=== PATIENT | male | born 1960 | race Caucasian/White ===

== ENCOUNTER 2021-10-03 08:15 | Inpatient (IN) | payer MEDICARE ==
[2021-10-03 08:38] LABS: #Eosinphils 0.2 thou/uL (0.0-0.7); #Monocytes 1.1 thou/uL (0.11-0.59); #Neutrophils 12.1 thou/uL (1.40-6.50); %Basophils 0.1 % (0.0-1.0); %Eosinophils 1.2 % (0.0-10.0); %Lymphocytes 7.2 % (21.0-51.0); %Monocytes 7.6 % (0.0-10.0); %Neutrophils 83.9 % (42.0-75.0); Hemoglobin 14.3 g/dL (14.0-18.0); Mean Corpuscular HGB CONC 32.1 g/dL (32.0-36.0); Mean Corpuscular Volume 84.3 fL (78.0-98.0); Mean Platelet Volume 6.5 fL (7.4-10.4); Platelet Count 403 thou/uL (130-400); RBC Distribution Width 13.6 % (11.5-14.5); White Blood Cell (WBC) Count 14.4 thou/uL (4.8-10.8)
[2021-10-03 09:32] LABS: ALT (SGPT) 28 U/L (8-55); AST (SGOT) 14 U/L (5-34); Alkaline Phosphatase 120 U/L (40-110); Anion Gap 21 mmol/L (10-20); BUN (Urea Nitrogen) 122 mg/dL (8.4-25.7); Bilirubin, Total 0.4 mg/dL (0.2-1.2); Calc. Creatinine Clearance 0 mL/min (70-130); Calcium 9.2 mg/dL (7.8-10.44); Carbon Dioxide 15 mmol/L (22-29); Chloride 103 mmol/L (98-107); Globulin 4.4 g/dL (2.4-3.5); Glucose 441 mg/dL (70-105); Potassium 5.8 mmol/L (3.5-5.1); Protein, Total 8.4 g/dL (6.0-8.3); Sodium 133 mmol/L (136-145)
[2021-10-03 10:42] LABS: Bilirubin Negative (Negative); Blood, Urine Large (Negative); Glucose, Urine (Dipstick) >=1000 mg/dL (Negative); Ketone, Urine Negative (Negative); Leukocyte Moderate (Negative); Nitrite Negative (Negative); Protein, Urine (Dipstick) 100 mg/dL (Neg-Trace); Urobilinogen 0.2 mg/dL (Less than 2); pH, Urine 5.5 (5.0-9.0)
[2021-10-03 10:43] LABS: Clarity Cloudy (Clear)
[2021-10-03 10:46] LABS: Base Excess -10.8 mEq/L (-2.0 to +3.0); Chloride (VBG) 104 mmol/L (98-106); Hemoglobin (Hb) 14.7 g/dL (13.1-17.2); Sodium 129.9 mmol/L (133-146); pH (venous) 7.32 (7.32-7.43)
[2021-10-03 10:48] LABS: Actual Bicarbonate (HCO3v) 14 mEq/L (22-28)
[2021-10-03] MEDS ORDERED: Insulin Regular 300 UNITS/3 ML VIAL ONE (10:48)
[2021-10-03 10:49] LABS: Bacteria/HPF 2+ HPF (None Seen); Squamous Epithelial None Seen HPF (0-3); WBC/HPF 21-50 HPF (0-3); Yeast-Budding Rare HPF (None Seen)
[2021-10-03] MEDS ORDERED: Acetaminophen 650 MG Suppository PR PRN (10:54)
[2021-10-03] MEDS ORDERED: Ondansetron ODT 4 MG TAB PO PRN (10:54)
[2021-10-03] MEDS ORDERED: Ondansetron PF 4 MG/2 ML Vial IVP PRN (10:54)
[2021-10-03] MEDS ORDERED: Dextrose 50% Abboject 50 ML SYRINGE SLOW IVP PRN (10:57)
[2021-10-03] MEDS ORDERED: Dextrose 5% in Water 1,000 ML IV PRN (10:57)
[2021-10-03] MEDS ORDERED: Sodium Bicarbonate 150 MEQ in Dextrose 5% in Water 1,000 ML IV SCH ×2 (11:00→15:47)
[2021-10-03] MEDS ORDERED: cefTRIAXone\\ROCEPHIN 2 GM VIAL ONE (11:27)
[2021-10-03] MEDS: cefTRIAXone\\ROCEPHIN 1 GM in Sodium Chloride 0.9% 100 ML IVPB SCH (11:37)
[2021-10-03 13:53] LABS: Anion Gap 22 mmol/L (10-20); BUN (Urea Nitrogen) 124 mg/dL (8.4-25.7); Calc. Creatinine Clearance 0 mL/min (70-130); Calcium 9.1 mg/dL (7.8-10.44); Chloride 108 mmol/L (98-107); Glucose 380 mg/dL (70-105); Potassium 5.5 mmol/L (3.5-5.1); Sodium 132 mmol/L (136-145)
[2021-10-03 14:05] LABS: Carbon Dioxide 8 mmol/L (22-29)
[2021-10-03 15:05] LABS: Anion Gap 17 mmol/L (10-20); BUN (Urea Nitrogen) 120 mg/dL (8.4-25.7); Calc. Creatinine Clearance 0 mL/min (70-130); Calcium 9.1 mg/dL (7.8-10.44); Carbon Dioxide 16 mmol/L (22-29); Chloride 105 mmol/L (98-107); Glucose 392 mg/dL (70-105); Potassium 5.1 mmol/L (3.5-5.1); Sodium 133 mmol/L (136-145)
[2021-10-03] MEDS: Sodium Bicarbonate 50 MEQ in Sodium Chloride 0.45% 1,000 ML IV SCH (17:42)
[2021-10-03 17:54] LABS: Anion Gap 19 mmol/L (10-20); BUN (Urea Nitrogen) 120 mg/dL (8.4-25.7); Calc. Creatinine Clearance 34 mL/min (70-130); Calcium 9.1 mg/dL (7.8-10.44); Carbon Dioxide 11 mmol/L (22-29); Chloride 107 mmol/L (98-107); Glucose 346 mg/dL (70-105); Potassium 5.4 mmol/L (3.5-5.1); Sodium 132 mmol/L (136-145)
[2021-10-03] MEDS: HumaLOG 300 UNITS/3 ML VIAL SC PRN (18:17)
[2021-10-03] MEDS ORDERED: levETIRAcetam 500 MG TAB PO SCH (21:00)
[2021-10-03 21:54] LABS: Anion Gap 18 mmol/L (10-20); BUN (Urea Nitrogen) 110 mg/dL (8.4-25.7); Calc. Creatinine Clearance 38 mL/min (70-130); Calcium 9.3 mg/dL (7.8-10.44); Carbon Dioxide 15 mmol/L (22-29); Chloride 106 mmol/L (98-107); Glucose 280 mg/dL (70-105); Potassium 4.8 mmol/L (3.5-5.1); Sodium 134 mmol/L (136-145)
[2021-10-03] MEDS: levETIRAcetam 500 MG TAB PO SCH (22:00)
[2021-10-03] MEDS: Heparin 5,000 UNITS/ML VIAL SC SCH ×2 (22:00)
[2021-10-04 01:51] LABS: Anion Gap 18 mmol/L (10-20); BUN (Urea Nitrogen) 100 mg/dL (8.4-25.7); Calc. Creatinine Clearance 42 mL/min (70-130); Calcium 9.1 mg/dL (7.8-10.44); Carbon Dioxide 15 mmol/L (22-29); Chloride 107 mmol/L (98-107); Glucose 262 mg/dL (70-105); Potassium 4.6 mmol/L (3.5-5.1); Sodium 135 mmol/L (136-145)
[2021-10-04] MEDS: HumaLOG 300 UNITS/3 ML VIAL SC PRN ×4 (02:12→20:40)
[2021-10-04] MEDS: Acetaminophen 325 MG TAB PO PRN ×2 (02:56→20:40)
[2021-10-04] MEDS ORDERED: Senokot S 8.6-50 MG TAB PO SCH (03:30)
[2021-10-04] MEDS ORDERED: Bisacodyl 10 MG SUPP PR SCH (03:30)
[2021-10-04 04:10] LABS: #Eosinphils 0.1 thou/uL (0.0-0.7); #Lymphocytes 0.9 thou/uL (1.20-3.40); #Monocytes 0.9 thou/uL (0.11-0.59); #Neutrophils 9.5 thou/uL (1.40-6.50); %Basophils 0.2 % (0.0-1.0); %Eosinophils 1.2 % (0.0-10.0); %Lymphocytes 7.9 % (21.0-51.0); %Monocytes 8.1 % (0.0-10.0); %Neutrophils 82.7 % (42.0-75.0); Hemoglobin 14.3 g/dL (14.0-18.0); Mean Corpuscular HGB CONC 33.9 g/dL (32.0-36.0); Mean Corpuscular Hemoglobin 28.3 pg (27.0-31.0); Mean Corpuscular Volume 83.3 fL (78.0-98.0); Mean Platelet Volume 6.3 fL (7.4-10.4); Platelet Count 362 thou/uL (130-400); RBC Distribution Width 13.5 % (11.5-14.5); Red Blood Cell (RBC) Count 5.05 mill/uL (4.70-6.10); White Blood Cell (WBC) Count 11.5 thou/uL (4.8-10.8)
[2021-10-04 04:35] LABS: ALT (SGPT) 24 U/L (8-55); AST (SGOT) 11 U/L (5-34); Albumin 3.7 g/dL (3.5-5.0); Alkaline Phosphatase 91 U/L (40-110); Anion Gap 19 mmol/L (10-20); BUN (Urea Nitrogen) 99 mg/dL (8.4-25.7); Bilirubin, Total 0.4 mg/dL (0.2-1.2); Calc. Creatinine Clearance 43 mL/min (70-130); Calcium 8.9 mg/dL (7.8-10.44); Carbon Dioxide 15 mmol/L (22-29); Chloride 106 mmol/L (98-107); Globulin 4.3 g/dL (2.4-3.5); Glucose 251 mg/dL (70-105); Potassium 4.7 mmol/L (3.5-5.1); Sodium 135 mmol/L (136-145)
[2021-10-04] MEDS: Sodium Bicarbonate 50 MEQ in Sodium Chloride 0.45% 1,000 ML IV SCH ×2 (05:59→15:57)
[2021-10-04] MEDS: Heparin 5,000 UNITS/ML VIAL SC SCH ×3 (07:45→20:39)
[2021-10-04] MEDS: Senokot S 8.6-50 MG TAB PO SCH ×2 (09:11→20:40)
[2021-10-04] MEDS: Tamsulosin HCl 0.4 MG CAP PO SCH (09:11)
[2021-10-04] MEDS: levETIRAcetam 500 MG TAB PO SCH ×2 (09:11→20:39)
[2021-10-04] MEDS: Atorvastatin Calcium 40 MG TAB PO SCH (09:11)
[2021-10-04] MEDS: cefTRIAXone\\ROCEPHIN 1 GM in Sodium Chloride 0.9% 100 ML IVPB SCH (11:58)
[2021-10-05] MEDS: Sodium Bicarbonate 50 MEQ in Sodium Chloride 0.45% 1,000 ML IV SCH ×3 (01:01→23:34)
[2021-10-05] MEDS: HYDROcodone/Acetaminophen 7.5/325 mg Tablet PO PRN ×2 (03:40→19:32)
[2021-10-05 04:33] LABS: Anion Gap 18 mmol/L (10-20); BUN (Urea Nitrogen) 81 mg/dL (8.4-25.7); Calc. Creatinine Clearance 48 mL/min (70-130); Calcium 8.9 mg/dL (7.8-10.44); Carbon Dioxide 19 mmol/L (22-29); Chloride 102 mmol/L (98-107); Glucose 227 mg/dL (70-105); Potassium 4.5 mmol/L (3.5-5.1); Sodium 134 mmol/L (136-145)
[2021-10-05] MEDS: HumaLOG 300 UNITS/3 ML VIAL SC PRN ×2 (06:26→21:56)
[2021-10-05] MEDS: Acetaminophen 325 MG TAB PO PRN ×3 (08:06→23:34)
[2021-10-05] MEDS: Atorvastatin Calcium 40 MG TAB PO SCH (08:07)
[2021-10-05] MEDS: Heparin 5,000 UNITS/ML VIAL SC SCH ×2 (08:08→21:56)
[2021-10-05] MEDS: levETIRAcetam 500 MG TAB PO SCH ×2 (08:08→21:56)
[2021-10-05] MEDS: Tamsulosin HCl 0.4 MG CAP PO SCH (08:09)
[2021-10-05] MEDS: Senokot S 8.6-50 MG TAB PO SCH ×2 (08:09→21:56)
[2021-10-05] MEDS ORDERED: Polyethylene Glycol 3350 17 GM Packet PO SCH (09:00)
[2021-10-05] MEDS: Docusate 100 MG CAP PO SCH ×2 (09:42→21:55)
[2021-10-05] MEDS: cefTRIAXone\\ROCEPHIN 1 GM in Sodium Chloride 0.9% 100 ML IVPB SCH (12:49)
[2021-10-06] MEDS: HYDROcodone/Acetaminophen 5/325 mg Tablet PO PRN (05:39)
[2021-10-06] MEDS: HumaLOG 300 UNITS/3 ML VIAL SC PRN ×2 (05:40→11:34)
[2021-10-06 08:51] LABS: Anion Gap 16 mmol/L (10-20); BUN (Urea Nitrogen) 64 mg/dL (8.4-25.7); Calc. Creatinine Clearance 47 mL/min (70-130); Calcium 8.1 mg/dL (7.8-10.44); Carbon Dioxide 21 mmol/L (22-29); Chloride 100 mmol/L (98-107); Glucose 171 mg/dL (70-105); Potassium 4.4 mmol/L (3.5-5.1); Sodium 133 mmol/L (136-145)
[2021-10-06] MEDS: Sodium Bicarbonate 50 MEQ in Sodium Chloride 0.45% 1,000 ML IV SCH (09:42)
[2021-10-06] MEDS: Senokot S 8.6-50 MG TAB PO SCH ×2 (09:43→21:18)
[2021-10-06] MEDS: Atorvastatin Calcium 40 MG TAB PO SCH (09:43)
[2021-10-06] MEDS: levETIRAcetam 500 MG TAB PO SCH ×2 (09:44→21:18)
[2021-10-06] MEDS: Fluconazole 100 MG TAB PO SCH (09:44)
[2021-10-06] MEDS: Tamsulosin HCl 0.4 MG CAP PO SCH (09:44)
[2021-10-06] MEDS: Heparin 5,000 UNITS/ML VIAL SC SCH ×2 (09:47→21:18)
[2021-10-06] MEDS: cefTRIAXone\\ROCEPHIN 1 GM in Sodium Chloride 0.9% 100 ML IVPB SCH (11:15)
[2021-10-06] MEDS ORDERED: Bisacodyl 10 MG SUPP PR SCH (11:30)
[2021-10-06] MEDS ORDERED: Bisacodyl 10 MG SUPP PR PRN (11:30)
[2021-10-06] MEDS: Lactated Ringer's 1,000 ML IV SCH (12:10)
[2021-10-06] MEDS: chlorproMAZINE HCl 25 MG TAB PO SCH ×3 (13:04→22:59)
[2021-10-06] MEDS: Acetaminophen 325 MG TAB PO PRN (21:18)
[2021-10-06] MEDS ORDERED: Acetaminophen 500 MG TAB PO SCH (22:30)
[2021-10-06] MEDS ORDERED: Sodium Chloride 0.9% 500 ML IV SCH (22:30)
[2021-10-07] MEDS: Lactated Ringer's 1,000 ML IV SCH ×2 (03:35→18:17)
[2021-10-07 04:33] LABS: Hemoglobin 10.9 g/dL (14.0-18.0); Mean Corpuscular HGB CONC 33.2 g/dL (32.0-36.0); Mean Corpuscular Hemoglobin 28.3 pg (27.0-31.0); Mean Corpuscular Volume 85.3 fL (78.0-98.0); Mean Platelet Volume 6.2 fL (7.4-10.4); Platelet Count 239 thou/uL (130-400); RBC Distribution Width 13.2 % (11.5-14.5); Red Blood Cell (RBC) Count 3.86 mill/uL (4.70-6.10); White Blood Cell (WBC) Count 9.4 thou/uL (4.8-10.8)
[2021-10-07 05:15] LABS: Anion Gap 14 mmol/L (10-20); BUN (Urea Nitrogen) 56 mg/dL (8.4-25.7); Calc. Creatinine Clearance 52 mL/min (70-130); Calcium 8.5 mg/dL (7.8-10.44); Carbon Dioxide 23 mmol/L (22-29); Chloride 102 mmol/L (98-107); Glucose 110 mg/dL (70-105); Sodium 135 mmol/L (136-145)
[2021-10-07] MEDS: chlorproMAZINE HCl 25 MG TAB PO SCH ×3 (05:24→18:16)
[2021-10-07] MEDS: levETIRAcetam 500 MG TAB PO SCH ×2 (09:43→21:45)
[2021-10-07] MEDS: Tamsulosin HCl 0.4 MG CAP PO SCH (09:43)
[2021-10-07] MEDS: Atorvastatin Calcium 40 MG TAB PO SCH (09:43)
[2021-10-07] MEDS: Fluconazole 100 MG TAB PO SCH (09:43)
[2021-10-07] MEDS: Senokot S 8.6-50 MG TAB PO SCH ×2 (09:44→21:45)
[2021-10-07] MEDS: Heparin 5,000 UNITS/ML VIAL SC SCH ×2 (09:53→21:45)
[2021-10-07] MEDS: Acetaminophen 325 MG TAB PO PRN (11:50)
[2021-10-07] MEDS: cefTRIAXone\\ROCEPHIN 1 GM in Sodium Chloride 0.9% 100 ML IVPB SCH (11:50)
[2021-10-07] MEDS: Cefepime 2 GM in Sodium Chloride 0.9% 100 ML IVPB SCH (21:44)
[2021-10-07] MEDS: HYDROcodone/Acetaminophen 7.5/325 mg Tablet PO PRN (21:46)
[2021-10-08] MEDS ORDERED: Lorazepam 1 MG TAB PO SCH (01:00)
[2021-10-08] MEDS: Acetaminophen 325 MG TAB PO PRN ×2 (01:20→23:25)
[2021-10-08 04:32] LABS: Hemoglobin 10.8 g/dL (14.0-18.0); Mean Corpuscular HGB CONC 32.5 g/dL (32.0-36.0); Mean Corpuscular Hemoglobin 27.8 pg (27.0-31.0); Mean Corpuscular Volume 85.3 fL (78.0-98.0); Mean Platelet Volume 6.4 fL (7.4-10.4); Platelet Count 240 thou/uL (130-400); RBC Distribution Width 12.9 % (11.5-14.5); Red Blood Cell (RBC) Count 3.89 mill/uL (4.70-6.10); White Blood Cell (WBC) Count 10.9 thou/uL (4.8-10.8)
[2021-10-08] MEDS: Lactated Ringer's 1,000 ML IV SCH (04:52)
[2021-10-08 04:53] LABS: Anion Gap 12 mmol/L (10-20); BUN (Urea Nitrogen) 43 mg/dL (8.4-25.7); Calc. Creatinine Clearance 65 mL/min (70-130); Calcium 8.4 mg/dL (7.8-10.44); Carbon Dioxide 24 mmol/L (22-29); Chloride 103 mmol/L (98-107); Glucose 139 mg/dL (70-105); Potassium 4.2 mmol/L (3.5-5.1); Sodium 135 mmol/L (136-145)
[2021-10-08] MEDS: Tamsulosin HCl 0.4 MG CAP PO SCH (10:57)
[2021-10-08] MEDS: HYDROcodone/Acetaminophen 5/325 mg Tablet PO PRN ×2 (10:57→14:54)
[2021-10-08] MEDS: Cefepime 2 GM in Sodium Chloride 0.9% 100 ML IVPB SCH ×2 (10:57→19:47)
[2021-10-08] MEDS: Senokot S 8.6-50 MG TAB PO SCH ×2 (10:57→19:48)
[2021-10-08] MEDS: Atorvastatin Calcium 40 MG TAB PO SCH (10:57)
[2021-10-08] MEDS: Heparin 5,000 UNITS/ML VIAL SC SCH ×2 (10:58→19:48)
[2021-10-08] MEDS: Fluconazole 100 MG TAB PO SCH (10:58)
[2021-10-08] MEDS: levETIRAcetam 500 MG TAB PO SCH ×2 (10:58→19:48)
[2021-10-08] MEDS: chlorproMAZINE HCl 25 MG TAB PO SCH ×2 (14:49→19:47)
[2021-10-08] MEDS: HYDROcodone/Acetaminophen 7.5/325 mg Tablet PO PRN (19:48)
[2021-10-09 04:44] LABS: Anion Gap 14 mmol/L (10-20); BUN (Urea Nitrogen) 32 mg/dL (8.4-25.7); Calc. Creatinine Clearance 69 mL/min (70-130); Calcium 8.3 mg/dL (7.8-10.44); Carbon Dioxide 21 mmol/L (22-29); Chloride 102 mmol/L (98-107); Glucose 179 mg/dL (70-105); Potassium 4.4 mmol/L (3.5-5.1); Sodium 133 mmol/L (136-145)
[2021-10-09] MEDS ORDERED: Docusate 100 MG CAP PO SCH (09:00)
[2021-10-09] MEDS: Atorvastatin Calcium 40 MG TAB PO SCH (09:58)
[2021-10-09] MEDS: Tamsulosin HCl 0.4 MG CAP PO SCH (09:58)
[2021-10-09] MEDS: Senokot S 8.6-50 MG TAB PO SCH ×2 (09:58→20:46)
[2021-10-09] MEDS: Heparin 5,000 UNITS/ML VIAL SC SCH ×2 (09:58→20:46)
[2021-10-09] MEDS: Cefepime 2 GM in Sodium Chloride 0.9% 100 ML IVPB SCH ×2 (09:58→20:47)
[2021-10-09] MEDS: Aspirin 81 mg Enteric Coated Tablet PO SCH (09:58)
[2021-10-09] MEDS: chlorproMAZINE HCl 25 MG TAB PO SCH ×2 (09:58→14:52)
[2021-10-09] MEDS: levETIRAcetam 500 MG TAB PO SCH ×2 (09:58→20:46)
[2021-10-09] MEDS ORDERED: Gabapentin 300 MG CAP PO SCH (12:00)
[2021-10-09] MEDS ORDERED: Bisacodyl 10 MG SUPP PR SCH (12:00)
[2021-10-09] MEDS ORDERED: Baclofen 10 MG TAB PO SCH (12:00)
[2021-10-09] MEDS: Acetaminophen 325 MG TAB PO PRN (14:52)
[2021-10-09] MEDS ORDERED: Lidocaine 2% Viscous Solution 10 ML, Aluminum & Magnesium Hydroxide 30 ML SSW SCH (17:15)
[2021-10-09] MEDS: HYDROcodone/Acetaminophen 7.5/325 mg Tablet PO PRN (20:46)
[2021-10-09] MEDS: Docusate 100 MG CAP PO SCH (20:46)
[2021-10-09] MEDS: Metoprolol Tartrate 25 MG TAB PO SCH (20:47)
[2021-10-10] MEDS: HYDROcodone/Acetaminophen 5/325 mg Tablet PO PRN ×2 (02:34→23:38)
[2021-10-10 05:04] LABS: Hemoglobin 11.4 g/dL (14.0-18.0); Mean Corpuscular HGB CONC 32.6 g/dL (32.0-36.0); Mean Corpuscular Hemoglobin 27.9 pg (27.0-31.0); Mean Corpuscular Volume 85.7 fL (78.0-98.0); Platelet Count 231 thou/uL (130-400); RBC Distribution Width 12.8 % (11.5-14.5); Red Blood Cell (RBC) Count 4.09 mill/uL (4.70-6.10); White Blood Cell (WBC) Count 18.1 thou/uL (4.8-10.8)
[2021-10-10 05:12] LABS: Anion Gap 19 mmol/L (10-20); BUN (Urea Nitrogen) 37 mg/dL (8.4-25.7); Calc. Creatinine Clearance 42 mL/min (70-130); Calcium 7.9 mg/dL (7.8-10.44); Carbon Dioxide 20 mmol/L (22-29); Chloride 98 mmol/L (98-107); Glucose 261 mg/dL (70-105); Potassium 5.1 mmol/L (3.5-5.1); Sodium 132 mmol/L (136-145)
[2021-10-10] MEDS: HumaLOG 300 UNITS/3 ML VIAL SC PRN (05:29)
[2021-10-10] MEDS: Atorvastatin Calcium 40 MG TAB PO SCH (10:21)
[2021-10-10] MEDS: Aspirin 81 mg Enteric Coated Tablet PO SCH (10:21)
[2021-10-10] MEDS: Metoprolol Tartrate 25 MG TAB PO SCH ×2 (10:22→20:50)
[2021-10-10] MEDS: Sodium Chloride 0.9% 1,000 ML IV SCH ×2 (10:22→20:48)
[2021-10-10] MEDS: Polyethylene Glycol 3350 17 GM Packet PO SCH (10:22)
[2021-10-10] MEDS: Senokot S 8.6-50 MG TAB PO SCH ×2 (10:22→21:00)
[2021-10-10] MEDS: levETIRAcetam 500 MG TAB PO SCH ×2 (10:22→20:50)
[2021-10-10] MEDS: Docusate 100 MG CAP PO SCH ×2 (10:22→21:00)
[2021-10-10] MEDS: Heparin 5,000 UNITS/ML VIAL SC SCH ×2 (10:22→20:49)
[2021-10-10] MEDS: Tamsulosin HCl 0.4 MG CAP PO SCH (10:35)
[2021-10-10 10:42] LABS: #Basophils 0.1 thou/uL (0.0-0.2); #Lymphocytes 0.8 thou/uL (1.20-3.40); #Monocytes 1.2 thou/uL (0.11-0.59); %Basophils 0.4 % (0.0-1.0); %Eosinophils 0.2 % (0.0-10.0); %Monocytes 8.2 % (0.0-10.0); %Neutrophils 86.1 % (42.0-75.0); Hemoglobin 11.8 g/dL (14.0-18.0); Mean Corpuscular HGB CONC 31.5 g/dL (32.0-36.0); Mean Corpuscular Hemoglobin 27.3 pg (27.0-31.0); Mean Corpuscular Volume 86.4 fL (78.0-98.0); Platelet Count 250 thou/uL (130-400); RBC Distribution Width 12.7 % (11.5-14.5); Red Blood Cell (RBC) Count 4.32 mill/uL (4.70-6.10); White Blood Cell (WBC) Count 15.1 thou/uL (4.8-10.8)
[2021-10-10] MEDS ORDERED: Metoclopramide HCl 10 MG/2 ML VIAL IVP SCH (14:15)
[2021-10-10] MEDS: Metoclopramide HCl 10 MG/2 ML VIAL IVP SCH (20:51)
[2021-10-11 04:02] LABS: #Eosinphils 0.1 thou/uL (0.0-0.7); #Lymphocytes 0.9 thou/uL (1.20-3.40); #Monocytes 1.1 thou/uL (0.11-0.59); #Neutrophils 8.1 thou/uL (1.40-6.50); %Basophils 0.1 % (0.0-1.0); %Eosinophils 1.4 % (0.0-10.0); %Lymphocytes 8.3 % (21.0-51.0); %Neutrophils 79.1 % (42.0-75.0); Hemoglobin 9.9 g/dL (14.0-18.0); Mean Corpuscular HGB CONC 32.3 g/dL (32.0-36.0); Mean Corpuscular Volume 86.5 fL (78.0-98.0); Mean Platelet Volume 7.1 fL (7.4-10.4); Platelet Count 222 thou/uL (130-400); RBC Distribution Width 12.8 % (11.5-14.5); Red Blood Cell (RBC) Count 3.54 mill/uL (4.70-6.10); White Blood Cell (WBC) Count 10.3 thou/uL (4.8-10.8)
[2021-10-11 04:05] LABS: Anion Gap 16 mmol/L (10-20); BUN (Urea Nitrogen) 40 mg/dL (8.4-25.7); Calc. Creatinine Clearance 49 mL/min (70-130); Calcium 7.6 mg/dL (7.8-10.44); Carbon Dioxide 21 mmol/L (22-29); Chloride 99 mmol/L (98-107); Glucose 184 mg/dL (70-105); Potassium 4.8 mmol/L (3.5-5.1); Sodium 131 mmol/L (136-145)
[2021-10-11] MEDS: HYDROcodone/Acetaminophen 5/325 mg Tablet PO PRN (04:20)
[2021-10-11] MEDS: Metoclopramide HCl 10 MG/2 ML VIAL IVP SCH ×3 (04:20→20:51)
[2021-10-11] MEDS: HYDROcodone/Acetaminophen 7.5/325 mg Tablet PO PRN ×3 (09:39→22:27)
[2021-10-11] MEDS: Polyethylene Glycol 3350 17 GM Packet PO SCH ×2 (09:42→09:53)
[2021-10-11] MEDS: Senokot S 8.6-50 MG TAB PO SCH ×2 (09:42→20:51)
[2021-10-11] MEDS: levETIRAcetam 500 MG TAB PO SCH ×2 (09:42→20:51)
[2021-10-11] MEDS: Heparin 5,000 UNITS/ML VIAL SC SCH ×2 (09:43→20:51)
[2021-10-11] MEDS: Atorvastatin Calcium 40 MG TAB PO SCH (09:43)
[2021-10-11] MEDS: Docusate 100 MG CAP PO SCH ×2 (09:43→21:00)
[2021-10-11] MEDS: Tamsulosin HCl 0.4 MG CAP PO SCH (09:43)
[2021-10-11] MEDS: Pantoprazole 40 MG VIAL IVP SCH (09:44)
[2021-10-11] MEDS: Aspirin 81 mg Enteric Coated Tablet PO SCH (09:44)
[2021-10-11] MEDS: Sodium Chloride 0.9% 1,000 ML IV SCH ×3 (09:45→17:57)
[2021-10-11] MEDS: Metoprolol Tartrate 25 MG TAB PO SCH ×2 (10:33→20:51)
[2021-10-11] MEDS: HumaLOG 300 UNITS/3 ML VIAL SC PRN ×3 (12:22→22:27)
[2021-10-11 15:04] VITALS: BMI 25.8
[2021-10-12] MEDS: Acetaminophen 325 MG TAB PO PRN (00:23)
[2021-10-12] MEDS: Sodium Chloride 0.9% 1,000 ML IV SCH ×2 (04:30→10:30)
[2021-10-12 04:40] LABS: #Eosinphils 0.3 thou/uL (0.0-0.7); #Lymphocytes 0.8 thou/uL (1.20-3.40); #Monocytes 0.8 thou/uL (0.11-0.59); #Neutrophils 5.8 thou/uL (1.40-6.50); %Basophils 0.1 % (0.0-1.0); %Eosinophils 3.5 % (0.0-10.0); %Lymphocytes 10.5 % (21.0-51.0); %Monocytes 10.2 % (0.0-10.0); %Neutrophils 75.7 % (42.0-75.0); Hemoglobin 9.8 g/dL (14.0-18.0); Mean Corpuscular HGB CONC 32.2 g/dL (32.0-36.0); Mean Platelet Volume 6.8 fL (7.4-10.4); Platelet Count 219 thou/uL (130-400); RBC Distribution Width 12.6 % (11.5-14.5); Red Blood Cell (RBC) Count 3.51 mill/uL (4.70-6.10); White Blood Cell (WBC) Count 7.6 thou/uL (4.8-10.8)
[2021-10-12 04:58] LABS: Anion Gap 14 mmol/L (10-20); BUN (Urea Nitrogen) 34 mg/dL (8.4-25.7); Calc. Creatinine Clearance 63 mL/min (70-130); Calcium 7.7 mg/dL (7.8-10.44); Carbon Dioxide 21 mmol/L (22-29); Chloride 102 mmol/L (98-107); Glucose 162 mg/dL (70-105); Potassium 4.3 mmol/L (3.5-5.1); Sodium 133 mmol/L (136-145)
[2021-10-12] MEDS: HYDROcodone/Acetaminophen 7.5/325 mg Tablet PO PRN ×3 (05:29→22:59)
[2021-10-12] MEDS: Metoclopramide HCl 10 MG/2 ML VIAL IVP SCH ×4 (05:30→23:00)
[2021-10-12] MEDS: levETIRAcetam 500 MG TAB PO SCH ×2 (09:42→22:58)
[2021-10-12] MEDS: Senokot S 8.6-50 MG TAB PO SCH ×2 (09:42→22:58)
[2021-10-12] MEDS: HYDROcodone/Acetaminophen 5/325 mg Tablet PO PRN (09:42)
[2021-10-12] MEDS: Docusate 100 MG CAP PO SCH ×2 (09:43→22:58)
[2021-10-12] MEDS: Aspirin 81 mg Enteric Coated Tablet PO SCH (09:43)
[2021-10-12] MEDS: Tamsulosin HCl 0.4 MG CAP PO SCH (09:43)
[2021-10-12] MEDS: Metoprolol Tartrate 25 MG TAB PO SCH ×2 (09:43→22:59)
[2021-10-12] MEDS: Polyethylene Glycol 3350 17 GM Packet PO SCH (09:45)
[2021-10-12] MEDS: Heparin 5,000 UNITS/ML VIAL SC SCH ×2 (09:45→22:59)
[2021-10-12] MEDS: Pantoprazole 40 MG VIAL IVP SCH ×2 (10:25→23:00)
[2021-10-12] MEDS: Atorvastatin Calcium 40 MG TAB PO SCH (22:59)
[2021-10-12] MEDS ORDERED: chlorproMAZINE HCl 25 MG in Sodium Chloride 0.9% 50 ML IVPB SCH (23:00)
[2021-10-13 04:08] LABS: #Eosinphils 0.1 thou/uL (0.0-0.7); #Lymphocytes 0.7 thou/uL (1.20-3.40); #Monocytes 0.8 thou/uL (0.11-0.59); #Neutrophils 5.1 thou/uL (1.40-6.50); %Basophils 0.1 % (0.0-1.0); %Eosinophils 1.7 % (0.0-10.0); %Lymphocytes 10.7 % (21.0-51.0); %Monocytes 11.9 % (0.0-10.0); %Neutrophils 75.6 % (42.0-75.0); Hemoglobin 10.1 g/dL (14.0-18.0); Mean Corpuscular HGB CONC 32.9 g/dL (32.0-36.0); Mean Corpuscular Hemoglobin 28.2 pg (27.0-31.0); Mean Corpuscular Volume 85.6 fL (78.0-98.0); Mean Platelet Volume 6.5 fL (7.4-10.4); Platelet Count 255 thou/uL (130-400); RBC Distribution Width 12.4 % (11.5-14.5); Red Blood Cell (RBC) Count 3.58 mill/uL (4.70-6.10); White Blood Cell (WBC) Count 6.7 thou/uL (4.8-10.8)
[2021-10-13] MEDS: HYDROcodone/Acetaminophen 7.5/325 mg Tablet PO PRN ×2 (04:11→18:20)
[2021-10-13 04:29] LABS: Anion Gap 13 mmol/L (10-20); BUN (Urea Nitrogen) 24 mg/dL (8.4-25.7); Calc. Creatinine Clearance 73 mL/min (70-130); Calcium 7.8 mg/dL (7.8-10.44); Carbon Dioxide 22 mmol/L (22-29); Chloride 103 mmol/L (98-107); Glucose 197 mg/dL (70-105); Potassium 4.3 mmol/L (3.5-5.1); Sodium 134 mmol/L (136-145)
[2021-10-13] MEDS: Metoclopramide HCl 10 MG/2 ML VIAL IVP SCH (05:37)
[2021-10-13] MEDS: Sodium Chloride 0.9% 1,000 ML IV SCH ×2 (05:39→21:02)
[2021-10-13] MEDS: HYDROcodone/Acetaminophen 5/325 mg Tablet PO PRN ×2 (08:02→20:25)
[2021-10-13] MEDS: levETIRAcetam 500 MG TAB PO SCH ×2 (08:03→20:26)
[2021-10-13] MEDS: Heparin 5,000 UNITS/ML VIAL SC SCH ×2 (09:13→20:25)
[2021-10-13] MEDS: Tamsulosin HCl 0.4 MG CAP PO SCH (09:14)
[2021-10-13] MEDS: Metoprolol Tartrate 25 MG TAB PO SCH ×2 (09:14→20:26)
[2021-10-13] MEDS: Pantoprazole 40 MG VIAL IVP SCH ×2 (09:14→20:26)
[2021-10-13] MEDS: Docusate 100 MG CAP PO SCH ×2 (12:13→20:24)
[2021-10-13] MEDS: Polyethylene Glycol 3350 17 GM Packet PO SCH (12:13)
[2021-10-13] MEDS: Senokot S 8.6-50 MG TAB PO SCH ×2 (12:13→20:25)
[2021-10-13] MEDS: Aspirin 81 mg Enteric Coated Tablet PO SCH (12:13)
[2021-10-13] MEDS: chlorproMAZINE HCl 25 MG in Sodium Chloride 0.9% 50 ML IVPB PRN ×2 (12:52→20:24)
[2021-10-13] MEDS ORDERED: Fentanyl 100 MCG/2 ML VIAL ONE (14:24)
[2021-10-13] MEDS ORDERED: PROPOFOL 200 MG/20 ML VIAL ONE (14:47)
[2021-10-13] MEDS ORDERED: Lidocaine 1% PF 5 ML VIAL ONE (14:47)
[2021-10-13] MEDS ORDERED: Promethazine HCl 25 MG/ML VIAL IVPB PRN (15:14)
[2021-10-13] MEDS ORDERED: Ondansetron HCl/PF 4 MG/2 ML Vial IVP PRN (15:14)
[2021-10-13] MEDS ORDERED: Promethazine HCl 25 MG/ML VIAL IM PRN (15:14)
[2021-10-13] MEDS ORDERED: Lidocaine 2% Viscous Solution 10 ML, Aluminum & Magnesium Hydroxide 30 ML SSW SCH (17:30)
[2021-10-13] MEDS: HumaLOG 300 UNITS/3 ML VIAL SC PRN (20:25)
[2021-10-13] MEDS: Atorvastatin Calcium 40 MG TAB PO SCH (20:26)
[2021-10-14] MEDS: HYDROcodone/Acetaminophen 7.5/325 mg Tablet PO PRN ×3 (00:34→21:10)
[2021-10-14] MEDS: HYDROcodone/Acetaminophen 5/325 mg Tablet PO PRN ×3 (05:17→23:33)
[2021-10-14 06:08] LABS: #Eosinphils 0.2 thou/uL (0.0-0.7); #Lymphocytes 0.6 thou/uL (1.20-3.40); #Monocytes 0.7 thou/uL (0.11-0.59); #Neutrophils 5.4 thou/uL (1.40-6.50); %Basophils 0.3 % (0.0-1.0); %Eosinophils 2.8 % (0.0-10.0); %Lymphocytes 8.9 % (21.0-51.0); %Neutrophils 78.1 % (42.0-75.0); Hemoglobin 10.8 g/dL (14.0-18.0); Mean Corpuscular HGB CONC 31.9 g/dL (32.0-36.0); Mean Corpuscular Hemoglobin 27.7 pg (27.0-31.0); Mean Corpuscular Volume 86.8 fL (78.0-98.0); Mean Platelet Volume 6.3 fL (7.4-10.4); Platelet Count 297 thou/uL (130-400); RBC Distribution Width 12.5 % (11.5-14.5); Red Blood Cell (RBC) Count 3.89 mill/uL (4.70-6.10)
[2021-10-14 06:28] LABS: Anion Gap 14 mmol/L (10-20); BUN (Urea Nitrogen) 18 mg/dL (8.4-25.7); Calc. Creatinine Clearance 78 mL/min (70-130); Calcium 8.1 mg/dL (7.8-10.44); Carbon Dioxide 23 mmol/L (22-29); Chloride 104 mmol/L (98-107); Glucose 144 mg/dL (70-105); Potassium 4.4 mmol/L (3.5-5.1); Sodium 137 mmol/L (136-145)
[2021-10-14] MEDS: Metoprolol Tartrate 25 MG TAB PO SCH ×2 (09:49→21:10)
[2021-10-14] MEDS: Docusate 100 MG CAP PO SCH ×2 (09:49→21:10)
[2021-10-14] MEDS: Aspirin 81 mg Enteric Coated Tablet PO SCH (09:49)
[2021-10-14] MEDS: Senokot S 8.6-50 MG TAB PO SCH ×2 (09:50→21:10)
[2021-10-14] MEDS: Polyethylene Glycol 3350 17 GM Packet PO SCH (09:50)
[2021-10-14] MEDS: Tamsulosin HCl 0.4 MG CAP PO SCH (09:50)
[2021-10-14] MEDS: Heparin 5,000 UNITS/ML VIAL SC SCH ×2 (09:51→21:11)
[2021-10-14] MEDS: Pantoprazole 40 MG VIAL IVP SCH ×2 (09:51→21:10)
[2021-10-14] MEDS: levETIRAcetam 500 MG TAB PO SCH ×2 (09:58→21:10)
[2021-10-14] MEDS: chlorproMAZINE HCl 25 MG in Sodium Chloride 0.9% 50 ML IVPB PRN ×2 (11:28→21:10)
[2021-10-14] MEDS: Atorvastatin Calcium 40 MG TAB PO SCH (21:10)
[2021-10-14] MEDS: Sodium Chloride 0.9% 1,000 ML IV SCH (23:47)
[2021-10-15] MEDS: HYDROcodone/Acetaminophen 7.5/325 mg Tablet PO PRN (04:25)
[2021-10-15 04:45] LABS: #Eosinphils 0.2 thou/uL (0.0-0.7); #Monocytes 0.6 thou/uL (0.11-0.59); #Neutrophils 4.5 thou/uL (1.40-6.50); %Basophils 0.2 % (0.0-1.0); %Eosinophils 3.3 % (0.0-10.0); %Lymphocytes 15.8 % (21.0-51.0); %Monocytes 9.5 % (0.0-10.0); %Neutrophils 71.2 % (42.0-75.0); Mean Corpuscular HGB CONC 32.5 g/dL (32.0-36.0); Mean Corpuscular Hemoglobin 27.7 pg (27.0-31.0); Mean Corpuscular Volume 85.3 fL (78.0-98.0); Mean Platelet Volume 6.2 fL (7.4-10.4); Platelet Count 325 thou/uL (130-400); RBC Distribution Width 12.6 % (11.5-14.5); Red Blood Cell (RBC) Count 3.98 mill/uL (4.70-6.10); White Blood Cell (WBC) Count 6.3 thou/uL (4.8-10.8)
[2021-10-15 05:08] LABS: Anion Gap 12 mmol/L (10-20); BUN (Urea Nitrogen) 15 mg/dL (8.4-25.7); Calc. Creatinine Clearance 76 mL/min (70-130); Carbon Dioxide 25 mmol/L (22-29); Chloride 104 mmol/L (98-107); Glucose 230 mg/dL (70-105); Sodium 137 mmol/L (136-145)
[2021-10-15] MEDS: HumaLOG 300 UNITS/3 ML VIAL SC PRN ×3 (06:28→21:25)
[2021-10-15] MEDS: Docusate 100 MG CAP PO SCH ×2 (10:00→21:26)
[2021-10-15] MEDS: Tamsulosin HCl 0.4 MG CAP PO SCH (10:00)
[2021-10-15] MEDS: Metoprolol Tartrate 25 MG TAB PO SCH ×2 (10:01→21:25)
[2021-10-15] MEDS: levETIRAcetam 500 MG TAB PO SCH ×2 (10:01→21:26)
[2021-10-15] MEDS: Heparin 5,000 UNITS/ML VIAL SC SCH ×2 (10:01→21:25)
[2021-10-15] MEDS: Aspirin 81 mg Enteric Coated Tablet PO SCH (10:01)
[2021-10-15] MEDS: Pantoprazole 40 MG VIAL IVP SCH ×2 (10:02→21:25)
[2021-10-15] MEDS: Senokot S 8.6-50 MG TAB PO SCH ×2 (10:03→21:26)
[2021-10-15] MEDS: Polyethylene Glycol 3350 17 GM Packet PO SCH (10:03)
[2021-10-15] MEDS: Sodium Chloride 0.9% 1,000 ML IV SCH (17:35)
[2021-10-15] MEDS: Acetaminophen 325 MG TAB PO PRN (17:41)
[2021-10-15] MEDS: Atorvastatin Calcium 40 MG TAB PO SCH (21:26)
[2021-10-16] MEDS: HumaLOG 300 UNITS/3 ML VIAL SC PRN ×3 (06:43→18:27)
[2021-10-16] MEDS: levETIRAcetam 500 MG TAB PO SCH ×2 (09:22→21:54)
[2021-10-16] MEDS: Metoprolol Tartrate 25 MG TAB PO SCH ×2 (09:22→21:54)
[2021-10-16] MEDS: Aspirin 81 mg Enteric Coated Tablet PO SCH (09:22)
[2021-10-16] MEDS: Docusate 100 MG CAP PO SCH ×2 (09:22→21:53)
[2021-10-16] MEDS: Tamsulosin HCl 0.4 MG CAP PO SCH (09:22)
[2021-10-16] MEDS: Senokot S 8.6-50 MG TAB PO SCH ×2 (09:22→21:56)
[2021-10-16] MEDS: Polyethylene Glycol 3350 17 GM Packet PO SCH (09:22)
[2021-10-16] MEDS: Heparin 5,000 UNITS/ML VIAL SC SCH ×2 (09:22→21:53)
[2021-10-16] MEDS: Pantoprazole 40 MG VIAL IVP SCH ×2 (09:22→21:55)
[2021-10-16] MEDS: Acetaminophen 325 MG TAB PO PRN (16:32)
[2021-10-16] MEDS: Sodium Chloride 0.9% 1,000 ML IV SCH (16:33)
[2021-10-16] MEDS: Atorvastatin Calcium 40 MG TAB PO SCH (21:52)
[2021-10-17] MEDS: Acetaminophen 325 MG TAB PO PRN (01:04)
[2021-10-17] MEDS: HumaLOG 300 UNITS/3 ML VIAL SC PRN ×2 (05:48→10:39)
[2021-10-17] MEDS: Tamsulosin HCl 0.4 MG CAP PO SCH (10:22)
[2021-10-17] MEDS: Polyethylene Glycol 3350 17 GM Packet PO SCH (10:22)
[2021-10-17] MEDS: Aspirin 81 mg Enteric Coated Tablet PO SCH (10:22)
[2021-10-17] MEDS: Metoprolol Tartrate 25 MG TAB PO SCH (10:22)
[2021-10-17] MEDS: Heparin 5,000 UNITS/ML VIAL SC SCH (10:22)
[2021-10-17] MEDS: Docusate 100 MG CAP PO SCH (10:22)
[2021-10-17] MEDS: Pantoprazole 40 MG VIAL IVP SCH (10:22)
[2021-10-17] MEDS: levETIRAcetam 500 MG TAB PO SCH (10:22)
[2021-10-17] MEDS: Senokot S 8.6-50 MG TAB PO SCH (10:23)
[2021-10-17] MEDS: Sodium Chloride 0.9% 1,000 ML IV SCH (10:23)
[2021-10-17 12:43] VITALS: BP 147/71; TEMP 98
== END 2021-10-17 14:02 | DRG 871 ==
LOC: ERS 08:15 → ERHOLD 10:54 → 2NO 15:15
PROVIDERS: ADMIT Internal Medicine; ATTEND Internal Medicine
PROC: 3E03329 Introduction of Other Anti-infective into Peripheral Vein, Percutaneous Approach (ICD-10-PCS; principal; 2021-10-03)
PROC: 3E1K78Z Irrigation of Genitourinary Tract using Irrigating Substance, Via Natural or Artificial Opening (ICD-10-PCS; 2021-10-03)
PROC: 0DB78ZX Excision of Stomach, Pylorus, Via Natural or Artificial Opening Endoscopic, Diagnostic (ICD-10-PCS; 2021-10-13)
DX: B37.7 Candidal sepsis (principal); Z20.822 Contact with and (suspected) exposure to COVID-19; G93.41 Metabolic encephalopathy; E87.1 Hypo-osmolality and hyponatremia; N17.9 Acute kidney failure, unspecified; N13.6 Pyonephrosis; E87.2 Acidosis; N18.4 Chronic kidney disease, stage 4 (severe); I69.351 Hemiplegia and hemiparesis following cerebral infarction affecting right dominant side; R65.20 Severe sepsis without septic shock; B37.49 Other urogenital candidiasis; E87.5 Hyperkalemia; K44.9 Diaphragmatic hernia without obstruction or gangrene; E11.65 Type 2 diabetes mellitus with hyperglycemia; H54.7 Unspecified visual loss; G40.909 Epilepsy, unspecified, not intractable, without status epilepticus; E78.5 Hyperlipidemia, unspecified; D63.1 Anemia in chronic kidney disease; I12.9 Hypertensive chronic kidney disease with stage 1 through stage 4 chronic kidney disease, or unspecified chronic kidney disease; E11.22 Type 2 diabetes mellitus with diabetic chronic kidney disease; R31.0 Gross hematuria; N40.1 Benign prostatic hyperplasia with lower urinary tract symptoms; K21.00 Gastro-esophageal reflux disease with esophagitis, without bleeding; K29.60 Other gastritis without bleeding; R33.8 Other retention of urine; K59.00 Constipation, unspecified; R06.6 Hiccough; Z79.4 Long term (current) use of insulin; I69.312 Visuospatial deficit and spatial neglect following cerebral infarction; I69.328 Other speech and language deficits following cerebral infarction; Z79.02 Long term (current) use of antithrombotics/antiplatelets; Z79.82 Long term (current) use of aspirin; Z79.899 Other long term (current) drug therapy
CPT/HCPCS: 36415; 36416; 70450; 70551; 71045; 72192; 74018; 74150; 80048; 80053; 81003; 81015; 82010; 82805; 83605; 83930; 84484; 85025; 85027; 87040; 87070; 87086; 88305; 88312; 93005; 93010; 96361; 96365; C9113; J0692; J0696; J1644; J1815; J2704; J2765; J3010; J3230; J3490; J7030; J7050; J7070; J7120; Q0161; U0003; U0005

== ENCOUNTER 2021-11-15 06:31 | Inpatient (IN) | payer MEDICARE ==
[2021-11-15 07:10] LABS: Bacteria/HPF 4+ HPF (None Seen); Bilirubin Negative (Negative); Blood, Urine 2+ (Negative); Clarity Extra Turbid (Clear); Glucose, Urine (Dipstick) 500 mg/dL (Negative); Ketone, Urine Negative (Negative); Leukocyte 500 Leu/uL (Negative); Nitrite Negative (Negative); Protein, Urine (Dipstick) 200 mg/dL (Neg-Trace); Specific Gravity, Urine 1.008 (1.002-1.036); Squamous Epithelial None Seen HPF (0-3); Urobilinogen Normal mg/dL (Less than 2); WBC/HPF Greater than 50 HPF (0-3); pH, Urine 5.5 (5.0-9.0)
[2021-11-15] MEDS ORDERED: cefTRIAXone\\ROCEPHIN 2 GM VIAL ONE ×2 (07:12→14:31)
[2021-11-15] MEDS ORDERED: Cefepime 2 GM VIAL ONE (07:21)
[2021-11-15 07:46] LABS: #Eosinphils 0.1 thou/uL (0.0-0.7); #Lymphocytes 1.3 thou/uL (1.20-3.40); #Monocytes 0.9 thou/uL (0.11-0.59); #Neutrophils 5.5 thou/uL (1.40-6.50); %Basophils 0.2 % (0.0-1.0); %Lymphocytes 16.5 % (21.0-51.0); %Monocytes 11.9 % (0.0-10.0); %Neutrophils 70.5 % (42.0-75.0); Hemoglobin 11.9 g/dL (14.0-18.0); Mean Corpuscular Hemoglobin 25.2 pg (27.0-31.0); Mean Corpuscular Volume 81.2 fL (78.0-98.0); Mean Platelet Volume 6.7 fL (7.4-10.4); Platelet Count 314 thou/uL (130-400); RBC Distribution Width 13.6 % (11.5-14.5); Red Blood Cell (RBC) Count 4.71 mill/uL (4.70-6.10); White Blood Cell (WBC) Count 7.8 thou/uL (4.8-10.8)
[2021-11-15 08:01] LABS: ALT (SGPT) 25 U/L (8-55); AST (SGOT) 11 U/L (5-34); Albumin 3.5 g/dL (3.5-5.0); Alkaline Phosphatase 72 U/L (40-110); Anion Gap 18 mmol/L (10-20); BUN (Urea Nitrogen) 56 mg/dL (8.4-25.7); Bilirubin, Total 0.7 mg/dL (0.2-1.2); Calc. Creatinine Clearance 0 mL/min (70-130); Calcium 9.1 mg/dL (7.8-10.44); Carbon Dioxide 25 mmol/L (22-29); Chloride 95 mmol/L (98-107); Estimated GFR 23; Globulin 4.2 g/dL (2.4-3.5); Glucose 244 mg/dL (70-105); Potassium 4.3 mmol/L (3.5-5.1); Protein, Total 7.7 g/dL (6.0-8.3); Sodium 134 mmol/L (136-145)
[2021-11-15] MEDS ORDERED: Vancomycin 1 GM/200 ML BAG ONE (08:08)
[2021-11-15] MEDS ORDERED: Ondansetron ODT 4 MG TAB PO PRN (11:28)
[2021-11-15] MEDS ORDERED: Dextrose 5% in Water 1,000 ML IV PRN (11:28)
[2021-11-15] MEDS ORDERED: Ondansetron PF 4 MG/2 ML Vial IVP PRN (11:28)
[2021-11-15] MEDS ORDERED: Dextrose 50% Abboject 50 ML SYRINGE SLOW IVP PRN (11:28)
[2021-11-15] MEDS: cefTRIAXone\\ROCEPHIN 2 GM in Sodium Chloride 0.9% 100 ML IVPB SCH (14:40)
[2021-11-15] MEDS: Sodium Chloride 0.9% 1,000 ML IV SCH (15:27)
[2021-11-15] MEDS ORDERED: Vancomycin Sliding Scale 1 EACH IVPB PRN (17:13)
[2021-11-15] MEDS ORDERED: Famotidine 20 MG TAB PO SCH (21:00)
[2021-11-15] MEDS: levETIRAcetam 500 MG TAB PO SCH (21:09)
[2021-11-15] MEDS: Acetaminophen 500 MG TAB PO PRN (22:33)
[2021-11-16] MEDS: Sodium Chloride 0.9% 1,000 ML IV SCH ×4 (00:02→22:43)
[2021-11-16] MEDS: Senokot S 8.6-50 MG TAB PO PRN ×2 (00:02→20:28)
[2021-11-16 04:35] LABS: #Eosinphils 0.2 thou/uL (0.0-0.7); #Lymphocytes 0.9 thou/uL (1.20-3.40); #Monocytes 0.6 thou/uL (0.11-0.59); #Neutrophils 3.9 thou/uL (1.40-6.50); %Basophils 0.5 % (0.0-1.0); %Eosinophils 3.6 % (0.0-10.0); %Lymphocytes 15.1 % (21.0-51.0); %Monocytes 10.8 % (0.0-10.0); Hemoglobin 10.5 g/dL (14.0-18.0); Mean Corpuscular HGB CONC 32.4 g/dL (32.0-36.0); Mean Corpuscular Hemoglobin 26.5 pg (27.0-31.0); Mean Platelet Volume 6.8 fL (7.4-10.4); Platelet Count 237 thou/uL (130-400); RBC Distribution Width 13.2 % (11.5-14.5); Red Blood Cell (RBC) Count 3.94 mill/uL (4.70-6.10); White Blood Cell (WBC) Count 5.6 thou/uL (4.8-10.8)
[2021-11-16 04:54] LABS: ALT (SGPT) 31 U/L (8-55); AST (SGOT) 21 U/L (5-34); Alkaline Phosphatase 74 U/L (40-110); Anion Gap 12 mmol/L (10-20); BUN (Urea Nitrogen) 41 mg/dL (8.4-25.7); Bilirubin, Total 0.4 mg/dL (0.2-1.2); Calc. Creatinine Clearance 51 mL/min (70-130); Calcium 8.2 mg/dL (7.8-10.44); Carbon Dioxide 25 mmol/L (22-29); Chloride 102 mmol/L (98-107); Estimated GFR 43; Globulin 3.6 g/dL (2.4-3.5); Glucose 196 mg/dL (70-105); Potassium 3.6 mmol/L (3.5-5.1); Protein, Total 6.6 g/dL (6.0-8.3); Sodium 135 mmol/L (136-145)
[2021-11-16] MEDS: HumaLOG 300 UNITS/3 ML VIAL SC PRN ×2 (05:51→11:22)
[2021-11-16 08:12] LABS: Vancomycin, Random 6.6 ug/mL (See Comment)
[2021-11-16] MEDS ORDERED: Vancomycin HCl 1 GM in Sodium Chloride 0.9% 250 ML 300 ML IVPB SCH (09:00)
[2021-11-16] MEDS: VANCOMYCIN 1.25 GM/250 ML BAG 1.25 GM in Premix Bag 1 BAG IVPB SCH (09:46)
[2021-11-16] MEDS: Aspirin 81 mg Enteric Coated Tablet PO SCH (09:46)
[2021-11-16] MEDS: Tamsulosin HCl 0.4 MG CAP PO SCH (09:46)
[2021-11-16] MEDS: levETIRAcetam 500 MG TAB PO SCH ×2 (09:46→20:29)
[2021-11-16] MEDS: Bisacodyl 5 MG TAB PO PRN (09:53)
[2021-11-16 12:45] LABS: SARS-CoV-2 PCR NAA for Saliva Not Detected (NotDetected)
[2021-11-16] MEDS: cefTRIAXone\\ROCEPHIN 2 GM in Sodium Chloride 0.9% 100 ML IVPB SCH (14:48)
[2021-11-16] MEDS: Famotidine 20 MG TAB PO SCH (20:28)
[2021-11-16] MEDS: Acetaminophen 500 MG TAB PO PRN (20:29)
[2021-11-16] MEDS ORDERED: Melatonin 3 MG TAB PO PRN (20:43)
[2021-11-17] MEDS: levETIRAcetam 500 MG TAB PO SCH ×2 (08:15→21:08)
[2021-11-17] MEDS: Tamsulosin HCl 0.4 MG CAP PO SCH (08:15)
[2021-11-17] MEDS: Aspirin 81 mg Enteric Coated Tablet PO SCH (08:15)
[2021-11-17] MEDS: VANCOMYCIN 1.25 GM/250 ML BAG 1.25 GM in Premix Bag 1 BAG IVPB SCH (08:22)
[2021-11-17] MEDS: Senokot S 8.6-50 MG TAB PO PRN (08:22)
[2021-11-17] MEDS: HumaLOG 300 UNITS/3 ML VIAL SC PRN (11:06)
[2021-11-17] MEDS: cefTRIAXone\\ROCEPHIN 2 GM in Sodium Chloride 0.9% 100 ML IVPB SCH (14:16)
[2021-11-17] MEDS: Sodium Chloride 0.9% 1,000 ML IV SCH (14:25)
[2021-11-17] MEDS ORDERED: Piperacillin/Tazobactam 3.375 GM in Sodium Chloride 0.9% 100 ML IVPB SCH (18:00)
[2021-11-17] MEDS: Heparin 5,000 UNITS/ML VIAL SC SCH (21:07)
[2021-11-17] MEDS: Famotidine 20 MG TAB PO SCH (21:08)
[2021-11-18] MEDS: Piperacillin/Tazobactam 3.375 GM in Sodium Chloride 0.9% 100 ML IVPB SCH ×3 (02:12→19:36)
[2021-11-18 04:42] LABS: #Eosinphils 0.2 thou/uL (0.0-0.7); #Lymphocytes 1.3 thou/uL (1.20-3.40); #Monocytes 0.7 thou/uL (0.11-0.59); #Neutrophils 4.7 thou/uL (1.40-6.50); %Basophils 0.1 % (0.0-1.0); %Eosinophils 2.9 % (0.0-10.0); %Monocytes 9.8 % (0.0-10.0); %Neutrophils 68.3 % (42.0-75.0); Hemoglobin 10.9 g/dL (14.0-18.0); Mean Corpuscular HGB CONC 33.3 g/dL (32.0-36.0); Mean Corpuscular Hemoglobin 27.3 pg (27.0-31.0); Mean Platelet Volume 6.4 fL (7.4-10.4); Platelet Count 260 thou/uL (130-400); RBC Distribution Width 12.7 % (11.5-14.5); Red Blood Cell (RBC) Count 3.97 mill/uL (4.70-6.10)
[2021-11-18] MEDS: Acetaminophen 500 MG TAB PO PRN ×2 (05:16→22:40)
[2021-11-18] MEDS: Sodium Chloride 0.9% 1,000 ML IV SCH ×3 (06:25→22:50)
[2021-11-18 08:45] LABS: Vancomycin, Trough 11.5 ug/mL
[2021-11-18 09:09] LABS: Anion Gap 15 mmol/L (10-20); BUN (Urea Nitrogen) 17 mg/dL (8.4-25.7); Calc. Creatinine Clearance 67 mL/min (70-130); Calcium 8.5 mg/dL (7.8-10.44); Carbon Dioxide 23 mmol/L (22-29); Chloride 103 mmol/L (98-107); Estimated GFR 61; Glucose 195 mg/dL (70-105); Potassium 3.7 mmol/L (3.5-5.1); Sodium 137 mmol/L (136-145)
[2021-11-18] MEDS: Vancomycin 1.5 GRAM/300 ML BAG 1.5 GM in Premix Bag 1 BAG IVPB SCH (10:12)
[2021-11-18] MEDS: Heparin 5,000 UNITS/ML VIAL SC SCH ×2 (10:13→22:31)
[2021-11-18] MEDS: Aspirin 81 mg Enteric Coated Tablet PO SCH (10:13)
[2021-11-18] MEDS: Tamsulosin HCl 0.4 MG CAP PO SCH (10:13)
[2021-11-18] MEDS: Fluconazole 100 MG TAB PO SCH (10:13)
[2021-11-18] MEDS: levETIRAcetam 500 MG TAB PO SCH ×2 (10:13→22:31)
[2021-11-18] MEDS: VANCOMYCIN 1.25 GM/250 ML BAG 1.25 GM in Premix Bag 1 BAG IVPB SCH (10:30)
[2021-11-18] MEDS: HumaLOG 300 UNITS/3 ML VIAL SC PRN ×2 (12:16→22:32)
[2021-11-18] MEDS ORDERED: Polyethylene Glycol 3350 17 GM Packet PO SCH (16:00)
[2021-11-18] MEDS: Famotidine 20 MG TAB PO SCH (22:31)
[2021-11-19] MEDS: Senokot S 8.6-50 MG TAB PO PRN ×2 (02:38→21:24)
[2021-11-19] MEDS: Piperacillin/Tazobactam 3.375 GM in Sodium Chloride 0.9% 100 ML IVPB SCH ×3 (02:38→19:02)
[2021-11-19 05:13] LABS: Anion Gap 10 mmol/L (10-20); BUN (Urea Nitrogen) 15 mg/dL (8.4-25.7); Calc. Creatinine Clearance 72 mL/min (70-130); Calcium 8.5 mg/dL (7.8-10.44); Carbon Dioxide 27 mmol/L (22-29); Chloride 103 mmol/L (98-107); Estimated GFR 66; Glucose 129 mg/dL (70-105); Potassium 3.2 mmol/L (3.5-5.1); Sodium 137 mmol/L (136-145)
[2021-11-19] MEDS: Sodium Chloride 0.9% 1,000 ML IV SCH ×2 (06:44→15:52)
[2021-11-19] MEDS: Polyethylene Glycol 3350 17 GM Packet PO SCH (10:34)
[2021-11-19] MEDS: levETIRAcetam 500 MG TAB PO SCH ×2 (10:35→21:11)
[2021-11-19] MEDS: Famotidine 20 MG TAB PO SCH ×2 (10:35→21:12)
[2021-11-19] MEDS: Aspirin 81 mg Enteric Coated Tablet PO SCH (10:35)
[2021-11-19] MEDS: Fluconazole 100 MG TAB PO SCH (10:35)
[2021-11-19] MEDS: Tamsulosin HCl 0.4 MG CAP PO SCH (10:36)
[2021-11-19] MEDS: Acetaminophen 500 MG TAB PO PRN (10:40)
[2021-11-19] MEDS: Bisacodyl 5 MG TAB PO PRN (10:40)
[2021-11-19] MEDS: Heparin 5,000 UNITS/ML VIAL SC SCH ×2 (10:44→21:12)
[2021-11-19] MEDS: HumaLOG 300 UNITS/3 ML VIAL SC PRN ×2 (13:00→16:37)
[2021-11-19] MEDS: Vancomycin 1.5 GRAM/300 ML BAG 1.5 GM in Premix Bag 1 BAG IVPB SCH (15:20)
[2021-11-19] MEDS: Atorvastatin Calcium 40 MG TAB PO SCH (21:11)
[2021-11-19] MEDS: Melatonin 3 MG TAB PO SCH (21:11)
[2021-11-19] MEDS: Metoprolol Tartrate 25 MG TAB PO SCH (21:12)
[2021-11-20] MEDS: Sodium Chloride 0.9% 1,000 ML IV SCH (02:51)
[2021-11-20] MEDS: Piperacillin/Tazobactam 3.375 GM in Sodium Chloride 0.9% 100 ML IVPB SCH ×2 (02:51→10:26)
[2021-11-20 04:32] LABS: #Eosinphils 0.3 thou/uL (0.0-0.7); #Lymphocytes 1.3 thou/uL (1.20-3.40); #Monocytes 0.6 thou/uL (0.11-0.59); #Neutrophils 4.5 thou/uL (1.40-6.50); %Basophils 0.2 % (0.0-1.0); %Eosinophils 5.2 % (0.0-10.0); %Lymphocytes 19.7 % (21.0-51.0); %Monocytes 8.4 % (0.0-10.0); %Neutrophils 66.6 % (42.0-75.0); Hemoglobin 10.7 g/dL (14.0-18.0); Mean Corpuscular HGB CONC 32.5 g/dL (32.0-36.0); Mean Corpuscular Hemoglobin 26.3 pg (27.0-31.0); Mean Corpuscular Volume 80.9 fL (78.0-98.0); Mean Platelet Volume 6.2 fL (7.4-10.4); Platelet Count 278 thou/uL (130-400); RBC Distribution Width 13.1 % (11.5-14.5); Red Blood Cell (RBC) Count 4.07 mill/uL (4.70-6.10); White Blood Cell (WBC) Count 6.8 thou/uL (4.8-10.8)
[2021-11-20 04:40] LABS: Anion Gap 13 mmol/L (10-20); BUN (Urea Nitrogen) 13 mg/dL (8.4-25.7); Calc. Creatinine Clearance 67 mL/min (70-130); Calcium 8.3 mg/dL (7.8-10.44); Carbon Dioxide 21 mmol/L (22-29); Chloride 108 mmol/L (98-107); Estimated GFR 61; Glucose 158 mg/dL (70-105); Potassium 3.5 mmol/L (3.5-5.1); Sodium 138 mmol/L (136-145)
[2021-11-20] MEDS ORDERED: Non-Formulary Item 1 EACH (Dapagliflozin Propanediol [Farxiga] 10 MG Tablet) PO SCH (09:00)
[2021-11-20] MEDS: Aspirin 81 mg Enteric Coated Tablet PO SCH (09:28)
[2021-11-20] MEDS: Amlodipine 10 MG TAB PO SCH (09:28)
[2021-11-20] MEDS: Fluconazole 100 MG TAB PO SCH (09:29)
[2021-11-20] MEDS: Famotidine 20 MG TAB PO SCH (09:29)
[2021-11-20] MEDS: Metoprolol Tartrate 25 MG TAB PO SCH ×2 (09:29→21:33)
[2021-11-20] MEDS: levETIRAcetam 500 MG TAB PO SCH ×2 (09:29→21:32)
[2021-11-20] MEDS: Heparin 5,000 UNITS/ML VIAL SC SCH ×2 (09:29→21:32)
[2021-11-20] MEDS: Tamsulosin HCl 0.4 MG CAP PO SCH (09:31)
[2021-11-20] MEDS: Polyethylene Glycol 3350 17 GM Packet PO SCH (09:31)
[2021-11-20] MEDS: HumaLOG 300 UNITS/3 ML VIAL SC PRN ×2 (12:33→21:53)
[2021-11-20] MEDS: Atorvastatin Calcium 40 MG TAB PO SCH (21:32)
[2021-11-20] MEDS: Melatonin 3 MG TAB PO SCH (21:32)
[2021-11-20] MEDS: Acetaminophen 500 MG TAB PO PRN (23:25)
[2021-11-21] MEDS: HumaLOG 300 UNITS/3 ML VIAL SC PRN ×5 (06:30→20:47)
[2021-11-21 07:47] VITALS: BMI 27.1
[2021-11-21] MEDS: Amlodipine 10 MG TAB PO SCH (09:23)
[2021-11-21] MEDS: Aspirin 81 mg Enteric Coated Tablet PO SCH (09:23)
[2021-11-21] MEDS: Tamsulosin HCl 0.4 MG CAP PO SCH (09:24)
[2021-11-21] MEDS: Fluconazole 100 MG TAB PO SCH (09:24)
[2021-11-21] MEDS: Metoprolol Tartrate 25 MG TAB PO SCH ×2 (09:24→20:47)
[2021-11-21] MEDS: levETIRAcetam 500 MG TAB PO SCH ×2 (09:24→20:46)
[2021-11-21 10:01] LABS: #Eosinphils 0.3 thou/uL (0.0-0.7); #Lymphocytes 1.1 thou/uL (1.20-3.40); #Monocytes 0.6 thou/uL (0.11-0.59); #Neutrophils 4.6 thou/uL (1.40-6.50); %Basophils 0.1 % (0.0-1.0); %Eosinophils 4.1 % (0.0-10.0); %Lymphocytes 16.2 % (21.0-51.0); %Monocytes 9.1 % (0.0-10.0); %Neutrophils 70.5 % (42.0-75.0); Hemoglobin 11.3 g/dL (14.0-18.0); Mean Corpuscular HGB CONC 31.2 g/dL (32.0-36.0); Mean Corpuscular Hemoglobin 25.5 pg (27.0-31.0); Mean Platelet Volume 6.3 fL (7.4-10.4); Platelet Count 306 thou/uL (130-400); RBC Distribution Width 13.2 % (11.5-14.5); Red Blood Cell (RBC) Count 4.42 mill/uL (4.70-6.10); White Blood Cell (WBC) Count 6.5 thou/uL (4.8-10.8)
[2021-11-21 10:20] LABS: Anion Gap 13 mmol/L (10-20); BUN (Urea Nitrogen) 13 mg/dL (8.4-25.7); Calc. Creatinine Clearance 65 mL/min (70-130); Calcium 8.5 mg/dL (7.8-10.44); Carbon Dioxide 26 mmol/L (22-29); Chloride 104 mmol/L (98-107); Estimated GFR 55; Glucose 209 mg/dL (70-105); Potassium 3.7 mmol/L (3.5-5.1); Sodium 139 mmol/L (136-145)
[2021-11-21] MEDS: Heparin 5,000 UNITS/ML VIAL SC SCH ×2 (10:40→20:46)
[2021-11-21] MEDS: Polyethylene Glycol 3350 17 GM Packet PO SCH (14:50)
[2021-11-21] MEDS: Melatonin 3 MG TAB PO SCH (20:46)
[2021-11-21] MEDS: Atorvastatin Calcium 40 MG TAB PO SCH (20:47)
[2021-11-22] MEDS: Aspirin 81 mg Enteric Coated Tablet PO SCH (09:12)
[2021-11-22] MEDS: Fluconazole 100 MG TAB PO SCH (09:13)
[2021-11-22] MEDS: levETIRAcetam 500 MG TAB PO SCH ×2 (09:13→21:26)
[2021-11-22] MEDS: Metoprolol Tartrate 25 MG TAB PO SCH ×2 (09:13→21:34)
[2021-11-22] MEDS: Polyethylene Glycol 3350 17 GM Packet PO SCH (09:13)
[2021-11-22] MEDS: Heparin 5,000 UNITS/ML VIAL SC SCH ×2 (09:13→21:24)
[2021-11-22] MEDS: Tamsulosin HCl 0.4 MG CAP PO SCH (09:13)
[2021-11-22] MEDS: Amlodipine 10 MG TAB PO SCH (09:14)
[2021-11-22] MEDS: Acetaminophen 500 MG TAB PO PRN (09:17)
[2021-11-22] MEDS: HumaLOG 300 UNITS/3 ML VIAL SC PRN ×3 (11:04→21:37)
[2021-11-22] MEDS: Atorvastatin Calcium 40 MG TAB PO SCH (21:27)
[2021-11-22] MEDS: Melatonin 3 MG TAB PO SCH (21:27)
[2021-11-23 05:08] LABS: #Eosinphils 0.2 thou/uL (0.0-0.7); #Monocytes 0.8 thou/uL (0.11-0.59); #Neutrophils 6.9 thou/uL (1.40-6.50); %Basophils 0.2 % (0.0-1.0); %Eosinophils 1.9 % (0.0-10.0); %Lymphocytes 11.3 % (21.0-51.0); %Monocytes 9.3 % (0.0-10.0); %Neutrophils 77.3 % (42.0-75.0); Hemoglobin 10.2 g/dL (14.0-18.0); Mean Corpuscular HGB CONC 31.7 g/dL (32.0-36.0); Mean Platelet Volume 6.1 fL (7.4-10.4); Platelet Count 305 thou/uL (130-400); RBC Distribution Width 13.3 % (11.5-14.5); Red Blood Cell (RBC) Count 3.94 mill/uL (4.70-6.10); White Blood Cell (WBC) Count 8.9 thou/uL (4.8-10.8)
[2021-11-23 05:28] LABS: Anion Gap 13 mmol/L (10-20); BUN (Urea Nitrogen) 17 mg/dL (8.4-25.7); Calc. Creatinine Clearance 54 mL/min (70-130); Calcium 8.4 mg/dL (7.8-10.44); Carbon Dioxide 24 mmol/L (22-29); Chloride 102 mmol/L (98-107); Estimated GFR 45; Glucose 205 mg/dL (70-105); Potassium 3.3 mmol/L (3.5-5.1); Sodium 136 mmol/L (136-145)
[2021-11-23] MEDS: HumaLOG 300 UNITS/3 ML VIAL SC PRN ×3 (06:30→16:42)
[2021-11-23] MEDS: Heparin 5,000 UNITS/ML VIAL SC SCH (09:32)
[2021-11-23] MEDS: Tamsulosin HCl 0.4 MG CAP PO SCH (09:32)
[2021-11-23] MEDS: Aspirin 81 mg Enteric Coated Tablet PO SCH (09:33)
[2021-11-23] MEDS: Metoprolol Tartrate 25 MG TAB PO SCH (09:33)
[2021-11-23] MEDS: Polyethylene Glycol 3350 17 GM Packet PO SCH (09:33)
[2021-11-23] MEDS: Fluconazole 100 MG TAB PO SCH (09:33)
[2021-11-23] MEDS: Amlodipine 10 MG TAB PO SCH (09:33)
[2021-11-23] MEDS: levETIRAcetam 500 MG TAB PO SCH (09:33)
[2021-11-23 16:42] VITALS: BP 125/74; TEMP 98.7
== END 2021-11-23 17:20 | disposition home health service (06) | DRG 698 ==
LOC: ERS 06:31 → ERHOLD 09:15 → 2NO 15:40 → MSONC 11-22 20:56
PROVIDERS: ADMIT Family Medicine; ATTEND Family Medicine
DX: T83.511A Infection and inflammatory reaction due to indwelling urethral catheter, initial encounter (principal); B37.7 Candidal sepsis; N17.9 Acute kidney failure, unspecified; N13.6 Pyonephrosis; I69.951 Hemiplegia and hemiparesis following unspecified cerebrovascular disease affecting right dominant side; Z20.822 Contact with and (suspected) exposure to COVID-19; E11.21 Type 2 diabetes mellitus with diabetic nephropathy; G40.909 Epilepsy, unspecified, not intractable, without status epilepticus; I95.9 Hypotension, unspecified; K52.9 Noninfective gastroenteritis and colitis, unspecified; I12.9 Hypertensive chronic kidney disease with stage 1 through stage 4 chronic kidney disease, or unspecified chronic kidney disease; N18.9 Chronic kidney disease, unspecified; Z79.4 Long term (current) use of insulin; Z90.49 Acquired absence of other specified parts of digestive tract; Z79.02 Long term (current) use of antithrombotics/antiplatelets; Z79.899 Other long term (current) drug therapy; K59.00 Constipation, unspecified
CPT/HCPCS: 36415; 36416; 71045; 74176; 80048; 80053; 80202; 81003; 81015; 83605; 84145; 85025; 87040; 87086; 93005; 96365; 96366; 96367; J0692; J0696; J1644; J1815; J2543; J3370; J3490; J7050; Q0162; U0003; U0005

== ENCOUNTER 2021-11-27 17:11 | Inpatient (IN) | payer MEDICARE ==
[2021-11-27 17:52] LABS: Clarity Extra Turbid (Clear)
[2021-11-27 17:54] LABS: Specific Gravity, Urine 1.011 (1.002-1.036)
[2021-11-27 17:55] LABS: Bilirubin Unable to Interpret (Negative); Blood, Urine Unable to Interpret (Negative); Glucose, Urine (Dipstick) Unable to Interpret mg/dL (Negative); Ketone, Urine Unable to Interpret mg/dL (Negative); Leukocyte Unable to Interpret (Negative); Nitrite Unable to Interpret (Negative); Protein, Urine (Dipstick) Unable to Interpret mg/dL (Neg-Trace); Urobilinogen UNABLE TO INTERPRET mg/dL (Less than 2)
[2021-11-27 18:01] LABS: Bacteria/HPF 3+ HPF (None Seen); RBC/HPF 0-3 HPF (0-3); Squamous Epithelial None Seen HPF (0-3); WBC/HPF Greater Than 50 HPF (0-3)
[2021-11-27 18:03] LABS: #Basophils 0.1 thou/uL (0.0-0.2); #Eosinphils 0.4 thou/uL (0.0-0.7); #Lymphocytes 1.3 thou/uL (1.20-3.40); #Monocytes 0.7 thou/uL (0.11-0.59); #Neutrophils 5.9 thou/uL (1.40-6.50); %Basophils 0.7 % (0.0-1.0); %Lymphocytes 15.7 % (21.0-51.0); %Monocytes 8.5 % (0.0-10.0); %Neutrophils 70.1 % (42.0-75.0); Hemoglobin 11.7 g/dL (14.0-18.0); Mean Corpuscular HGB CONC 32.1 g/dL (32.0-36.0); Mean Corpuscular Hemoglobin 26.1 pg (27.0-31.0); Mean Corpuscular Volume 81.3 fL (78.0-98.0); Mean Platelet Volume 7.1 fL (7.4-10.4); Platelet Count 332 thou/uL (130-400); RBC Distribution Width 13.5 % (11.5-14.5); Red Blood Cell (RBC) Count 4.48 mill/uL (4.70-6.10); White Blood Cell (WBC) Count 8.4 thou/uL (4.8-10.8)
[2021-11-27] MEDS ORDERED: Acetaminophen 500 MG TAB ONE (18:19)
[2021-11-27 19:09] LABS: ALT (SGPT) 18 U/L (8-55); AST (SGOT) 12 U/L (5-34); Albumin 3.7 g/dL (3.5-5.0); Alkaline Phosphatase 81 U/L (40-110); Anion Gap 19 mmol/L (10-20); BUN (Urea Nitrogen) 36 mg/dL (8.4-25.7); Bilirubin, Total 0.4 mg/dL (0.2-1.2); Calc. Creatinine Clearance 0 mL/min (70-130); Calcium 9.3 mg/dL (7.8-10.44); Carbon Dioxide 23 mmol/L (22-29); Chloride 103 mmol/L (98-107); Estimated GFR 19; Globulin 4.8 g/dL (2.4-3.5); Glucose 160 mg/dL (70-105); Magnesium 1.9 mg/dL (1.6-2.6); Potassium 4.3 mmol/L (3.5-5.1); Protein, Total 8.5 g/dL (6.0-8.3); Sodium 141 mmol/L (136-145)
[2021-11-27] MEDS ORDERED: Piperacillin/Tazobactam 4.5 GM VIAL ONE (20:03)
[2021-11-27] MEDS ORDERED: Ondansetron ODT 4 MG TAB SL PRN (20:15)
[2021-11-27] MEDS ORDERED: Fluconazole In NaCl,Iso-Osm 200 MG in Premix Bag 1 BAG IVPB SCH (20:15)
[2021-11-27] MEDS ORDERED: Acetaminophen 325 MG TAB PO PRN (20:15)
[2021-11-27] MEDS ORDERED: Ondansetron PF 4 MG/2 ML Vial IVP PRN (20:15)
[2021-11-27 20:28] LABS: Amphetamine Not Detected (NotDetected); Barbiturates Screen Not Detected (NotDetected); Benzodiazepine Screen Not Detected (NotDetected); Cocaine Metabolite Screen Not Detected (NotDetected); Methadone Not Detected (NotDetected); Methamphetamine Not Detected (NotDetected); Opiate Screen Not Detected (NotDetected); Oxycodone Screen Not Detected (NotDetected); Phencyclidine (PCP) Not Detected (NotDetected); THC/Cannabinoid Screen Not Detected (NotDetected); Tricyclic Screen Not Detected (NotDetected)
[2021-11-27] MEDS ORDERED: Vancomycin 1 GM/200 ML BAG ONE (20:30)
[2021-11-27] MEDS ORDERED: Dextrose 50% Abboject 50 ML SYRINGE SLOW IVP PRN (20:50)
[2021-11-27] MEDS ORDERED: Dextrose 5% in Water 1,000 ML IV PRN (20:50)
[2021-11-27] MEDS ORDERED: HumaLOG 300 UNITS/3 ML VIAL SC PRN (20:50)
[2021-11-27] MEDS ORDERED: Heparin 5,000 UNITS/ML VIAL SC SCH (21:00)
[2021-11-27] MEDS ORDERED: levETIRAcetam 500 MG TAB PO SCH (21:00)
[2021-11-27 22:37] VITALS: BMI 25.4
[2021-11-27] MEDS: Sodium Chloride 0.9% 1,000 ML IV SCH (23:13)
[2021-11-28] MEDS: cefTRIAXone\\ROCEPHIN 1 GM in Sodium Chloride 0.9% 100 ML IVPB SCH (03:33)
[2021-11-28 06:29] LABS: #Basophils 0.1 thou/uL (0.0-0.2); #Eosinphils 0.3 thou/uL (0.0-0.7); #Lymphocytes 1.1 thou/uL (1.20-3.40); #Monocytes 0.5 thou/uL (0.11-0.59); #Neutrophils 4.4 thou/uL (1.40-6.50); %Basophils 0.8 % (0.0-1.0); %Eosinophils 4.2 % (0.0-10.0); %Lymphocytes 17.8 % (21.0-51.0); %Monocytes 8.3 % (0.0-10.0); %Neutrophils 68.9 % (42.0-75.0); Hemoglobin 9.9 g/dL (14.0-18.0); Mean Corpuscular Hemoglobin 25.7 pg (27.0-31.0); Mean Corpuscular Volume 82.8 fL (78.0-98.0); Mean Platelet Volume 6.4 fL (7.4-10.4); Platelet Count 321 thou/uL (130-400); RBC Distribution Width 13.3 % (11.5-14.5); Red Blood Cell (RBC) Count 3.88 mill/uL (4.70-6.10); White Blood Cell (WBC) Count 6.4 thou/uL (4.8-10.8)
[2021-11-28 06:58] LABS: Anion Gap 18 mmol/L (10-20); BUN (Urea Nitrogen) 34 mg/dL (8.4-25.7); Calc. Creatinine Clearance 28 mL/min (70-130); Calcium 8.7 mg/dL (7.8-10.44); Carbon Dioxide 21 mmol/L (22-29); Chloride 106 mmol/L (98-107); Estimated GFR 22; Glucose 134 mg/dL (70-105); Potassium 3.4 mmol/L (3.5-5.1); Sodium 142 mmol/L (136-145)
[2021-11-28] MEDS ORDERED: Potassium Chloride 10 MEQ TAB PO SCH (07:45)
[2021-11-28] MEDS: Aspirin 81 mg Enteric Coated Tablet PO SCH (08:38)
[2021-11-28] MEDS: levETIRAcetam 500 MG TAB PO SCH ×2 (08:38→22:56)
[2021-11-28] MEDS: Tamsulosin HCl 0.4 MG CAP PO SCH (08:39)
[2021-11-28] MEDS: Sodium Chloride 0.9% 1,000 ML IV SCH (08:39)
[2021-11-28] MEDS: Atorvastatin Calcium 40 MG TAB PO SCH (08:39)
[2021-11-28] MEDS: Empagliflozin 25 MG TAB PO SCH (09:33)
[2021-11-28] MEDS ORDERED: Bisacodyl 5 MG TAB PO SCH (10:30)
[2021-11-28] MEDS: Fluconazole 100 MG TAB PO SCH (22:55)
[2021-11-29] MEDS: Acetaminophen 325 MG TAB PO PRN ×2 (03:40→23:47)
[2021-11-29] MEDS: cefTRIAXone\\ROCEPHIN 1 GM in Sodium Chloride 0.9% 100 ML IVPB SCH (03:41)
[2021-11-29 07:42] LABS: #Basophils 0.1 thou/uL (0.0-0.2); #Eosinphils 0.2 thou/uL (0.0-0.7); #Lymphocytes 1.4 thou/uL (1.20-3.40); #Monocytes 0.5 thou/uL (0.11-0.59); #Neutrophils 4.4 thou/uL (1.40-6.50); %Basophils 0.8 % (0.0-1.0); %Eosinophils 3.4 % (0.0-10.0); %Lymphocytes 21.6 % (21.0-51.0); %Neutrophils 66.2 % (42.0-75.0); Hemoglobin 9.8 g/dL (14.0-18.0); Mean Corpuscular HGB CONC 31.6 g/dL (32.0-36.0); Mean Corpuscular Hemoglobin 25.9 pg (27.0-31.0); Mean Corpuscular Volume 81.9 fL (78.0-98.0); Mean Platelet Volume 6.3 fL (7.4-10.4); Platelet Count 323 thou/uL (130-400); RBC Distribution Width 13.2 % (11.5-14.5); Red Blood Cell (RBC) Count 3.77 mill/uL (4.70-6.10); White Blood Cell (WBC) Count 6.6 thou/uL (4.8-10.8)
[2021-11-29 08:06] LABS: Anion Gap 14 mmol/L (10-20); BUN (Urea Nitrogen) 29 mg/dL (8.4-25.7); Calc. Creatinine Clearance 35 mL/min (70-130); Calcium 8.5 mg/dL (7.8-10.44); Carbon Dioxide 23 mmol/L (22-29); Chloride 104 mmol/L (98-107); Estimated GFR 28; Glucose 148 mg/dL (70-105); Potassium 3.5 mmol/L (3.5-5.1); Sodium 137 mmol/L (136-145)
[2021-11-29] MEDS: levETIRAcetam 500 MG TAB PO SCH ×2 (08:36→21:05)
[2021-11-29] MEDS: Empagliflozin 25 MG TAB PO SCH (08:36)
[2021-11-29] MEDS: Atorvastatin Calcium 40 MG TAB PO SCH (08:37)
[2021-11-29] MEDS: Tamsulosin HCl 0.4 MG CAP PO SCH (08:37)
[2021-11-29] MEDS: Aspirin 81 mg Enteric Coated Tablet PO SCH (08:37)
[2021-11-29] MEDS: Sodium Chloride 0.9% 1,000 ML IV SCH ×3 (08:38→21:22)
[2021-11-29] MEDS: Bisacodyl 5 MG TAB PO PRN (09:59)
[2021-11-29] MEDS: HumaLOG 300 UNITS/3 ML VIAL SC PRN ×2 (12:21→16:42)
[2021-11-29] MEDS: Fluconazole 100 MG TAB PO SCH (21:05)
[2021-11-30 06:54] LABS: #Eosinphils 0.2 thou/uL (0.0-0.7); #Lymphocytes 1.3 thou/uL (1.20-3.40); #Monocytes 0.6 thou/uL (0.11-0.59); #Neutrophils 4.3 thou/uL (1.40-6.50); %Basophils 0.8 % (0.0-1.0); %Eosinophils 3.2 % (0.0-10.0); %Lymphocytes 19.7 % (21.0-51.0); %Monocytes 8.9 % (0.0-10.0); %Neutrophils 67.4 % (42.0-75.0); Hemoglobin 9.9 g/dL (14.0-18.0); Mean Corpuscular Hemoglobin 26.1 pg (27.0-31.0); Mean Corpuscular Volume 81.6 fL (78.0-98.0); Mean Platelet Volume 6.3 fL (7.4-10.4); Platelet Count 317 thou/uL (130-400); RBC Distribution Width 13.1 % (11.5-14.5); Red Blood Cell (RBC) Count 3.79 mill/uL (4.70-6.10); White Blood Cell (WBC) Count 6.4 thou/uL (4.8-10.8)
[2021-11-30 07:23] LABS: Anion Gap 15 mmol/L (10-20); BUN (Urea Nitrogen) 24 mg/dL (8.4-25.7); Calc. Creatinine Clearance 39 mL/min (70-130); Calcium 8.6 mg/dL (7.8-10.44); Carbon Dioxide 24 mmol/L (22-29); Chloride 104 mmol/L (98-107); Estimated GFR 32; Glucose 154 mg/dL (70-105); Potassium 3.5 mmol/L (3.5-5.1); Sodium 139 mmol/L (136-145)
[2021-11-30] MEDS: Aspirin 81 mg Enteric Coated Tablet PO SCH (08:49)
[2021-11-30] MEDS: levETIRAcetam 500 MG TAB PO SCH ×2 (08:49→19:59)
[2021-11-30] MEDS: Empagliflozin 25 MG TAB PO SCH (08:49)
[2021-11-30] MEDS: Atorvastatin Calcium 40 MG TAB PO SCH (08:49)
[2021-11-30] MEDS: Tamsulosin HCl 0.4 MG CAP PO SCH (08:49)
[2021-11-30] MEDS: HumaLOG 300 UNITS/3 ML VIAL SC PRN ×2 (12:31→17:03)
[2021-11-30] MEDS: Sodium Chloride 0.9% 1,000 ML IV SCH (14:25)
[2021-11-30] MEDS: Acetaminophen 325 MG TAB PO PRN (18:33)
[2021-11-30] MEDS: traMADol HCl 50 MG TAB PO PRN (20:35)
[2021-11-30] MEDS: Fluconazole 100 MG TAB PO SCH (22:45)
[2021-12-01] MEDS: Sodium Chloride 0.9% 1,000 ML IV SCH ×2 (04:41→20:06)
[2021-12-01] MEDS: traMADol HCl 50 MG TAB PO PRN (05:22)
[2021-12-01 07:46] LABS: Anion Gap 13 mmol/L (10-20); BUN (Urea Nitrogen) 22 mg/dL (8.4-25.7); Calc. Creatinine Clearance 44 mL/min (70-130); Calcium 8.6 mg/dL (7.8-10.44); Carbon Dioxide 26 mmol/L (22-29); Chloride 105 mmol/L (98-107); Estimated GFR 37; Glucose 164 mg/dL (70-105); Potassium 3.7 mmol/L (3.5-5.1); Sodium 140 mmol/L (136-145)
[2021-12-01] MEDS: levETIRAcetam 500 MG TAB PO SCH ×2 (08:26→20:11)
[2021-12-01] MEDS: Tamsulosin HCl 0.4 MG CAP PO SCH (08:26)
[2021-12-01] MEDS: Atorvastatin Calcium 40 MG TAB PO SCH (08:26)
[2021-12-01] MEDS: Empagliflozin 25 MG TAB PO SCH (08:26)
[2021-12-01] MEDS: Aspirin 81 mg Enteric Coated Tablet PO SCH (08:26)
[2021-12-01] MEDS: Acetaminophen 325 MG TAB PO PRN ×2 (11:30→20:11)
[2021-12-01] MEDS: HumaLOG 300 UNITS/3 ML VIAL SC PRN (12:44)
[2021-12-01] MEDS: Fluconazole 100 MG TAB PO SCH (20:11)
[2021-12-01] MEDS: Melatonin 3 MG TAB PO PRN (20:11)
[2021-12-02 08:20] LABS: Anion Gap 14 mmol/L (10-20); BUN (Urea Nitrogen) 20 mg/dL (8.4-25.7); Calc. Creatinine Clearance 51 mL/min (70-130); Calcium 8.8 mg/dL (7.8-10.44); Carbon Dioxide 25 mmol/L (22-29); Chloride 104 mmol/L (98-107); Estimated GFR 44; Glucose 154 mg/dL (70-105); Potassium 3.4 mmol/L (3.5-5.1); Sodium 140 mmol/L (136-145)
[2021-12-02] MEDS: Acetaminophen 325 MG TAB PO PRN ×2 (08:20→20:05)
[2021-12-02] MEDS: Atorvastatin Calcium 40 MG TAB PO SCH (08:20)
[2021-12-02] MEDS: levETIRAcetam 500 MG TAB PO SCH ×2 (08:20→20:05)
[2021-12-02] MEDS: Aspirin 81 mg Enteric Coated Tablet PO SCH (08:20)
[2021-12-02] MEDS: Empagliflozin 25 MG TAB PO SCH (08:20)
[2021-12-02] MEDS: Tamsulosin HCl 0.4 MG CAP PO SCH (08:20)
[2021-12-02] MEDS: Bisacodyl 5 MG TAB PO PRN (10:55)
[2021-12-02] MEDS ORDERED: Potassium Chloride 20 MEQ TAB PO SCH (11:45)
[2021-12-02] MEDS: Sodium Chloride 0.9% 1,000 ML IV SCH ×2 (20:04→20:16)
[2021-12-02] MEDS: Melatonin 3 MG TAB PO PRN (20:05)
[2021-12-03 07:23] LABS: Anion Gap 15 mmol/L (10-20); BUN (Urea Nitrogen) 19 mg/dL (8.4-25.7); Calc. Creatinine Clearance 54 mL/min (70-130); Calcium 8.8 mg/dL (7.8-10.44); Carbon Dioxide 25 mmol/L (22-29); Chloride 105 mmol/L (98-107); Estimated GFR 48; Glucose 139 mg/dL (70-105); Potassium 3.6 mmol/L (3.5-5.1); Sodium 141 mmol/L (136-145)
[2021-12-03] MEDS: Atorvastatin Calcium 40 MG TAB PO SCH (07:55)
[2021-12-03] MEDS: levETIRAcetam 500 MG TAB PO SCH ×2 (07:55→21:17)
[2021-12-03] MEDS: Aspirin 81 mg Enteric Coated Tablet PO SCH (07:55)
[2021-12-03] MEDS: Sodium Chloride 0.9% 1,000 ML IV SCH ×2 (07:56→21:22)
[2021-12-03] MEDS: Lidocaine 5% Patch TD SCH (07:56)
[2021-12-03] MEDS: Tamsulosin HCl 0.4 MG CAP PO SCH (07:56)
[2021-12-03] MEDS: Empagliflozin 25 MG TAB PO SCH (07:56)
[2021-12-03] MEDS ORDERED: Acetaminophen/Codeine 30-300mg Tablet PO PRN (12:14)
[2021-12-03] MEDS: Bisacodyl 5 MG TAB PO PRN (12:49)
[2021-12-03] MEDS: Simethicone Chewable 80 MG TAB PO SCH ×2 (14:19→21:17)
[2021-12-03] MEDS ORDERED: Transdermal Patch Removal TOP SCH (21:00)
[2021-12-03] MEDS: Melatonin 3 MG TAB PO PRN (21:18)
[2021-12-04 06:51] LABS: Anion Gap 15 mmol/L (10-20); BUN (Urea Nitrogen) 18 mg/dL (8.4-25.7); Calc. Creatinine Clearance 56 mL/min (70-130); Calcium 8.4 mg/dL (7.8-10.44); Carbon Dioxide 24 mmol/L (22-29); Chloride 100 mmol/L (98-107); Estimated GFR 49; Glucose 175 mg/dL (70-105); Potassium 3.6 mmol/L (3.5-5.1); Sodium 135 mmol/L (136-145)
[2021-12-04 07:51] VITALS: BP 127/77; TEMP 98.2
[2021-12-04] MEDS: Tamsulosin HCl 0.4 MG CAP PO SCH (08:26)
[2021-12-04] MEDS: Simethicone Chewable 80 MG TAB PO SCH (08:26)
[2021-12-04] MEDS: levETIRAcetam 500 MG TAB PO SCH (08:26)
[2021-12-04] MEDS: Lidocaine 5% Patch TD SCH (08:26)
[2021-12-04] MEDS: Atorvastatin Calcium 40 MG TAB PO SCH (08:26)
[2021-12-04] MEDS: Aspirin 81 mg Enteric Coated Tablet PO SCH (08:26)
[2021-12-04] MEDS: Empagliflozin 25 MG TAB PO SCH (08:26)
== END 2021-12-04 14:22 | DRG 699 ==
LOC: ERS 17:11 → T4-B 20:04
PROVIDERS: ADMIT Internal Medicine; ATTEND Internal Medicine
DX: T83.511A Infection and inflammatory reaction due to indwelling urethral catheter, initial encounter (principal); Z20.822 Contact with and (suspected) exposure to COVID-19; B37.41 Candidal cystitis and urethritis; I69.351 Hemiplegia and hemiparesis following cerebral infarction affecting right dominant side; N13.6 Pyonephrosis; N18.4 Chronic kidney disease, stage 4 (severe); N13.8 Other obstructive and reflux uropathy; D63.1 Anemia in chronic kidney disease; E78.5 Hyperlipidemia, unspecified; I12.9 Hypertensive chronic kidney disease with stage 1 through stage 4 chronic kidney disease, or unspecified chronic kidney disease; E11.22 Type 2 diabetes mellitus with diabetic chronic kidney disease; G40.909 Epilepsy, unspecified, not intractable, without status epilepticus; N18.9 Chronic kidney disease, unspecified; Y84.6 Urinary catheterization as the cause of abnormal reaction of the patient, or of later complication, without mention of misadventure at the time of the procedure; E87.6 Hypokalemia; N40.1 Benign prostatic hyperplasia with lower urinary tract symptoms; R33.8 Other retention of urine; R29.6 Repeated falls; S46.919A Strain of unspecified muscle, fascia and tendon at shoulder and upper arm level, unspecified arm, initial encounter; W18.30XA Fall on same level, unspecified, initial encounter; Z79.899 Other long term (current) drug therapy; Z79.82 Long term (current) use of aspirin; Z90.49 Acquired absence of other specified parts of digestive tract; Z83.3 Family history of diabetes mellitus; Z87.891 Personal history of nicotine dependence; Z91.81 History of falling; Z87.440 Personal history of urinary (tract) infections; Z79.84 Long term (current) use of oral hypoglycemic drugs
CPT/HCPCS: 36415; 36416; 70450; 72125; 76770; 80048; 80053; 80306; 81003; 81015; 83735; 85025; 87040; 87086; 93005; 96374; 96375; J0696; J1450; J1644; J1815; J2543; J3370; J3490; J7050; U0003; U0005

== ENCOUNTER 2021-12-24 20:50 | Inpatient (IN) | payer MEDICARE ==
[2021-12-24 22:31] LABS: #Eosinphils 0.2 thou/uL (0.0-0.7); #Lymphocytes 1.3 thou/uL (1.20-3.40); #Monocytes 0.8 thou/uL (0.11-0.59); #Neutrophils 5.9 thou/uL (1.40-6.50); %Basophils 0.3 % (0.0-1.0); %Eosinophils 2.8 % (0.0-10.0); %Lymphocytes 15.3 % (21.0-51.0); %Monocytes 10.1 % (0.0-10.0); %Neutrophils 71.5 % (42.0-75.0); Hemoglobin 11.8 g/dL (14.0-18.0); Mean Corpuscular HGB CONC 32.4 g/dL (32.0-36.0); Mean Corpuscular Hemoglobin 25.9 pg (27.0-31.0); Mean Corpuscular Volume 79.9 fL (78.0-98.0); Mean Platelet Volume 6.8 fL (7.4-10.4); Platelet Count 298 thou/uL (130-400); RBC Distribution Width 14.7 % (11.5-14.5); Red Blood Cell (RBC) Count 4.54 mill/uL (4.70-6.10); White Blood Cell (WBC) Count 8.3 thou/uL (4.8-10.8)
[2021-12-24 22:39] LABS: INR-International Normal Ratio 1.1
[2021-12-24 22:40] LABS: Bacteria/HPF 4+ HPF (None Seen); Bilirubin Negative (Negative); Blood, Urine 2+ (Negative); Clarity Extra Turbid (Clear); Glucose, Urine (Dipstick) >=1000 mg/dL (Negative); Ketone, Urine Negative (Negative); Leukocyte 500 Leu/uL (Negative); Nitrite Negative (Negative); Protein, Urine (Dipstick) 200 mg/dL (Neg-Trace); RBC/HPF Greater than 50 HPF (0-3); Specific Gravity, Urine 1.008 (1.002-1.036); Squamous Epithelial None Seen HPF (0-3); Urobilinogen Normal mg/dL (Less than 2); WBC/HPF Greater than 50 HPF (0-3); pH, Urine 6.5 (5.0-9.0)
[2021-12-24 22:40] LABS: PTT 31.6 sec (22.9-36.1)
[2021-12-24 22:52] LABS: ALT (SGPT) 23 U/L (8-55); AST (SGOT) 11 U/L (5-34); Albumin 3.9 g/dL (3.5-5.0); Alkaline Phosphatase 77 U/L (40-110); Anion Gap 18 mmol/L (10-20); BUN (Urea Nitrogen) 30 mg/dL (8.4-25.7); Bilirubin, Total 0.7 mg/dL (0.2-1.2); Calc. Creatinine Clearance 0 mL/min (70-130); Calcium 9.2 mg/dL (7.8-10.44); Carbon Dioxide 25 mmol/L (22-29); Chloride 100 mmol/L (98-107); Estimated GFR 38; Globulin 4.1 g/dL (2.4-3.5); Glucose 230 mg/dL (70-105); Potassium 3.3 mmol/L (3.5-5.1); Sodium 140 mmol/L (136-145)
[2021-12-24] MEDS ORDERED: cefTRIAXone\\ROCEPHIN 1 GM VIAL ONE (22:56)
[2021-12-25] MEDS ORDERED: Dextrose 5% in Water 1,000 ML IV PRN (01:39)
[2021-12-25] MEDS ORDERED: Dextrose 50% Abboject 50 ML SYRINGE SLOW IVP PRN (01:39)
[2021-12-25] MEDS ORDERED: Ondansetron PF 4 MG/2 ML Vial IVP PRN (01:50)
[2021-12-25] MEDS ORDERED: Ondansetron ODT 4 MG TAB PO PRN (01:50)
[2021-12-25] MEDS ORDERED: Potassium Chloride 20 MEQ TAB PO SCH (02:00)
[2021-12-25 02:53] VITALS: BMI 26.6
[2021-12-25] MEDS: Acetaminophen 325 MG TAB PO PRN (03:37)
[2021-12-25] MEDS: Sodium Chloride 0.9% 1,000 ML IV SCH ×2 (03:43→09:07)
[2021-12-25] MEDS: HYDROcodone/Acetaminophen 5/325 mg Tablet PO PRN (04:47)
[2021-12-25 06:30] LABS: #Basophils 0.1 thou/uL (0.0-0.2); #Eosinphils 0.1 thou/uL (0.0-0.7); #Lymphocytes 0.8 thou/uL (1.20-3.40); #Monocytes 0.7 thou/uL (0.11-0.59); #Neutrophils 6.2 thou/uL (1.40-6.50); %Basophils 0.7 % (0.0-1.0); %Eosinophils 1.8 % (0.0-10.0); %Lymphocytes 9.6 % (21.0-51.0); %Monocytes 8.5 % (0.0-10.0); %Neutrophils 79.5 % (42.0-75.0); Hemoglobin 11.8 g/dL (14.0-18.0); Mean Corpuscular HGB CONC 32.5 g/dL (32.0-36.0); Mean Corpuscular Hemoglobin 26.1 pg (27.0-31.0); Mean Corpuscular Volume 80.1 fL (78.0-98.0); Mean Platelet Volume 6.8 fL (7.4-10.4); Platelet Count 264 thou/uL (130-400); RBC Distribution Width 14.4 % (11.5-14.5); Red Blood Cell (RBC) Count 4.54 mill/uL (4.70-6.10); White Blood Cell (WBC) Count 7.8 thou/uL (4.8-10.8)
[2021-12-25 06:44] LABS: Anion Gap 20 mmol/L (10-20); BUN (Urea Nitrogen) 27 mg/dL (8.4-25.7); Calc. Creatinine Clearance 52 mL/min (70-130); Calcium 8.6 mg/dL (7.8-10.44); Carbon Dioxide 19 mmol/L (22-29); Chloride 102 mmol/L (98-107); Estimated GFR 43; Glucose 224 mg/dL (70-105); Potassium 3.2 mmol/L (3.5-5.1); Sodium 138 mmol/L (136-145)
[2021-12-25] MEDS: levETIRAcetam 500 MG TAB PO SCH ×2 (09:02→22:38)
[2021-12-25] MEDS: Tamsulosin HCl 0.4 MG CAP PO SCH (09:03)
[2021-12-25] MEDS: Metoprolol Tartrate 25 MG TAB PO SCH ×2 (09:03→22:38)
[2021-12-25] MEDS: Empagliflozin 25 MG TAB PO SCH (09:03)
[2021-12-25] MEDS: Atorvastatin Calcium 40 MG TAB PO SCH (09:03)
[2021-12-25] MEDS: Aspirin 81 mg Enteric Coated Tablet PO SCH (09:03)
[2021-12-25] MEDS: HumaLOG 300 UNITS/3 ML VIAL SC PRN ×3 (12:01→22:51)
[2021-12-25] MEDS ORDERED: Non-Formulary Item 1 EACH (Melatonin [Melatonin] 5 MG Capsule) PO PRN (13:06)
[2021-12-25 13:19] LABS: Campy jejuni + coli by PCR Negative (Negative); STEC Shiga Toxin 1+2 Negative (Negative); Salmonella spp. by PCR POSITIVE (Negative); Shigella spp + EIEC by PCR Negative (Negative)
[2021-12-25] MEDS ORDERED: Insulin Glargine 30 UNITS/0.3 ML VIAL SC SCH (13:30)
[2021-12-25] MEDS ORDERED: Electrolyte Replacement Protocol FS SCH (20:15)
[2021-12-25] MEDS ORDERED: Non-Formulary Item 1 EACH (Baclofen [Baclofen] 20 MG Tablet) PO SCH (21:00)
[2021-12-25] MEDS: Baclofen 10 MG TAB PO SCH (22:37)
[2021-12-25] MEDS ORDERED: cefTRIAXone\\ROCEPHIN 1 GM in Sodium Chloride 0.9% 100 ML IVPB SCH (23:00)
[2021-12-26 06:55] LABS: Anion Gap 14 mmol/L (10-20); BUN (Urea Nitrogen) 27 mg/dL (8.4-25.7); Calc. Creatinine Clearance 50 mL/min (70-130); Calcium 8.2 mg/dL (7.8-10.44); Carbon Dioxide 22 mmol/L (22-29); Chloride 103 mmol/L (98-107); Estimated GFR 41; Glucose 164 mg/dL (70-105); Magnesium 1.5 mg/dL (1.6-2.6); Potassium 3.2 mmol/L (3.5-5.1); Sodium 136 mmol/L (136-145)
[2021-12-26] MEDS ORDERED: Potassium Chloride 20 MEQ TAB PO SCH (08:00)
[2021-12-26] MEDS ORDERED: Magnesium 2 GM/50 ML(in water) 2 GM in Premix Bag 1 BAG IVPB SCH (08:00)
[2021-12-26] MEDS: Clopidogrel Bisulfate 75 MG TAB PO SCH (09:42)
[2021-12-26] MEDS: Insulin Glargine 30 UNITS/0.3 ML VIAL SC SCH (09:42)
[2021-12-26] MEDS: Metoprolol Tartrate 25 MG TAB PO SCH ×2 (09:42→20:30)
[2021-12-26] MEDS: Tamsulosin HCl 0.4 MG CAP PO SCH (09:42)
[2021-12-26] MEDS: levETIRAcetam 500 MG TAB PO SCH ×2 (09:44→20:34)
[2021-12-26] MEDS: Baclofen 10 MG TAB PO SCH ×2 (09:44→20:34)
[2021-12-26] MEDS: Aspirin 81 mg Enteric Coated Tablet PO SCH (09:45)
[2021-12-26] MEDS: Atorvastatin Calcium 40 MG TAB PO SCH (09:45)
[2021-12-26] MEDS: Empagliflozin 25 MG TAB PO SCH (09:48)
[2021-12-26] MEDS: HumaLOG 300 UNITS/3 ML VIAL SC PRN ×2 (12:20→16:50)
[2021-12-27 06:37] LABS: #Eosinphils 0.2 thou/uL (0.0-0.7); #Lymphocytes 1.4 thou/uL (1.20-3.40); #Monocytes 0.7 thou/uL (0.11-0.59); #Neutrophils 3.8 thou/uL (1.40-6.50); %Basophils 0.5 % (0.0-1.0); %Lymphocytes 22.2 % (21.0-51.0); %Monocytes 10.9 % (0.0-10.0); %Neutrophils 62.3 % (42.0-75.0); Mean Corpuscular HGB CONC 32.2 g/dL (32.0-36.0); Mean Corpuscular Hemoglobin 25.9 pg (27.0-31.0); Mean Corpuscular Volume 80.5 fL (78.0-98.0); Mean Platelet Volume 6.7 fL (7.4-10.4); Platelet Count 272 thou/uL (130-400); RBC Distribution Width 14.3 % (11.5-14.5); Red Blood Cell (RBC) Count 3.87 mill/uL (4.70-6.10); White Blood Cell (WBC) Count 6.1 thou/uL (4.8-10.8)
[2021-12-27 06:57] LABS: Anion Gap 14 mmol/L (10-20); BUN (Urea Nitrogen) 25 mg/dL (8.4-25.7); Calc. Creatinine Clearance 56 mL/min (70-130); Calcium 8.4 mg/dL (7.8-10.44); Carbon Dioxide 21 mmol/L (22-29); Chloride 106 mmol/L (98-107); Estimated GFR 47; Glucose 176 mg/dL (70-105); Sodium 137 mmol/L (136-145)
[2021-12-27] MEDS: Insulin Glargine 30 UNITS/0.3 ML VIAL SC SCH (08:16)
[2021-12-27] MEDS: Tamsulosin HCl 0.4 MG CAP PO SCH (08:16)
[2021-12-27] MEDS: levETIRAcetam 500 MG TAB PO SCH ×2 (08:16→20:44)
[2021-12-27] MEDS: Metoprolol Tartrate 25 MG TAB PO SCH ×2 (08:16→20:44)
[2021-12-27] MEDS: Atorvastatin Calcium 40 MG TAB PO SCH (08:17)
[2021-12-27] MEDS: Aspirin 81 mg Enteric Coated Tablet PO SCH (08:17)
[2021-12-27] MEDS: Clopidogrel Bisulfate 75 MG TAB PO SCH (08:17)
[2021-12-27] MEDS: Baclofen 10 MG TAB PO SCH ×2 (08:17→20:44)
[2021-12-27] MEDS: Empagliflozin 25 MG TAB PO SCH (08:17)
[2021-12-27] MEDS: HumaLOG 300 UNITS/3 ML VIAL SC PRN ×2 (17:04→20:54)
[2021-12-27] MEDS: HYDROcodone/Acetaminophen 5/325 mg Tablet PO PRN ×2 (17:07→20:50)
[2021-12-27] MEDS ORDERED: Morphine 2 MG/ML VIAL SLOW IVP SCH (22:15)
[2021-12-28] MEDS: HYDROcodone/Acetaminophen 5/325 mg Tablet PO PRN (02:26)
[2021-12-28] MEDS: HumaLOG 300 UNITS/3 ML VIAL SC PRN ×2 (06:16→21:23)
[2021-12-28 06:34] LABS: Hemoglobin 10.1 g/dL (14.0-18.0); Mean Corpuscular HGB CONC 31.3 g/dL (32.0-36.0); Mean Corpuscular Hemoglobin 25.5 pg (27.0-31.0); Mean Corpuscular Volume 81.3 fL (78.0-98.0); Platelet Count 260 thou/uL (130-400); RBC Distribution Width 14.2 % (11.5-14.5); Red Blood Cell (RBC) Count 3.98 mill/uL (4.70-6.10); White Blood Cell (WBC) Count 6.4 thou/uL (4.8-10.8)
[2021-12-28 06:42] LABS: Anion Gap 13 mmol/L (10-20); BUN (Urea Nitrogen) 24 mg/dL (8.4-25.7); Calc. Creatinine Clearance 63 mL/min (70-130); Calcium 8.4 mg/dL (7.8-10.44); Carbon Dioxide 20 mmol/L (22-29); Chloride 105 mmol/L (98-107); Estimated GFR 53; Glucose 170 mg/dL (70-105); Sodium 134 mmol/L (136-145)
[2021-12-28] MEDS: Empagliflozin 25 MG TAB PO SCH (08:45)
[2021-12-28] MEDS: levETIRAcetam 500 MG TAB PO SCH ×2 (08:45→21:18)
[2021-12-28] MEDS: Clopidogrel Bisulfate 75 MG TAB PO SCH (08:45)
[2021-12-28] MEDS: Baclofen 10 MG TAB PO SCH ×2 (08:45→21:19)
[2021-12-28] MEDS: Atorvastatin Calcium 40 MG TAB PO SCH (08:45)
[2021-12-28] MEDS: Metoprolol Tartrate 25 MG TAB PO SCH ×2 (08:45→21:18)
[2021-12-28] MEDS: Insulin Glargine 30 UNITS/0.3 ML VIAL SC SCH (08:45)
[2021-12-28] MEDS: Aspirin 81 mg Enteric Coated Tablet PO SCH (08:45)
[2021-12-28] MEDS: Tamsulosin HCl 0.4 MG CAP PO SCH (08:46)
[2021-12-28] MEDS ORDERED: Polyethylene Glycol 3350 17 GM Packet PO PRN (11:18)
[2021-12-28 12:18] LABS: Band 18 % (5-11); Eosinophils 1 % (0-10); Lymphocytes 20 % (21-51); MDiff Complete? YES; Monocytes 8 % (0-10); Neutrophil 53 % (42-75); Platelet Morphology Comment Appears Adequate; Polychromasia SLIGHT = 2-3 cells (100X) (0-2/hpf)
[2021-12-28 13:22] LABS: Clarity Turbid (Clear)
[2021-12-28 13:24] LABS: Glucose, Urine (Dipstick) >=1000 mg/dL (Negative); Leukocyte Moderate (Negative); Nitrite Negative (Negative); Protein, Urine (Dipstick) 300 mg/dL (Neg-Trace)
[2021-12-28 13:25] LABS: Bilirubin Negative (Negative); Blood, Urine Large (Negative); Ketone, Urine Negative (Negative); Urobilinogen 0.2 mg/dL (Less than 2)
[2021-12-28 13:27] LABS: Squamous Epithelial 0-3 HPF (0-3); WBC/HPF Greater than 50 HPF (0-3)
[2021-12-28 13:28] LABS: Bacteria/HPF 4+ HPF (None Seen); Transitional Epithelial 0-3 HPF (None Seen)
[2021-12-28] MEDS: Ciprofloxacin 500 MG TAB PO SCH (21:19)
[2021-12-29 06:00] LABS: #Eosinphils 0.2 thou/uL (0.0-0.7); #Lymphocytes 1.4 thou/uL (1.20-3.40); #Monocytes 0.8 thou/uL (0.11-0.59); #Neutrophils 4.3 thou/uL (1.40-6.50); %Basophils 0.5 % (0.0-1.0); %Eosinophils 3.4 % (0.0-10.0); %Lymphocytes 20.6 % (21.0-51.0); %Monocytes 11.4 % (0.0-10.0); %Neutrophils 64.1 % (42.0-75.0); Hemoglobin 9.9 g/dL (14.0-18.0); Mean Corpuscular HGB CONC 32.3 g/dL (32.0-36.0); Mean Corpuscular Hemoglobin 25.7 pg (27.0-31.0); Mean Corpuscular Volume 79.7 fL (78.0-98.0); Mean Platelet Volume 6.6 fL (7.4-10.4); Platelet Count 298 thou/uL (130-400); RBC Distribution Width 14.1 % (11.5-14.5); Red Blood Cell (RBC) Count 3.84 mill/uL (4.70-6.10); White Blood Cell (WBC) Count 6.7 thou/uL (4.8-10.8)
[2021-12-29 06:16] LABS: Anion Gap 14 mmol/L (10-20); BUN (Urea Nitrogen) 24 mg/dL (8.4-25.7); Calc. Creatinine Clearance 67 mL/min (70-130); Calcium 8.7 mg/dL (7.8-10.44); Carbon Dioxide 23 mmol/L (22-29); Chloride 103 mmol/L (98-107); Estimated GFR 58; Glucose 162 mg/dL (70-105); Potassium 4.1 mmol/L (3.5-5.1); Sodium 136 mmol/L (136-145)
[2021-12-29] MEDS: Ciprofloxacin 500 MG TAB PO SCH ×2 (06:38→21:03)
[2021-12-29] MEDS: levETIRAcetam 500 MG TAB PO SCH ×2 (08:53→21:04)
[2021-12-29] MEDS: Baclofen 10 MG TAB PO SCH ×2 (08:54→21:03)
[2021-12-29] MEDS: Tamsulosin HCl 0.4 MG CAP PO SCH (08:54)
[2021-12-29] MEDS: Empagliflozin 25 MG TAB PO SCH (08:54)
[2021-12-29] MEDS: Atorvastatin Calcium 40 MG TAB PO SCH (08:54)
[2021-12-29] MEDS: Aspirin 81 mg Enteric Coated Tablet PO SCH (08:54)
[2021-12-29] MEDS: Metoprolol Tartrate 25 MG TAB PO SCH ×2 (08:55→21:04)
[2021-12-29] MEDS: Clopidogrel Bisulfate 75 MG TAB PO SCH (08:55)
[2021-12-29] MEDS: Insulin Glargine 30 UNITS/0.3 ML VIAL SC SCH (08:55)
[2021-12-29] MEDS: Polyethylene Glycol 3350 17 GM Packet PO SCH (08:56)
[2021-12-29] MEDS: HumaLOG 300 UNITS/3 ML VIAL SC PRN ×2 (16:48→21:07)
[2021-12-29] MEDS: Melatonin 3 MG TAB PO PRN (21:04)
[2021-12-29] MEDS: Acetaminophen 325 MG TAB PO PRN (21:05)
[2021-12-30] MEDS: HYDROcodone/Acetaminophen 5/325 mg Tablet PO PRN (00:47)
[2021-12-30] MEDS: Ciprofloxacin 500 MG TAB PO SCH ×2 (06:08→21:06)
[2021-12-30 06:34] LABS: #Eosinphils 0.4 thou/uL (0.0-0.7); #Lymphocytes 1.5 thou/uL (1.20-3.40); #Monocytes 0.7 thou/uL (0.11-0.59); #Neutrophils 4.5 thou/uL (1.40-6.50); %Basophils 0.5 % (0.0-1.0); %Eosinophils 5.3 % (0.0-10.0); %Lymphocytes 20.4 % (21.0-51.0); %Monocytes 10.3 % (0.0-10.0); %Neutrophils 63.6 % (42.0-75.0); Hemoglobin 9.9 g/dL (14.0-18.0); Mean Corpuscular HGB CONC 31.7 g/dL (32.0-36.0); Mean Corpuscular Hemoglobin 25.4 pg (27.0-31.0); Mean Corpuscular Volume 80.3 fL (78.0-98.0); Mean Platelet Volume 6.7 fL (7.4-10.4); Platelet Count 296 thou/uL (130-400); RBC Distribution Width 14.1 % (11.5-14.5); White Blood Cell (WBC) Count 7.1 thou/uL (4.8-10.8)
[2021-12-30 07:00] LABS: Anion Gap 13 mmol/L (10-20); BUN (Urea Nitrogen) 24 mg/dL (8.4-25.7); Calc. Creatinine Clearance 71 mL/min (70-130); Calcium 8.6 mg/dL (7.8-10.44); Carbon Dioxide 24 mmol/L (22-29); Chloride 103 mmol/L (98-107); Estimated GFR 61; Glucose 168 mg/dL (70-105); Potassium 3.8 mmol/L (3.5-5.1); Sodium 136 mmol/L (136-145)
[2021-12-30] MEDS: Polyethylene Glycol 3350 17 GM Packet PO SCH (08:35)
[2021-12-30] MEDS: Metoprolol Tartrate 25 MG TAB PO SCH ×2 (08:36→21:07)
[2021-12-30] MEDS: levETIRAcetam 500 MG TAB PO SCH ×2 (08:36→21:06)
[2021-12-30] MEDS: Baclofen 10 MG TAB PO SCH ×2 (08:36→21:07)
[2021-12-30] MEDS: Clopidogrel Bisulfate 75 MG TAB PO SCH (08:36)
[2021-12-30] MEDS: Insulin Glargine 30 UNITS/0.3 ML VIAL SC SCH (08:37)
[2021-12-30] MEDS: Tamsulosin HCl 0.4 MG CAP PO SCH (08:37)
[2021-12-30] MEDS: Empagliflozin 25 MG TAB PO SCH (08:37)
[2021-12-30] MEDS: Aspirin 81 mg Enteric Coated Tablet PO SCH (08:37)
[2021-12-30] MEDS: Atorvastatin Calcium 40 MG TAB PO SCH (08:37)
[2021-12-30] MEDS: HumaLOG 300 UNITS/3 ML VIAL SC PRN ×3 (13:02→21:09)
[2021-12-30] MEDS: Melatonin 3 MG TAB PO PRN (21:07)
[2021-12-31] MEDS: HYDROcodone/Acetaminophen 5/325 mg Tablet PO PRN (02:43)
[2021-12-31] MEDS: Ciprofloxacin 500 MG TAB PO SCH ×2 (05:38→20:11)
[2021-12-31 05:59] LABS: #Basophils 0.1 thou/uL (0.0-0.2); #Eosinphils 0.3 thou/uL (0.0-0.7); #Lymphocytes 1.5 thou/uL (1.20-3.40); #Monocytes 0.8 thou/uL (0.11-0.59); #Neutrophils 4.8 thou/uL (1.40-6.50); %Basophils 0.8 % (0.0-1.0); %Eosinophils 3.5 % (0.0-10.0); %Lymphocytes 20.5 % (21.0-51.0); %Monocytes 10.3 % (0.0-10.0); %Neutrophils 64.8 % (42.0-75.0); Mean Corpuscular HGB CONC 31.5 g/dL (32.0-36.0); Mean Corpuscular Hemoglobin 25.1 pg (27.0-31.0); Mean Corpuscular Volume 79.9 fL (78.0-98.0); Mean Platelet Volume 6.4 fL (7.4-10.4); Platelet Count 325 thou/uL (130-400); RBC Distribution Width 13.9 % (11.5-14.5); Red Blood Cell (RBC) Count 3.98 mill/uL (4.70-6.10); White Blood Cell (WBC) Count 7.3 thou/uL (4.8-10.8)
[2021-12-31 06:22] LABS: Anion Gap 15 mmol/L (10-20); BUN (Urea Nitrogen) 23 mg/dL (8.4-25.7); Calc. Creatinine Clearance 67 mL/min (70-130); Calcium 8.8 mg/dL (7.8-10.44); Carbon Dioxide 23 mmol/L (22-29); Chloride 103 mmol/L (98-107); Estimated GFR 58; Glucose 190 mg/dL (70-105); Potassium 3.9 mmol/L (3.5-5.1); Sodium 137 mmol/L (136-145)
[2021-12-31] MEDS: levETIRAcetam 500 MG TAB PO SCH ×2 (08:43→20:10)
[2021-12-31] MEDS: Polyethylene Glycol 3350 17 GM Packet PO SCH (08:43)
[2021-12-31] MEDS: Aspirin 81 mg Enteric Coated Tablet PO SCH (08:43)
[2021-12-31] MEDS: Baclofen 10 MG TAB PO SCH ×2 (08:43→20:10)
[2021-12-31] MEDS: Atorvastatin Calcium 40 MG TAB PO SCH (08:44)
[2021-12-31] MEDS: Insulin Glargine 30 UNITS/0.3 ML VIAL SC SCH (08:44)
[2021-12-31] MEDS: Clopidogrel Bisulfate 75 MG TAB PO SCH (08:44)
[2021-12-31] MEDS: Metoprolol Tartrate 25 MG TAB PO SCH ×2 (08:44→20:11)
[2021-12-31] MEDS: Tamsulosin HCl 0.4 MG CAP PO SCH (08:44)
[2021-12-31] MEDS: Empagliflozin 25 MG TAB PO SCH (08:45)
[2021-12-31] MEDS: HumaLOG 300 UNITS/3 ML VIAL SC PRN (13:05)
[2021-12-31] MEDS ORDERED: Magnesium Citrate 300 ML BOT PO PRN (15:20)
[2021-12-31] MEDS ORDERED: Senokot S 8.6-50 MG TAB PO SCH (15:30)
[2021-12-31] MEDS: Senokot S 8.6-50 MG TAB PO SCH (20:10)
[2021-12-31] MEDS: Acetaminophen 325 MG TAB PO PRN (20:12)
[2021-12-31] MEDS: Melatonin 3 MG TAB PO PRN (20:14)
[2022-01-01] MEDS: Ciprofloxacin 500 MG TAB PO SCH (06:07)
[2022-01-01] MEDS: HYDROcodone/Acetaminophen 5/325 mg Tablet PO PRN (06:07)
[2022-01-01] MEDS: Baclofen 10 MG TAB PO SCH (08:11)
[2022-01-01] MEDS: Senokot S 8.6-50 MG TAB PO SCH (08:12)
[2022-01-01] MEDS: Empagliflozin 25 MG TAB PO SCH (08:12)
[2022-01-01] MEDS: levETIRAcetam 500 MG TAB PO SCH (08:12)
[2022-01-01] MEDS: Insulin Glargine 30 UNITS/0.3 ML VIAL SC SCH (08:12)
[2022-01-01] MEDS: Metoprolol Tartrate 25 MG TAB PO SCH (08:12)
[2022-01-01] MEDS: Aspirin 81 mg Enteric Coated Tablet PO SCH (08:12)
[2022-01-01] MEDS: Tamsulosin HCl 0.4 MG CAP PO SCH (08:12)
[2022-01-01] MEDS: Clopidogrel Bisulfate 75 MG TAB PO SCH (08:12)
[2022-01-01] MEDS: Atorvastatin Calcium 40 MG TAB PO SCH (08:12)
[2022-01-01] MEDS: Polyethylene Glycol 3350 17 GM Packet PO SCH (08:12)
[2022-01-01 11:18] VITALS: BP 116/75; TEMP 98.7
== END 2022-01-01 14:58 | disposition home or self-care (01) | DRG 372 ==
LOC: ERS 20:50 → T4-A 12-25 00:51 → OBSVTOIN 12-26 15:06
PROVIDERS: ADMIT Internal Medicine; ATTEND Hospitalist
PROC: 0TJB8ZZ Inspection of Bladder, Via Natural or Artificial Opening Endoscopic (ICD-10-PCS; principal; 2021-12-27)
DX: A02.0 Salmonella enteritis (principal); I69.351 Hemiplegia and hemiparesis following cerebral infarction affecting right dominant side; N39.0 Urinary tract infection, site not specified; K92.1 Melena; E11.22 Type 2 diabetes mellitus with diabetic chronic kidney disease; I12.9 Hypertensive chronic kidney disease with stage 1 through stage 4 chronic kidney disease, or unspecified chronic kidney disease; K59.00 Constipation, unspecified; N18.30 Chronic kidney disease, stage 3 unspecified; H54.7 Unspecified visual loss; E78.5 Hyperlipidemia, unspecified; E87.6 Hypokalemia; D63.1 Anemia in chronic kidney disease; R19.7 Diarrhea, unspecified; K21.9 Gastro-esophageal reflux disease without esophagitis; N40.0 Benign prostatic hyperplasia without lower urinary tract symptoms; R33.8 Other retention of urine; N31.9 Neuromuscular dysfunction of bladder, unspecified; Z79.899 Other long term (current) drug therapy; Z79.82 Long term (current) use of aspirin; Z90.89 Acquired absence of other organs; Z82.49 Family history of ischemic heart disease and other diseases of the circulatory system; Z79.4 Long term (current) use of insulin
CPT/HCPCS: 36415; 36416; 80048; 80053; 81001; 81003; 81015; 82274; 83605; 83735; 85025; 85610; 85730; 86850; 86900; 86901; 87040; 87086; 87324; 87449; 87505; 87811; 96365; 96366; 96367; 96375; G0378; J0696; J0744; J1815; J2270; J2405; J3475; J7050; U0003; U0005

== ENCOUNTER 2022-02-01 14:55 | Emergency (ER) | payer MEDICARE ==
[2022-02-01 15:38] LABS: #Eosinphils 0.3 thou/uL (0.0-0.7); #Lymphocytes 1.3 thou/uL (1.20-3.40); #Monocytes 0.6 thou/uL (0.11-0.59); #Neutrophils 5.3 thou/uL (1.40-6.50); %Basophils 0.5 % (0.0-1.0); %Eosinophils 3.8 % (0.0-10.0); %Lymphocytes 16.6 % (21.0-51.0); %Monocytes 8.5 % (0.0-10.0); %Neutrophils 70.6 % (42.0-75.0); Mean Corpuscular Hemoglobin 24.8 pg (27.0-31.0); Mean Platelet Volume 6.9 fL (7.4-10.4); Platelet Count 353 thou/uL (130-400); RBC Distribution Width 15.6 % (11.5-14.5); Red Blood Cell (RBC) Count 4.42 mill/uL (4.70-6.10); White Blood Cell (WBC) Count 7.5 thou/uL (4.8-10.8)
[2022-02-01 15:47] LABS: INR-International Normal Ratio 1.1; Prothrombin Time 13.8 sec (12.0-14.7)
[2022-02-01 15:54] LABS: ALT (SGPT) 17 U/L (8-55); AST (SGOT) 9 U/L (5-34); Albumin 3.9 g/dL (3.5-5.0); Alkaline Phosphatase 74 U/L (40-110); Anion Gap 17 mmol/L (10-20); BUN (Urea Nitrogen) 81 mg/dL (8.4-25.7); Bilirubin, Total 0.3 mg/dL (0.2-1.2); Calc. Creatinine Clearance 0 mL/min (70-130); Calcium 9.2 mg/dL (7.8-10.44); Carbon Dioxide 16 mmol/L (22-29); Chloride 107 mmol/L (98-107); Estimated GFR 19; Globulin 4.5 g/dL (2.4-3.5); Glucose 161 mg/dL (70-105); Potassium 4.6 mmol/L (3.5-5.1); Protein, Total 8.4 g/dL (6.0-8.3); Sodium 135 mmol/L (136-145)
[2022-02-01 16:53] LABS: Bacteria/HPF None Seen HPF (None Seen); Bilirubin Negative (Negative); Blood, Urine 3+ (Negative); Clarity Extra Turbid (Clear); Glucose, Urine (Dipstick) Normal (Negative); Ketone, Urine Negative (Negative); Leukocyte 500 Leu/uL (Negative); Nitrite Negative (Negative); Protein, Urine (Dipstick) 50 mg/dL (Neg-Trace); RBC/HPF Greater than 50 HPF (0-3); Specific Gravity, Urine 1.009 (1.002-1.036); Squamous Epithelial None Seen HPF (0-3); Urobilinogen Normal mg/dL (Less than 2); WBC/HPF Greater than 50 HPF (0-3); Yeast-Budding 2+ HPF (None Seen)
[2022-02-01] MEDS ORDERED: cefTRIAXone\\ROCEPHIN 1 GM VIAL ONE (17:57)
== END 2022-02-01 18:39 | disposition home or self-care (01) ==
LOC: ERS 14:55
DX: N39.0 Urinary tract infection, site not specified (principal); R19.7 Diarrhea, unspecified; E11.9 Type 2 diabetes mellitus without complications; I10 Essential (primary) hypertension; E78.5 Hyperlipidemia, unspecified; Z79.4 Long term (current) use of insulin
CPT/HCPCS: 36415; 80053; 81003; 81015; 83605; 85025; 85610; 85730; 87040; 87086; 94760; 96361; 96374; J0696

== ENCOUNTER 2022-02-14 11:19 | Inpatient (IN) | payer MEDICARE ==
[2022-02-14 12:47] LABS: ALT (SGPT) 25 U/L (8-55); AST (SGOT) 12 U/L (5-34); Albumin 3.5 g/dL (3.5-5.0); Alkaline Phosphatase 73 U/L (40-110); Anion Gap 15 mmol/L (10-20); BUN (Urea Nitrogen) 116 mg/dL (8.4-25.7); Bilirubin, Total 0.4 mg/dL (0.2-1.2); Calc. Creatinine Clearance 0 mL/min (70-130); Calcium 9.1 mg/dL (7.8-10.44); Carbon Dioxide 18 mmol/L (22-29); Chloride 104 mmol/L (98-107); Estimated GFR 12; Globulin 4.6 g/dL (2.4-3.5); Glucose 225 mg/dL (70-105); Potassium 4.6 mmol/L (3.5-5.1); Protein, Total 8.1 g/dL (6.0-8.3); Sodium 132 mmol/L (136-145)
[2022-02-14 12:53] LABS: #Basophils 0.1 thou/uL (0.0-0.2); #Eosinphils 0.3 thou/uL (0.0-0.7); #Monocytes 0.7 thou/uL (0.11-0.59); #Neutrophils 7.8 thou/uL (1.40-6.50); %Basophils 0.7 % (0.0-1.0); %Eosinophils 2.9 % (0.0-10.0); %Lymphocytes 10.1 % (21.0-51.0); %Monocytes 7.5 % (0.0-10.0); %Neutrophils 78.8 % (42.0-75.0); Hemoglobin 10.6 g/dL (14.0-18.0); Mean Corpuscular HGB CONC 31.8 g/dL (32.0-36.0); Mean Corpuscular Hemoglobin 25.3 pg (27.0-31.0); Mean Corpuscular Volume 79.7 fl (78.0-98.0); Mean Platelet Volume 6.8 fL (7.4-10.4); Platelet Count 347 thou/uL (130-400); RBC Distribution Width 15.6 % (11.5-14.5); Red Blood Cell (RBC) Count 4.18 mill/uL (4.70-6.10); White Blood Cell (WBC) Count 9.8 thou/uL (4.8-10.8)
[2022-02-14 13:21] LABS: Clarity Turbid (Clear)
[2022-02-14 13:22] LABS: Bilirubin Negative (Negative); Blood, Urine Large (Negative); Glucose, Urine (Dipstick) Negative (Negative); Ketone, Urine Negative (Negative); Leukocyte Moderate (Negative); Nitrite Negative (Negative); Protein, Urine (Dipstick) 100 mg/dL (Neg-Trace); Specific Gravity, Urine 1.011 (1.002-1.036); Urobilinogen 0.2 mg/dL (Less than 2)
[2022-02-14 13:25] LABS: Bacteria/HPF 3+ HPF (None Seen); Squamous Epithelial 0-3 HPF (0-3); WBC/HPF Greater than 50 HPF (0-3)
[2022-02-14 13:43] LABS: CK (CPK) 21 U/L (30-200); Lipase 152 U/L (8-78)
[2022-02-14] MEDS ORDERED: Ondansetron PF 4 MG/2 ML Vial IVP PRN (14:21)
[2022-02-14] MEDS ORDERED: Acetaminophen 650 MG Suppository PR PRN (14:21)
[2022-02-14] MEDS ORDERED: Ondansetron ODT 4 MG TAB PO PRN (14:21)
[2022-02-14] MEDS ORDERED: Dextrose 5% in Water 1,000 ML IV PRN (14:29)
[2022-02-14] MEDS ORDERED: Dextrose 50% Abboject 50 ML SYRINGE SLOW IVP PRN (14:29)
[2022-02-14] MEDS ORDERED: Insulin Regular 300 UNITS/3 ML VIAL SC PRN (14:29)
[2022-02-14] MEDS ORDERED: Cefepime 1 GM in Sodium Chloride 0.9% 100 ML IVPB SCH (15:15)
[2022-02-14 16:53] VITALS: BMI 24.3
[2022-02-14] MEDS: Sodium Chloride 0.9% 1,000 ML IV SCH (17:49)
[2022-02-14] MEDS: Cefepime 1 GM in Sodium Chloride 0.9% 100 ML IVPB SCH (17:49)
[2022-02-14] MEDS ORDERED: Cefepime 2 GM in Sodium Chloride 0.9% 100 ML IVPB SCH (21:00)
[2022-02-15] MEDS: Sodium Chloride 0.9% 1,000 ML IV SCH ×2 (01:42→11:15)
[2022-02-15 06:33] LABS: #Eosinphils 0.3 thou/uL (0.0-0.7); #Lymphocytes 1.1 thou/uL (1.20-3.40); #Monocytes 0.6 thou/uL (0.11-0.59); #Neutrophils 5.6 thou/uL (1.40-6.50); %Basophils 0.2 % (0.0-1.0); %Eosinophils 4.4 % (0.0-10.0); %Lymphocytes 14.7 % (21.0-51.0); %Monocytes 7.8 % (0.0-10.0); %Neutrophils 72.9 % (42.0-75.0); Hemoglobin 9.4 g/dL (14.0-18.0); Mean Corpuscular HGB CONC 31.3 g/dL (32.0-36.0); Mean Corpuscular Volume 79.7 fl (78.0-98.0); Mean Platelet Volume 6.8 fL (7.4-10.4); Platelet Count 317 thou/uL (130-400); RBC Distribution Width 15.6 % (11.5-14.5); Red Blood Cell (RBC) Count 3.76 mill/uL (4.70-6.10); White Blood Cell (WBC) Count 7.6 thou/uL (4.8-10.8)
[2022-02-15 06:55] LABS: Anion Gap 15 mmol/L (10-20); BUN (Urea Nitrogen) 101 mg/dL (8.4-25.7); Calc. Creatinine Clearance 23 mL/min (70-130); Calcium 8.7 mg/dL (7.8-10.44); Carbon Dioxide 16 mmol/L (22-29); Chloride 110 mmol/L (98-107); Estimated GFR 18; Glucose 211 mg/dL (70-105); Potassium 4.8 mmol/L (3.5-5.1); Sodium 136 mmol/L (136-145)
[2022-02-15] MEDS ORDERED: Clopidogrel Bisulfate 75 MG TAB PO SCH (10:15)
[2022-02-15] MEDS ORDERED: Aspirin 81 mg Enteric Coated Tablet PO SCH (10:15)
[2022-02-15] MEDS: Insulin Regular 300 UNITS/3 ML VIAL SC PRN ×2 (12:27→17:27)
[2022-02-15] MEDS: Cefepime 1 GM in Sodium Chloride 0.9% 100 ML IVPB SCH (17:27)
[2022-02-15] MEDS: Atorvastatin Calcium 40 MG TAB PO SCH (20:02)
[2022-02-15] MEDS: levETIRAcetam 500 MG TAB PO SCH (20:02)
[2022-02-15] MEDS: Baclofen 10 MG TAB PO SCH (20:02)
[2022-02-15] MEDS: Senokot S 8.6-50 MG TAB PO SCH (20:02)
[2022-02-15] MEDS ORDERED: Non-Formulary Item 1 EACH (Baclofen [Baclofen] 20 MG Tablet) PO SCH (21:00)
[2022-02-16] MEDS: Sodium Chloride 0.9% 1,000 ML IV SCH ×3 (00:48→18:09)
[2022-02-16] MEDS ORDERED: Vancomycin Dose by Levels Sliding Scale (Wt 71-99) FS SCH (01:30)
[2022-02-16] MEDS ORDERED: Vancomycin 1.5 GRAM/300 ML BAG 1.5 GM in Premix Bag 1 BAG IVPB SCH (02:00)
[2022-02-16 06:12] LABS: #Eosinphils 0.3 thou/uL (0.0-0.7); #Lymphocytes 1.4 thou/uL (1.20-3.40); #Monocytes 0.8 thou/uL (0.11-0.59); #Neutrophils 4.9 thou/uL (1.40-6.50); %Basophils 0.5 % (0.0-1.0); %Eosinophils 3.8 % (0.0-10.0); %Lymphocytes 18.7 % (21.0-51.0); %Monocytes 10.5 % (0.0-10.0); %Neutrophils 66.5 % (42.0-75.0); Hemoglobin 9.8 g/dL (14.0-18.0); Mean Corpuscular HGB CONC 33.1 g/dL (32.0-36.0); Mean Corpuscular Hemoglobin 26.5 pg (27.0-31.0); Mean Corpuscular Volume 79.9 fl (78.0-98.0); Mean Platelet Volume 6.5 fL (7.4-10.4); Platelet Count 351 thou/uL (130-400); RBC Distribution Width 15.9 % (11.5-14.5); Red Blood Cell (RBC) Count 3.69 mill/uL (4.70-6.10); White Blood Cell (WBC) Count 7.4 thou/uL (4.8-10.8)
[2022-02-16 06:24] LABS: Anion Gap 11 mmol/L (10-20); BUN (Urea Nitrogen) 67 mg/dL (8.4-25.7); Calc. Creatinine Clearance 39 mL/min (70-130); Calcium 8.8 mg/dL (7.8-10.44); Carbon Dioxide 19 mmol/L (22-29); Chloride 111 mmol/L (98-107); Estimated GFR 34; Glucose 128 mg/dL (70-105); Potassium 4.8 mmol/L (3.5-5.1); Sodium 136 mmol/L (136-145)
[2022-02-16] MEDS: Tamsulosin HCl 0.4 MG CAP PO SCH (07:55)
[2022-02-16] MEDS: Clopidogrel Bisulfate 75 MG TAB PO SCH (07:55)
[2022-02-16] MEDS: Baclofen 10 MG TAB PO SCH ×2 (07:55→20:29)
[2022-02-16] MEDS: Senokot S 8.6-50 MG TAB PO SCH ×2 (07:55→20:30)
[2022-02-16] MEDS: Aspirin 81 mg Enteric Coated Tablet PO SCH (07:56)
[2022-02-16] MEDS: Insulin Glargine 30 UNITS/0.3 ML VIAL SC SCH (07:56)
[2022-02-16] MEDS: levETIRAcetam 500 MG TAB PO SCH ×2 (07:56→20:30)
[2022-02-16] MEDS ORDERED: Non-Formulary Item 1 EACH (Insulin Degludec [Tresiba Flextouch U-100] 100 UNIT/ML Insuln. SQ SCH (09:00)
[2022-02-16] MEDS: Insulin Regular 300 UNITS/3 ML VIAL SC PRN (12:24)
[2022-02-16] MEDS: Cefepime 1 GM in Sodium Chloride 0.9% 100 ML IVPB SCH (18:06)
[2022-02-16] MEDS: Atorvastatin Calcium 40 MG TAB PO SCH (20:29)
[2022-02-17] MEDS: Insulin Regular 300 UNITS/3 ML VIAL SC PRN ×2 (06:18→12:00)
[2022-02-17 06:19] LABS: #Basophils 0.1 thou/uL (0.0-0.2); #Eosinphils 0.4 thou/uL (0.0-0.7); #Lymphocytes 1.4 thou/uL (1.20-3.40); #Monocytes 0.7 thou/uL (0.11-0.59); #Neutrophils 3.5 thou/uL (1.40-6.50); %Basophils 0.8 % (0.0-1.0); %Eosinophils 5.8 % (0.0-10.0); %Lymphocytes 22.8 % (21.0-51.0); %Monocytes 12.2 % (0.0-10.0); %Neutrophils 58.3 % (42.0-75.0); Hemoglobin 9.9 g/dL (14.0-18.0); Mean Corpuscular HGB CONC 31.8 g/dL (32.0-36.0); Mean Corpuscular Hemoglobin 25.8 pg (27.0-31.0); Mean Corpuscular Volume 81.3 fl (78.0-98.0); Mean Platelet Volume 6.3 fL (7.4-10.4); Platelet Count 319 thou/uL (130-400); RBC Distribution Width 15.7 % (11.5-14.5); Red Blood Cell (RBC) Count 3.84 mill/uL (4.70-6.10); White Blood Cell (WBC) Count 6.1 thou/uL (4.8-10.8)
[2022-02-17 06:49] LABS: Anion Gap 15 mmol/L (10-20); BUN (Urea Nitrogen) 60 mg/dL (8.4-25.7); Calc. Creatinine Clearance 40 mL/min (70-130); Calcium 8.8 mg/dL (7.8-10.44); Carbon Dioxide 16 mmol/L (22-29); Chloride 109 mmol/L (98-107); Estimated GFR 35; Glucose 171 mg/dL (70-105); Potassium 4.8 mmol/L (3.5-5.1); Sodium 135 mmol/L (136-145)
[2022-02-17] MEDS: Sodium Chloride 0.9% 1,000 ML IV SCH ×3 (08:01→22:48)
[2022-02-17] MEDS: Tamsulosin HCl 0.4 MG CAP PO SCH (08:02)
[2022-02-17] MEDS: Clopidogrel Bisulfate 75 MG TAB PO SCH (08:02)
[2022-02-17] MEDS: Aspirin 81 mg Enteric Coated Tablet PO SCH (08:02)
[2022-02-17] MEDS: levETIRAcetam 500 MG TAB PO SCH ×2 (08:02→22:46)
[2022-02-17] MEDS: Baclofen 10 MG TAB PO SCH ×2 (08:02→22:46)
[2022-02-17] MEDS: Senokot S 8.6-50 MG TAB PO SCH ×2 (08:03→22:48)
[2022-02-17] MEDS: Insulin Glargine 30 UNITS/0.3 ML VIAL SC SCH (08:03)
[2022-02-17] MEDS ORDERED: FLU VACC QS2022-23(6MOS UP)/PF 60 MCG/0.5 ML SYRINGE IM ONE (17:00)
[2022-02-17] MEDS ORDERED: VANCOMYCIN 1.25 GM/250 ML BAG 1.25 GM in Premix Bag 1 BAG IVPB SCH (18:00)
[2022-02-17] MEDS: Atorvastatin Calcium 40 MG TAB PO SCH (22:46)
[2022-02-18 06:53] LABS: #Basophils 0.1 thou/uL (0.0-0.2); #Eosinphils 0.3 thou/uL (0.0-0.7); #Lymphocytes 1.1 thou/uL (1.20-3.40); #Monocytes 0.8 thou/uL (0.11-0.59); %Basophils 0.9 % (0.0-1.0); %Eosinophils 4.9 % (0.0-10.0); %Lymphocytes 17.9 % (21.0-51.0); %Monocytes 11.9 % (0.0-10.0); %Neutrophils 64.4 % (42.0-75.0); Hemoglobin 9.6 g/dL (14.0-18.0); Mean Corpuscular HGB CONC 31.1 g/dL (32.0-36.0); Mean Corpuscular Volume 80.3 fl (78.0-98.0); Mean Platelet Volume 6.4 fL (7.4-10.4); Platelet Count 323 thou/uL (130-400); RBC Distribution Width 15.7 % (11.5-14.5); Red Blood Cell (RBC) Count 3.82 mill/uL (4.70-6.10); White Blood Cell (WBC) Count 6.3 thou/uL (4.8-10.8)
[2022-02-18 07:10] LABS: Anion Gap 13 mmol/L (10-20); BUN (Urea Nitrogen) 47 mg/dL (8.4-25.7); Calc. Creatinine Clearance 48 mL/min (70-130); Calcium 8.5 mg/dL (7.8-10.44); Carbon Dioxide 16 mmol/L (22-29); Chloride 110 mmol/L (98-107); Estimated GFR 43; Glucose 155 mg/dL (70-105); Potassium 4.5 mmol/L (3.5-5.1); Sodium 134 mmol/L (136-145)
[2022-02-18] MEDS: Tamsulosin HCl 0.4 MG CAP PO SCH (08:59)
[2022-02-18] MEDS: Clopidogrel Bisulfate 75 MG TAB PO SCH (08:59)
[2022-02-18] MEDS: levETIRAcetam 500 MG TAB PO SCH ×2 (08:59→22:12)
[2022-02-18] MEDS: Aspirin 81 mg Enteric Coated Tablet PO SCH (08:59)
[2022-02-18] MEDS: Sodium Chloride 0.9% 1,000 ML IV SCH ×2 (08:59→17:35)
[2022-02-18] MEDS: Insulin Glargine 30 UNITS/0.3 ML VIAL SC SCH (08:59)
[2022-02-18] MEDS: Baclofen 10 MG TAB PO SCH ×2 (08:59→22:13)
[2022-02-18] MEDS: Senokot S 8.6-50 MG TAB PO SCH ×2 (09:01→22:13)
[2022-02-18] MEDS ORDERED: Fluconazole 100 MG TAB PO SCH (14:45)
[2022-02-18] MEDS: Acetaminophen 325 MG TAB PO PRN (15:29)
[2022-02-18] MEDS: Insulin Regular 300 UNITS/3 ML VIAL SC PRN (17:30)
[2022-02-18] MEDS: Atorvastatin Calcium 40 MG TAB PO SCH (22:13)
[2022-02-19] MEDS: Sodium Chloride 0.9% 1,000 ML IV SCH ×2 (05:47→14:00)
[2022-02-19 06:55] LABS: #Basophils 0.1 thou/uL (0.0-0.2); #Eosinphils 0.1 thou/uL (0.0-0.7); #Lymphocytes 1.1 thou/uL (1.20-3.40); #Monocytes 0.7 thou/uL (0.11-0.59); #Neutrophils 4.3 thou/uL (1.40-6.50); %Eosinophils 1.7 % (0.0-10.0); %Lymphocytes 17.3 % (21.0-51.0); %Monocytes 10.9 % (0.0-10.0); %Neutrophils 69.2 % (42.0-75.0); Hemoglobin 9.1 g/dL (14.0-18.0); Mean Corpuscular HGB CONC 31.7 g/dL (32.0-36.0); Mean Corpuscular Hemoglobin 25.1 pg (27.0-31.0); Mean Corpuscular Volume 79.4 fl (78.0-98.0); Mean Platelet Volume 6.6 fL (7.4-10.4); Platelet Count 311 thou/uL (130-400); RBC Distribution Width 15.7 % (11.5-14.5); Red Blood Cell (RBC) Count 3.64 mill/uL (4.70-6.10); White Blood Cell (WBC) Count 6.2 thou/uL (4.8-10.8)
[2022-02-19 07:09] LABS: Anion Gap 13 mmol/L (10-20); BUN (Urea Nitrogen) 40 mg/dL (8.4-25.7); Calc. Creatinine Clearance 50 mL/min (70-130); Calcium 8.6 mg/dL (7.8-10.44); Carbon Dioxide 16 mmol/L (22-29); Chloride 109 mmol/L (98-107); Estimated GFR 46; Glucose 98 mg/dL (70-105); Potassium 4.6 mmol/L (3.5-5.1); Sodium 133 mmol/L (136-145)
[2022-02-19] MEDS: Fluconazole 100 MG TAB PO SCH (08:35)
[2022-02-19] MEDS: Clopidogrel Bisulfate 75 MG TAB PO SCH (08:35)
[2022-02-19] MEDS: levETIRAcetam 500 MG TAB PO SCH ×2 (08:35→22:15)
[2022-02-19] MEDS: Tamsulosin HCl 0.4 MG CAP PO SCH (08:35)
[2022-02-19] MEDS: Baclofen 10 MG TAB PO SCH ×2 (08:35→22:15)
[2022-02-19] MEDS: Aspirin 81 mg Enteric Coated Tablet PO SCH (08:35)
[2022-02-19] MEDS: Senokot S 8.6-50 MG TAB PO SCH ×2 (08:36→22:22)
[2022-02-19] MEDS: Insulin Glargine 30 UNITS/0.3 ML VIAL SC SCH ×2 (08:36→22:15)
[2022-02-19] MEDS: Acetaminophen 325 MG TAB PO PRN (11:56)
[2022-02-19] MEDS ORDERED: Insulin Glargine 30 UNITS/0.3 ML VIAL SC SCH (13:00)
[2022-02-19] MEDS: Sodium Bicarbonate Tab 325 MG TAB PO SCH ×2 (14:00→22:22)
[2022-02-19] MEDS: VANCOMYCIN 1.25 GM/250 ML BAG 1.25 GM in Premix Bag 1 BAG IVPB SCH (16:01)
[2022-02-19] MEDS ORDERED: Vancomycin 1 GM in Premix Bag 1 BAG IVPB SCH (21:00)
[2022-02-19] MEDS: Atorvastatin Calcium 40 MG TAB PO SCH (22:15)
[2022-02-20] MEDS: Sodium Chloride 0.9% 1,000 ML IV SCH ×2 (02:19→13:57)
[2022-02-20 02:55] LABS: Bacteria/HPF None Seen HPF (None Seen); Bilirubin Negative (Negative); Blood, Urine 3+ (Negative); Clarity Extra Turbid (Clear); Glucose, Urine (Dipstick) Normal (Negative); Ketone, Urine Negative (Negative); Leukocyte 500 Leu/uL (Negative); Nitrite Negative (Negative); Protein, Urine (Dipstick) 30 mg/dL (Neg-Trace); RBC/HPF Greater than 50 HPF (0-3); Specific Gravity, Urine 1.008 (1.002-1.036); Squamous Epithelial 0-3 HPF (0-3); Urobilinogen Normal mg/dL (Less than 2); WBC/HPF Greater than 50 HPF (0-3); pH, Urine 5.5 (5.0-9.0)
[2022-02-20 07:34] LABS: Anion Gap 12 mmol/L (10-20); BUN (Urea Nitrogen) 33 mg/dL (8.4-25.7); Calc. Creatinine Clearance 57 mL/min (70-130); Calcium 8.3 mg/dL (7.8-10.44); Carbon Dioxide 18 mmol/L (22-29); Chloride 108 mmol/L (98-107); Estimated GFR 53; Glucose 89 mg/dL (70-105); Potassium 4.2 mmol/L (3.5-5.1); Sodium 134 mmol/L (136-145)
[2022-02-20] MEDS: Sodium Bicarbonate Tab 325 MG TAB PO SCH ×3 (08:41→20:11)
[2022-02-20] MEDS: Baclofen 10 MG TAB PO SCH ×2 (08:42→20:11)
[2022-02-20] MEDS: Fluconazole 100 MG TAB PO SCH (08:42)
[2022-02-20] MEDS: Aspirin 81 mg Enteric Coated Tablet PO SCH (08:42)
[2022-02-20] MEDS: Senokot S 8.6-50 MG TAB PO SCH ×2 (08:42→20:11)
[2022-02-20] MEDS: Tamsulosin HCl 0.4 MG CAP PO SCH (08:43)
[2022-02-20] MEDS: Clopidogrel Bisulfate 75 MG TAB PO SCH (08:43)
[2022-02-20] MEDS: levETIRAcetam 500 MG TAB PO SCH ×2 (08:43→20:11)
[2022-02-20] MEDS: Insulin Glargine 30 UNITS/0.3 ML VIAL SC SCH ×2 (08:43→20:11)
[2022-02-20] MEDS: VANCOMYCIN 1.25 GM/250 ML BAG 1.25 GM in Premix Bag 1 BAG IVPB SCH (15:06)
[2022-02-20] MEDS: Atorvastatin Calcium 40 MG TAB PO SCH (20:11)
[2022-02-21 06:44] LABS: #Eosinphils 0.2 thou/uL (0.0-0.7); #Monocytes 0.7 thou/uL (0.11-0.59); #Neutrophils 3.4 thou/uL (1.40-6.50); %Basophils 0.8 % (0.0-1.0); %Eosinophils 3.4 % (0.0-10.0); %Lymphocytes 19.4 % (21.0-51.0); %Monocytes 12.2 % (0.0-10.0); %Neutrophils 64.2 % (42.0-75.0); Hemoglobin 9.2 g/dL (14.0-18.0); Mean Corpuscular HGB CONC 31.3 g/dL (32.0-36.0); Mean Corpuscular Hemoglobin 24.8 pg (27.0-31.0); Mean Corpuscular Volume 79.5 fl (78.0-98.0); Mean Platelet Volume 6.9 fL (7.4-10.4); Platelet Count 289 thou/uL (130-400); RBC Distribution Width 15.3 % (11.5-14.5); White Blood Cell (WBC) Count 5.3 thou/uL (4.8-10.8)
[2022-02-21 07:01] LABS: Anion Gap 12 mmol/L (10-20); BUN (Urea Nitrogen) 35 mg/dL (8.4-25.7); Calc. Creatinine Clearance 58 mL/min (70-130); Calcium 8.4 mg/dL (7.8-10.44); Carbon Dioxide 20 mmol/L (22-29); Chloride 108 mmol/L (98-107); Estimated GFR 53; Glucose 118 mg/dL (70-105); Potassium 4.2 mmol/L (3.5-5.1); Sodium 136 mmol/L (136-145)
[2022-02-21] MEDS: Baclofen 10 MG TAB PO SCH ×2 (09:41→20:03)
[2022-02-21] MEDS: Aspirin 81 mg Enteric Coated Tablet PO SCH (09:41)
[2022-02-21] MEDS: Clopidogrel Bisulfate 75 MG TAB PO SCH (09:41)
[2022-02-21] MEDS: Insulin Glargine 30 UNITS/0.3 ML VIAL SC SCH ×2 (09:41→20:03)
[2022-02-21] MEDS: Fluconazole 100 MG TAB PO SCH (09:41)
[2022-02-21] MEDS: Tamsulosin HCl 0.4 MG CAP PO SCH (09:42)
[2022-02-21] MEDS: Sodium Bicarbonate Tab 325 MG TAB PO SCH ×3 (09:42→20:03)
[2022-02-21] MEDS: Senokot S 8.6-50 MG TAB PO SCH ×2 (09:42→20:03)
[2022-02-21] MEDS: levETIRAcetam 500 MG TAB PO SCH ×2 (09:42→20:03)
[2022-02-21 14:46] LABS: Vancomycin, Trough 12.2 ug/mL
[2022-02-21] MEDS ORDERED: Enoxaparin Sodium 30 MG/0.3 ML SYRINGE SC SCH (15:30)
[2022-02-21] MEDS: Vancomycin 1.5 GRAM/300 ML BAG 1.5 GM in Premix Bag 1 BAG IVPB SCH (15:46)
[2022-02-21] MEDS: Atorvastatin Calcium 40 MG TAB PO SCH (20:03)
[2022-02-22] MEDS: Tamsulosin HCl 0.4 MG CAP PO SCH (08:31)
[2022-02-22] MEDS: levETIRAcetam 500 MG TAB PO SCH ×2 (08:31→20:06)
[2022-02-22] MEDS: Baclofen 10 MG TAB PO SCH ×2 (08:31→20:05)
[2022-02-22] MEDS: Clopidogrel Bisulfate 75 MG TAB PO SCH (08:31)
[2022-02-22] MEDS: Aspirin 81 mg Enteric Coated Tablet PO SCH (08:31)
[2022-02-22] MEDS: Sodium Bicarbonate Tab 325 MG TAB PO SCH ×3 (08:31→20:05)
[2022-02-22] MEDS: Fluconazole 100 MG TAB PO SCH (08:32)
[2022-02-22] MEDS: Insulin Glargine 30 UNITS/0.3 ML VIAL SC SCH ×2 (08:32→20:06)
[2022-02-22] MEDS: Senokot S 8.6-50 MG TAB PO SCH ×2 (08:32→20:17)
[2022-02-22 09:01] LABS: #Eosinphils 0.1 thou/uL (0.0-0.7); #Lymphocytes 1.5 thou/uL (1.20-3.40); #Monocytes 0.6 thou/uL (0.11-0.59); #Neutrophils 3.7 thou/uL (1.40-6.50); %Basophils 0.2 % (0.0-1.0); %Eosinophils 2.2 % (0.0-10.0); %Lymphocytes 24.6 % (21.0-51.0); %Monocytes 10.7 % (0.0-10.0); %Neutrophils 62.2 % (42.0-75.0); Hemoglobin 9.7 g/dL (14.0-18.0); Mean Corpuscular HGB CONC 32.1 g/dL (32.0-36.0); Mean Corpuscular Hemoglobin 25.7 pg (27.0-31.0); Mean Platelet Volume 6.8 fL (7.4-10.4); Platelet Count 295 thou/uL (130-400); RBC Distribution Width 15.1 % (11.5-14.5); Red Blood Cell (RBC) Count 3.77 mill/uL (4.70-6.10)
[2022-02-22 09:18] LABS: Anion Gap 11 mmol/L (10-20); BUN (Urea Nitrogen) 34 mg/dL (8.4-25.7); Calc. Creatinine Clearance 63 mL/min (70-130); Calcium 8.4 mg/dL (7.8-10.44); Carbon Dioxide 22 mmol/L (22-29); Chloride 106 mmol/L (98-107); Estimated GFR 59; Glucose 177 mg/dL (70-105); Potassium 4.2 mmol/L (3.5-5.1); Sodium 135 mmol/L (136-145)
[2022-02-22] MEDS: Insulin Regular 300 UNITS/3 ML VIAL SC PRN (12:26)
[2022-02-22] MEDS: Vancomycin 1.5 GRAM/300 ML BAG 1.5 GM in Premix Bag 1 BAG IVPB SCH (15:12)
[2022-02-22] MEDS: Enoxaparin Sodium 30 MG/0.3 ML SYRINGE SC SCH (20:06)
[2022-02-22] MEDS: Atorvastatin Calcium 40 MG TAB PO SCH (20:06)
[2022-02-23] MEDS: Tamsulosin HCl 0.4 MG CAP PO SCH (09:13)
[2022-02-23] MEDS: Senokot S 8.6-50 MG TAB PO SCH ×2 (09:13→20:14)
[2022-02-23] MEDS: Baclofen 10 MG TAB PO SCH ×2 (09:13→20:13)
[2022-02-23] MEDS: Clopidogrel Bisulfate 75 MG TAB PO SCH (09:13)
[2022-02-23] MEDS: Fluconazole 100 MG TAB PO SCH (09:13)
[2022-02-23] MEDS: levETIRAcetam 500 MG TAB PO SCH ×2 (09:13→20:14)
[2022-02-23] MEDS: Sodium Bicarbonate Tab 325 MG TAB PO SCH ×3 (09:14→20:14)
[2022-02-23] MEDS: Aspirin 81 mg Enteric Coated Tablet PO SCH (09:14)
[2022-02-23] MEDS: Insulin Glargine 30 UNITS/0.3 ML VIAL SC SCH ×2 (09:20→20:18)
[2022-02-23 09:53] LABS: #Eosinphils 0.2 thou/uL (0.0-0.7); #Lymphocytes 1.2 thou/uL (1.20-3.40); #Monocytes 0.5 thou/uL (0.11-0.59); #Neutrophils 5.1 thou/uL (1.40-6.50); %Basophils 0.7 % (0.0-1.0); %Eosinophils 2.5 % (0.0-10.0); %Monocytes 7.2 % (0.0-10.0); %Neutrophils 72.6 % (42.0-75.0); Hemoglobin 9.4 g/dL (14.0-18.0); Mean Corpuscular HGB CONC 33.2 g/dL (32.0-36.0); Mean Corpuscular Hemoglobin 26.5 pg (27.0-31.0); Mean Corpuscular Volume 79.6 fl (78.0-98.0); Mean Platelet Volume 6.8 fL (7.4-10.4); Platelet Count 306 thou/uL (130-400); RBC Distribution Width 14.9 % (11.5-14.5); Red Blood Cell (RBC) Count 3.54 mill/uL (4.70-6.10)
[2022-02-23 10:14] LABS: Anion Gap 12 mmol/L (10-20); BUN (Urea Nitrogen) 32 mg/dL (8.4-25.7); Calc. Creatinine Clearance 61 mL/min (70-130); Calcium 8.6 mg/dL (7.8-10.44); Carbon Dioxide 22 mmol/L (22-29); Chloride 106 mmol/L (98-107); Estimated GFR 58; Glucose 166 mg/dL (70-105); Potassium 4.2 mmol/L (3.5-5.1); Sodium 136 mmol/L (136-145)
[2022-02-23] MEDS: Insulin Regular 300 UNITS/3 ML VIAL SC PRN (12:34)
[2022-02-23] MEDS: Enoxaparin Sodium 30 MG/0.3 ML SYRINGE SC SCH (20:13)
[2022-02-23] MEDS: Atorvastatin Calcium 40 MG TAB PO SCH (20:13)
[2022-02-24] MEDS: Senokot S 8.6-50 MG TAB PO SCH ×3 (07:54→20:47)
[2022-02-24] MEDS: Sodium Bicarbonate Tab 325 MG TAB PO SCH ×3 (07:54→20:46)
[2022-02-24] MEDS: Baclofen 10 MG TAB PO SCH ×2 (07:54→20:46)
[2022-02-24] MEDS: Aspirin 81 mg Enteric Coated Tablet PO SCH (07:55)
[2022-02-24] MEDS: Tamsulosin HCl 0.4 MG CAP PO SCH (07:55)
[2022-02-24] MEDS: Clopidogrel Bisulfate 75 MG TAB PO SCH (07:55)
[2022-02-24] MEDS: Insulin Glargine 30 UNITS/0.3 ML VIAL SC SCH ×2 (07:55→20:47)
[2022-02-24] MEDS: Fluconazole 100 MG TAB PO SCH (07:55)
[2022-02-24] MEDS: levETIRAcetam 500 MG TAB PO SCH ×2 (07:55→20:47)
[2022-02-24] MEDS: Insulin Regular 300 UNITS/3 ML VIAL SC PRN ×2 (12:25→17:55)
[2022-02-24] MEDS: Enoxaparin Sodium 30 MG/0.3 ML SYRINGE SC SCH (20:47)
[2022-02-24] MEDS: Atorvastatin Calcium 40 MG TAB PO SCH (20:47)
[2022-02-25] MEDS: Insulin Regular 300 UNITS/3 ML VIAL SC PRN ×3 (07:52→17:29)
[2022-02-25] MEDS: levETIRAcetam 500 MG TAB PO SCH ×2 (07:53→20:20)
[2022-02-25] MEDS: Baclofen 10 MG TAB PO SCH ×2 (07:53→20:21)
[2022-02-25] MEDS: Senokot S 8.6-50 MG TAB PO SCH ×2 (07:53→20:20)
[2022-02-25] MEDS: Tamsulosin HCl 0.4 MG CAP PO SCH (07:53)
[2022-02-25] MEDS: Fluconazole 100 MG TAB PO SCH (07:54)
[2022-02-25] MEDS: Aspirin 81 mg Enteric Coated Tablet PO SCH (07:54)
[2022-02-25] MEDS: Clopidogrel Bisulfate 75 MG TAB PO SCH (07:54)
[2022-02-25] MEDS: Sodium Bicarbonate Tab 325 MG TAB PO SCH ×3 (07:54→20:20)
[2022-02-25] MEDS: Atorvastatin Calcium 40 MG TAB PO SCH (20:20)
[2022-02-25] MEDS: Insulin Glargine 30 UNITS/0.3 ML VIAL SC SCH (20:21)
[2022-02-25] MEDS: Enoxaparin Sodium 30 MG/0.3 ML SYRINGE SC SCH (20:21)
[2022-02-26] MEDS: Insulin Regular 300 UNITS/3 ML VIAL SC PRN ×3 (06:20→16:59)
[2022-02-26] MEDS: Fluconazole 100 MG TAB PO SCH (08:50)
[2022-02-26] MEDS: Sodium Bicarbonate Tab 325 MG TAB PO SCH ×3 (08:50→20:59)
[2022-02-26] MEDS: levETIRAcetam 500 MG TAB PO SCH ×2 (08:50→20:59)
[2022-02-26] MEDS: Clopidogrel Bisulfate 75 MG TAB PO SCH (08:50)
[2022-02-26] MEDS: Aspirin 81 mg Enteric Coated Tablet PO SCH (08:50)
[2022-02-26] MEDS: Baclofen 10 MG TAB PO SCH ×2 (08:50→20:59)
[2022-02-26] MEDS: Tamsulosin HCl 0.4 MG CAP PO SCH (08:50)
[2022-02-26] MEDS: Senokot S 8.6-50 MG TAB PO SCH ×2 (08:50→20:57)
[2022-02-26] MEDS: Insulin Glargine 30 UNITS/0.3 ML VIAL SC SCH (20:59)
[2022-02-26] MEDS: Atorvastatin Calcium 40 MG TAB PO SCH (20:59)
[2022-02-26] MEDS: Enoxaparin Sodium 30 MG/0.3 ML SYRINGE SC SCH (20:59)
[2022-02-27] MEDS: Sodium Bicarbonate Tab 325 MG TAB PO SCH ×3 (09:26→20:15)
[2022-02-27] MEDS: Clopidogrel Bisulfate 75 MG TAB PO SCH (09:26)
[2022-02-27] MEDS: Aspirin 81 mg Enteric Coated Tablet PO SCH (09:26)
[2022-02-27] MEDS: Baclofen 10 MG TAB PO SCH ×2 (09:26→20:15)
[2022-02-27] MEDS: levETIRAcetam 500 MG TAB PO SCH ×2 (09:26→20:15)
[2022-02-27] MEDS: Senokot S 8.6-50 MG TAB PO SCH ×2 (09:26→20:14)
[2022-02-27] MEDS: Tamsulosin HCl 0.4 MG CAP PO SCH (09:26)
[2022-02-27] MEDS: Insulin Regular 300 UNITS/3 ML VIAL SC PRN ×2 (11:49→17:00)
[2022-02-27] MEDS: Enoxaparin Sodium 30 MG/0.3 ML SYRINGE SC SCH (20:14)
[2022-02-27] MEDS: Insulin Glargine 30 UNITS/0.3 ML VIAL SC SCH (20:15)
[2022-02-27] MEDS: Atorvastatin Calcium 40 MG TAB PO SCH (20:15)
[2022-02-28] MEDS: Aspirin 81 mg Enteric Coated Tablet PO SCH (09:15)
[2022-02-28] MEDS: Sodium Bicarbonate Tab 325 MG TAB PO SCH ×2 (09:15→15:42)
[2022-02-28] MEDS: Senokot S 8.6-50 MG TAB PO SCH ×2 (09:15→21:00)
[2022-02-28] MEDS: levETIRAcetam 500 MG TAB PO SCH ×2 (09:15→20:59)
[2022-02-28] MEDS: Clopidogrel Bisulfate 75 MG TAB PO SCH (09:15)
[2022-02-28] MEDS: Baclofen 10 MG TAB PO SCH ×2 (09:16→20:59)
[2022-02-28] MEDS: Tamsulosin HCl 0.4 MG CAP PO SCH (09:16)
[2022-02-28] MEDS: Insulin Regular 300 UNITS/3 ML VIAL SC PRN ×2 (12:17→16:57)
[2022-02-28] MEDS: Atorvastatin Calcium 40 MG TAB PO SCH (20:59)
[2022-02-28] MEDS: Enoxaparin Sodium 30 MG/0.3 ML SYRINGE SC SCH (21:00)
[2022-02-28] MEDS: Insulin Glargine 30 UNITS/0.3 ML VIAL SC SCH (21:00)
[2022-03-01 06:15] LABS: #Eosinphils 0.2 thou/uL (0.0-0.7); #Lymphocytes 1.7 thou/uL (1.20-3.40); #Monocytes 0.7 thou/uL (0.11-0.59); #Neutrophils 5.1 thou/uL (1.40-6.50); %Basophils 0.4 % (0.0-1.0); %Monocytes 8.4 % (0.0-10.0); %Neutrophils 66.3 % (42.0-75.0); Hemoglobin 9.5 g/dL (14.0-18.0); Mean Corpuscular HGB CONC 31.6 g/dL (32.0-36.0); Mean Corpuscular Hemoglobin 25.2 pg (27.0-31.0); Mean Corpuscular Volume 79.8 fl (78.0-98.0); Mean Platelet Volume 6.6 fL (7.4-10.4); Platelet Count 386 10x3/uL (130-400); RBC Distribution Width 14.7 % (11.5-14.5); Red Blood Cell (RBC) Count 3.74 mill/uL (4.70-6.10); White Blood Cell (WBC) Count 7.7 10x3/uL (4.8-10.8)
[2022-03-01 06:34] LABS: Anion Gap 13 mmol/L (10-20); BUN (Urea Nitrogen) 35 mg/dL (8.4-25.7); Calc. Creatinine Clearance 58 mL/min (70-130); Calcium 8.9 mg/dL (7.8-10.44); Carbon Dioxide 23 mmol/L (22-29); Chloride 103 mmol/L (98-107); Estimated GFR 54; Glucose 144 mg/dL (70-105); Potassium 4.3 mmol/L (3.5-5.1); Sodium 135 mmol/L (136-145)
[2022-03-01 08:31] VITALS: BP 114/78; TEMP 98.2
[2022-03-01] MEDS: Senokot S 8.6-50 MG TAB PO SCH (09:05)
[2022-03-01] MEDS: Clopidogrel Bisulfate 75 MG TAB PO SCH (09:05)
[2022-03-01] MEDS: Aspirin 81 mg Enteric Coated Tablet PO SCH (09:05)
[2022-03-01] MEDS: Tamsulosin HCl 0.4 MG CAP PO SCH (09:05)
[2022-03-01] MEDS: levETIRAcetam 500 MG TAB PO SCH (09:05)
[2022-03-01] MEDS: Baclofen 10 MG TAB PO SCH (09:05)
[2022-03-01] MEDS: Insulin Regular 300 UNITS/3 ML VIAL SC PRN (12:07)
== END 2022-03-01 16:00 | disposition home health service (06) | DRG 698 ==
LOC: ERS 11:19 → T4-A 16:08
PROVIDERS: ADMIT Internal Medicine; ATTEND Internal Medicine
DX: T83.511A Infection and inflammatory reaction due to indwelling urethral catheter, initial encounter (principal); A41.1 Sepsis due to other specified staphylococcus; G93.41 Metabolic encephalopathy; I69.351 Hemiplegia and hemiparesis following cerebral infarction affecting right dominant side; N17.9 Acute kidney failure, unspecified; N13.6 Pyonephrosis; N13.8 Other obstructive and reflux uropathy; E87.20 Acidosis, unspecified; E11.22 Type 2 diabetes mellitus with diabetic chronic kidney disease; I12.9 Hypertensive chronic kidney disease with stage 1 through stage 4 chronic kidney disease, or unspecified chronic kidney disease; N18.30 Chronic kidney disease, stage 3 unspecified; Z20.822 Contact with and (suspected) exposure to COVID-19; H54.7 Unspecified visual loss; G40.909 Epilepsy, unspecified, not intractable, without status epilepticus; E78.5 Hyperlipidemia, unspecified; R33.9 Retention of urine, unspecified; E86.0 Dehydration; D63.1 Anemia in chronic kidney disease; N40.1 Benign prostatic hyperplasia with lower urinary tract symptoms; Y84.6 Urinary catheterization as the cause of abnormal reaction of the patient, or of later complication, without mention of misadventure at the time of the procedure; Z79.82 Long term (current) use of aspirin; Z79.899 Other long term (current) drug therapy; Z79.4 Long term (current) use of insulin; Z90.49 Acquired absence of other specified parts of digestive tract
CPT/HCPCS: 36415; 36416; 70450; 71045; 74022; 76770; 80048; 80053; 80202; 81001; 81003; 81015; 82140; 82550; 83605; 83690; 84145; 84484; 85025; 87040; 87077; 87086; 87149; 87186; 87811; 93005; 93010; J0692; J1650; J1815; J3370; J3490; J7050; U0003; U0005

== ENCOUNTER 2022-03-20 15:14 | Inpatient (IN) | payer MEDICARE ==
[~2022-03-20 15:14] MED LIST: Iopamidol-370 76% 500 ML 1 ML ONE
[2022-03-20 15:55] LABS: #Eosinphils 0.1 thou/uL (0.0-0.7); #Lymphocytes 1.2 thou/uL (1.20-3.40); #Monocytes 0.8 thou/uL (0.11-0.59); #Neutrophils 10.2 thou/uL (1.40-6.50); %Basophils 0.2 % (0.0-1.0); %Eosinophils 1.2 % (0.0-10.0); %Lymphocytes 9.4 % (21.0-51.0); %Monocytes 6.3 % (0.0-10.0); %Neutrophils 82.9 % (42.0-75.0); Hemoglobin 12.1 g/dL (14.0-18.0); Mean Corpuscular HGB CONC 31.6 g/dL (32.0-36.0); Mean Corpuscular Hemoglobin 25.7 pg (27.0-31.0); Mean Corpuscular Volume 81.2 fl (78.0-98.0); Mean Platelet Volume 6.6 fL (7.4-10.4); Platelet Count 326 10x3/uL (130-400); RBC Distribution Width 14.9 % (11.5-14.5); Red Blood Cell (RBC) Count 4.73 mill/uL (4.70-6.10); White Blood Cell (WBC) Count 12.3 10x3/uL (4.8-10.8)
[2022-03-20 16:18] LABS: ALT (SGPT) 26 U/L (8-55); AST (SGOT) 11 U/L (5-34); Albumin 3.9 g/dL (3.4-4.8); Alkaline Phosphatase 101 U/L (40-110); Anion Gap 17 mmol/L (10-20); BUN (Urea Nitrogen) 27 mg/dL (8.4-25.7); Bilirubin, Total 0.7 mg/dL (0.2-1.2); Calc. Creatinine Clearance 0 mL/min (70-130); Calcium 9.7 mg/dL (7.8-10.44); Carbon Dioxide 24 mmol/L (23-31); Chloride 98 mmol/L (98-107); Estimated GFR 36; Globulin 5.3 g/dL (2.4-3.5); Glucose 175 mg/dL (80-115); Potassium 4.6 mmol/L (3.5-5.1); Protein, Total 9.2 g/dL (5.8-8.1); Sodium 134 mmol/L (136-145)
[2022-03-20] MEDS ORDERED: Cefepime 2 GM VIAL ONE (17:46)
[2022-03-20] MEDS ORDERED: Vancomycin 1.5 GRAM/300 ML BAG 1.5 GM in Premix Bag 1 BAG IVPB SCH (18:15)
[2022-03-20] MEDS ORDERED: Clindamycin/D5W 900 mg/50 ml Premix Bag ONE (22:31)
[2022-03-20] MEDS ORDERED: Sodium Chloride 0.9% 1,000 ML IV SCH (23:45)
[2022-03-20] MEDS ORDERED: Acetaminophen 325 MG TAB PO PRN (23:59)
[2022-03-20] MEDS ORDERED: Ondansetron PF 4 MG/2 ML Vial IVP PRN (23:59)
[2022-03-21 00:20] VITALS: BMI 27.2
[2022-03-21] MEDS: Sodium Chloride 0.9% 1,000 ML IV SCH ×2 (00:56→12:43)
[2022-03-21] MEDS ORDERED: Dextrose 5% in Water 1,000 ML IV PRN (01:22)
[2022-03-21] MEDS ORDERED: Dextrose 50% Abboject 50 ML SYRINGE SLOW IVP PRN (01:22)
[2022-03-21] MEDS ORDERED: HumaLOG 300 UNITS/3 ML VIAL SC PRN ×2 (01:22)
[2022-03-21] MEDS ORDERED: Melatonin 3 MG TAB PO PRN (01:23)
[2022-03-21] MEDS ORDERED: Magnesium Citrate 300 ML BOT PO PRN (01:23)
[2022-03-21] MEDS ORDERED: Polyethylene Glycol 3350 17 GM Packet PO PRN (01:32)
[2022-03-21 06:51] LABS: #Basophils 0.1 thou/uL (0.0-0.2); #Eosinphils 0.2 thou/uL (0.0-0.7); #Lymphocytes 0.8 thou/uL (1.20-3.40); #Monocytes 0.7 thou/uL (0.11-0.59); #Neutrophils 7.5 thou/uL (1.40-6.50); %Basophils 0.7 % (0.0-1.0); %Eosinophils 2.2 % (0.0-10.0); %Lymphocytes 8.9 % (21.0-51.0); %Monocytes 7.3 % (0.0-10.0); %Neutrophils 80.9 % (42.0-75.0); Hemoglobin 10.2 g/dL (14.0-18.0); Mean Corpuscular Volume 81.2 fl (78.0-98.0); Mean Platelet Volume 6.3 fL (7.4-10.4); Platelet Count 294 10x3/uL (130-400); RBC Distribution Width 14.7 % (11.5-14.5); Red Blood Cell (RBC) Count 3.91 mill/uL (4.70-6.10); White Blood Cell (WBC) Count 9.3 10x3/uL (4.8-10.8)
[2022-03-21 07:04] LABS: Anion Gap 13 mmol/L (10-20); BUN (Urea Nitrogen) 21 mg/dL (8.4-25.7); Calc. Creatinine Clearance 59 mL/min (70-130); Calcium 8.6 mg/dL (7.8-10.44); Carbon Dioxide 23 mmol/L (23-31); Chloride 100 mmol/L (98-107); Estimated GFR 54; Glucose 149 mg/dL (80-115); Potassium 3.8 mmol/L (3.5-5.1); Sodium 132 mmol/L (136-145)
[2022-03-21] MEDS: levETIRAcetam 500 MG TAB PO SCH ×2 (08:36→21:03)
[2022-03-21] MEDS: Aspirin 81 mg Enteric Coated Tablet PO SCH (08:36)
[2022-03-21] MEDS: Insulin Glargine 30 UNITS/0.3 ML VIAL SC SCH (08:36)
[2022-03-21] MEDS: Tamsulosin HCl 0.4 MG CAP PO SCH (08:36)
[2022-03-21] MEDS: Clopidogrel Bisulfate 75 MG TAB PO SCH (08:36)
[2022-03-21] MEDS: Senokot S 8.6-50 MG TAB PO SCH ×2 (08:36→21:03)
[2022-03-21] MEDS: Heparin 5,000 UNITS/ML VIAL SC SCH ×3 (08:36→21:03)
[2022-03-21] MEDS ORDERED: Senokot S 8.6-50 MG TAB PO SCH (09:00)
[2022-03-21] MEDS ORDERED: Morphine 4 MG/ML VIAL SLOW IVP PRN (15:12)
[2022-03-21] MEDS ORDERED: HYDROcodone/Acetaminophen 5/325 mg Tablet PO PRN (15:12)
[2022-03-21] MEDS ORDERED: CEFAZOLIN 1 GM in Sodium Chloride 0.9% 100 ML IVPB SCH (16:00)
[2022-03-21] MEDS: CEFAZOLIN 2 GM in Sodium Chloride 0.9% 100 ML IVPB SCH (16:46)
[2022-03-21] MEDS ORDERED: Cephalexin 250 MG/5 ML Oral Suspension PO SCH (17:00)
[2022-03-21] MEDS ORDERED: Vancomycin 1 GM in Premix Bag 1 BAG IVPB SCH ×2 (21:00)
[2022-03-21] MEDS ORDERED: Atorvastatin Calcium 40 MG TAB PO SCH (21:00)
[2022-03-22] MEDS: CEFAZOLIN 2 GM in Sodium Chloride 0.9% 100 ML IVPB SCH ×3 (00:03→16:18)
[2022-03-22 06:24] LABS: #Eosinphils 0.3 thou/uL (0.0-0.7); #Monocytes 0.6 thou/uL (0.11-0.59); #Neutrophils 6.7 thou/uL (1.40-6.50); %Basophils 0.4 % (0.0-1.0); %Eosinophils 3.3 % (0.0-10.0); %Lymphocytes 11.8 % (21.0-51.0); %Monocytes 6.8 % (0.0-10.0); %Neutrophils 77.7 % (42.0-75.0); Hemoglobin 9.7 g/dL (14.0-18.0); Mean Corpuscular HGB CONC 31.9 g/dL (32.0-36.0); Mean Corpuscular Hemoglobin 26.1 pg (27.0-31.0); Mean Corpuscular Volume 81.7 fl (78.0-98.0); Mean Platelet Volume 6.2 fL (7.4-10.4); Platelet Count 292 10x3/uL (130-400); RBC Distribution Width 14.5 % (11.5-14.5); Red Blood Cell (RBC) Count 3.72 mill/uL (4.70-6.10); White Blood Cell (WBC) Count 8.6 10x3/uL (4.8-10.8)
[2022-03-22 06:49] LABS: Anion Gap 14 mmol/L (10-20); BUN (Urea Nitrogen) 18 mg/dL (8.4-25.7); Calc. Creatinine Clearance 65 mL/min (70-130); Calcium 8.7 mg/dL (7.8-10.44); Carbon Dioxide 22 mmol/L (23-31); Chloride 103 mmol/L (98-107); Estimated GFR 60; Glucose 97 mg/dL (80-115); Potassium 3.8 mmol/L (3.5-5.1); Sodium 135 mmol/L (136-145)
[2022-03-22] MEDS: Aspirin 81 mg Enteric Coated Tablet PO SCH (08:41)
[2022-03-22] MEDS: Clopidogrel Bisulfate 75 MG TAB PO SCH (08:41)
[2022-03-22] MEDS: Insulin Glargine 30 UNITS/0.3 ML VIAL SC SCH (08:41)
[2022-03-22] MEDS: Heparin 5,000 UNITS/ML VIAL SC SCH ×2 (08:41→16:18)
[2022-03-22] MEDS: levETIRAcetam 500 MG TAB PO SCH (08:42)
[2022-03-22] MEDS: Senokot S 8.6-50 MG TAB PO SCH (08:42)
[2022-03-22] MEDS: Tamsulosin HCl 0.4 MG CAP PO SCH (08:42)
[2022-03-22 10:35] VITALS: BP 122/72; TEMP 98.5
== END 2022-03-22 16:32 | disposition home or self-care (01) | DRG 872 ==
LOC: ERS 15:14 → T4-A 22:39
PROVIDERS: ADMIT Internal Medicine; ATTEND Family Medicine
DX: A41.9 Sepsis, unspecified organism (principal); L03.211 Cellulitis of face; N17.9 Acute kidney failure, unspecified; I12.9 Hypertensive chronic kidney disease with stage 1 through stage 4 chronic kidney disease, or unspecified chronic kidney disease; D63.1 Anemia in chronic kidney disease; E78.5 Hyperlipidemia, unspecified; E11.22 Type 2 diabetes mellitus with diabetic chronic kidney disease; L01.00 Impetigo, unspecified; E11.65 Type 2 diabetes mellitus with hyperglycemia; N18.32 Chronic kidney disease, stage 3b; G40.909 Epilepsy, unspecified, not intractable, without status epilepticus; R33.9 Retention of urine, unspecified; Z79.899 Other long term (current) drug therapy; Z79.82 Long term (current) use of aspirin; Z86.73 Personal history of transient ischemic attack (TIA), and cerebral infarction without residual deficits; Z90.49 Acquired absence of other specified parts of digestive tract; Z82.49 Family history of ischemic heart disease and other diseases of the circulatory system; Z83.3 Family history of diabetes mellitus; Z80.9 Family history of malignant neoplasm, unspecified; Z87.891 Personal history of nicotine dependence
CPT/HCPCS: 36415; 36416; 70450; 70487; 71045; 80048; 80053; 83605; 84484; 85025; 87040; 87070; 87077; 87186; 87205; 93005; 96374; 96375; J0692; J1644; J1815; J3370; J3490; J7050; Q9967

== ENCOUNTER 2022-04-25 15:53 | Inpatient (IN) | payer MEDICARE ==
[2022-04-25] MEDS ORDERED: Ibuprofen 800 MG TAB ONE (16:33)
[2022-04-25] MEDS ORDERED: cefTRIAXone\\ROCEPHIN 2 GM VIAL ONE (16:33)
[2022-04-25 16:39] LABS: #Lymphocytes 0.4 thou/uL (1.20-3.40); #Monocytes 0.5 thou/uL (0.11-0.59); #Neutrophils 6.4 thou/uL (1.40-6.50); %Basophils 0.1 % (0.0-1.0); %Eosinophils 0.6 % (0.0-10.0); %Lymphocytes 5.9 % (21.0-51.0); %Monocytes 6.9 % (0.0-10.0); %Neutrophils 86.5 % (42.0-75.0); Hemoglobin 8.8 g/dL (14.0-18.0); Mean Corpuscular HGB CONC 33.7 g/dL (32.0-36.0); Mean Corpuscular Hemoglobin 26.6 pg (27.0-31.0); Mean Corpuscular Volume 78.8 fl (78.0-98.0); Mean Platelet Volume 6.3 fL (7.4-10.4); Platelet Count 275 10x3/uL (130-400); RBC Distribution Width 13.6 % (11.5-14.5); White Blood Cell (WBC) Count 7.4 10x3/uL (4.8-10.8)
[2022-04-25 16:52] LABS: INR-International Normal Ratio 1.3; Prothrombin Time 16.4 sec (12.0-14.7)
[2022-04-25 16:53] LABS: PTT 34.7 sec (22.9-36.1)
[2022-04-25 16:58] LABS: ALT (SGPT) 74 U/L (8-55); AST (SGOT) 43 U/L (5-34); Alkaline Phosphatase 74 U/L (40-110); Anion Gap 13 mmol/L (10-20); BUN (Urea Nitrogen) 25 mg/dL (8.4-25.7); Bilirubin, Total 0.6 mg/dL (0.2-1.2); CK (CPK) 41 U/L (30-200); Calc. Creatinine Clearance 0 mL/min (70-130); Calcium 8.2 mg/dL (7.8-10.44); Carbon Dioxide 23 mmol/L (23-31); Chloride 101 mmol/L (98-107); Estimated GFR 36; Globulin 4.1 g/dL (2.4-3.5); Glucose 235 mg/dL (80-115); Lipase 59 U/L (8-78); Protein, Total 7.1 g/dL (5.8-8.1); Sodium 133 mmol/L (136-145)
[2022-04-25 17:17] LABS: CKMB 0.5 ng/mL (0-6.6)
[2022-04-25] MEDS ORDERED: Vancomycin 1 GM/200 ML (FROZEN) BAG ONE (17:39)
[2022-04-25 18:19] LABS: Clarity Opaque (Clear); pH, Urine 6.6 (5.0-9.0)
[2022-04-25 18:20] LABS: Glucose, Urine (Dipstick) Unable to Interpret mg/dL (Negative); Ketone, Urine Unable to Interpret mg/dL (Negative); Leukocyte Unable to Interpret (Negative); Nitrite Unable to Interpret (Negative); Protein, Urine (Dipstick) Unable to Interpret mg/dL (Neg-Trace); Urobilinogen UNABLE TO INTERPRET mg/dL (Less than 2)
[2022-04-25 18:21] LABS: Bilirubin Unable to Interpret (Negative); Blood, Urine Unable to Interpret (Negative)
[2022-04-25 18:25] LABS: RBC/HPF Greater than 50 HPF (0-3); Squamous Epithelial 0-3 HPF (0-3); Transitional Epithelial 0-3 HPF (None Seen); WBC/HPF Greater Than 50 HPF (0-3)
[2022-04-25 18:26] LABS: Bacteria/HPF 1+ HPF (None Seen)
[2022-04-25 18:42] LABS: SARS-CoV-2 NAA Rapid Test Not Detected (NotDetected)
[2022-04-25] MEDS ORDERED: Magnesium Citrate 300 ML BOT PO PRN (20:19)
[2022-04-25] MEDS ORDERED: Ondansetron ODT 4 MG TAB PO PRN (20:22)
[2022-04-25] MEDS ORDERED: Lactated Ringer's 1,000 ML IV SCH (20:30)
[2022-04-25 20:58] VITALS: BMI 27.1
[2022-04-25] MEDS ORDERED: Dextrose 50% Abboject 50 ML SYRINGE SLOW IVP PRN (21:11)
[2022-04-25] MEDS ORDERED: Dextrose 5% in Water 1,000 ML IV PRN (21:11)
[2022-04-25] MEDS ORDERED: HumaLOG 300 UNITS/3 ML VIAL SC PRN (21:11)
[2022-04-25] MEDS ORDERED: Famotidine 20 MG TAB ONE (21:22)
[2022-04-25] MEDS: Famotidine 20 MG TAB PO SCH (21:52)
[2022-04-25] MEDS: levETIRAcetam 500 MG TAB PO SCH (21:52)
[2022-04-25] MEDS: Atorvastatin Calcium 40 MG TAB PO SCH (21:52)
[2022-04-25] MEDS: Senokot S 8.6-50 MG TAB PO SCH (21:53)
[2022-04-25] MEDS ORDERED: HumaLOG 300 UNITS/3 ML VIAL ONE (21:55)
[2022-04-25 22:38] LABS: Troponin I 0.146 ng/mL (< 0.028)
[2022-04-26 02:51] LABS: #Eosinphils 0.2 thou/uL (0.0-0.7); #Lymphocytes 0.8 thou/uL (1.20-3.40); #Monocytes 0.6 thou/uL (0.11-0.59); #Neutrophils 3.2 thou/uL (1.40-6.50); %Basophils 0.1 % (0.0-1.0); %Eosinophils 3.8 % (0.0-10.0); %Lymphocytes 17.4 % (21.0-51.0); %Monocytes 11.7 % (0.0-10.0); Mean Corpuscular HGB CONC 35.2 g/dL (32.0-36.0); Mean Corpuscular Hemoglobin 28.4 pg (27.0-31.0); Mean Corpuscular Volume 80.7 fl (78.0-98.0); Mean Platelet Volume 6.1 fL (7.4-10.4); Platelet Count 226 10x3/uL (130-400); RBC Distribution Width 13.6 % (11.5-14.5); Red Blood Cell (RBC) Count 3.18 mill/uL (4.70-6.10); White Blood Cell (WBC) Count 4.8 10x3/uL (4.8-10.8)
[2022-04-26 03:45] LABS: ALT (SGPT) 56 U/L (8-55); AST (SGOT) 30 U/L (5-34); Albumin 2.8 g/dL (3.4-4.8); Alkaline Phosphatase 70 U/L (40-110); Anion Gap 14 mmol/L (10-20); BUN (Urea Nitrogen) 20 mg/dL (8.4-25.7); Bilirubin, Total 0.2 mg/dL (0.2-1.2); Calc. Creatinine Clearance 55 mL/min (70-130); Calcium 7.8 mg/dL (7.8-10.44); Carbon Dioxide 19 mmol/L (23-31); Chloride 108 mmol/L (98-107); Estimated GFR 42; Globulin 3.8 g/dL (2.4-3.5); Glucose 100 mg/dL (80-115); Potassium 3.5 mmol/L (3.5-5.1); Protein, Total 6.6 g/dL (5.8-8.1); Sodium 137 mmol/L (136-145)
[2022-04-26] MEDS ORDERED: Cefepime 2 GM VIAL ONE (10:41)
[2022-04-26] MEDS ORDERED: Cefepime 1 GM VIAL ONE (10:44)
[2022-04-26] MEDS: Cefepime 1 GM in Sodium Chloride 0.9% 100 ML IVPB SCH ×2 (10:46→20:28)
[2022-04-26] MEDS: levETIRAcetam 500 MG TAB PO SCH ×2 (10:50→20:28)
[2022-04-26] MEDS: Tamsulosin HCl 0.4 MG CAP PO SCH (10:50)
[2022-04-26] MEDS: Senokot S 8.6-50 MG TAB PO SCH ×2 (10:51→20:28)
[2022-04-26] MEDS: Insulin Glargine 30 UNITS/0.3 ML VIAL SC SCH (12:16)
[2022-04-26] MEDS: Acetaminophen 325 MG TAB PO PRN (18:27)
[2022-04-26] MEDS: Atorvastatin Calcium 40 MG TAB PO SCH (20:28)
[2022-04-26] MEDS: Melatonin 3 MG TAB PO PRN (20:28)
[2022-04-26] MEDS: Famotidine 20 MG TAB PO SCH (20:28)
[2022-04-27 07:35] LABS: #Eosinphils 0.2 thou/uL (0.0-0.7); #Lymphocytes 1.1 thou/uL (1.20-3.40); #Monocytes 0.6 thou/uL (0.11-0.59); #Neutrophils 3.8 thou/uL (1.40-6.50); %Basophils 0.1 % (0.0-1.0); %Eosinophils 3.2 % (0.0-10.0); %Lymphocytes 18.6 % (21.0-51.0); %Monocytes 10.7 % (0.0-10.0); %Neutrophils 67.3 % (42.0-75.0); Hemoglobin 8.3 g/dL (14.0-18.0); Mean Corpuscular Hemoglobin 26.8 pg (27.0-31.0); Mean Corpuscular Volume 81.4 fl (78.0-98.0); Mean Platelet Volume 6.4 fL (7.4-10.4); Platelet Count 261 10x3/uL (130-400); RBC Distribution Width 13.6 % (11.5-14.5); Red Blood Cell (RBC) Count 3.09 mill/uL (4.70-6.10); White Blood Cell (WBC) Count 5.6 10x3/uL (4.8-10.8)
[2022-04-27 08:28] LABS: ALT (SGPT) 54 U/L (8-55); AST (SGOT) 23 U/L (5-34); Albumin 2.8 g/dL (3.4-4.8); Alkaline Phosphatase 67 U/L (40-110); Anion Gap 10 mmol/L (10-20); BUN (Urea Nitrogen) 22 mg/dL (8.4-25.7); Bilirubin, Total 0.2 mg/dL (0.2-1.2); Calc. Creatinine Clearance 63 mL/min (70-130); Calcium 8.4 mg/dL (7.8-10.44); Carbon Dioxide 23 mmol/L (23-31); Chloride 108 mmol/L (98-107); Estimated GFR 49; Globulin 3.9 g/dL (2.4-3.5); Glucose 115 mg/dL (80-115); Potassium 3.5 mmol/L (3.5-5.1); Protein, Total 6.7 g/dL (5.8-8.1); Sodium 137 mmol/L (136-145)
[2022-04-27] MEDS: Aspirin 81 mg Enteric Coated Tablet PO SCH (08:55)
[2022-04-27] MEDS: Senokot S 8.6-50 MG TAB PO SCH ×2 (08:55→20:25)
[2022-04-27] MEDS: levETIRAcetam 500 MG TAB PO SCH ×2 (08:55→20:23)
[2022-04-27] MEDS: Tamsulosin HCl 0.4 MG CAP PO SCH (08:56)
[2022-04-27] MEDS: Clopidogrel Bisulfate 75 MG TAB PO SCH (08:56)
[2022-04-27] MEDS: Cefepime 1 GM in Sodium Chloride 0.9% 100 ML IVPB SCH ×2 (08:56→20:23)
[2022-04-27] MEDS: Insulin Glargine 30 UNITS/0.3 ML VIAL SC SCH (08:56)
[2022-04-27] MEDS: Famotidine 20 MG TAB PO SCH (20:24)
[2022-04-27] MEDS: Melatonin 3 MG TAB PO PRN (20:24)
[2022-04-27] MEDS: Atorvastatin Calcium 40 MG TAB PO SCH (20:25)
[2022-04-27] MEDS: Acetaminophen 325 MG TAB PO PRN (20:25)
[2022-04-28 08:07] LABS: #Eosinphils 0.2 thou/uL (0.0-0.7); #Lymphocytes 0.9 thou/uL (1.20-3.40); #Monocytes 0.6 thou/uL (0.11-0.59); #Neutrophils 5.1 thou/uL (1.40-6.50); %Basophils 0.2 % (0.0-1.0); %Eosinophils 2.8 % (0.0-10.0); %Lymphocytes 13.5 % (21.0-51.0); %Monocytes 8.2 % (0.0-10.0); %Neutrophils 75.4 % (42.0-75.0); Hemoglobin 8.3 g/dL (14.0-18.0); Mean Corpuscular HGB CONC 32.3 g/dL (32.0-36.0); Mean Corpuscular Hemoglobin 25.9 pg (27.0-31.0); Mean Corpuscular Volume 80.3 fl (78.0-98.0); Mean Platelet Volume 6.3 fL (7.4-10.4); Platelet Count 286 10x3/uL (130-400); RBC Distribution Width 13.4 % (11.5-14.5); Red Blood Cell (RBC) Count 3.21 mill/uL (4.70-6.10); White Blood Cell (WBC) Count 6.7 10x3/uL (4.8-10.8)
[2022-04-28 08:30] LABS: ALT (SGPT) 44 U/L (8-55); AST (SGOT) 20 U/L (5-34); Albumin 2.9 g/dL (3.4-4.8); Alkaline Phosphatase 65 U/L (40-110); Anion Gap 9 mmol/L (10-20); BUN (Urea Nitrogen) 21 mg/dL (8.4-25.7); Bilirubin, Total 0.2 mg/dL (0.2-1.2); Calc. Creatinine Clearance 62 mL/min (70-130); Calcium 8.3 mg/dL (7.8-10.44); Carbon Dioxide 24 mmol/L (23-31); Chloride 107 mmol/L (98-107); Estimated GFR 49; Globulin 3.8 g/dL (2.4-3.5); Glucose 109 mg/dL (80-115); Potassium 3.5 mmol/L (3.5-5.1); Protein, Total 6.7 g/dL (5.8-8.1); Sodium 136 mmol/L (136-145)
[2022-04-28] MEDS: Aspirin 81 mg Enteric Coated Tablet PO SCH (09:17)
[2022-04-28] MEDS: Tamsulosin HCl 0.4 MG CAP PO SCH (09:17)
[2022-04-28] MEDS: Cefepime 1 GM in Sodium Chloride 0.9% 100 ML IVPB SCH (09:17)
[2022-04-28] MEDS: Clopidogrel Bisulfate 75 MG TAB PO SCH (09:17)
[2022-04-28] MEDS: levETIRAcetam 500 MG TAB PO SCH ×2 (09:17→20:15)
[2022-04-28] MEDS: Senokot S 8.6-50 MG TAB PO SCH ×2 (09:17→20:15)
[2022-04-28] MEDS: Insulin Glargine 30 UNITS/0.3 ML VIAL SC SCH (09:17)
[2022-04-28] MEDS: Famotidine 20 MG TAB PO SCH (20:15)
[2022-04-28] MEDS: Atorvastatin Calcium 40 MG TAB PO SCH (20:15)
[2022-04-28] MEDS: Acetaminophen 325 MG TAB PO PRN (20:15)
[2022-04-28] MEDS: Melatonin 3 MG TAB PO PRN (20:15)
[2022-04-29] MEDS: HYDROcodone/Acetaminophen 5/325 mg Tablet PO PRN ×2 (04:13→17:27)
[2022-04-29] MEDS: Aspirin 81 mg Enteric Coated Tablet PO SCH (08:33)
[2022-04-29] MEDS: levETIRAcetam 500 MG TAB PO SCH ×2 (08:33→21:52)
[2022-04-29] MEDS: Propranolol 10 MG TAB PO SCH (08:33)
[2022-04-29] MEDS: Clopidogrel Bisulfate 75 MG TAB PO SCH (08:33)
[2022-04-29] MEDS: Tamsulosin HCl 0.4 MG CAP PO SCH (08:33)
[2022-04-29] MEDS: Senokot S 8.6-50 MG TAB PO SCH ×2 (08:34→21:52)
[2022-04-29] MEDS: Insulin Glargine 30 UNITS/0.3 ML VIAL SC SCH (08:34)
[2022-04-29] MEDS: Atorvastatin Calcium 40 MG TAB PO SCH (21:53)
[2022-04-29] MEDS: Famotidine 20 MG TAB PO SCH (21:53)
[2022-04-30] MEDS: Tamsulosin HCl 0.4 MG CAP PO SCH (08:51)
[2022-04-30] MEDS: Senokot S 8.6-50 MG TAB PO SCH ×2 (08:51→21:56)
[2022-04-30] MEDS: Aspirin 81 mg Enteric Coated Tablet PO SCH (08:51)
[2022-04-30] MEDS: Clopidogrel Bisulfate 75 MG TAB PO SCH (08:51)
[2022-04-30] MEDS: Propranolol 10 MG TAB PO SCH ×2 (08:51→21:56)
[2022-04-30] MEDS: levETIRAcetam 500 MG TAB PO SCH ×2 (08:51→21:55)
[2022-04-30] MEDS: Insulin Glargine 30 UNITS/0.3 ML VIAL SC SCH (08:52)
[2022-04-30] MEDS: Famotidine 20 MG TAB PO SCH (21:55)
[2022-04-30] MEDS: Atorvastatin Calcium 40 MG TAB PO SCH (21:55)
[2022-05-01] MEDS: Propranolol 10 MG TAB PO SCH ×3 (09:19→22:44)
[2022-05-01] MEDS: Tamsulosin HCl 0.4 MG CAP PO SCH (09:19)
[2022-05-01] MEDS: Aspirin 81 mg Enteric Coated Tablet PO SCH (09:19)
[2022-05-01] MEDS: levETIRAcetam 500 MG TAB PO SCH ×2 (09:19→22:43)
[2022-05-01] MEDS: Clopidogrel Bisulfate 75 MG TAB PO SCH (09:20)
[2022-05-01] MEDS: Senokot S 8.6-50 MG TAB PO SCH ×2 (09:21→22:43)
[2022-05-01] MEDS: Insulin Glargine 30 UNITS/0.3 ML VIAL SC SCH (09:22)
[2022-05-01] MEDS: Famotidine 20 MG TAB PO SCH (22:43)
[2022-05-01] MEDS: Atorvastatin Calcium 40 MG TAB PO SCH (22:43)
[2022-05-02] MEDS: Clopidogrel Bisulfate 75 MG TAB PO SCH (08:17)
[2022-05-02] MEDS: levETIRAcetam 500 MG TAB PO SCH (08:17)
[2022-05-02] MEDS: Tamsulosin HCl 0.4 MG CAP PO SCH (08:17)
[2022-05-02] MEDS: Senokot S 8.6-50 MG TAB PO SCH (08:17)
[2022-05-02] MEDS: Aspirin 81 mg Enteric Coated Tablet PO SCH (08:17)
[2022-05-02] MEDS: Propranolol 10 MG TAB PO SCH ×2 (08:18→08:19)
[2022-05-02] MEDS: Insulin Glargine 30 UNITS/0.3 ML VIAL SC SCH (08:18)
[2022-05-02 08:39] LABS: #Eosinphils 0.2 thou/uL (0.0-0.7); #Lymphocytes 1.1 thou/uL (1.20-3.40); #Monocytes 0.7 thou/uL (0.11-0.59); #Neutrophils 4.6 thou/uL (1.40-6.50); %Basophils 0.6 % (0.0-1.0); %Eosinophils 2.6 % (0.0-10.0); %Lymphocytes 17.1 % (21.0-51.0); %Neutrophils 69.6 % (42.0-75.0); Hemoglobin 8.6 g/dL (14.0-18.0); Mean Corpuscular HGB CONC 32.5 g/dL (32.0-36.0); Mean Corpuscular Hemoglobin 26.1 pg (27.0-31.0); Mean Corpuscular Volume 80.3 fl (78.0-98.0); Mean Platelet Volume 6.3 fL (7.4-10.4); Platelet Count 346 10x3/uL (130-400); RBC Distribution Width 13.2 % (11.5-14.5); White Blood Cell (WBC) Count 6.7 10x3/uL (4.8-10.8)
[2022-05-02 08:49] LABS: ALT (SGPT) 50 U/L (8-55); AST (SGOT) 32 U/L (5-34); Albumin 3.2 g/dL (3.4-4.8); Alkaline Phosphatase 79 U/L (40-110); Anion Gap 12 mmol/L (10-20); BUN (Urea Nitrogen) 26 mg/dL (8.4-25.7); Bilirubin, Total 0.3 mg/dL (0.2-1.2); Calc. Creatinine Clearance 60 mL/min (70-130); Calcium 8.6 mg/dL (7.8-10.44); Carbon Dioxide 25 mmol/L (23-31); Chloride 104 mmol/L (98-107); Estimated GFR 47; Globulin 4.3 g/dL (2.4-3.5); Glucose 118 mg/dL (80-115); Potassium 3.5 mmol/L (3.5-5.1); Protein, Total 7.5 g/dL (5.8-8.1); Sodium 137 mmol/L (136-145)
[2022-05-02 12:29] VITALS: TEMP 98.2
[2022-05-02 15:43] VITALS: BP 158/77
== END 2022-05-02 16:22 | disposition home or self-care (01) | DRG 698 ==
LOC: ERS 15:53 → ERHOLD 19:49 → T4-A 04-26 12:29
PROVIDERS: ADMIT Student in an Organized Health Care Education/Training Program; ATTEND Internal Medicine
DX: T83.518A Infection and inflammatory reaction due to other urinary catheter, initial encounter (principal); A41.9 Sepsis, unspecified organism; N17.9 Acute kidney failure, unspecified; N39.0 Urinary tract infection, site not specified; N40.1 Benign prostatic hyperplasia with lower urinary tract symptoms; E11.22 Type 2 diabetes mellitus with diabetic chronic kidney disease; N18.30 Chronic kidney disease, stage 3 unspecified; I12.9 Hypertensive chronic kidney disease with stage 1 through stage 4 chronic kidney disease, or unspecified chronic kidney disease; E78.5 Hyperlipidemia, unspecified; G40.909 Epilepsy, unspecified, not intractable, without status epilepticus; R33.8 Other retention of urine; Z79.82 Long term (current) use of aspirin; Z79.899 Other long term (current) drug therapy; Z87.891 Personal history of nicotine dependence; Y84.6 Urinary catheterization as the cause of abnormal reaction of the patient, or of later complication, without mention of misadventure at the time of the procedure
CPT/HCPCS: 36415; 36416; 51702; 71045; 80053; 81003; 81015; 82550; 82553; 83605; 83690; 83880; 84484; 85025; 85610; 85730; 87040; 87086; 87811; 93005; 94760; 96365; 96366; 96367; J0692; J0696; J1650; J1815; J3370-JW; J3490; J7120

== ENCOUNTER 2022-05-10 19:35 | Inpatient (IN) | payer MEDICARE ==
[2022-05-10] MEDS ORDERED: Vancomycin 1 GM/200 ML (FROZEN) BAG ONE (21:23)
[2022-05-10 21:24] LABS: Bilirubin Negative (Negative); Blood, Urine 2+ (Negative); Clarity Extra Turbid (Clear); Glucose, Urine (Dipstick) Normal (Negative); Ketone, Urine Negative (Negative); Leukocyte 500 Leu/uL (Negative); Nitrite Negative (Negative); Protein, Urine (Dipstick) 100 mg/dL (Neg-Trace); Specific Gravity, Urine 1.008 (1.002-1.036); Urobilinogen Normal mg/dL (Less than 2); pH, Urine 5.5 (5.0-9.0)
[2022-05-10 21:25] LABS: RBC/HPF 21-50 HPF (0-3); WBC/HPF Greater Than 50 HPF (0-3)
[2022-05-10 21:26] LABS: Bacteria/HPF 4+ HPF (None Seen); Squamous Epithelial None Seen HPF (0-3)
[2022-05-10 21:59] LABS: ALT (SGPT) 37 U/L (8-55); AST (SGOT) 21 U/L (5-34); Albumin 3.4 g/dL (3.4-4.8); Alkaline Phosphatase 80 U/L (40-110); Anion Gap 15 mmol/L (10-20); BUN (Urea Nitrogen) 21 mg/dL (8.4-25.7); Bilirubin, Total 0.4 mg/dL (0.2-1.2); Calc. Creatinine Clearance 0 mL/min (70-130); Calcium 9.4 mg/dL (7.8-10.44); Carbon Dioxide 18 mmol/L (23-31); Chloride 104 mmol/L (98-107); Estimated GFR 38; Globulin 4.5 g/dL (2.4-3.5); Glucose 176 mg/dL (80-115); Potassium 4.2 mmol/L (3.5-5.1); Protein, Total 7.9 g/dL (5.8-8.1); Sodium 133 mmol/L (136-145)
[2022-05-10] MEDS ORDERED: Ondansetron PF 4 MG/2 ML Vial ONE (22:28)
[2022-05-10] MEDS ORDERED: Fentanyl 100 MCG/2 ML VIAL ONE (22:28)
[2022-05-10 22:32] LABS: #Eosinphils 0.1 thou/uL (0.0-0.7); #Lymphocytes 0.8 thou/uL (1.20-3.40); #Monocytes 0.6 thou/uL (0.11-0.59); #Neutrophils 9.8 thou/uL (1.40-6.50); %Basophils 0.1 % (0.0-1.0); %Eosinophils 1.1 % (0.0-10.0); %Lymphocytes 6.9 % (21.0-51.0); %Monocytes 5.5 % (0.0-10.0); %Neutrophils 86.4 % (42.0-75.0); Mean Corpuscular HGB CONC 32.7 g/dL (32.0-36.0); Mean Corpuscular Hemoglobin 26.2 pg (27.0-31.0); Mean Corpuscular Volume 80.1 fl (78.0-98.0); Mean Platelet Volume 6.1 fL (7.4-10.4); Platelet Count 358 10x3/uL (130-400); RBC Distribution Width 13.2 % (11.5-14.5); Red Blood Cell (RBC) Count 3.82 mill/uL (4.70-6.10); White Blood Cell (WBC) Count 11.3 10x3/uL (4.8-10.8)
[2022-05-10] MEDS ORDERED: Ondansetron ODT 4 MG TAB PO PRN (23:58)
[2022-05-11] MEDS ORDERED: Dextrose 50% Abboject 50 ML SYRINGE SLOW IVP PRN
[2022-05-11] MEDS ORDERED: HYDROcodone/Acetaminophen 5/325 mg Tablet PO PRN
[2022-05-11] MEDS ORDERED: Dextrose 5% in Water 1,000 ML IV PRN
[2022-05-11] MEDS ORDERED: Lactated Ringer's 1,000 ML IV SCH (00:15)
[2022-05-11 03:00] VITALS: BMI 26.4
[2022-05-11] MEDS: Cefepime 1 GM in Sodium Chloride 0.9% 100 ML IVPB SCH ×2 (03:01→12:15)
[2022-05-11 05:53] LABS: Anion Gap 12 mmol/L (10-20); BUN (Urea Nitrogen) 22 mg/dL (8.4-25.7); Calc. Creatinine Clearance 54 mL/min (70-130); Calcium 8.5 mg/dL (7.8-10.44); Carbon Dioxide 22 mmol/L (23-31); Chloride 103 mmol/L (98-107); Estimated GFR 46; Glucose 152 mg/dL (80-115); Potassium 3.9 mmol/L (3.5-5.1); Sodium 133 mmol/L (136-145)
[2022-05-11] MEDS: Aspirin 81 mg Enteric Coated Tablet PO SCH (08:26)
[2022-05-11] MEDS: levETIRAcetam 500 MG TAB PO SCH ×2 (08:26→20:43)
[2022-05-11] MEDS: Propranolol 10 MG TAB PO SCH ×2 (08:26→20:43)
[2022-05-11] MEDS: Famotidine 20 MG TAB PO SCH (08:27)
[2022-05-11] MEDS: Amlodipine 5 MG TAB PO SCH (08:27)
[2022-05-11] MEDS: Insulin Glargine 30 UNITS/0.3 ML VIAL SC SCH (08:27)
[2022-05-11] MEDS: Tamsulosin HCl 0.4 MG CAP PO SCH (08:27)
[2022-05-11] MEDS: Baclofen 10 MG TAB PO SCH ×2 (08:27→20:43)
[2022-05-11] MEDS: Acetaminophen 325 MG TAB PO PRN ×2 (12:40→23:55)
[2022-05-11] MEDS ORDERED: Fluconazole In NaCl,Iso-Osm 100 MG, Admixture Fee 1 EACH in Premix Bag 1 BAG IVPB SCH (15:45)
[2022-05-11] MEDS: Fluconazole In NaCl,Iso-Osm 100 MG in Admixture Fee 1 EACH IVPB SCH (16:59)
[2022-05-11] MEDS: Atorvastatin Calcium 40 MG TAB PO SCH (20:43)
[2022-05-12] MEDS: Cefepime 1 GM in Sodium Chloride 0.9% 100 ML IVPB SCH ×2 (00:20→12:04)
[2022-05-12] MEDS: Acetaminophen 325 MG TAB PO PRN ×2 (03:45→12:05)
[2022-05-12 06:10] LABS: #Lymphocytes 0.8 thou/uL (1.20-3.40); #Monocytes 0.3 thou/uL (0.11-0.59); %Basophils 1.2 % (0.0-1.0); %Eosinophils 0.5 % (0.0-10.0); %Lymphocytes 18.8 % (21.0-51.0); %Monocytes 7.4 % (0.0-10.0); %Neutrophils 72.2 % (42.0-75.0); Hemoglobin 8.4 g/dL (14.0-18.0); Mean Corpuscular HGB CONC 33.5 g/dL (32.0-36.0); Mean Corpuscular Hemoglobin 26.7 pg (27.0-31.0); Platelet Count 270 10x3/uL (130-400); RBC Distribution Width 13.3 % (11.5-14.5); Red Blood Cell (RBC) Count 3.14 mill/uL (4.70-6.10); White Blood Cell (WBC) Count 4.2 10x3/uL (4.8-10.8)
[2022-05-12 06:38] LABS: ALT (SGPT) 27 U/L (8-55); AST (SGOT) 13 U/L (5-34); Albumin 2.6 g/dL (3.4-4.8); Alkaline Phosphatase 57 U/L (40-110); Anion Gap 13 mmol/L (10-20); BUN (Urea Nitrogen) 23 mg/dL (8.4-25.7); Bilirubin, Total 0.5 mg/dL (0.2-1.2); Calc. Creatinine Clearance 47 mL/min (70-130); Calcium 8.6 mg/dL (7.8-10.44); Carbon Dioxide 22 mmol/L (23-31); Chloride 105 mmol/L (98-107); Estimated GFR 38; Glucose 86 mg/dL (80-115); Magnesium 1.6 mg/dL (1.6-2.6); Phosphorus 3.9 mg/dL (2.3-4.7); Potassium 3.5 mmol/L (3.5-5.1); Protein, Total 6.6 g/dL (5.8-8.1); Sodium 136 mmol/L (136-145)
[2022-05-12] MEDS: Propranolol 10 MG TAB PO SCH ×2 (08:32→20:22)
[2022-05-12] MEDS: levETIRAcetam 500 MG TAB PO SCH ×2 (08:32→20:22)
[2022-05-12] MEDS: Tamsulosin HCl 0.4 MG CAP PO SCH (08:32)
[2022-05-12] MEDS: Baclofen 10 MG TAB PO SCH ×2 (08:32→20:22)
[2022-05-12] MEDS: Amlodipine 5 MG TAB PO SCH (08:32)
[2022-05-12] MEDS: Aspirin 81 mg Enteric Coated Tablet PO SCH (08:33)
[2022-05-12] MEDS: Famotidine 20 MG TAB PO SCH (08:33)
[2022-05-12] MEDS: Insulin Glargine 30 UNITS/0.3 ML VIAL SC SCH ×2 (08:33→08:34)
[2022-05-12 08:58] LABS: Hemoglobin 8.8 g/dL (14.0-18.0)
[2022-05-12] MEDS: Fluconazole In NaCl,Iso-Osm 100 MG in Admixture Fee 1 EACH IVPB SCH (16:28)
[2022-05-12] MEDS: Atorvastatin Calcium 40 MG TAB PO SCH (20:22)
[2022-05-13 05:48] LABS: #Eosinphils 0.1 thou/uL (0.0-0.7); #Lymphocytes 0.8 thou/uL (1.20-3.40); #Monocytes 0.5 thou/uL (0.11-0.59); #Neutrophils 2.7 thou/uL (1.40-6.50); %Basophils 0.4 % (0.0-1.0); %Eosinophils 2.7 % (0.0-10.0); %Lymphocytes 18.3 % (21.0-51.0); %Monocytes 11.2 % (0.0-10.0); %Neutrophils 67.4 % (42.0-75.0); Hemoglobin 8.4 g/dL (14.0-18.0); Mean Corpuscular HGB CONC 32.3 g/dL (32.0-36.0); Mean Corpuscular Hemoglobin 25.8 pg (27.0-31.0); Mean Corpuscular Volume 79.8 fl (78.0-98.0); Mean Platelet Volume 6.3 fL (7.4-10.4); Platelet Count 247 10x3/uL (130-400); RBC Distribution Width 13.2 % (11.5-14.5); Red Blood Cell (RBC) Count 3.28 mill/uL (4.70-6.10); White Blood Cell (WBC) Count 4.1 10x3/uL (4.8-10.8)
[2022-05-13 06:05] LABS: ALT (SGPT) 28 U/L (8-55); AST (SGOT) 18 U/L (5-34); Albumin 2.8 g/dL (3.4-4.8); Alkaline Phosphatase 68 U/L (40-110); Anion Gap 13 mmol/L (10-20); BUN (Urea Nitrogen) 26 mg/dL (8.4-25.7); Bilirubin, Total 0.3 mg/dL (0.2-1.2); Calc. Creatinine Clearance 50 mL/min (70-130); Calcium 8.3 mg/dL (7.8-10.44); Carbon Dioxide 21 mmol/L (23-31); Chloride 105 mmol/L (98-107); Estimated GFR 41; Globulin 3.9 g/dL (2.4-3.5); Glucose 191 mg/dL (80-115); Potassium 3.8 mmol/L (3.5-5.1); Protein, Total 6.7 g/dL (5.8-8.1); Sodium 135 mmol/L (136-145)
[2022-05-13] MEDS: levETIRAcetam 500 MG TAB PO SCH ×2 (08:55→21:19)
[2022-05-13] MEDS: Baclofen 10 MG TAB PO SCH ×2 (08:56→21:19)
[2022-05-13] MEDS: Amlodipine 5 MG TAB PO SCH (08:57)
[2022-05-13] MEDS: Tamsulosin HCl 0.4 MG CAP PO SCH (08:58)
[2022-05-13] MEDS: Aspirin 81 mg Enteric Coated Tablet PO SCH (08:58)
[2022-05-13] MEDS: Famotidine 20 MG TAB PO SCH (08:58)
[2022-05-13] MEDS: Insulin Glargine 30 UNITS/0.3 ML VIAL SC SCH (08:59)
[2022-05-13] MEDS: Propranolol 10 MG TAB PO SCH ×2 (09:39→21:20)
[2022-05-13] MEDS: Senokot S 8.6-50 MG TAB PO PRN (16:35)
[2022-05-13] MEDS: Fluconazole In NaCl,Iso-Osm 100 MG in Admixture Fee 1 EACH IVPB SCH (17:23)
[2022-05-13] MEDS: Atorvastatin Calcium 40 MG TAB PO SCH (21:19)
[2022-05-14 06:30] LABS: #Eosinphils 0.2 thou/uL (0.0-0.7); #Lymphocytes 1.2 thou/uL (1.20-3.40); #Monocytes 0.6 thou/uL (0.11-0.59); %Basophils 0.3 % (0.0-1.0); %Eosinophils 3.3 % (0.0-10.0); %Lymphocytes 24.1 % (21.0-51.0); %Monocytes 12.4 % (0.0-10.0); %Neutrophils 59.9 % (42.0-75.0); Hemoglobin 8.4 g/dL (14.0-18.0); Mean Corpuscular HGB CONC 32.7 g/dL (32.0-36.0); Mean Corpuscular Hemoglobin 25.8 pg (27.0-31.0); Mean Platelet Volume 6.8 fL (7.4-10.4); Platelet Count 242 10x3/uL (130-400); RBC Distribution Width 13.2 % (11.5-14.5); Red Blood Cell (RBC) Count 3.25 mill/uL (4.70-6.10)
[2022-05-14 06:46] LABS: Anion Gap 13 mmol/L (10-20); BUN (Urea Nitrogen) 26 mg/dL (8.4-25.7); Calc. Creatinine Clearance 59 mL/min (70-130); Calcium 8.5 mg/dL (7.8-10.44); Carbon Dioxide 23 mmol/L (23-31); Chloride 104 mmol/L (98-107); Estimated GFR 51; Glucose 157 mg/dL (80-115); Potassium 3.8 mmol/L (3.5-5.1); Sodium 136 mmol/L (136-145)
[2022-05-14] MEDS: Baclofen 10 MG TAB PO SCH ×2 (08:53→21:26)
[2022-05-14] MEDS: Amlodipine 5 MG TAB PO SCH (08:53)
[2022-05-14] MEDS: Insulin Glargine 30 UNITS/0.3 ML VIAL SC SCH (08:53)
[2022-05-14] MEDS: Tamsulosin HCl 0.4 MG CAP PO SCH (08:53)
[2022-05-14] MEDS: Famotidine 20 MG TAB PO SCH (08:53)
[2022-05-14] MEDS: levETIRAcetam 500 MG TAB PO SCH ×2 (08:53→21:26)
[2022-05-14] MEDS: Aspirin 81 mg Enteric Coated Tablet PO SCH (08:53)
[2022-05-14] MEDS: Propranolol 10 MG TAB PO SCH ×2 (08:53→21:28)
[2022-05-14] MEDS: Senokot S 8.6-50 MG TAB PO PRN ×2 (08:57→22:22)
[2022-05-14 11:00] LABS: Troponin I Less than 0.010 ng/mL (< 0.028)
[2022-05-14] MEDS: HumaLOG 300 UNITS/3 ML VIAL SC PRN ×2 (12:58→18:31)
[2022-05-14 14:00] LABS: Troponin I Less than 0.010 ng/mL (< 0.028)
[2022-05-14] MEDS: Fluconazole In NaCl,Iso-Osm 100 MG in Admixture Fee 1 EACH IVPB SCH (18:30)
[2022-05-14] MEDS: Atorvastatin Calcium 40 MG TAB PO SCH (21:26)
[2022-05-14] MEDS ORDERED: Melatonin 3 MG TAB PO PRN (21:46)
[2022-05-15 05:22] LABS: #Eosinphils 0.1 thou/uL (0.0-0.7); #Lymphocytes 1.1 thou/uL (1.20-3.40); #Monocytes 0.5 thou/uL (0.11-0.59); #Neutrophils 3.7 thou/uL (1.40-6.50); %Basophils 0.2 % (0.0-1.0); %Eosinophils 1.9 % (0.0-10.0); %Lymphocytes 20.8 % (21.0-51.0); %Monocytes 9.8 % (0.0-10.0); %Neutrophils 67.3 % (42.0-75.0); Hemoglobin 8.7 g/dL (14.0-18.0); Mean Corpuscular HGB CONC 32.7 g/dL (32.0-36.0); Mean Corpuscular Hemoglobin 25.7 pg (27.0-31.0); Mean Corpuscular Volume 78.7 fl (78.0-98.0); Mean Platelet Volume 6.6 fL (7.4-10.4); Platelet Count 258 10x3/uL (130-400); RBC Distribution Width 13.2 % (11.5-14.5); Red Blood Cell (RBC) Count 3.38 mill/uL (4.70-6.10); White Blood Cell (WBC) Count 5.5 10x3/uL (4.8-10.8)
[2022-05-15 05:40] LABS: Anion Gap 13 mmol/L (10-20); BUN (Urea Nitrogen) 26 mg/dL (8.4-25.7); Calc. Creatinine Clearance 61 mL/min (70-130); Calcium 8.8 mg/dL (7.8-10.44); Carbon Dioxide 23 mmol/L (23-31); Chloride 101 mmol/L (98-107); Estimated GFR 53; Glucose 196 mg/dL (80-115); Sodium 133 mmol/L (136-145)
[2022-05-15] MEDS: HumaLOG 300 UNITS/3 ML VIAL SC PRN (06:26)
[2022-05-15] MEDS: Insulin Glargine 30 UNITS/0.3 ML VIAL SC SCH (08:05)
[2022-05-15] MEDS ORDERED: Regadenoson 0.4 MG/5 ML SYRINGE ONE (08:54)
[2022-05-15] MEDS: levETIRAcetam 500 MG TAB PO SCH ×2 (09:27→20:54)
[2022-05-15] MEDS: Tamsulosin HCl 0.4 MG CAP PO SCH (09:27)
[2022-05-15] MEDS: Aspirin 81 mg Enteric Coated Tablet PO SCH (09:27)
[2022-05-15] MEDS: Famotidine 20 MG TAB PO SCH (09:27)
[2022-05-15] MEDS: Baclofen 10 MG TAB PO SCH ×2 (09:27→20:53)
[2022-05-15] MEDS: Amlodipine 5 MG TAB PO SCH (09:28)
[2022-05-15] MEDS: Senokot S 8.6-50 MG TAB PO PRN (09:28)
[2022-05-15] MEDS: Propranolol 10 MG TAB PO SCH (13:40)
[2022-05-15] MEDS: Fluconazole In NaCl,Iso-Osm 100 MG in Admixture Fee 1 EACH IVPB SCH (17:19)
[2022-05-15] MEDS: Propranolol 40 MG TAB PO SCH (20:53)
[2022-05-15] MEDS: Atorvastatin Calcium 40 MG TAB PO SCH (20:54)
[2022-05-16] MEDS: levETIRAcetam 500 MG TAB PO SCH (10:54)
[2022-05-16] MEDS: Baclofen 10 MG TAB PO SCH (10:55)
[2022-05-16] MEDS: Tamsulosin HCl 0.4 MG CAP PO SCH (10:55)
[2022-05-16] MEDS: Propranolol 40 MG TAB PO SCH (10:55)
[2022-05-16] MEDS: Famotidine 20 MG TAB PO SCH (10:55)
[2022-05-16] MEDS: Aspirin 81 mg Enteric Coated Tablet PO SCH (10:56)
[2022-05-16] MEDS: Amlodipine 5 MG TAB PO SCH (10:56)
[2022-05-16] MEDS: Insulin Glargine 30 UNITS/0.3 ML VIAL SC SCH (10:57)
[2022-05-16 17:03] VITALS: BP 103/58; TEMP 98
== END 2022-05-16 17:10 | disposition home or self-care (01) | DRG 698 ==
LOC: ERS 19:35 → SURG A 23:58 → OBSVTOIN 05-12 16:21 → 2NO 05-14 15:00
PROVIDERS: ADMIT Student in an Organized Health Care Education/Training Program; ATTEND Hospitalist
PROC: 0T2BX0Z Change Drainage Device in Bladder, External Approach (ICD-10-PCS; principal; 2022-05-12)
PROC: 3E03329 Introduction of Other Anti-infective into Peripheral Vein, Percutaneous Approach (ICD-10-PCS; 2022-05-12)
DX: T83.518A Infection and inflammatory reaction due to other urinary catheter, initial encounter (principal); B37.7 Candidal sepsis; N17.9 Acute kidney failure, unspecified; Z16.24 Resistance to multiple antibiotics; Z20.822 Contact with and (suspected) exposure to COVID-19; N18.30 Chronic kidney disease, stage 3 unspecified; I12.9 Hypertensive chronic kidney disease with stage 1 through stage 4 chronic kidney disease, or unspecified chronic kidney disease; E11.22 Type 2 diabetes mellitus with diabetic chronic kidney disease; E78.5 Hyperlipidemia, unspecified; D63.1 Anemia in chronic kidney disease; G40.909 Epilepsy, unspecified, not intractable, without status epilepticus; Z79.82 Long term (current) use of aspirin; Z79.4 Long term (current) use of insulin; Z79.899 Other long term (current) drug therapy; Z87.891 Personal history of nicotine dependence; Z90.49 Acquired absence of other specified parts of digestive tract; Y84.6 Urinary catheterization as the cause of abnormal reaction of the patient, or of later complication, without mention of misadventure at the time of the procedure
CPT/HCPCS: 36415; 36416; 71045; 76770; 78452; 80048; 80053; 81003; 81015; 83605; 83735; 84100; 84484; 85025; 87040; 87086; 93005; 93010; 93017; 96374; 96375; A9500; G0378; J0692; J1450; J1815; J2405; J2785; J3010; J3370-JW; J3490; J7120

== ENCOUNTER 2022-05-20 13:42 | Inpatient (IN) | payer MEDICARE ==
[2022-05-20] MEDS ORDERED: Cefepime 2 GM VIAL ONE (14:42)
[2022-05-20] MEDS ORDERED: Acetaminophen 500 MG TAB ONE (14:42)
[2022-05-20 14:56] LABS: ALT (SGPT) 87 U/L (8-55); AST (SGOT) 45 U/L (5-34); Albumin 3.4 g/dL (3.4-4.8); Alkaline Phosphatase 93 U/L (40-110); Anion Gap 18 mmol/L (10-20); BUN (Urea Nitrogen) 35 mg/dL (8.4-25.7); Bilirubin, Total 0.5 mg/dL (0.2-1.2); Calc. Creatinine Clearance 0 mL/min (70-130); Carbon Dioxide 22 mmol/L (23-31); Chloride 102 mmol/L (98-107); Estimated GFR 38; Globulin 5.3 g/dL (2.4-3.5); Glucose 174 mg/dL (80-115); Protein, Total 8.7 g/dL (5.8-8.1); Sodium 137 mmol/L (136-145)
[2022-05-20] MEDS ORDERED: VANCOMYCIN 2 GRAM/500 ML BAG 2 GM in Premix Bag 1 BAG IVPB SCH (15:00)
[2022-05-20 16:15] LABS: Clarity Turbid (Clear); Specific Gravity, Urine 1.012 (1.002-1.036)
[2022-05-20 16:16] LABS: Lactic Acid 1.8 mmol/L (0.5-2.2)
[2022-05-20 16:17] LABS: Bilirubin Unable to Interpret (Negative); Blood, Urine Unable to Interpret (Negative); Glucose, Urine (Dipstick) Unable to Interpret mg/dL (Negative); Ketone, Urine Unable to Interpret mg/dL (Negative); Leukocyte Unable to Interpret Leu/uL (Negative); Nitrite Unable to Interpret (Negative); Protein, Urine (Dipstick) Unable to Interpret mg/dL (Neg-Trace); RBC/HPF Greater than 50 HPF (0-3); Urobilinogen UNABLE TO INTERPRET mg/dL (Less than 2); pH, Urine 6.2 (5.0-9.0)
[2022-05-20 16:18] LABS: Squamous Epithelial 0-3 HPF (0-3); WBC/HPF 21-50 HPF (0-3)
[2022-05-20 16:19] LABS: Bacteria/HPF 2+ HPF (None Seen)
[2022-05-20 16:20] LABS: CK (CPK) 34 U/L (30-200); Lipase 96 U/L (8-78)
[2022-05-20 16:39] LABS: #Eosinphils 0.1 thou/uL (0.0-0.7); #Lymphocytes 0.6 thou/uL (1.20-3.40); #Monocytes 0.9 thou/uL (0.11-0.59); #Neutrophils 8.6 thou/uL (1.40-6.50); %Basophils 0.1 % (0.0-1.0); %Eosinophils 0.7 % (0.0-10.0); %Lymphocytes 5.9 % (21.0-51.0); %Monocytes 9.2 % (0.0-10.0); %Neutrophils 84.1 % (42.0-75.0); Mean Corpuscular HGB CONC 31.9 g/dL (32.0-36.0); Mean Corpuscular Hemoglobin 25.2 pg (27.0-31.0); Mean Platelet Volume 6.4 fL (7.4-10.4); Platelet Count 296 10x3/uL (130-400); RBC Distribution Width 13.8 % (11.5-14.5); Red Blood Cell (RBC) Count 3.97 mill/uL (4.70-6.10); White Blood Cell (WBC) Count 10.2 10x3/uL (4.8-10.8)
[2022-05-20] MEDS ORDERED: Ondansetron PF 4 MG/2 ML Vial ONE (17:30)
[2022-05-20] MEDS ORDERED: HumaLOG 300 UNITS/3 ML VIAL SC PRN (18:08)
[2022-05-20] MEDS ORDERED: Dextrose 5% in Water 1,000 ML IV PRN (18:08)
[2022-05-20] MEDS ORDERED: Dextrose 50% Abboject 50 ML SYRINGE SLOW IVP PRN (18:08)
[2022-05-20] MEDS ORDERED: Lorazepam 2 MG/ML VIAL SLOW IVP PRN (18:08)
[2022-05-20] MEDS ORDERED: Ondansetron ODT 4 MG TAB PO PRN (18:08)
[2022-05-20] MEDS ORDERED: Ondansetron PF 4 MG/2 ML Vial IVP PRN (18:08)
[2022-05-20] MEDS ORDERED: Sodium Chloride 0.9% 1,000 ML IV SCH (18:15)
[2022-05-20 19:17] LABS: Magnesium 1.7 mg/dL (1.6-2.6)
[2022-05-20 21:40] LABS: #Lymphocytes 0.7 thou/uL (1.20-3.40); #Neutrophils 9.9 thou/uL (1.40-6.50); %Basophils 0.2 % (0.0-1.0); %Eosinophils 0.2 % (0.0-10.0); %Lymphocytes 6.1 % (21.0-51.0); %Monocytes 8.4 % (0.0-10.0); %Neutrophils 85.1 % (42.0-75.0); Hemoglobin 8.5 g/dL (14.0-18.0); Mean Corpuscular HGB CONC 33.1 g/dL (32.0-36.0); Mean Corpuscular Hemoglobin 26.3 pg (27.0-31.0); Mean Corpuscular Volume 79.3 fl (78.0-98.0); Platelet Count 306 10x3/uL (130-400); RBC Distribution Width 13.6 % (11.5-14.5); Red Blood Cell (RBC) Count 3.25 mill/uL (4.70-6.10); White Blood Cell (WBC) Count 11.6 10x3/uL (4.8-10.8)
[2022-05-20] MEDS: Atorvastatin Calcium 40 MG TAB PO SCH (22:27)
[2022-05-20] MEDS: Melatonin 3 MG TAB PO SCH (22:28)
[2022-05-20] MEDS: levETIRAcetam 500 MG TAB PO SCH (22:28)
[2022-05-20 23:10] VITALS: BMI 25.8
[2022-05-21] MEDS: Cefepime 2 GM in Sodium Chloride 0.9% 100 ML IVPB SCH ×2 (02:24→02:25)
[2022-05-21 04:42] LABS: #Lymphocytes 0.9 thou/uL (1.20-3.40); #Monocytes 0.9 thou/uL (0.11-0.59); %Basophils 0.1 % (0.0-1.0); %Eosinophils 0.4 % (0.0-10.0); %Lymphocytes 9.3 % (21.0-51.0); %Monocytes 9.5 % (0.0-10.0); %Neutrophils 80.6 % (42.0-75.0); Hemoglobin 9.4 g/dL (14.0-18.0); Mean Corpuscular HGB CONC 31.7 g/dL (32.0-36.0); Mean Corpuscular Hemoglobin 25.4 pg (27.0-31.0); Mean Corpuscular Volume 80.1 fl (78.0-98.0); Mean Platelet Volume 6.6 fL (7.4-10.4); Platelet Count 275 10x3/uL (130-400); RBC Distribution Width 13.9 % (11.5-14.5); Red Blood Cell (RBC) Count 3.69 mill/uL (4.70-6.10); White Blood Cell (WBC) Count 9.9 10x3/uL (4.8-10.8)
[2022-05-21 05:03] LABS: ALT (SGPT) 59 U/L (8-55); AST (SGOT) 24 U/L (5-34); Albumin 3.1 g/dL (3.4-4.8); Alkaline Phosphatase 68 U/L (40-110); Anion Gap 15 mmol/L (10-20); BUN (Urea Nitrogen) 33 mg/dL (8.4-25.7); Bilirubin, Total 0.5 mg/dL (0.2-1.2); Calc. Creatinine Clearance 47 mL/min (70-130); Calcium 8.4 mg/dL (7.8-10.44); Carbon Dioxide 18 mmol/L (23-31); Chloride 108 mmol/L (98-107); Estimated GFR 40; Globulin 4.2 g/dL (2.4-3.5); Glucose 141 mg/dL (80-115); Potassium 4.7 mmol/L (3.5-5.1); Protein, Total 7.3 g/dL (5.8-8.1); Sodium 136 mmol/L (136-145)
[2022-05-21] MEDS ORDERED: FLU VACC QS2022-23(6MOS UP)/PF 60 MCG/0.5 ML SYRINGE IM ONE (09:00)
[2022-05-21] MEDS: Tamsulosin HCl 0.4 MG CAP PO SCH (09:54)
[2022-05-21] MEDS: levETIRAcetam 500 MG TAB PO SCH ×2 (09:54→20:19)
[2022-05-21] MEDS: Amlodipine 5 MG TAB PO SCH (09:54)
[2022-05-21] MEDS: Insulin Glargine 30 UNITS/0.3 ML VIAL SC SCH (09:54)
[2022-05-21] MEDS: Cefepime 1 GM in Sodium Chloride 0.9% 100 ML IVPB SCH (15:42)
[2022-05-21] MEDS: VANCOMYCIN 1.25 GM/250 ML BAG 1.25 GM in Premix Bag 1 BAG IVPB SCH ×2 (17:00→17:16)
[2022-05-21] MEDS: Baclofen 10 MG TAB PO SCH (20:18)
[2022-05-21] MEDS: Atorvastatin Calcium 40 MG TAB PO SCH (20:18)
[2022-05-21] MEDS: Melatonin 3 MG TAB PO SCH (20:19)
[2022-05-21] MEDS: Propranolol 10 MG TAB PO SCH (20:19)
[2022-05-21] MEDS ORDERED: Fluconazole In NaCl,Iso-Osm 100 MG in Admixture Fee 1 EACH IVPB SCH (22:00)
[2022-05-21] MEDS ORDERED: Fluconazole In NaCl,Iso-Osm 100 MG in Admixture Fee 2 EACH IVPB SCH (22:00)
[2022-05-21] MEDS: Acetaminophen 325 MG TAB PO PRN (22:01)
[2022-05-22] MEDS: Cefepime 1 GM in Sodium Chloride 0.9% 100 ML IVPB SCH ×2 (03:23→14:35)
[2022-05-22 05:10] LABS: #Eosinphils 0.1 thou/uL (0.0-0.7); #Lymphocytes 1.2 thou/uL (1.20-3.40)
[2022-05-22 05:20] LABS: #Monocytes 0.6 thou/uL (0.11-0.59); %Basophils 0.5 % (0.0-1.0); %Eosinophils 2.1 % (0.0-10.0); %Lymphocytes 19.5 % (21.0-51.0); %Monocytes 10.4 % (0.0-10.0); %Neutrophils 67.6 % (42.0-75.0); Hemoglobin 7.4 g/dL (14.0-18.0); Mean Corpuscular HGB CONC 31.6 g/dL (32.0-36.0); Mean Corpuscular Volume 79.1 fl (78.0-98.0); Mean Platelet Volume 6.4 fL (7.4-10.4); Platelet Count 264 10x3/uL (130-400); RBC Distribution Width 13.6 % (11.5-14.5); Red Blood Cell (RBC) Count 2.96 mill/uL (4.70-6.10); White Blood Cell (WBC) Count 5.9 10x3/uL (4.8-10.8)
[2022-05-22 05:30] LABS: Anion Gap 13 mmol/L (10-20); BUN (Urea Nitrogen) 34 mg/dL (8.4-25.7); Calc. Creatinine Clearance 47 mL/min (70-130); Carbon Dioxide 20 mmol/L (23-31); Chloride 105 mmol/L (98-107); Estimated GFR 40; Glucose 119 mg/dL (80-115); Potassium 3.5 mmol/L (3.5-5.1); Sodium 134 mmol/L (136-145)
[2022-05-22] MEDS: Aspirin 81 mg Enteric Coated Tablet PO SCH (09:09)
[2022-05-22] MEDS: Amlodipine 5 MG TAB PO SCH (09:09)
[2022-05-22] MEDS: Baclofen 10 MG TAB PO SCH ×2 (09:09→21:28)
[2022-05-22] MEDS: Insulin Glargine 30 UNITS/0.3 ML VIAL SC SCH (09:10)
[2022-05-22] MEDS: levETIRAcetam 500 MG TAB PO SCH ×2 (09:10→21:28)
[2022-05-22] MEDS: Propranolol 10 MG TAB PO SCH ×2 (09:10→21:29)
[2022-05-22] MEDS: Tamsulosin HCl 0.4 MG CAP PO SCH (09:10)
[2022-05-22] MEDS: Clopidogrel Bisulfate 75 MG TAB PO SCH (09:10)
[2022-05-22] MEDS: Fluconazole In NaCl,Iso-Osm 200 MG in Premix Bag 1 BAG IVPB SCH (09:40)
[2022-05-22] MEDS: Pantoprazole 40 MG VIAL IVP SCH ×2 (09:41→21:29)
[2022-05-22 16:05] LABS: Vancomycin, Trough 16.2 ug/mL
[2022-05-22] MEDS: VANCOMYCIN 1.25 GM/250 ML BAG 1.25 GM in Premix Bag 1 BAG IVPB SCH (16:48)
[2022-05-22] MEDS: Melatonin 3 MG TAB PO SCH (21:28)
[2022-05-22] MEDS: Atorvastatin Calcium 40 MG TAB PO SCH (21:29)
[2022-05-23] MEDS: Cefepime 1 GM in Sodium Chloride 0.9% 100 ML IVPB SCH ×2 (03:31→14:57)
[2022-05-23 04:34] LABS: #Eosinphils 0.2 thou/uL (0.0-0.7); #Lymphocytes 1.1 thou/uL (1.20-3.40); #Monocytes 0.6 thou/uL (0.11-0.59); #Neutrophils 3.2 thou/uL (1.40-6.50); %Basophils 0.1 % (0.0-1.0); %Eosinophils 3.3 % (0.0-10.0); %Lymphocytes 21.7 % (21.0-51.0); %Monocytes 11.9 % (0.0-10.0); Hemoglobin 7.9 g/dL (14.0-18.0); Mean Corpuscular HGB CONC 32.5 g/dL (32.0-36.0); Mean Corpuscular Hemoglobin 25.5 pg (27.0-31.0); Mean Corpuscular Volume 78.4 fl (78.0-98.0); Mean Platelet Volume 6.5 fL (7.4-10.4); Platelet Count 239 10x3/uL (130-400); RBC Distribution Width 13.6 % (11.5-14.5); White Blood Cell (WBC) Count 5.1 10x3/uL (4.8-10.8)
[2022-05-23 04:54] LABS: Anion Gap 12 mmol/L (10-20); BUN (Urea Nitrogen) 31 mg/dL (8.4-25.7); Calc. Creatinine Clearance 51 mL/min (70-130); Calcium 8.1 mg/dL (7.8-10.44); Carbon Dioxide 19 mmol/L (23-31); Chloride 106 mmol/L (98-107); Estimated GFR 43; Glucose 155 mg/dL (80-115); Potassium 3.6 mmol/L (3.5-5.1); Sodium 133 mmol/L (136-145)
[2022-05-23] MEDS: Fluconazole In NaCl,Iso-Osm 200 MG in Premix Bag 1 BAG IVPB SCH (09:46)
[2022-05-23] MEDS: Aspirin 81 mg Enteric Coated Tablet PO SCH (09:46)
[2022-05-23] MEDS: Baclofen 10 MG TAB PO SCH ×2 (09:46→22:32)
[2022-05-23] MEDS: Amlodipine 5 MG TAB PO SCH (09:47)
[2022-05-23] MEDS: Tamsulosin HCl 0.4 MG CAP PO SCH (09:47)
[2022-05-23] MEDS: Propranolol 10 MG TAB PO SCH ×2 (09:47→22:33)
[2022-05-23] MEDS: levETIRAcetam 500 MG TAB PO SCH ×2 (09:47→22:32)
[2022-05-23] MEDS: Insulin Glargine 30 UNITS/0.3 ML VIAL SC SCH (09:47)
[2022-05-23] MEDS: Clopidogrel Bisulfate 75 MG TAB PO SCH (09:47)
[2022-05-23] MEDS: Pantoprazole 40 MG VIAL IVP SCH ×2 (09:47→22:47)
[2022-05-23] MEDS: Melatonin 3 MG TAB PO SCH (22:32)
[2022-05-23] MEDS: Atorvastatin Calcium 40 MG TAB PO SCH (22:33)
[2022-05-24] MEDS: Cefepime 1 GM in Sodium Chloride 0.9% 100 ML IVPB SCH ×2 (02:42→14:32)
[2022-05-24 04:52] LABS: #Eosinphils 0.1 thou/uL (0.0-0.7); #Monocytes 0.6 thou/uL (0.11-0.59); #Neutrophils 3.5 thou/uL (1.40-6.50); %Basophils 0.4 % (0.0-1.0); %Eosinophils 2.7 % (0.0-10.0); %Lymphocytes 19.2 % (21.0-51.0); %Monocytes 11.4 % (0.0-10.0); %Neutrophils 66.4 % (42.0-75.0); Hemoglobin 7.7 g/dL (14.0-18.0); Mean Corpuscular Hemoglobin 25.2 pg (27.0-31.0); Mean Corpuscular Volume 81.5 fl (78.0-98.0); Mean Platelet Volume 6.6 fL (7.4-10.4); Platelet Count 265 10x3/uL (130-400); RBC Distribution Width 13.5 % (11.5-14.5); Red Blood Cell (RBC) Count 3.06 mill/uL (4.70-6.10); White Blood Cell (WBC) Count 5.3 10x3/uL (4.8-10.8)
[2022-05-24 05:17] LABS: Anion Gap 11 mmol/L (10-20); BUN (Urea Nitrogen) 28 mg/dL (8.4-25.7); Calc. Creatinine Clearance 54 mL/min (70-130); Calcium 8.3 mg/dL (7.8-10.44); Carbon Dioxide 20 mmol/L (23-31); Chloride 108 mmol/L (98-107); Estimated GFR 46; Glucose 128 mg/dL (80-115); Potassium 3.7 mmol/L (3.5-5.1); Sodium 135 mmol/L (136-145)
[2022-05-24] MEDS: levETIRAcetam 500 MG TAB PO SCH ×2 (10:33→22:30)
[2022-05-24] MEDS: Aspirin 81 mg Enteric Coated Tablet PO SCH (10:33)
[2022-05-24] MEDS: Propranolol 10 MG TAB PO SCH ×3 (10:33→22:30)
[2022-05-24] MEDS: Clopidogrel Bisulfate 75 MG TAB PO SCH (10:33)
[2022-05-24] MEDS: Amlodipine 5 MG TAB PO SCH ×2 (10:33→14:25)
[2022-05-24] MEDS: Tamsulosin HCl 0.4 MG CAP PO SCH (10:33)
[2022-05-24] MEDS: Fluconazole In NaCl,Iso-Osm 200 MG in Premix Bag 1 BAG IVPB SCH (10:34)
[2022-05-24] MEDS: Insulin Glargine 30 UNITS/0.3 ML VIAL SC SCH (10:34)
[2022-05-24] MEDS: Baclofen 10 MG TAB PO SCH ×2 (10:45→22:31)
[2022-05-24] MEDS: Pantoprazole 40 MG VIAL IVP SCH ×2 (10:45→22:59)
[2022-05-24] MEDS: Docusate 100 MG CAP PO SCH (22:30)
[2022-05-24] MEDS: Cefdinir 300 MG CAP PO SCH (22:30)
[2022-05-24] MEDS: Atorvastatin Calcium 40 MG TAB PO SCH (22:31)
[2022-05-24] MEDS: Melatonin 3 MG TAB PO SCH (22:31)
[2022-05-25 04:30] LABS: #Eosinphils 0.2 thou/uL (0.0-0.7); #Lymphocytes 1.5 thou/uL (1.20-3.40); #Monocytes 0.6 thou/uL (0.11-0.59); #Neutrophils 3.4 thou/uL (1.40-6.50); %Basophils 0.4 % (0.0-1.0); %Eosinophils 3.2 % (0.0-10.0); %Lymphocytes 25.8 % (21.0-51.0); %Monocytes 9.7 % (0.0-10.0); %Neutrophils 60.9 % (42.0-75.0); Hemoglobin 8.4 g/dL (14.0-18.0); Mean Corpuscular HGB CONC 33.6 g/dL (32.0-36.0); Mean Corpuscular Hemoglobin 26.2 pg (27.0-31.0); Mean Platelet Volume 6.5 fL (7.4-10.4); Platelet Count 258 10x3/uL (130-400); RBC Distribution Width 13.6 % (11.5-14.5); Red Blood Cell (RBC) Count 3.19 mill/uL (4.70-6.10); White Blood Cell (WBC) Count 5.6 10x3/uL (4.8-10.8)
[2022-05-25 04:58] LABS: Anion Gap 13 mmol/L (10-20); BUN (Urea Nitrogen) 26 mg/dL (8.4-25.7); Calc. Creatinine Clearance 52 mL/min (70-130); Calcium 8.6 mg/dL (7.8-10.44); Carbon Dioxide 22 mmol/L (23-31); Chloride 107 mmol/L (98-107); Estimated GFR 44; Glucose 113 mg/dL (80-115); Potassium 3.6 mmol/L (3.5-5.1); Sodium 138 mmol/L (136-145)
[2022-05-25] MEDS: levETIRAcetam 500 MG TAB PO SCH ×2 (10:41→22:24)
[2022-05-25] MEDS: Cefdinir 300 MG CAP PO SCH ×2 (10:41→22:27)
[2022-05-25] MEDS: Fluconazole 100 MG TAB PO SCH (10:41)
[2022-05-25] MEDS: Baclofen 10 MG TAB PO SCH ×2 (10:41→22:25)
[2022-05-25] MEDS: Docusate 100 MG CAP PO SCH ×3 (10:42→22:26)
[2022-05-25] MEDS: Amlodipine 5 MG TAB PO SCH (10:42)
[2022-05-25] MEDS: Aspirin 81 mg Enteric Coated Tablet PO SCH (10:42)
[2022-05-25] MEDS: Propranolol 10 MG TAB PO SCH ×2 (10:42→22:26)
[2022-05-25] MEDS: Clopidogrel Bisulfate 75 MG TAB PO SCH (10:42)
[2022-05-25] MEDS: Tamsulosin HCl 0.4 MG CAP PO SCH (10:42)
[2022-05-25] MEDS: Insulin Glargine 30 UNITS/0.3 ML VIAL SC SCH (10:52)
[2022-05-25] MEDS: Pantoprazole 40 MG VIAL IVP SCH (13:30)
[2022-05-25] MEDS ORDERED: levETIRAcetam 500 mg/5 ml Oral Solution PO SCH (21:00)
[2022-05-25] MEDS ORDERED: Lansoprazole 15 MG/5 ML (BATCHED)UDCUP PO SCH (21:00)
[2022-05-25] MEDS ORDERED: Docusate Sodium 100 MG/10 ML UDCUP PO SCH (21:00)
[2022-05-25] MEDS: Melatonin 3 MG TAB PO SCH (22:22)
[2022-05-25] MEDS: Atorvastatin Calcium 40 MG TAB PO SCH (22:27)
[2022-05-26] MEDS ORDERED: Aspirin Chewable 81 MG TAB PO SCH (09:00)
[2022-05-26] MEDS: Baclofen 10 MG TAB PO SCH ×2 (10:54→20:53)
[2022-05-26] MEDS: Cefdinir 300 MG CAP PO SCH ×2 (10:54→20:53)
[2022-05-26] MEDS: Clopidogrel Bisulfate 75 MG TAB PO SCH (10:55)
[2022-05-26] MEDS: Fluconazole 100 MG TAB PO SCH (10:55)
[2022-05-26] MEDS: Tamsulosin HCl 0.4 MG CAP PO SCH (10:55)
[2022-05-26] MEDS: Amlodipine 5 MG TAB PO SCH (10:55)
[2022-05-26] MEDS: levETIRAcetam 500 MG TAB PO SCH ×2 (10:55→20:54)
[2022-05-26] MEDS: Propranolol 10 MG TAB PO SCH ×2 (10:56→20:54)
[2022-05-26] MEDS: Insulin Glargine 30 UNITS/0.3 ML VIAL SC SCH (10:57)
[2022-05-26] MEDS: Aspirin 81 mg Enteric Coated Tablet PO SCH (10:57)
[2022-05-26] MEDS: Atorvastatin Calcium 40 MG TAB PO SCH (20:53)
[2022-05-26] MEDS: Melatonin 3 MG TAB PO SCH (20:54)
[2022-05-26] MEDS: Docusate 100 MG CAP PO SCH (20:54)
[2022-05-27] MEDS: Cefdinir 300 MG CAP PO SCH ×2 (09:11→20:43)
[2022-05-27] MEDS: Amlodipine 5 MG TAB PO SCH (09:11)
[2022-05-27] MEDS: Baclofen 10 MG TAB PO SCH ×2 (09:11→20:44)
[2022-05-27] MEDS: Aspirin 81 mg Enteric Coated Tablet PO SCH (09:11)
[2022-05-27] MEDS: Docusate 100 MG CAP PO SCH ×2 (09:11→20:43)
[2022-05-27] MEDS: Clopidogrel Bisulfate 75 MG TAB PO SCH (09:11)
[2022-05-27] MEDS: levETIRAcetam 500 MG TAB PO SCH ×2 (09:12→20:44)
[2022-05-27] MEDS: Propranolol 10 MG TAB PO SCH ×2 (09:12→20:43)
[2022-05-27] MEDS: Insulin Glargine 30 UNITS/0.3 ML VIAL SC SCH (09:12)
[2022-05-27] MEDS: Fluconazole 100 MG TAB PO SCH (09:12)
[2022-05-27] MEDS: Tamsulosin HCl 0.4 MG CAP PO SCH (09:13)
[2022-05-27] MEDS: Atorvastatin Calcium 40 MG TAB PO SCH (20:43)
[2022-05-27] MEDS: Melatonin 3 MG TAB PO SCH (20:44)
[2022-05-28] MEDS: Cefdinir 300 MG CAP PO SCH ×2 (09:59→20:08)
[2022-05-28] MEDS: Aspirin 81 mg Enteric Coated Tablet PO SCH (09:59)
[2022-05-28] MEDS: Amlodipine 5 MG TAB PO SCH (09:59)
[2022-05-28] MEDS: Docusate 100 MG CAP PO SCH ×2 (09:59→20:08)
[2022-05-28] MEDS: Clopidogrel Bisulfate 75 MG TAB PO SCH (09:59)
[2022-05-28] MEDS: Baclofen 10 MG TAB PO SCH ×2 (09:59→20:08)
[2022-05-28] MEDS: Insulin Glargine 30 UNITS/0.3 ML VIAL SC SCH (10:00)
[2022-05-28] MEDS: levETIRAcetam 500 MG TAB PO SCH ×2 (10:00→20:08)
[2022-05-28] MEDS: Fluconazole 100 MG TAB PO SCH (10:00)
[2022-05-28] MEDS: Tamsulosin HCl 0.4 MG CAP PO SCH (10:01)
[2022-05-28] MEDS: Propranolol 10 MG TAB PO SCH ×2 (10:01→20:08)
[2022-05-28] MEDS: Atorvastatin Calcium 40 MG TAB PO SCH (20:08)
[2022-05-28] MEDS: Melatonin 3 MG TAB PO SCH (20:09)
[2022-05-29] MEDS: Clopidogrel Bisulfate 75 MG TAB PO SCH (08:30)
[2022-05-29] MEDS: Fluconazole 100 MG TAB PO SCH (08:31)
[2022-05-29] MEDS: Propranolol 10 MG TAB PO SCH ×2 (08:31→20:14)
[2022-05-29] MEDS: levETIRAcetam 500 MG TAB PO SCH ×2 (08:31→20:13)
[2022-05-29] MEDS: Amlodipine 5 MG TAB PO SCH (08:31)
[2022-05-29] MEDS: Aspirin 81 mg Enteric Coated Tablet PO SCH (08:31)
[2022-05-29] MEDS: Cefdinir 300 MG CAP PO SCH ×2 (08:31→20:13)
[2022-05-29] MEDS: Tamsulosin HCl 0.4 MG CAP PO SCH (08:31)
[2022-05-29] MEDS: Insulin Glargine 30 UNITS/0.3 ML VIAL SC SCH (08:31)
[2022-05-29] MEDS: Baclofen 10 MG TAB PO SCH ×2 (08:31→20:13)
[2022-05-29] MEDS: Docusate 100 MG CAP PO SCH ×2 (08:32→20:13)
[2022-05-29] MEDS: Atorvastatin Calcium 40 MG TAB PO SCH (20:13)
[2022-05-29] MEDS: Melatonin 3 MG TAB PO SCH (20:14)
[2022-05-30] MEDS: Insulin Glargine 30 UNITS/0.3 ML VIAL SC SCH (09:02)
[2022-05-30] MEDS: Clopidogrel Bisulfate 75 MG TAB PO SCH (09:03)
[2022-05-30] MEDS: Tamsulosin HCl 0.4 MG CAP PO SCH (09:03)
[2022-05-30] MEDS: Cefdinir 300 MG CAP PO SCH ×2 (09:03→20:37)
[2022-05-30] MEDS: Amlodipine 5 MG TAB PO SCH (09:03)
[2022-05-30] MEDS: Aspirin 81 mg Enteric Coated Tablet PO SCH (09:03)
[2022-05-30] MEDS: Docusate 100 MG CAP PO SCH ×2 (09:03→20:38)
[2022-05-30] MEDS: Baclofen 10 MG TAB PO SCH ×2 (09:03→20:37)
[2022-05-30] MEDS: Fluconazole 100 MG TAB PO SCH (09:03)
[2022-05-30] MEDS: levETIRAcetam 500 MG TAB PO SCH ×2 (09:03→20:37)
[2022-05-30] MEDS: Propranolol 10 MG TAB PO SCH ×2 (11:01→20:38)
[2022-05-30] MEDS: HumaLOG 300 UNITS/3 ML VIAL SC PRN (12:06)
[2022-05-30] MEDS: Atorvastatin Calcium 40 MG TAB PO SCH (20:37)
[2022-05-30] MEDS: Melatonin 3 MG TAB PO SCH (20:38)
[2022-05-31 07:48] LABS: #Basophils 0.1 thou/uL (0.0-0.2); #Eosinphils 0.2 thou/uL (0.0-0.7); #Lymphocytes 1.3 thou/uL (1.20-3.40); #Monocytes 0.7 thou/uL (0.11-0.59); #Neutrophils 4.4 thou/uL (1.40-6.50); %Eosinophils 3.3 % (0.0-10.0); %Lymphocytes 19.4 % (21.0-51.0); %Monocytes 10.5 % (0.0-10.0); %Neutrophils 65.8 % (42.0-75.0); Hemoglobin 8.8 g/dL (14.0-18.0); Mean Corpuscular HGB CONC 31.6 g/dL (32.0-36.0); Mean Corpuscular Volume 79.1 fl (78.0-98.0); Mean Platelet Volume 5.9 fL (7.4-10.4); Platelet Count 337 10x3/uL (130-400); White Blood Cell (WBC) Count 6.7 10x3/uL (4.8-10.8)
[2022-05-31 08:12] LABS: ALT (SGPT) 41 U/L (8-55); AST (SGOT) 17 U/L (5-34); Albumin 3.2 g/dL (3.4-4.8); Alkaline Phosphatase 78 U/L (40-110); Anion Gap 14 mmol/L (10-20); BUN (Urea Nitrogen) 31 mg/dL (8.4-25.7); Bilirubin, Total 0.2 mg/dL (0.2-1.2); Calc. Creatinine Clearance 52 mL/min (70-130); Calcium 9.1 mg/dL (7.8-10.44); Carbon Dioxide 23 mmol/L (23-31); Chloride 105 mmol/L (98-107); Estimated GFR 46; Globulin 4.3 g/dL (2.4-3.5); Glucose 111 mg/dL (80-115); Potassium 3.9 mmol/L (3.5-5.1); Protein, Total 7.5 g/dL (5.8-8.1); Sodium 138 mmol/L (136-145)
[2022-05-31] MEDS: Docusate 100 MG CAP PO SCH ×2 (08:46→20:11)
[2022-05-31] MEDS: Tamsulosin HCl 0.4 MG CAP PO SCH (08:48)
[2022-05-31] MEDS: Baclofen 10 MG TAB PO SCH ×2 (08:48→20:08)
[2022-05-31] MEDS: Amlodipine 5 MG TAB PO SCH (08:48)
[2022-05-31] MEDS: Clopidogrel Bisulfate 75 MG TAB PO SCH (08:48)
[2022-05-31] MEDS: levETIRAcetam 500 MG TAB PO SCH ×2 (08:49→20:08)
[2022-05-31] MEDS: Insulin Glargine 30 UNITS/0.3 ML VIAL SC SCH (08:49)
[2022-05-31] MEDS: Cefdinir 300 MG CAP PO SCH ×2 (08:49→20:08)
[2022-05-31] MEDS: Aspirin 81 mg Enteric Coated Tablet PO SCH (08:49)
[2022-05-31] MEDS: Propranolol 10 MG TAB PO SCH ×2 (08:49→20:08)
[2022-05-31] MEDS: Fluconazole 100 MG TAB PO SCH (08:49)
[2022-05-31] MEDS: HumaLOG 300 UNITS/3 ML VIAL SC PRN (13:07)
[2022-05-31] MEDS: Atorvastatin Calcium 40 MG TAB PO SCH (20:08)
[2022-05-31] MEDS: Melatonin 3 MG TAB PO SCH (20:08)
[2022-06-01] MEDS: Acetaminophen 325 MG TAB PO PRN ×2 (06:21→20:36)
[2022-06-01] MEDS: Aspirin 81 mg Enteric Coated Tablet PO SCH (08:36)
[2022-06-01] MEDS: Propranolol 10 MG TAB PO SCH ×2 (08:36→20:36)
[2022-06-01] MEDS: Clopidogrel Bisulfate 75 MG TAB PO SCH (08:36)
[2022-06-01] MEDS: Fluconazole 100 MG TAB PO SCH (08:36)
[2022-06-01] MEDS: Amlodipine 5 MG TAB PO SCH (08:36)
[2022-06-01] MEDS: levETIRAcetam 500 MG TAB PO SCH ×2 (08:36→20:36)
[2022-06-01] MEDS: Baclofen 10 MG TAB PO SCH ×2 (08:36→20:36)
[2022-06-01] MEDS: Tamsulosin HCl 0.4 MG CAP PO SCH (08:37)
[2022-06-01] MEDS: Cefdinir 300 MG CAP PO SCH ×2 (08:37→20:36)
[2022-06-01] MEDS: Docusate 100 MG CAP PO SCH ×2 (08:37→20:36)
[2022-06-01] MEDS: Insulin Glargine 30 UNITS/0.3 ML VIAL SC SCH (08:37)
[2022-06-01] MEDS: Atorvastatin Calcium 40 MG TAB PO SCH (20:36)
[2022-06-01] MEDS: Melatonin 3 MG TAB PO SCH (20:37)
[2022-06-02] MEDS: Baclofen 10 MG TAB PO SCH ×2 (08:47→20:28)
[2022-06-02] MEDS: Clopidogrel Bisulfate 75 MG TAB PO SCH (08:47)
[2022-06-02] MEDS: Fluconazole 100 MG TAB PO SCH (08:47)
[2022-06-02] MEDS: Propranolol 10 MG TAB PO SCH ×2 (08:47→20:29)
[2022-06-02] MEDS: Insulin Glargine 30 UNITS/0.3 ML VIAL SC SCH (08:47)
[2022-06-02] MEDS: Amlodipine 5 MG TAB PO SCH (08:48)
[2022-06-02] MEDS: Cefdinir 300 MG CAP PO SCH ×2 (08:48→20:27)
[2022-06-02] MEDS: levETIRAcetam 500 MG TAB PO SCH ×2 (08:48→20:28)
[2022-06-02] MEDS: Docusate 100 MG CAP PO SCH ×2 (08:48→20:28)
[2022-06-02] MEDS: Aspirin 81 mg Enteric Coated Tablet PO SCH (08:48)
[2022-06-02] MEDS: Tamsulosin HCl 0.4 MG CAP PO SCH (08:48)
[2022-06-02] MEDS: Atorvastatin Calcium 40 MG TAB PO SCH (20:27)
[2022-06-02] MEDS: Melatonin 3 MG TAB PO SCH (20:29)
[2022-06-03] MEDS: Acetaminophen 325 MG TAB PO PRN (02:20)
[2022-06-03] MEDS: Baclofen 10 MG TAB PO SCH (08:41)
[2022-06-03] MEDS: Amlodipine 5 MG TAB PO SCH (08:41)
[2022-06-03] MEDS: Cefdinir 300 MG CAP PO SCH (08:42)
[2022-06-03] MEDS: levETIRAcetam 500 MG TAB PO SCH (08:42)
[2022-06-03] MEDS: Fluconazole 100 MG TAB PO SCH (08:43)
[2022-06-03] MEDS: Clopidogrel Bisulfate 75 MG TAB PO SCH (08:43)
[2022-06-03] MEDS: Tamsulosin HCl 0.4 MG CAP PO SCH (08:43)
[2022-06-03] MEDS: Aspirin 81 mg Enteric Coated Tablet PO SCH (08:43)
[2022-06-03] MEDS: Propranolol 10 MG TAB PO SCH (08:44)
[2022-06-03] MEDS: Docusate 100 MG CAP PO SCH (08:44)
[2022-06-03] MEDS: Insulin Glargine 30 UNITS/0.3 ML VIAL SC SCH (08:47)
[2022-06-03 15:58] VITALS: BP 132/80; TEMP 98.8
== END 2022-06-03 16:14 | disposition home health service (06) | DRG 698 ==
LOC: ERS 13:42 → 2NO 17:51 → T4-B 05-28 11:14
PROVIDERS: ADMIT Internal Medicine; ATTEND Internal Medicine
DX: T83.511A Infection and inflammatory reaction due to indwelling urethral catheter, initial encounter (principal); A41.9 Sepsis, unspecified organism; N17.9 Acute kidney failure, unspecified; N39.0 Urinary tract infection, site not specified; Z20.822 Contact with and (suspected) exposure to COVID-19; N18.30 Chronic kidney disease, stage 3 unspecified; I12.9 Hypertensive chronic kidney disease with stage 1 through stage 4 chronic kidney disease, or unspecified chronic kidney disease; N31.9 Neuromuscular dysfunction of bladder, unspecified; E11.22 Type 2 diabetes mellitus with diabetic chronic kidney disease; G40.909 Epilepsy, unspecified, not intractable, without status epilepticus; E78.5 Hyperlipidemia, unspecified; R33.9 Retention of urine, unspecified; Y84.6 Urinary catheterization as the cause of abnormal reaction of the patient, or of later complication, without mention of misadventure at the time of the procedure; Z86.73 Personal history of transient ischemic attack (TIA), and cerebral infarction without residual deficits; Z28.21 Immunization not carried out because of patient refusal; Z79.899 Other long term (current) drug therapy; Z79.82 Long term (current) use of aspirin; Z79.02 Long term (current) use of antithrombotics/antiplatelets; Z79.4 Long term (current) use of insulin; Z87.891 Personal history of nicotine dependence; Z83.3 Family history of diabetes mellitus; Z90.49 Acquired absence of other specified parts of digestive tract; Z87.440 Personal history of urinary (tract) infections
CPT/HCPCS: 36415; 36416; 71045; 80048; 80053; 80202; 81003; 81015; 82274; 82550; 83605; 83690; 83735; 83880; 84484; 85025; 87040; 87086; 87449; 87811; 96365; 96366; 96367; 96375; C9113; J0692; J1450; J1650; J1815; J2405; J3370; J3490; J7050; U0003; U0005

== ENCOUNTER 2022-06-05 20:02 | Inpatient (IN) | payer MEDICARE ==
[2022-06-05] MEDS ORDERED: Ondansetron PF 4 MG/2 ML Vial ONE (20:49)
[2022-06-05 20:59] LABS: #Eosinphils 0.2 thou/uL (0.0-0.7); #Lymphocytes 0.9 thou/uL (1.20-3.40); #Monocytes 0.7 thou/uL (0.11-0.59); #Neutrophils 7.7 thou/uL (1.40-6.50); %Basophils 0.5 % (0.0-1.0); %Eosinophils 2.1 % (0.0-10.0); %Lymphocytes 9.2 % (21.0-51.0); %Monocytes 7.1 % (0.0-10.0); %Neutrophils 81.1 % (42.0-75.0); Mean Corpuscular HGB CONC 33.5 g/dL (32.0-36.0); Mean Corpuscular Hemoglobin 26.3 pg (27.0-31.0); Mean Corpuscular Volume 78.5 fl (78.0-98.0); Mean Platelet Volume 6.2 fL (7.4-10.4); Platelet Count 328 10x3/uL (130-400); RBC Distribution Width 14.3 % (11.5-14.5); Red Blood Cell (RBC) Count 4.18 mill/uL (4.70-6.10); White Blood Cell (WBC) Count 9.4 10x3/uL (4.8-10.8)
[2022-06-05] MEDS ORDERED: Fluconazole In NaCl,Iso-Osm 200 MG in Premix Bag 1 BAG IVPB SCH (21:00)
[2022-06-05] MEDS ORDERED: Cefepime 2 GM VIAL ONE (21:14)
[2022-06-05 21:17] LABS: ALT (SGPT) 26 U/L (8-55); AST (SGOT) 12 U/L (5-34); Albumin 3.8 g/dL (3.4-4.8); Alkaline Phosphatase 93 U/L (40-110); Anion Gap 16 mmol/L (10-20); BUN (Urea Nitrogen) 35 mg/dL (8.4-25.7); Bilirubin, Total 0.4 mg/dL (0.2-1.2); Calc. Creatinine Clearance 0 mL/min (70-130); Calcium 9.2 mg/dL (7.8-10.44); Carbon Dioxide 19 mmol/L (23-31); Chloride 105 mmol/L (98-107); Estimated GFR 32; Glucose 153 mg/dL (80-115); Potassium 4.1 mmol/L (3.5-5.1); Protein, Total 8.8 g/dL (5.8-8.1); Sodium 136 mmol/L (136-145)
[2022-06-05] MEDS ORDERED: Vancomycin 1 GM/200 ML (FROZEN) BAG ONE (21:35)
[2022-06-05 22:41] LABS: Bacteria/HPF None Seen HPF (None Seen); Bilirubin Negative (Negative); Blood, Urine 3+ (Negative); Clarity Extra Turbid (Clear); Glucose, Urine (Dipstick) Normal (Negative); Ketone, Urine Negative (Negative); Leukocyte 500 Leu/uL (Negative); Nitrite Negative (Negative); Protein, Urine (Dipstick) 200 mg/dL (Neg-Trace); RBC/HPF Greater than 50 HPF (0-3); Specific Gravity, Urine 1.012 (1.002-1.036); Squamous Epithelial None Seen HPF (0-3); Urobilinogen Normal mg/dL (Less than 2); WBC/HPF Greater than 50 HPF (0-3)
[2022-06-06] MEDS ORDERED: Ondansetron ODT 4 MG TAB PO PRN (00:10)
[2022-06-06 04:51] LABS: #Eosinphils 0.1 thou/uL (0.0-0.7); #Lymphocytes 1.3 thou/uL (1.20-3.40); #Monocytes 0.7 thou/uL (0.11-0.59); #Neutrophils 5.2 thou/uL (1.40-6.50); %Basophils 0.4 % (0.0-1.0); %Eosinophils 1.4 % (0.0-10.0); %Lymphocytes 17.3 % (21.0-51.0); %Monocytes 10.1 % (0.0-10.0); %Neutrophils 70.8 % (42.0-75.0); Hemoglobin 9.5 g/dL (14.0-18.0); Mean Corpuscular HGB CONC 32.5 g/dL (32.0-36.0); Mean Corpuscular Hemoglobin 25.8 pg (27.0-31.0); Mean Corpuscular Volume 79.5 fl (78.0-98.0); Mean Platelet Volume 6.6 fL (7.4-10.4); Platelet Count 241 10x3/uL (130-400); RBC Distribution Width 14.5 % (11.5-14.5); Red Blood Cell (RBC) Count 3.68 mill/uL (4.70-6.10); White Blood Cell (WBC) Count 7.4 10x3/uL (4.8-10.8)
[2022-06-06 05:13] LABS: Anion Gap 13 mmol/L (10-20); BUN (Urea Nitrogen) 34 mg/dL (8.4-25.7); Calc. Creatinine Clearance 45 mL/min (70-130); Calcium 8.6 mg/dL (7.8-10.44); Carbon Dioxide 20 mmol/L (23-31); Chloride 107 mmol/L (98-107); Estimated GFR 38; Glucose 101 mg/dL (80-115); Potassium 3.9 mmol/L (3.5-5.1); Sodium 136 mmol/L (136-145)
[2022-06-06] MEDS ORDERED: Dextrose 50% Abboject 50 ML SYRINGE SLOW IVP PRN (06:22)
[2022-06-06] MEDS ORDERED: Dextrose 5% in Water 1,000 ML IV PRN (06:22)
[2022-06-06] MEDS ORDERED: HumaLOG 300 UNITS/3 ML VIAL SC PRN (06:22)
[2022-06-06] MEDS: Sodium Chloride 0.9% 1,000 ML IV SCH ×2 (06:33→15:38)
[2022-06-06] MEDS ORDERED: VANCOMYCIN 1.25 GM/250 ML BAG 1.25 GM in Premix Bag 1 BAG IVPB SCH ×2 (09:00→17:00)
[2022-06-06] MEDS ORDERED: Cefepime 2 GM in Sodium Chloride 0.9% 100 ML IVPB SCH (09:00)
[2022-06-06] MEDS ORDERED: Fluconazole 100 MG TAB PO SCH (09:00)
[2022-06-06] MEDS: levETIRAcetam 500 MG TAB PO SCH ×2 (09:33→20:09)
[2022-06-06] MEDS: Clopidogrel Bisulfate 75 MG TAB PO SCH (09:34)
[2022-06-06] MEDS: Aspirin 81 mg Enteric Coated Tablet PO SCH (09:34)
[2022-06-06 11:54] LABS: SARS-CoV-2 NAA Rapid Test Not Detected (NotDetected)
[2022-06-06] MEDS: Atorvastatin Calcium 40 MG TAB PO SCH (20:09)
[2022-06-06] MEDS ORDERED: Cefepime 1 GM in Sodium Chloride 0.9% 100 ML IVPB SCH (21:00)
[2022-06-07] MEDS: Aspirin 81 mg Enteric Coated Tablet PO SCH (09:36)
[2022-06-07] MEDS: levETIRAcetam 500 MG TAB PO SCH ×2 (09:36→20:53)
[2022-06-07] MEDS: Clopidogrel Bisulfate 75 MG TAB PO SCH (09:36)
[2022-06-07] MEDS: Acetaminophen 325 MG TAB PO PRN (10:22)
[2022-06-07] MEDS: Micafungin 100 MG in Sodium Chloride 0.9% 100 ML IVPB SCH (12:05)
[2022-06-07] MEDS ORDERED: Amlodipine 5 MG TAB PO SCH ×2 (13:30)
[2022-06-07 16:17] LABS: Vancomycin, Trough 11.7 ug/mL
[2022-06-07] MEDS ORDERED: VANCOMYCIN 1.25 GM/250 ML BAG 1.25 GM in Premix Bag 1 BAG IVPB SCH (17:00)
[2022-06-07] MEDS: Vancomycin 1.5 GRAM/300 ML BAG 1.5 GM in Premix Bag 1 BAG IVPB SCH (18:02)
[2022-06-07] MEDS: Melatonin 3 MG TAB PO PRN (18:02)
[2022-06-07] MEDS: Atorvastatin Calcium 40 MG TAB PO SCH (20:53)
[2022-06-07] MEDS: Propranolol 10 MG TAB PO SCH (20:53)
[2022-06-07] MEDS ORDERED: Vancomycin HCl 1.25 GM in Sodium Chloride 0.9% 250 ML 250 ML IVPB SCH (21:00)
[2022-06-08 04:26] LABS: #Eosinphils 0.2 thou/uL (0.0-0.7); #Lymphocytes 1.1 thou/uL (1.20-3.40); #Monocytes 0.6 thou/uL (0.11-0.59); #Neutrophils 3.9 thou/uL (1.40-6.50); %Basophils 0.4 % (0.0-1.0); %Eosinophils 3.4 % (0.0-10.0); %Lymphocytes 18.5 % (21.0-51.0); %Monocytes 10.8 % (0.0-10.0); Hemoglobin 9.7 g/dL (14.0-18.0); Mean Corpuscular HGB CONC 31.9 g/dL (32.0-36.0); Mean Corpuscular Hemoglobin 25.6 pg (27.0-31.0); Mean Corpuscular Volume 80.3 fl (78.0-98.0); Mean Platelet Volume 6.3 fL (7.4-10.4); Platelet Count 236 10x3/uL (130-400); RBC Distribution Width 14.2 % (11.5-14.5); Red Blood Cell (RBC) Count 3.77 mill/uL (4.70-6.10); White Blood Cell (WBC) Count 5.8 10x3/uL (4.8-10.8)
[2022-06-08 04:45] LABS: Anion Gap 13 mmol/L (10-20); BUN (Urea Nitrogen) 19 mg/dL (8.4-25.7); Calc. Creatinine Clearance 59 mL/min (70-130); Calcium 8.9 mg/dL (7.8-10.44); Carbon Dioxide 20 mmol/L (23-31); Chloride 105 mmol/L (98-107); Estimated GFR 52; Glucose 124 mg/dL (80-115); Potassium 3.4 mmol/L (3.5-5.1); Sodium 135 mmol/L (136-145)
[2022-06-08] MEDS: Aspirin 81 mg Enteric Coated Tablet PO SCH (09:11)
[2022-06-08] MEDS: levETIRAcetam 500 MG TAB PO SCH ×2 (09:11→20:04)
[2022-06-08] MEDS: Propranolol 10 MG TAB PO SCH ×2 (09:11→20:04)
[2022-06-08] MEDS: Amlodipine 5 MG TAB PO SCH (09:12)
[2022-06-08] MEDS: Insulin Glargine 30 UNITS/0.3 ML VIAL SC SCH (09:12)
[2022-06-08] MEDS: Clopidogrel Bisulfate 75 MG TAB PO SCH (09:12)
[2022-06-08] MEDS: Micafungin 100 MG in Sodium Chloride 0.9% 100 ML IVPB SCH (10:10)
[2022-06-08] MEDS ORDERED: Senokot 8.6 MG TAB PO SCH (12:30)
[2022-06-08] MEDS: Vancomycin 1.5 GRAM/300 ML BAG 1.5 GM in Premix Bag 1 BAG IVPB SCH (19:27)
[2022-06-08] MEDS: Senokot 8.6 MG TAB PO PRN (20:03)
[2022-06-08] MEDS: Atorvastatin Calcium 40 MG TAB PO SCH (20:03)
[2022-06-08] MEDS: Melatonin 3 MG TAB PO PRN (20:04)
[2022-06-09] MEDS: Acetaminophen 325 MG TAB PO PRN (05:46)
[2022-06-09 06:54] LABS: #Eosinphils 0.2 thou/uL (0.0-0.7); #Lymphocytes 1.1 thou/uL (1.20-3.40); #Monocytes 0.5 thou/uL (0.11-0.59); #Neutrophils 5.2 thou/uL (1.40-6.50); %Basophils 0.2 % (0.0-1.0); %Eosinophils 2.8 % (0.0-10.0); %Lymphocytes 15.7 % (21.0-51.0); %Monocytes 7.6 % (0.0-10.0); %Neutrophils 73.7 % (42.0-75.0); Mean Corpuscular HGB CONC 32.2 g/dL (32.0-36.0); Mean Corpuscular Hemoglobin 25.1 pg (27.0-31.0); Mean Platelet Volume 6.1 fL (7.4-10.4); Platelet Count 234 10x3/uL (130-400); RBC Distribution Width 14.2 % (11.5-14.5); Red Blood Cell (RBC) Count 3.56 mill/uL (4.70-6.10); White Blood Cell (WBC) Count 7.1 10x3/uL (4.8-10.8)
[2022-06-09 07:15] LABS: Anion Gap 12 mmol/L (10-20); BUN (Urea Nitrogen) 14 mg/dL (8.4-25.7); Calc. Creatinine Clearance 60 mL/min (70-130); Calcium 8.6 mg/dL (7.8-10.44); Carbon Dioxide 22 mmol/L (23-31); Chloride 104 mmol/L (98-107); Estimated GFR 53; Glucose 94 mg/dL (80-115); Potassium 3.3 mmol/L (3.5-5.1); Sodium 135 mmol/L (136-145)
[2022-06-09] MEDS: Aspirin 81 mg Enteric Coated Tablet PO SCH (08:40)
[2022-06-09] MEDS: Propranolol 10 MG TAB PO SCH ×2 (08:40→20:57)
[2022-06-09] MEDS: levETIRAcetam 500 MG TAB PO SCH ×2 (08:40→20:57)
[2022-06-09] MEDS: Amlodipine 5 MG TAB PO SCH (08:41)
[2022-06-09] MEDS: Insulin Glargine 30 UNITS/0.3 ML VIAL SC SCH (08:41)
[2022-06-09] MEDS: Clopidogrel Bisulfate 75 MG TAB PO SCH (08:41)
[2022-06-09] MEDS: Micafungin 100 MG in Sodium Chloride 0.9% 100 ML IVPB SCH (11:50)
[2022-06-09] MEDS: HumaLOG 300 UNITS/3 ML VIAL SC PRN (12:42)
[2022-06-09] MEDS: Vancomycin 1.5 GRAM/300 ML BAG 1.5 GM in Premix Bag 1 BAG IVPB SCH (18:17)
[2022-06-09] MEDS: Senokot 8.6 MG TAB PO PRN (20:56)
[2022-06-09] MEDS: Atorvastatin Calcium 40 MG TAB PO SCH (20:57)
[2022-06-09] MEDS: Melatonin 3 MG TAB PO PRN (20:57)
[2022-06-09 22:21] LABS: Vancomycin, Trough 19.3 ug/mL
[2022-06-10 06:01] LABS: #Basophils 0.1 thou/uL (0.0-0.2); #Eosinphils 0.2 thou/uL (0.0-0.7); #Lymphocytes 1.4 thou/uL (1.20-3.40); #Monocytes 0.6 thou/uL (0.11-0.59); #Neutrophils 3.9 thou/uL (1.40-6.50); %Eosinophils 3.3 % (0.0-10.0); %Lymphocytes 22.6 % (21.0-51.0); %Monocytes 9.6 % (0.0-10.0); %Neutrophils 63.5 % (42.0-75.0); Hemoglobin 9.5 g/dL (14.0-18.0); Mean Corpuscular HGB CONC 33.1 g/dL (32.0-36.0); Mean Corpuscular Volume 78.6 fl (78.0-98.0); Mean Platelet Volume 6.1 fL (7.4-10.4); Platelet Count 246 10x3/uL (130-400); RBC Distribution Width 13.9 % (11.5-14.5); Red Blood Cell (RBC) Count 3.64 mill/uL (4.70-6.10); White Blood Cell (WBC) Count 6.1 10x3/uL (4.8-10.8)
[2022-06-10 06:17] LABS: Anion Gap 11 mmol/L (10-20); BUN (Urea Nitrogen) 16 mg/dL (8.4-25.7); Calc. Creatinine Clearance 53 mL/min (70-130); Calcium 8.6 mg/dL (7.8-10.44); Carbon Dioxide 23 mmol/L (23-31); Chloride 105 mmol/L (98-107); Estimated GFR 46; Glucose 80 mg/dL (80-115); Potassium 3.2 mmol/L (3.5-5.1); Sodium 136 mmol/L (136-145)
[2022-06-10] MEDS: Clopidogrel Bisulfate 75 MG TAB PO SCH (09:09)
[2022-06-10] MEDS: levETIRAcetam 500 MG TAB PO SCH ×2 (09:09→20:33)
[2022-06-10] MEDS: Aspirin 81 mg Enteric Coated Tablet PO SCH (09:09)
[2022-06-10] MEDS: Amlodipine 5 MG TAB PO SCH (09:09)
[2022-06-10] MEDS: Propranolol 10 MG TAB PO SCH ×2 (09:10→20:33)
[2022-06-10] MEDS: Insulin Glargine 30 UNITS/0.3 ML VIAL SC SCH (09:10)
[2022-06-10] MEDS: Micafungin 100 MG in Sodium Chloride 0.9% 100 ML IVPB SCH (11:36)
[2022-06-10] MEDS: HumaLOG 300 UNITS/3 ML VIAL SC PRN (11:40)
[2022-06-10] MEDS: Atorvastatin Calcium 40 MG TAB PO SCH (20:34)
[2022-06-10] MEDS: Melatonin 3 MG TAB PO PRN (20:34)
[2022-06-11 05:55] LABS: #Eosinphils 0.2 thou/uL (0.0-0.7); #Lymphocytes 1.5 thou/uL (1.20-3.40); #Monocytes 0.5 thou/uL (0.11-0.59); #Neutrophils 3.9 thou/uL (1.40-6.50); %Basophils 0.3 % (0.0-1.0); %Eosinophils 3.4 % (0.0-10.0); %Lymphocytes 24.1 % (21.0-51.0); %Monocytes 8.9 % (0.0-10.0); %Neutrophils 63.3 % (42.0-75.0); Hemoglobin 8.9 g/dL (14.0-18.0); Mean Corpuscular HGB CONC 33.3 g/dL (32.0-36.0); Mean Corpuscular Hemoglobin 26.2 pg (27.0-31.0); Mean Corpuscular Volume 78.5 fl (78.0-98.0); Mean Platelet Volume 6.2 fL (7.4-10.4); Platelet Count 265 10x3/uL (130-400); White Blood Cell (WBC) Count 6.1 10x3/uL (4.8-10.8)
[2022-06-11 06:01] LABS: INR-International Normal Ratio 1.2; PTT 26.9 sec (22.9-36.1); Prothrombin Time 15.3 sec (12.0-14.7)
[2022-06-11 06:28] LABS: Anion Gap 11 mmol/L (10-20); BUN (Urea Nitrogen) 19 mg/dL (8.4-25.7); Calc. Creatinine Clearance 49 mL/min (70-130); Calcium 8.9 mg/dL (7.8-10.44); Carbon Dioxide 24 mmol/L (23-31); Chloride 104 mmol/L (98-107); Estimated GFR 41; Glucose 154 mg/dL (80-115); Potassium 3.2 mmol/L (3.5-5.1); Sodium 136 mmol/L (136-145)
[2022-06-11] MEDS: Insulin Glargine 30 UNITS/0.3 ML VIAL SC SCH (10:05)
[2022-06-11] MEDS: Amlodipine 5 MG TAB PO SCH (10:05)
[2022-06-11] MEDS: Propranolol 10 MG TAB PO SCH ×2 (10:05→22:02)
[2022-06-11] MEDS: levETIRAcetam 500 MG TAB PO SCH ×2 (10:05→22:03)
[2022-06-11] MEDS: Micafungin 100 MG in Sodium Chloride 0.9% 100 ML IVPB SCH (11:56)
[2022-06-11] MEDS: Acetaminophen 325 MG TAB PO PRN (22:01)
[2022-06-11] MEDS: Atorvastatin Calcium 40 MG TAB PO SCH (22:03)
[2022-06-12 07:34] LABS: #Basophils 0.1 thou/uL (0.0-0.2); #Eosinphils 0.3 thou/uL (0.0-0.7); #Lymphocytes 1.2 thou/uL (1.20-3.40); #Monocytes 0.6 thou/uL (0.11-0.59); #Neutrophils 3.3 thou/uL (1.40-6.50); %Basophils 1.1 % (0.0-1.0); %Eosinophils 4.8 % (0.0-10.0); %Lymphocytes 21.6 % (21.0-51.0); %Monocytes 10.9 % (0.0-10.0); %Neutrophils 61.6 % (42.0-75.0); Mean Corpuscular HGB CONC 32.9 g/dL (32.0-36.0); Mean Corpuscular Volume 78.9 fl (78.0-98.0); Mean Platelet Volume 6.2 fL (7.4-10.4); Platelet Count 249 10x3/uL (130-400); Red Blood Cell (RBC) Count 3.46 mill/uL (4.70-6.10); White Blood Cell (WBC) Count 5.4 10x3/uL (4.8-10.8)
[2022-06-12 07:58] LABS: Anion Gap 11 mmol/L (10-20); BUN (Urea Nitrogen) 19 mg/dL (8.4-25.7); Calc. Creatinine Clearance 51 mL/min (70-130); Calcium 8.9 mg/dL (7.8-10.44); Carbon Dioxide 25 mmol/L (23-31); Chloride 104 mmol/L (98-107); Estimated GFR 44; Glucose 108 mg/dL (80-115); Potassium 3.2 mmol/L (3.5-5.1); Sodium 137 mmol/L (136-145)
[2022-06-12] MEDS ORDERED: Potassium Chloride 20 MEQ TAB PO SCH (09:00)
[2022-06-12] MEDS: Propranolol 10 MG TAB PO SCH ×2 (10:00→20:32)
[2022-06-12] MEDS: levETIRAcetam 500 MG TAB PO SCH ×2 (10:00→20:32)
[2022-06-12] MEDS: Insulin Glargine 30 UNITS/0.3 ML VIAL SC SCH (10:00)
[2022-06-12] MEDS: Amlodipine 5 MG TAB PO SCH (10:00)
[2022-06-12] MEDS: Micafungin 100 MG in Sodium Chloride 0.9% 100 ML IVPB SCH (11:55)
[2022-06-12] MEDS: HumaLOG 300 UNITS/3 ML VIAL SC PRN (11:56)
[2022-06-12] MEDS: Acetaminophen 325 MG TAB PO PRN (16:59)
[2022-06-12] MEDS ORDERED: Lactated Ringer's 500 ML IV SCH (18:00)
[2022-06-12] MEDS: Atorvastatin Calcium 40 MG TAB PO SCH (20:32)
[2022-06-13 06:31] LABS: Anion Gap 11 mmol/L (10-20); BUN (Urea Nitrogen) 19 mg/dL (8.4-25.7); Calc. Creatinine Clearance 51 mL/min (70-130); Calcium 8.3 mg/dL (7.8-10.44); Carbon Dioxide 25 mmol/L (23-31); Chloride 102 mmol/L (98-107); Estimated GFR 43; Glucose 83 mg/dL (80-115); Magnesium 1.6 mg/dL (1.6-2.6); Potassium 3.4 mmol/L (3.5-5.1); Sodium 135 mmol/L (136-145)
[2022-06-13 06:32] LABS: ALT (SGPT) 22 U/L (8-55); AST (SGOT) 15 U/L (5-34); Albumin 3.1 g/dL (3.4-4.8); Alkaline Phosphatase 66 U/L (40-110); Bilirubin, Direct 0.2 mg/dL (0.1-0.3); Bilirubin, Total 0.4 mg/dL (0.2-1.2); Protein, Total 7.2 g/dL (5.8-8.1)
[2022-06-13] MEDS ORDERED: Potassium Chloride 20 MEQ TAB PO SCH (08:15)
[2022-06-13] MEDS: Amlodipine 5 MG TAB PO SCH (09:33)
[2022-06-13] MEDS: levETIRAcetam 500 MG TAB PO SCH ×2 (09:33→20:51)
[2022-06-13] MEDS: Propranolol 10 MG TAB PO SCH ×2 (09:34→20:50)
[2022-06-13] MEDS: Insulin Glargine 30 UNITS/0.3 ML VIAL SC SCH (10:54)
[2022-06-13] MEDS: Micafungin 100 MG in Sodium Chloride 0.9% 100 ML IVPB SCH (12:02)
[2022-06-13] MEDS: Acetaminophen 325 MG TAB PO PRN (15:34)
[2022-06-13] MEDS: Atorvastatin Calcium 40 MG TAB PO SCH (20:51)
[2022-06-14 05:09] LABS: Hemoglobin 8.9 g/dL (14.0-18.0); Mean Corpuscular HGB CONC 32.5 g/dL (32.0-36.0); Mean Corpuscular Hemoglobin 25.6 pg (27.0-31.0); Mean Corpuscular Volume 78.8 fl (78.0-98.0); Mean Platelet Volume 6.2 fL (7.4-10.4); Platelet Count 264 10x3/uL (130-400); RBC Distribution Width 13.9 % (11.5-14.5); Red Blood Cell (RBC) Count 3.48 mill/uL (4.70-6.10); White Blood Cell (WBC) Count 5.4 10x3/uL (4.8-10.8)
[2022-06-14 05:30] LABS: Anion Gap 10 mmol/L (10-20); BUN (Urea Nitrogen) 22 mg/dL (8.4-25.7); Calc. Creatinine Clearance 56 mL/min (70-130); Calcium 8.6 mg/dL (7.8-10.44); Carbon Dioxide 25 mmol/L (23-31); Chloride 104 mmol/L (98-107); Estimated GFR 49; Glucose 132 mg/dL (80-115); Potassium 3.4 mmol/L (3.5-5.1); Sodium 136 mmol/L (136-145)
[2022-06-14] MEDS ORDERED: Potassium Chloride 20 MEQ TAB PO SCH (08:15)
[2022-06-14] MEDS ORDERED: Ondansetron PF 4 MG/2 ML Vial ONE (09:21)
[2022-06-14] MEDS ORDERED: Acetaminophen/Codeine 30-300mg Tablet PO PRN (09:55)
[2022-06-14] MEDS: Insulin Glargine 30 UNITS/0.3 ML VIAL SC SCH (10:02)
[2022-06-14] MEDS: Propranolol 10 MG TAB PO SCH (10:02)
[2022-06-14] MEDS: Amlodipine 5 MG TAB PO SCH (10:02)
[2022-06-14] MEDS: levETIRAcetam 500 MG TAB PO SCH (10:02)
[2022-06-14] MEDS: Micafungin 100 MG in Sodium Chloride 0.9% 100 ML IVPB SCH (10:15)
[2022-06-14] MEDS ORDERED: Fentanyl 100 MCG/2 ML VIAL SLOW IVP SCH (11:15)
[2022-06-14] MEDS ORDERED: Meropenem 1 GM in Sodium Chloride 0.9% 100 ML IVPB STA (11:26)
[2022-06-14] MEDS: Ondansetron PF 4 MG/2 ML Vial IVP PRN ×2 (12:25→20:45)
[2022-06-14] MEDS ORDERED: Iopamidol 300 61% 100 ML VIAL FS ONE (12:44)
[2022-06-14] MEDS: Acetaminophen 650 MG Suppository PR PRN ×2 (12:55→21:10)
[2022-06-14] MEDS ORDERED: Vancomycin 1.5 GRAM/300 ML BAG 1.5 GM in Premix Bag 1 BAG IVPB SCH (13:00)
[2022-06-14] MEDS ORDERED: Lactated Ringer's 1,000 ML IV SCH ×4 (13:30→22:07)
[2022-06-14] MEDS ORDERED: Meropenem 1 GM in Sodium Chloride 0.9% 100 ML IVPB SCH (14:00)
[2022-06-14] MEDS: Acetaminophen 325 MG TAB PO PRN (20:48)
[2022-06-14 21:39] LABS: Mean Corpuscular HGB CONC 32.6 g/dL (32.0-36.0); Mean Corpuscular Hemoglobin 25.6 pg (27.0-31.0); Mean Corpuscular Volume 78.5 fl (78.0-98.0); Mean Platelet Volume 6.6 fL (7.4-10.4); Platelet Count 210 10x3/uL (130-400); RBC Distribution Width 13.9 % (11.5-14.5); Red Blood Cell (RBC) Count 3.92 mill/uL (4.70-6.10); White Blood Cell (WBC) Count 7.2 10x3/uL (4.8-10.8)
[2022-06-14 21:45] LABS: Lactic Acid 1.5 mmol/L (0.5-2.2)
[2022-06-14 21:49] LABS: ALT (SGPT) 19 U/L (8-55); AST (SGOT) 14 U/L (5-34); Albumin 3.1 g/dL (3.4-4.8); Alkaline Phosphatase 63 U/L (40-110); Anion Gap 14 mmol/L (10-20); BUN (Urea Nitrogen) 23 mg/dL (8.4-25.7); Bilirubin, Total 0.4 mg/dL (0.2-1.2); Calc. Creatinine Clearance 47 mL/min (70-130); Calcium 8.3 mg/dL (7.8-10.44); Carbon Dioxide 21 mmol/L (23-31); Chloride 106 mmol/L (98-107); Estimated GFR 40; Globulin 3.9 g/dL (2.4-3.5); Glucose 119 mg/dL (80-115); Potassium 3.7 mmol/L (3.5-5.1); Sodium 137 mmol/L (136-145)
[2022-06-14 22:09] LABS: Band 8 % (5-11); Lymphocytes 1 % (21-51); MDiff Complete? YES; Metamyelocyte 1 % (0-0); Monocytes 3 % (0-10); Neutrophil 87 % (42-75); Ovalocytes SLIGHT = 2-5 cells (100X) (0-1/hpf); Platelet Morphology Comment Appears Adequate; Toxic Granulation SLIGHT; Vacuoles SLIGHT
[2022-06-14] MEDS ORDERED: Acetaminophen 325 MG Suppository PR SCH (22:15)
[2022-06-14] MEDS ORDERED: Ketorolac Tromethamine 30 MG/ML VIAL IVP SCH (22:15)
[2022-06-14] MEDS ORDERED: NOREPINEPHRINE 8 MG/250 ML-D5W 250 ML IVPB SCH (23:45)
[2022-06-14] MEDS ORDERED: NOREPINEPHRINE 8 MG/250 ML-D5W 250 ML ONE (23:55)
[2022-06-15] MEDS: Meropenem 1 GM in Sodium Chloride 0.9% 100 ML IVPB SCH ×4 (00:17→21:12)
[2022-06-15] MEDS: Atorvastatin Calcium 40 MG TAB PO SCH ×2 (00:18→20:53)
[2022-06-15] MEDS: levETIRAcetam 500 MG TAB PO SCH ×3 (00:19→20:52)
[2022-06-15] MEDS: Propranolol 10 MG TAB PO SCH ×3 (00:19→20:53)
[2022-06-15 03:34] LABS: Hemoglobin 8.7 g/dL (14.0-18.0); Mean Corpuscular HGB CONC 31.8 g/dL (32.0-36.0); Mean Corpuscular Hemoglobin 25.1 pg (27.0-31.0); Mean Platelet Volume 6.6 fL (7.4-10.4); Platelet Count 194 10x3/uL (130-400); RBC Distribution Width 13.9 % (11.5-14.5); Red Blood Cell (RBC) Count 3.48 mill/uL (4.70-6.10); White Blood Cell (WBC) Count 9.1 10x3/uL (4.8-10.8)
[2022-06-15 03:56] LABS: Anion Gap 15 mmol/L (10-20); BUN (Urea Nitrogen) 25 mg/dL (8.4-25.7); Calc. Creatinine Clearance 44 mL/min (70-130); Calcium 8.2 mg/dL (7.8-10.44); Carbon Dioxide 20 mmol/L (23-31); Chloride 105 mmol/L (98-107); Estimated GFR 37; Glucose 111 mg/dL (80-115); Potassium 3.8 mmol/L (3.5-5.1); Sodium 136 mmol/L (136-145)
[2022-06-15] MEDS: Lactated Ringer's 1,000 ML IV SCH ×3 (12:14→21:11)
[2022-06-15] MEDS: Insulin Glargine 30 UNITS/0.3 ML VIAL SC SCH (12:14)
[2022-06-15] MEDS: Micafungin 100 MG in Sodium Chloride 0.9% 100 ML IVPB SCH (12:15)
[2022-06-15] MEDS: Vancomycin 1.5 GRAM/300 ML BAG 1.5 GM in Premix Bag 1 BAG IVPB SCH (13:56)
[2022-06-15] MEDS: Acetaminophen 325 MG TAB PO PRN ×2 (17:27→23:02)
[2022-06-15 17:37] LABS: Histoplasma Yeast AB (CF) 1:32 (Neg:<1:2)
[2022-06-15] MEDS: Melatonin 3 MG TAB PO PRN (21:12)
[2022-06-16] MEDS ORDERED: Metoclopramide HCl 10 MG/2 ML VIAL IVP SCH (01:00)
[2022-06-16] MEDS: Lactated Ringer's 1,000 ML IV SCH ×4 (05:45→23:25)
[2022-06-16] MEDS: Meropenem 1 GM in Sodium Chloride 0.9% 100 ML IVPB SCH ×3 (05:45→21:26)
[2022-06-16] MEDS ORDERED: chlorproMAZINE HCl 50 MG/2 ML AMP SLOW IVP SCH (09:15)
[2022-06-16] MEDS: levETIRAcetam 500 MG TAB PO SCH ×2 (09:16→21:26)
[2022-06-16] MEDS: Propranolol 10 MG TAB PO SCH ×2 (09:17→21:26)
[2022-06-16] MEDS: Fluconazole In NaCl,Iso-Osm 200 MG in Premix Bag 1 BAG IVPB SCH (09:20)
[2022-06-16] MEDS ORDERED: chlorproMAZINE HCl 25 MG in Sodium Chloride 0.9% 50 ML IVPB SCH (09:45)
[2022-06-16] MEDS: Micafungin 100 MG in Sodium Chloride 0.9% 100 ML IVPB SCH (10:50)
[2022-06-16] MEDS: Insulin Glargine 30 UNITS/0.3 ML VIAL SC SCH (11:27)
[2022-06-16 12:45] LABS: Vancomycin, Trough 17.2 ug/mL
[2022-06-16] MEDS: Ondansetron PF 4 MG/2 ML Vial IVP PRN (12:53)
[2022-06-16] MEDS: Vancomycin 1.5 GRAM/300 ML BAG 1.5 GM in Premix Bag 1 BAG IVPB SCH (13:43)
[2022-06-16] MEDS: Acetaminophen 325 MG TAB PO PRN (15:17)
[2022-06-16] MEDS: Atorvastatin Calcium 40 MG TAB PO SCH (21:26)
[2022-06-16] MEDS: Melatonin 3 MG TAB PO PRN (21:32)
[2022-06-17 04:48] LABS: Hemoglobin 10.7 g/dL (14.0-18.0); Mean Corpuscular HGB CONC 33.5 g/dL (32.0-36.0); Mean Corpuscular Hemoglobin 26.3 pg (27.0-31.0); Mean Corpuscular Volume 78.5 fl (78.0-98.0); Mean Platelet Volume 7.5 fL (7.4-10.4); Platelet Count 114 10x3/uL (130-400); RBC Distribution Width 14.1 % (11.5-14.5); Red Blood Cell (RBC) Count 4.07 mill/uL (4.70-6.10); White Blood Cell (WBC) Count 4.8 10x3/uL (4.8-10.8)
[2022-06-17 05:06] LABS: Anion Gap 13 mmol/L (10-20); BUN (Urea Nitrogen) 26 mg/dL (8.4-25.7); Calc. Creatinine Clearance 56 mL/min (70-130); Calcium 7.7 mg/dL (7.8-10.44); Carbon Dioxide 23 mmol/L (23-31); Chloride 104 mmol/L (98-107); Estimated GFR 50; Glucose 163 mg/dL (80-115); Potassium 3.4 mmol/L (3.5-5.1); Sodium 137 mmol/L (136-145)
[2022-06-17] MEDS: Meropenem 1 GM in Sodium Chloride 0.9% 100 ML IVPB SCH ×3 (06:02→23:07)
[2022-06-17] MEDS: Lactated Ringer's 1,000 ML IV SCH ×3 (06:33→20:25)
[2022-06-17] MEDS ORDERED: Potassium Chloride 20 MEQ TAB PO SCH (08:15)
[2022-06-17] MEDS: Fluconazole In NaCl,Iso-Osm 200 MG in Premix Bag 1 BAG IVPB SCH (09:46)
[2022-06-17] MEDS: Insulin Glargine 30 UNITS/0.3 ML VIAL SC SCH (09:49)
[2022-06-17] MEDS: levETIRAcetam 500 MG TAB PO SCH ×2 (09:49→20:19)
[2022-06-17] MEDS: Propranolol 10 MG TAB PO SCH ×2 (09:49→20:19)
[2022-06-17] MEDS ORDERED: chlorproMAZINE HCl 25 MG in Sodium Chloride 0.9% 50 ML IVPB SCH (11:00)
[2022-06-17] MEDS: Micafungin 100 MG in Sodium Chloride 0.9% 100 ML IVPB SCH (11:55)
[2022-06-17] MEDS: Vancomycin 1.5 GRAM/300 ML BAG 1.5 GM in Premix Bag 1 BAG IVPB SCH (13:38)
[2022-06-17] MEDS: HumaLOG 300 UNITS/3 ML VIAL SC PRN (17:23)
[2022-06-17] MEDS ORDERED: Meropenem 1 GM in Sodium Chloride 0.9% 100 ML IVPB SCH (18:00)
[2022-06-17] MEDS: Acetaminophen 325 MG TAB PO PRN (20:19)
[2022-06-17] MEDS: Atorvastatin Calcium 40 MG TAB PO SCH (20:19)
[2022-06-17] MEDS: Melatonin 3 MG TAB PO PRN (20:24)
[2022-06-18] MEDS ORDERED: chlorproMAZINE HCl 50 MG/2 ML AMP SLOW IVP SCH (03:45)
[2022-06-18] MEDS ORDERED: chlorproMAZINE HCl 25 MG in Sodium Chloride 0.9% 50 ML IVPB SCH (04:00)
[2022-06-18] MEDS: Meropenem 1 GM in Sodium Chloride 0.9% 100 ML IVPB SCH ×3 (05:28→20:39)
[2022-06-18] MEDS: Lactated Ringer's 1,000 ML IV SCH ×3 (06:24→14:59)
[2022-06-18] MEDS: HumaLOG 300 UNITS/3 ML VIAL SC PRN ×2 (06:35→12:01)
[2022-06-18] MEDS: Propranolol 10 MG TAB PO SCH ×2 (08:04→20:24)
[2022-06-18] MEDS: Insulin Glargine 30 UNITS/0.3 ML VIAL SC SCH (08:04)
[2022-06-18] MEDS: levETIRAcetam 500 MG TAB PO SCH ×2 (08:04→20:24)
[2022-06-18] MEDS: Fluconazole In NaCl,Iso-Osm 200 MG in Premix Bag 1 BAG IVPB SCH (09:10)
[2022-06-18] MEDS: Micafungin 100 MG in Sodium Chloride 0.9% 100 ML IVPB SCH (11:49)
[2022-06-18 12:49] LABS: Vancomycin, Trough 17.9 ug/mL
[2022-06-18] MEDS ORDERED: Pantoprazole 40 MG VIAL IVP SCH (13:00)
[2022-06-18] MEDS ORDERED: Baclofen 10 MG TAB PO SCH (13:00)
[2022-06-18] MEDS: Vancomycin 1.5 GRAM/300 ML BAG 1.5 GM in Premix Bag 1 BAG IVPB SCH (14:56)
[2022-06-18] MEDS: Atorvastatin Calcium 40 MG TAB PO SCH (20:23)
[2022-06-18] MEDS: Baclofen 10 MG TAB PO SCH (20:23)
[2022-06-18] MEDS: Senokot 8.6 MG TAB PO PRN (20:27)
[2022-06-19] MEDS: Meropenem 1 GM in Sodium Chloride 0.9% 100 ML IVPB SCH ×2 (05:37→13:54)
[2022-06-19] MEDS: Acetaminophen 325 MG TAB PO PRN (07:46)
[2022-06-19] MEDS: levETIRAcetam 500 MG TAB PO SCH ×2 (07:47→21:00)
[2022-06-19] MEDS: Propranolol 10 MG TAB PO SCH ×2 (07:47→21:01)
[2022-06-19] MEDS: Baclofen 10 MG TAB PO SCH ×2 (07:47→21:00)
[2022-06-19] MEDS: Insulin Glargine 30 UNITS/0.3 ML VIAL SC SCH (07:48)
[2022-06-19] MEDS: Fluconazole In NaCl,Iso-Osm 200 MG in Premix Bag 1 BAG IVPB SCH (08:47)
[2022-06-19] MEDS: Lactated Ringer's 1,000 ML IV SCH (08:48)
[2022-06-19] MEDS: Micafungin 100 MG in Sodium Chloride 0.9% 100 ML IVPB SCH (08:48)
[2022-06-19] MEDS ORDERED: Pantoprazole 40 MG VIAL IVP SCH (12:15)
[2022-06-19] MEDS: Vancomycin 1.5 GRAM/300 ML BAG 1.5 GM in Premix Bag 1 BAG IVPB SCH (14:56)
[2022-06-19] MEDS: Atorvastatin Calcium 40 MG TAB PO SCH (20:59)
[2022-06-19] MEDS: Melatonin 3 MG TAB PO PRN (21:05)
[2022-06-19] MEDS: Senokot 8.6 MG TAB PO PRN (21:05)
[2022-06-20 05:22] LABS: #Eosinphils 0.1 thou/uL (0.0-0.7); #Lymphocytes 1.2 thou/uL (1.20-3.40); #Monocytes 0.9 thou/uL (0.11-0.59); #Neutrophils 5.5 thou/uL (1.40-6.50); %Eosinophils 1.8 % (0.0-10.0); %Lymphocytes 15.6 % (21.0-51.0); %Monocytes 11.5 % (0.0-10.0); %Neutrophils 71.1 % (42.0-75.0); Mean Corpuscular HGB CONC 32.5 g/dL (32.0-36.0); Mean Corpuscular Hemoglobin 25.6 pg (27.0-31.0); Mean Corpuscular Volume 78.6 fl (78.0-98.0); Mean Platelet Volume 7.3 fL (7.4-10.4); Platelet Count 207 10x3/uL (130-400); RBC Distribution Width 13.8 % (11.5-14.5); Red Blood Cell (RBC) Count 3.14 mill/uL (4.70-6.10); White Blood Cell (WBC) Count 7.7 10x3/uL (4.8-10.8)
[2022-06-20 05:38] LABS: ALT (SGPT) 20 U/L (8-55); AST (SGOT) 14 U/L (5-34); Albumin 2.5 g/dL (3.4-4.8); Alkaline Phosphatase 115 U/L (40-110); Anion Gap 9 mmol/L (10-20); BUN (Urea Nitrogen) 13 mg/dL (8.4-25.7); Bilirubin, Total 0.5 mg/dL (0.2-1.2); Calc. Creatinine Clearance 79 mL/min (70-130); Calcium 7.4 mg/dL (7.8-10.44); Carbon Dioxide 25 mmol/L (23-31); Chloride 100 mmol/L (98-107); Estimated GFR 75; Globulin 3.2 g/dL (2.4-3.5); Glucose 104 mg/dL (80-115); Potassium 2.9 mmol/L (3.5-5.1); Protein, Total 5.7 g/dL (5.8-8.1); Sodium 131 mmol/L (136-145)
[2022-06-20] MEDS ORDERED: Electrolyte Replacement Protocol 1 EACH FS SCH (07:00)
[2022-06-20 08:01] LABS: Magnesium 1.4 mg/dL (1.6-2.6)
[2022-06-20] MEDS ORDERED: Magnesium Sulfate In Water 4 GM in Premix Bag 1 BAG IVPB SCH (08:30)
[2022-06-20] MEDS ORDERED: Senokot S 8.6-50 MG TAB PO SCH (10:00)
[2022-06-20] MEDS ORDERED: Polyethylene Glycol 3350 17 GM Packet PO SCH (10:00)
[2022-06-20] MEDS: Potassium Chloride 20 MEQ TAB PO SCH ×2 (10:09→11:56)
[2022-06-20] MEDS: Pantoprazole 40 MG VIAL IVP SCH (10:09)
[2022-06-20] MEDS: Propranolol 10 MG TAB PO SCH ×2 (10:10→21:35)
[2022-06-20] MEDS: Baclofen 10 MG TAB PO SCH ×2 (10:10→21:35)
[2022-06-20] MEDS: levETIRAcetam 500 MG TAB PO SCH ×2 (10:10→21:34)
[2022-06-20] MEDS: Micafungin 100 MG in Sodium Chloride 0.9% 100 ML IVPB SCH (10:22)
[2022-06-20] MEDS: Acetaminophen 325 MG TAB PO PRN ×2 (10:22→21:35)
[2022-06-20 11:08] VITALS: BMI 25.6
[2022-06-20] MEDS: Insulin Glargine 30 UNITS/0.3 ML VIAL SC SCH (11:30)
[2022-06-20] MEDS: Atorvastatin Calcium 40 MG TAB PO SCH (21:36)
[2022-06-20] MEDS: Senokot S 8.6-50 MG TAB PO SCH (21:37)
[2022-06-20] MEDS: Melatonin 3 MG TAB PO PRN (21:37)
[2022-06-21 06:19] LABS: #Eosinphils 0.1 thou/uL (0.0-0.7); #Lymphocytes 1.1 thou/uL (1.20-3.40); #Monocytes 0.7 thou/uL (0.11-0.59); #Neutrophils 5.4 thou/uL (1.40-6.50); %Basophils 0.6 % (0.0-1.0); %Lymphocytes 14.7 % (21.0-51.0); %Monocytes 9.9 % (0.0-10.0); %Neutrophils 72.9 % (42.0-75.0); Mean Corpuscular HGB CONC 32.8 g/dL (32.0-36.0); Mean Corpuscular Hemoglobin 25.8 pg (27.0-31.0); Mean Corpuscular Volume 78.7 fl (78.0-98.0); Mean Platelet Volume 7.5 fL (7.4-10.4); Platelet Count 211 10x3/uL (130-400); RBC Distribution Width 13.7 % (11.5-14.5); Red Blood Cell (RBC) Count 3.09 mill/uL (4.70-6.10); White Blood Cell (WBC) Count 7.4 10x3/uL (4.8-10.8)
[2022-06-21 06:42] LABS: Anion Gap 10 mmol/L (10-20); BUN (Urea Nitrogen) 14 mg/dL (8.4-25.7); Calc. Creatinine Clearance 70 mL/min (70-130); Calcium 7.7 mg/dL (7.8-10.44); Carbon Dioxide 26 mmol/L (23-31); Chloride 103 mmol/L (98-107); Estimated GFR 64; Glucose 121 mg/dL (80-115); Potassium 3.5 mmol/L (3.5-5.1); Sodium 135 mmol/L (136-145)
[2022-06-21] MEDS ORDERED: Midazolam HCl 2 mg/2 ml Vial ONE (07:55)
[2022-06-21] MEDS ORDERED: Sodium Bicarbonate 2.5 MEQ/5 ML VIAL ONE (07:56)
[2022-06-21] MEDS ORDERED: Lidocaine 1% PF 5 ML VIAL ONE (07:56)
[2022-06-21] MEDS ORDERED: Fentanyl 100 MCG/2 ML VIAL ONE (07:56)
[2022-06-21] MEDS ORDERED: Potassium Chloride 20 MEQ TAB PO SCH (08:00)
[2022-06-21] MEDS ORDERED: cefTRIAXone\\ROCEPHIN 1 GM VIAL SLOW IVP SCH (08:15)
[2022-06-21] MEDS: Micafungin 100 MG in Sodium Chloride 0.9% 100 ML IVPB SCH (10:43)
[2022-06-21] MEDS: Pantoprazole 40 MG VIAL IVP SCH (10:43)
[2022-06-21] MEDS: levETIRAcetam 500 MG TAB PO SCH ×2 (10:44→20:31)
[2022-06-21] MEDS: Propranolol 10 MG TAB PO SCH ×2 (10:44→20:31)
[2022-06-21] MEDS: Baclofen 10 MG TAB PO SCH ×2 (10:44→20:30)
[2022-06-21] MEDS: Senokot S 8.6-50 MG TAB PO SCH ×2 (10:45→20:34)
[2022-06-21] MEDS: Polyethylene Glycol 3350 17 GM Packet PO SCH (10:45)
[2022-06-21] MEDS: HumaLOG 300 UNITS/3 ML VIAL SC PRN (11:06)
[2022-06-21] MEDS ORDERED: Magnesium 2 GM/50 ML(in water) 2 GM in Premix Bag 1 BAG IVPB SCH (14:00)
[2022-06-21 14:48] LABS: Bilirubin Negative (Negative); Blood, Urine 3+ (Negative); CAUTI Indications for Culture Immunosuppressed; Clarity Turbid (Clear); Glucose, Urine (Dipstick) 50 mg/dL (Negative); Ketone, Urine Negative (Negative); Leukocyte 25 Leu/uL (Negative); Nitrite Negative (Negative); Protein, Urine (Dipstick) 300 mg/dL (Neg-Trace); RBC/HPF Greater than 50 HPF (0-3); Squamous Epithelial None Seen HPF (0-3); Urobilinogen Normal mg/dL (Less than 2)
[2022-06-21 14:51] LABS: Bacteria/HPF 1+ HPF (None Seen)
[2022-06-21 14:52] LABS: Urine Culture Reflex Yes Yes
[2022-06-21] MEDS: Thiamine 100 MG TAB PO SCH (17:38)
[2022-06-21] MEDS: Multivitamin W/ Minerals 1 TAB PO SCH (17:38)
[2022-06-21] MEDS: Atorvastatin Calcium 40 MG TAB PO SCH (20:30)
[2022-06-21] MEDS: Melatonin 3 MG TAB PO PRN (20:31)
[2022-06-22 04:48] LABS: #Eosinphils 0.2 thou/uL (0.0-0.7); #Lymphocytes 1.5 thou/uL (1.20-3.40); #Monocytes 0.5 thou/uL (0.11-0.59); #Neutrophils 4.2 thou/uL (1.40-6.50); %Basophils 0.3 % (0.0-1.0); %Eosinophils 2.4 % (0.0-10.0); %Lymphocytes 22.8 % (21.0-51.0); %Monocytes 8.5 % (0.0-10.0); %Neutrophils 65.9 % (42.0-75.0); Hemoglobin 7.7 g/dL (14.0-18.0); Mean Corpuscular HGB CONC 32.5 g/dL (32.0-36.0); Mean Corpuscular Hemoglobin 25.6 pg (27.0-31.0); Mean Corpuscular Volume 78.6 fl (78.0-98.0); Mean Platelet Volume 7.2 fL (7.4-10.4); Platelet Count 246 10x3/uL (130-400); RBC Distribution Width 13.7 % (11.5-14.5); Red Blood Cell (RBC) Count 3.02 mill/uL (4.70-6.10); White Blood Cell (WBC) Count 6.4 10x3/uL (4.8-10.8)
[2022-06-22 05:12] LABS: Anion Gap 10 mmol/L (10-20); BUN (Urea Nitrogen) 13 mg/dL (8.4-25.7); Calc. Creatinine Clearance 65 mL/min (70-130); Calcium 7.7 mg/dL (7.8-10.44); Carbon Dioxide 25 mmol/L (23-31); Chloride 103 mmol/L (98-107); Estimated GFR 59; Glucose 116 mg/dL (80-115); Potassium 3.7 mmol/L (3.5-5.1); Sodium 134 mmol/L (136-145)
[2022-06-22] MEDS ORDERED: Oxybutynin ER 5 MG TAB PO SCH (09:15)
[2022-06-22] MEDS: Micafungin 100 MG in Sodium Chloride 0.9% 100 ML IVPB SCH (10:16)
[2022-06-22] MEDS: Propranolol 10 MG TAB PO SCH ×2 (10:17→20:32)
[2022-06-22] MEDS: Baclofen 10 MG TAB PO SCH ×2 (10:17→20:32)
[2022-06-22] MEDS: levETIRAcetam 500 MG TAB PO SCH ×2 (10:17→20:33)
[2022-06-22] MEDS: Polyethylene Glycol 3350 17 GM Packet PO SCH (10:17)
[2022-06-22] MEDS: Pantoprazole 40 MG VIAL IVP SCH (10:17)
[2022-06-22] MEDS: Senokot S 8.6-50 MG TAB PO SCH ×2 (10:39→20:34)
[2022-06-22] MEDS: HumaLOG 300 UNITS/3 ML VIAL SC PRN (11:54)
[2022-06-22] MEDS: Multivitamin W/ Minerals 1 TAB PO SCH (16:26)
[2022-06-22] MEDS: Thiamine 100 MG TAB PO SCH (16:26)
[2022-06-22] MEDS: Atorvastatin Calcium 40 MG TAB PO SCH (20:31)
[2022-06-22] MEDS: Melatonin 3 MG TAB PO PRN (20:34)
[2022-06-23] MEDS: Micafungin 100 MG in Sodium Chloride 0.9% 100 ML IVPB SCH (10:16)
[2022-06-23] MEDS: Pantoprazole 40 MG VIAL IVP SCH (10:17)
[2022-06-23] MEDS: levETIRAcetam 500 MG TAB PO SCH ×2 (10:17→20:49)
[2022-06-23] MEDS: Senokot S 8.6-50 MG TAB PO SCH ×2 (10:17→20:51)
[2022-06-23] MEDS: Baclofen 10 MG TAB PO SCH ×2 (10:18→20:49)
[2022-06-23] MEDS: Oxybutynin ER 5 MG TAB PO SCH (10:18)
[2022-06-23] MEDS: Propranolol 10 MG TAB PO SCH ×2 (10:18→20:50)
[2022-06-23] MEDS: Polyethylene Glycol 3350 17 GM Packet PO SCH (15:06)
[2022-06-23] MEDS: Acetaminophen 325 MG TAB PO PRN (15:10)
[2022-06-23] MEDS: Multivitamin W/ Minerals 1 TAB PO SCH (17:19)
[2022-06-23] MEDS: HumaLOG 300 UNITS/3 ML VIAL SC PRN (17:19)
[2022-06-23] MEDS: Thiamine 100 MG TAB PO SCH (17:21)
[2022-06-23] MEDS: Atorvastatin Calcium 40 MG TAB PO SCH (20:48)
[2022-06-23] MEDS: Melatonin 3 MG TAB PO PRN (20:51)
[2022-06-24 05:54] LABS: #Eosinphils 0.2 thou/uL (0.0-0.7); #Lymphocytes 1.5 thou/uL (1.20-3.40); #Monocytes 0.7 thou/uL (0.11-0.59); #Neutrophils 5.9 thou/uL (1.40-6.50); %Basophils 0.4 % (0.0-1.0); %Eosinophils 2.2 % (0.0-10.0); %Lymphocytes 17.7 % (21.0-51.0); %Monocytes 8.8 % (0.0-10.0); %Neutrophils 70.9 % (42.0-75.0); Hemoglobin 8.1 g/dL (14.0-18.0); Mean Corpuscular HGB CONC 31.8 g/dL (32.0-36.0); Mean Corpuscular Hemoglobin 25.1 pg (27.0-31.0); Mean Corpuscular Volume 78.9 fl (78.0-98.0); Mean Platelet Volume 6.7 fL (7.4-10.4); Platelet Count 355 10x3/uL (130-400); RBC Distribution Width 13.7 % (11.5-14.5); Red Blood Cell (RBC) Count 3.23 mill/uL (4.70-6.10); White Blood Cell (WBC) Count 8.4 10x3/uL (4.8-10.8)
[2022-06-24 06:18] LABS: Anion Gap 12 mmol/L (10-20); BUN (Urea Nitrogen) 13 mg/dL (8.4-25.7); Calc. Creatinine Clearance 68 mL/min (70-130); Calcium 7.9 mg/dL (7.8-10.44); Carbon Dioxide 24 mmol/L (23-31); Chloride 105 mmol/L (98-107); Estimated GFR 63; Glucose 174 mg/dL (80-115); Potassium 3.7 mmol/L (3.5-5.1); Sodium 137 mmol/L (136-145)
[2022-06-24] MEDS: Baclofen 10 MG TAB PO SCH ×2 (09:31→21:57)
[2022-06-24] MEDS: levETIRAcetam 500 MG TAB PO SCH ×2 (09:32→21:57)
[2022-06-24] MEDS: Pantoprazole 40 MG VIAL IVP SCH (09:32)
[2022-06-24] MEDS: Oxybutynin ER 5 MG TAB PO SCH (09:32)
[2022-06-24] MEDS: Propranolol 10 MG TAB PO SCH ×2 (09:32→21:57)
[2022-06-24] MEDS: Senokot S 8.6-50 MG TAB PO SCH ×2 (09:37→21:59)
[2022-06-24] MEDS: Micafungin 100 MG in Sodium Chloride 0.9% 100 ML IVPB SCH (11:07)
[2022-06-24] MEDS: Multivitamin W/ Minerals 1 TAB PO SCH (16:47)
[2022-06-24] MEDS: Thiamine 100 MG TAB PO SCH (16:47)
[2022-06-24] MEDS: Atorvastatin Calcium 40 MG TAB PO SCH (21:57)
[2022-06-25] MEDS: levETIRAcetam 500 MG TAB PO SCH ×2 (10:19→20:03)
[2022-06-25] MEDS: Oxybutynin ER 5 MG TAB PO SCH (10:19)
[2022-06-25] MEDS: Micafungin 100 MG in Sodium Chloride 0.9% 100 ML IVPB SCH (10:19)
[2022-06-25] MEDS: Senokot S 8.6-50 MG TAB PO SCH ×2 (10:19→20:10)
[2022-06-25] MEDS: Baclofen 10 MG TAB PO SCH ×2 (10:20→20:02)
[2022-06-25] MEDS: Pantoprazole 40 MG VIAL IVP SCH (10:20)
[2022-06-25] MEDS: Propranolol 10 MG TAB PO SCH ×2 (10:22→20:03)
[2022-06-25] MEDS ORDERED: fentaNYL PF 100 MCG/2 ML SYRINGE ONE (12:23)
[2022-06-25] MEDS ORDERED: Ondansetron PF 4 MG/2 ML Vial ONE (12:57)
[2022-06-25] MEDS ORDERED: Lidocaine 1% PF 5 ML VIAL ONE (12:57)
[2022-06-25] MEDS ORDERED: PROPOFOL 200 MG/20 ML VIAL ONE (12:57)
[2022-06-25] MEDS: Thiamine 100 MG TAB PO SCH (17:55)
[2022-06-25] MEDS: Multivitamin W/ Minerals 1 TAB PO SCH (17:55)
[2022-06-25] MEDS: HumaLOG 300 UNITS/3 ML VIAL SC PRN (17:55)
[2022-06-25] MEDS: Melatonin 3 MG TAB PO PRN (20:03)
[2022-06-25] MEDS: Atorvastatin Calcium 40 MG TAB PO SCH (20:03)
[2022-06-26] MEDS: Pantoprazole 40 MG VIAL IVP SCH (09:18)
[2022-06-26] MEDS: Baclofen 10 MG TAB PO SCH ×2 (09:18→20:24)
[2022-06-26] MEDS: levETIRAcetam 500 MG TAB PO SCH ×2 (09:18→20:23)
[2022-06-26] MEDS: Oxybutynin ER 5 MG TAB PO SCH (09:18)
[2022-06-26] MEDS: Senokot S 8.6-50 MG TAB PO SCH ×2 (09:18→20:24)
[2022-06-26] MEDS: Propranolol 10 MG TAB PO SCH ×2 (09:18→20:24)
[2022-06-26] MEDS: Micafungin 100 MG in Sodium Chloride 0.9% 100 ML IVPB SCH (11:54)
[2022-06-26] MEDS: HumaLOG 300 UNITS/3 ML VIAL SC PRN (11:55)
[2022-06-26] MEDS: Thiamine 100 MG TAB PO SCH (17:57)
[2022-06-26] MEDS: Multivitamin W/ Minerals 1 TAB PO SCH (17:57)
[2022-06-26] MEDS: Atorvastatin Calcium 40 MG TAB PO SCH (20:24)
[2022-06-26] MEDS: Melatonin 3 MG TAB PO PRN (20:28)
[2022-06-27 06:06] LABS: Hemoglobin 9.1 g/dL (14.0-18.0); Mean Corpuscular HGB CONC 30.8 g/dL (32.0-36.0); Mean Corpuscular Hemoglobin 25.5 pg (27.0-31.0); Mean Corpuscular Volume 82.7 fl (78.0-98.0); Platelet Count 173 10x3/uL (130-400); RBC Distribution Width 13.9 % (11.5-14.5); Red Blood Cell (RBC) Count 3.57 mill/uL (4.70-6.10); White Blood Cell (WBC) Count 5.9 10x3/uL (4.8-10.8)
[2022-06-27] MEDS: HumaLOG 300 UNITS/3 ML VIAL SC PRN ×2 (06:13→17:56)
[2022-06-27 06:21] LABS: Anion Gap 14 mmol/L (10-20); BUN (Urea Nitrogen) 17 mg/dL (8.4-25.7); Calc. Creatinine Clearance 59 mL/min (70-130); Calcium 8.5 mg/dL (7.8-10.44); Carbon Dioxide 20 mmol/L (23-31); Chloride 106 mmol/L (98-107); Estimated GFR 60; Glucose 188 mg/dL (80-115); Potassium 4.1 mmol/L (3.5-5.1); Sodium 136 mmol/L (136-145)
[2022-06-27] MEDS: levETIRAcetam 500 MG TAB PO SCH ×2 (09:58→20:51)
[2022-06-27] MEDS: Propranolol 10 MG TAB PO SCH ×2 (09:58→20:51)
[2022-06-27] MEDS: Oxybutynin ER 5 MG TAB PO SCH (09:59)
[2022-06-27] MEDS: Aspirin 81 mg Enteric Coated Tablet PO SCH (09:59)
[2022-06-27] MEDS: Senokot S 8.6-50 MG TAB PO SCH ×2 (09:59→20:51)
[2022-06-27] MEDS: Baclofen 10 MG TAB PO SCH ×2 (09:59→20:51)
[2022-06-27] MEDS: Clopidogrel Bisulfate 75 MG TAB PO SCH (09:59)
[2022-06-27] MEDS: Micafungin 100 MG in Sodium Chloride 0.9% 100 ML IVPB SCH (11:42)
[2022-06-27] MEDS: Multivitamin W/ Minerals 1 TAB PO SCH (17:56)
[2022-06-27] MEDS: Thiamine 100 MG TAB PO SCH (17:56)
[2022-06-27] MEDS: Atorvastatin Calcium 40 MG TAB PO SCH (20:51)
[2022-06-28] MEDS: HumaLOG 300 UNITS/3 ML VIAL SC PRN (06:44)
[2022-06-28] MEDS: Aspirin 81 mg Enteric Coated Tablet PO SCH (08:22)
[2022-06-28] MEDS: Baclofen 10 MG TAB PO SCH (08:23)
[2022-06-28] MEDS: Clopidogrel Bisulfate 75 MG TAB PO SCH (08:24)
[2022-06-28] MEDS: Oxybutynin ER 5 MG TAB PO SCH (08:24)
[2022-06-28] MEDS: Senokot S 8.6-50 MG TAB PO SCH (08:26)
[2022-06-28] MEDS: Propranolol 10 MG TAB PO SCH (08:26)
[2022-06-28] MEDS: levETIRAcetam 500 MG TAB PO SCH (08:27)
[2022-06-28] MEDS: Micafungin 100 MG in Sodium Chloride 0.9% 100 ML IVPB SCH (10:59)
[2022-06-28 12:05] VITALS: BP 133/69; TEMP 98.1
== END 2022-06-28 12:20 | DRG 698 ==
LOC: ERS 20:02 → 2NO 06-06 01:59 → SURG B 06-08 18:30 → CCU 06-14 21:25 → SJJU 06-19 20:34
PROVIDERS: ADMIT Internal Medicine; ATTEND Internal Medicine
PROC: 3E03329 Introduction of Other Anti-infective into Peripheral Vein, Percutaneous Approach (ICD-10-PCS; principal; 2022-06-05)
PROC: 02HV33Z Insertion of Infusion Device into Superior Vena Cava, Percutaneous Approach (ICD-10-PCS; 2022-06-10)
PROC: B5181ZA Fluoroscopy of Superior Vena Cava using Low Osmolar Contrast, Guidance (ICD-10-PCS; 2022-06-10)
PROC: B548ZZA Ultrasonography of Superior Vena Cava, Guidance (ICD-10-PCS; 2022-06-10)
PROC: 0T9130Z Drainage of Left Kidney with Drainage Device, Percutaneous Approach (ICD-10-PCS; 2022-06-14)
PROC: 0T9030Z Drainage of Right Kidney with Drainage Device, Percutaneous Approach (ICD-10-PCS; 2022-06-14)
DX: T83.511A Infection and inflammatory reaction due to indwelling urethral catheter, initial encounter (principal); B37.7 Candidal sepsis; B37.41 Candidal cystitis and urethritis; N13.6 Pyonephrosis; E87.1 Hypo-osmolality and hyponatremia; N17.9 Acute kidney failure, unspecified; Z20.822 Contact with and (suspected) exposure to COVID-19; N39.0 Urinary tract infection, site not specified; N31.9 Neuromuscular dysfunction of bladder, unspecified; H54.40 Blindness, one eye, unspecified eye; D64.9 Anemia, unspecified; E78.5 Hyperlipidemia, unspecified; Y84.6 Urinary catheterization as the cause of abnormal reaction of the patient, or of later complication, without mention of misadventure at the time of the procedure; G40.909 Epilepsy, unspecified, not intractable, without status epilepticus; R33.8 Other retention of urine; K59.00 Constipation, unspecified; N18.2 Chronic kidney disease, stage 2 (mild); I12.9 Hypertensive chronic kidney disease with stage 1 through stage 4 chronic kidney disease, or unspecified chronic kidney disease; E11.22 Type 2 diabetes mellitus with diabetic chronic kidney disease; E87.6 Hypokalemia; E83.42 Hypomagnesemia; E77.8 Other disorders of glycoprotein metabolism; E88.09 Other disorders of plasma-protein metabolism, not elsewhere classified; R06.6 Hiccough; Z86.73 Personal history of transient ischemic attack (TIA), and cerebral infarction without residual deficits; Z79.4 Long term (current) use of insulin; Z79.899 Other long term (current) drug therapy; Z79.84 Long term (current) use of oral hypoglycemic drugs; Z90.49 Acquired absence of other specified parts of digestive tract
CPT/HCPCS: 36415; 36416; 36569; 50430; 50432; 71045; 74176; 74485; 76380; 77002; 80048; 80053; 80076; 80202; 81001; 81003; 81015; 82274; 82570; 83605; 83735; 83935; 84300; 85025; 85027; 85610; 85730; 86612; 86635; 86698; 87040; 87077; 87086; 87116; 87206; 87385; 87811; 87899; 93005; 93010; 96365; 96366; 96367; 96375; C1729; C1751; C9113; J0692; J0780; J1450; J1650; J1815; J1885; J2185; J2248; J2250; J2405; J2704; J2765; J3010; J3230; J3370; J3370-JW; J3475; J3490; J7050; J7120; Q9967; U0002

== ENCOUNTER 2022-08-02 16:36 | Emergency (ER) | payer MEDICARE ==
[2022-08-02 19:32] LABS: #Basophils 0.1 thou/uL (0.0-0.2); #Eosinphils 0.5 thou/uL (0.0-0.7); #Lymphocytes 1.8 thou/uL (1.20-3.40); #Monocytes 0.4 thou/uL (0.11-0.59); #Neutrophils 4.3 thou/uL (1.40-6.50); %Basophils 0.9 % (0.0-1.0); %Eosinophils 6.6 % (0.0-10.0); %Lymphocytes 25.7 % (21.0-51.0); %Monocytes 5.9 % (0.0-10.0); %Neutrophils 60.9 % (42.0-75.0); Hemoglobin 12.9 g/dL (14.0-18.0); Mean Corpuscular HGB CONC 32.5 g/dL (32.0-36.0); Mean Corpuscular Hemoglobin 26.7 pg (27.0-31.0); Mean Corpuscular Volume 82.2 fl (78.0-98.0); Mean Platelet Volume 7.3 fL (7.4-10.4); Platelet Count 201 10x3/uL (130-400); Red Blood Cell (RBC) Count 4.81 mill/uL (4.70-6.10)
[2022-08-02 19:55] LABS: ALT (SGPT) 56 U/L (8-55); AST (SGOT) 32 U/L (5-34); Albumin 4.1 g/dL (3.4-4.8); Alkaline Phosphatase 129 U/L (40-110); Anion Gap 17 mmol/L (10-20); BUN (Urea Nitrogen) 20 mg/dL (8.4-25.7); Bilirubin, Total 0.3 mg/dL (0.2-1.2); Calc. Creatinine Clearance 0 mL/min (70-130); Calcium 9.3 mg/dL (7.8-10.44); Carbon Dioxide 23 mmol/L (23-31); Chloride 107 mmol/L (98-107); Estimated GFR 53; Globulin 3.9 g/dL (2.4-3.5); Glucose 149 mg/dL (80-115); Potassium 4.1 mmol/L (3.5-5.1); Sodium 143 mmol/L (136-145)
[2022-08-02] MEDS ORDERED: Furosemide 40 MG TAB ONE (20:21)
== END 2022-08-02 21:12 | disposition home or self-care (01) ==
LOC: ERS 16:36
DX: R60.0 Localized edema (principal); E11.9 Type 2 diabetes mellitus without complications; I10 Essential (primary) hypertension; Z79.82 Long term (current) use of aspirin; Z79.899 Other long term (current) drug therapy
CPT/HCPCS: 36415; 71045; 80053; 83880; 84484; 85025; 93005

== ENCOUNTER 2022-08-26 07:14 | Day surgery (SDC) | payer MEDICARE ==
[2022-08-26 08:07] VITALS: BP 161/84; TEMP 97.9
[2022-08-26] MEDS ORDERED: Iopamidol 300 61% 100 ML VIAL FS ONE (10:06)
== END 2022-08-26 10:00 | disposition home or self-care (01) ==
LOC: SPEC 07:14
PROVIDERS: ATTEND Urology
PROC: 0T25X0Z Change Drainage Device in Kidney, External Approach (ICD-10-PCS; principal; 2022-08-26)
PROC: 0TP5X0Z Removal of Drainage Device from Kidney, External Approach (ICD-10-PCS; 2022-08-26)
DX: N13.6 Pyonephrosis (principal); B37.49 Other urogenital candidiasis; M19.90 Unspecified osteoarthritis, unspecified site; E78.00 Pure hypercholesterolemia, unspecified; E11.9 Type 2 diabetes mellitus without complications; I11.9 Hypertensive heart disease without heart failure; Z86.73 Personal history of transient ischemic attack (TIA), and cerebral infarction without residual deficits; Z87.891 Personal history of nicotine dependence; Z79.02 Long term (current) use of antithrombotics/antiplatelets; Z79.4 Long term (current) use of insulin; Z79.82 Long term (current) use of aspirin; Z79.899 Other long term (current) drug therapy
CPT/HCPCS: 50431; 50435

== ENCOUNTER 2022-08-27 17:06 | Inpatient (IN) | payer MEDICARE ==
[~2022-08-27 17:06] MED LIST changes: +Iopamidol 370 76% 100 ML VIAL ONE; -Iopamidol-370 76% 500 ML 1 ML ONE
[2022-08-27] MEDS ORDERED: Cefepime 2 GM VIAL ONE (17:53)
[2022-08-27 17:57] LABS: #Basophils 0.1 thou/uL (0.0-0.2); #Eosinphils 0.1 thou/uL (0.0-0.7); #Monocytes 0.8 thou/uL (0.11-0.59); #Neutrophils 9.8 thou/uL (1.40-6.50); %Basophils 0.5 % (0.0-1.0); %Lymphocytes 10.3 % (21.0-51.0); %Monocytes 6.9 % (0.0-10.0); %Neutrophils 80.9 % (42.0-75.0); Hemoglobin 11.9 g/dL (14.0-18.0); Mean Corpuscular HGB CONC 31.3 g/dL (32.0-36.0); Mean Corpuscular Hemoglobin 25.9 pg (27.0-31.0); Mean Corpuscular Volume 82.6 fl (78.0-98.0); Mean Platelet Volume 8.7 fL (7.4-10.4); Platelet Count 249 10x3/uL (130-400); White Blood Cell (WBC) Count 12.1 10x3/uL (4.8-10.8)
[2022-08-27 18:16] LABS: ALT (SGPT) 19 U/L (8-55); AST (SGOT) 13 U/L (5-34); Alkaline Phosphatase 105 U/L (40-110); Anion Gap 12 mmol/L (10-20); BUN (Urea Nitrogen) 27 mg/dL (8.4-25.7); Bilirubin, Total 0.5 mg/dL (0.2-1.2); Calc. Creatinine Clearance 0 mL/min (70-130); Calcium 9.4 mg/dL (7.8-10.44); Carbon Dioxide 23 mmol/L (23-31); Chloride 106 mmol/L (98-107); Estimated GFR 39; Globulin 4.1 g/dL (2.4-3.5); Glucose 152 mg/dL (80-115); Protein, Total 8.1 g/dL (5.8-8.1); Sodium 137 mmol/L (136-145)
[2022-08-27] MEDS ORDERED: Vancomycin 1.5 GRAM/300 ML BAG 1.5 GM in Premix Bag 1 BAG IVPB SCH (18:45)
[2022-08-27 18:56] LABS: Bacteria/HPF 3+ HPF (None Seen); Bilirubin Negative (Negative); Blood, Urine 3+ (Negative); Clarity Turbid (Clear); Glucose, Urine (Dipstick) 30 mg/dL (Negative); Ketone, Urine Negative (Negative); Leukocyte 500 Leu/uL (Negative); Nitrite Negative (Negative); Protein, Urine (Dipstick) 100 mg/dL (Neg-Trace); RBC/HPF Greater than 50 HPF (0-3); Specific Gravity, Urine 1.011 (1.002-1.036); Squamous Epithelial None Seen HPF (0-3); Urobilinogen Normal mg/dL (Less than 2); WBC/HPF Greater than 50 HPF (0-3); pH, Urine 6.5 (5.0-9.0)
[2022-08-27 18:58] LABS: Bacteria/HPF 4+ HPF (None Seen); Bilirubin Negative (Negative); Blood, Urine 3+ (Negative); Glucose, Urine (Dipstick) Normal (Negative); Ketone, Urine Negative (Negative); Leukocyte 500 Leu/uL (Negative); Nitrite Negative (Negative); Protein, Urine (Dipstick) 100 mg/dL (Neg-Trace); RBC/HPF Greater than 50 HPF (0-3); Specific Gravity, Urine 1.007 (1.002-1.036); Squamous Epithelial None Seen HPF (0-3); Urobilinogen Normal mg/dL (Less than 2); WBC/HPF Greater than 50 HPF (0-3)
[2022-08-27 19:00] LABS: Clarity Turbid (Clear)
[2022-08-27] MEDS ORDERED: Calcium Carbonate 500 MG ChewTAB PO PRN (22:08)
[2022-08-27] MEDS ORDERED: Senokot S 8.6-50 MG TAB PO PRN (22:08)
[2022-08-27] MEDS ORDERED: Ondansetron PF 4 MG/2 ML Vial IVP PRN (22:15)
[2022-08-27] MEDS ORDERED: Acetaminophen 325 MG TAB PO PRN (22:15)
[2022-08-27] MEDS ORDERED: Ondansetron ODT 4 MG TAB SL PRN (22:15)
[2022-08-27] MEDS ORDERED: Dextrose 5%-Lactated Ringers 1,000 ML IV SCH (22:15)
[2022-08-27 22:29] VITALS: BMI 26.6
[2022-08-27] MEDS ORDERED: Piperacillin/Tazobactam 3.375 GM in Sodium Chloride 0.9% 100 ML IVPB SCH (22:45)
[2022-08-27] MEDS ORDERED: levETIRAcetam 500 MG TAB PO SCH (23:15)
[2022-08-28] MEDS: Piperacillin/Tazobactam 3.375 GM in Sodium Chloride 0.9% 100 ML IVPB SCH ×4 (04:21→21:37)
[2022-08-28 06:27] LABS: #Basophils 0.1 thou/uL (0.0-0.2); #Eosinphils 0.1 thou/uL (0.0-0.7); #Monocytes 0.8 thou/uL (0.11-0.59); #Neutrophils 7.1 thou/uL (1.40-6.50); %Basophils 0.8 % (0.0-1.0); %Eosinophils 0.9 % (0.0-10.0); %Monocytes 8.5 % (0.0-10.0); %Neutrophils 75.5 % (42.0-75.0); Hemoglobin 10.1 g/dL (14.0-18.0); Mean Corpuscular HGB CONC 31.1 g/dL (32.0-36.0); Mean Corpuscular Hemoglobin 25.7 pg (27.0-31.0); Mean Corpuscular Volume 82.7 fl (78.0-98.0); Mean Platelet Volume 8.9 fL (7.4-10.4); Platelet Count 194 10x3/uL (130-400); Red Blood Cell (RBC) Count 3.93 mill/uL (4.70-6.10); White Blood Cell (WBC) Count 9.3 10x3/uL (4.8-10.8)
[2022-08-28 06:51] LABS: Anion Gap 13 mmol/L (10-20); BUN (Urea Nitrogen) 23 mg/dL (8.4-25.7); Calc. Creatinine Clearance 51 mL/min (70-130); Calcium 8.5 mg/dL (7.8-10.44); Carbon Dioxide 20 mmol/L (23-31); Chloride 109 mmol/L (98-107); Estimated GFR 41; Glucose 134 mg/dL (80-115); Potassium 3.5 mmol/L (3.5-5.1); Sodium 138 mmol/L (136-145)
[2022-08-28] MEDS: Oxybutynin ER 5 MG TAB PO SCH (09:02)
[2022-08-28] MEDS: Tamsulosin HCl 0.4 MG CAP PO SCH (09:02)
[2022-08-28] MEDS: levETIRAcetam 500 MG TAB PO SCH ×2 (09:03→21:36)
[2022-08-28] MEDS: Famotidine 20 MG TAB PO SCH (09:03)
[2022-08-28] MEDS: Baclofen 10 MG TAB PO SCH ×2 (09:04→21:37)
[2022-08-28] MEDS: Propranolol 10 MG TAB PO SCH ×2 (09:04→21:40)
[2022-08-28] MEDS: Amlodipine 5 MG TAB PO SCH (09:04)
[2022-08-28] MEDS: Insulin Glargine 30 UNITS/0.3 ML VIAL SC SCH (09:07)
[2022-08-28] MEDS: Atorvastatin Calcium 40 MG TAB PO SCH (21:36)
[2022-08-28] MEDS: Melatonin 3 MG TAB PO SCH (21:40)
[2022-08-29] MEDS: Piperacillin/Tazobactam 3.375 GM in Sodium Chloride 0.9% 100 ML IVPB SCH ×4 (04:13→21:35)
[2022-08-29] MEDS: Oxybutynin ER 5 MG TAB PO SCH (07:51)
[2022-08-29] MEDS: levETIRAcetam 500 MG TAB PO SCH ×2 (07:51→21:35)
[2022-08-29] MEDS: Baclofen 10 MG TAB PO SCH ×2 (07:51→21:35)
[2022-08-29] MEDS: Tamsulosin HCl 0.4 MG CAP PO SCH (07:51)
[2022-08-29] MEDS: Insulin Glargine 30 UNITS/0.3 ML VIAL SC SCH (07:52)
[2022-08-29] MEDS: Famotidine 20 MG TAB PO SCH (07:52)
[2022-08-29] MEDS: Amlodipine 5 MG TAB PO SCH (07:52)
[2022-08-29] MEDS: Propranolol 10 MG TAB PO SCH ×2 (07:53→21:35)
[2022-08-29] MEDS: Atorvastatin Calcium 40 MG TAB PO SCH (21:35)
[2022-08-29] MEDS: Melatonin 3 MG TAB PO SCH (21:35)
[2022-08-30] MEDS: Piperacillin/Tazobactam 3.375 GM in Sodium Chloride 0.9% 100 ML IVPB SCH ×4 (03:53→21:25)
[2022-08-30 06:18] LABS: #Basophils 0.1 thou/uL (0.0-0.2); #Eosinphils 0.3 thou/uL (0.0-0.7); #Monocytes 0.7 thou/uL (0.11-0.59); #Neutrophils 5.9 thou/uL (1.40-6.50); %Basophils 0.6 % (0.0-1.0); %Lymphocytes 15.5 % (21.0-51.0); %Monocytes 8.5 % (0.0-10.0); %Neutrophils 71.2 % (42.0-75.0); Hemoglobin 10.3 g/dL (14.0-18.0); Mean Corpuscular HGB CONC 32.6 g/dL (32.0-36.0); Mean Corpuscular Hemoglobin 26.3 pg (27.0-31.0); Mean Corpuscular Volume 80.6 fl (78.0-98.0); Mean Platelet Volume 9.2 fL (7.4-10.4); Platelet Count 207 10x3/uL (130-400); RBC Distribution Width 15.3 % (11.5-14.5); Red Blood Cell (RBC) Count 3.92 mill/uL (4.70-6.10); White Blood Cell (WBC) Count 8.3 10x3/uL (4.8-10.8)
[2022-08-30 06:39] LABS: Anion Gap 9 mmol/L (10-20); BUN (Urea Nitrogen) 19 mg/dL (8.4-25.7); Calc. Creatinine Clearance 56 mL/min (70-130); Calcium 8.6 mg/dL (7.8-10.44); Carbon Dioxide 25 mmol/L (23-31); Chloride 107 mmol/L (98-107); Estimated GFR 47; Glucose 121 mg/dL (80-115); Potassium 3.3 mmol/L (3.5-5.1); Sodium 138 mmol/L (136-145)
[2022-08-30] MEDS ORDERED: Potassium Chloride 20 MEQ TAB PO SCH (07:45)
[2022-08-30] MEDS: Baclofen 10 MG TAB PO SCH ×2 (08:31→21:25)
[2022-08-30] MEDS: Oxybutynin ER 5 MG TAB PO SCH (08:31)
[2022-08-30] MEDS: Tamsulosin HCl 0.4 MG CAP PO SCH (08:32)
[2022-08-30] MEDS: Amlodipine 5 MG TAB PO SCH (08:32)
[2022-08-30] MEDS: levETIRAcetam 500 MG TAB PO SCH ×2 (08:32→21:25)
[2022-08-30] MEDS: Famotidine 20 MG TAB PO SCH (08:32)
[2022-08-30] MEDS: Insulin Glargine 30 UNITS/0.3 ML VIAL SC SCH (08:33)
[2022-08-30] MEDS: Propranolol 10 MG TAB PO SCH ×2 (08:33→21:25)
[2022-08-30] MEDS: Melatonin 3 MG TAB PO SCH (21:25)
[2022-08-30] MEDS: Atorvastatin Calcium 40 MG TAB PO SCH (21:25)
[2022-08-31] MEDS: Piperacillin/Tazobactam 3.375 GM in Sodium Chloride 0.9% 100 ML IVPB SCH (03:28)
[2022-08-31] MEDS: Baclofen 10 MG TAB PO SCH ×2 (09:17→20:40)
[2022-08-31] MEDS: Oxybutynin ER 5 MG TAB PO SCH (09:17)
[2022-08-31] MEDS: levETIRAcetam 500 MG TAB PO SCH ×2 (09:17→20:40)
[2022-08-31] MEDS: Amlodipine 5 MG TAB PO SCH (09:18)
[2022-08-31] MEDS: Cefepime 1 GM in Sodium Chloride 0.9% 100 ML IVPB SCH ×3 (09:18→23:53)
[2022-08-31] MEDS: Insulin Glargine 30 UNITS/0.3 ML VIAL SC SCH (09:18)
[2022-08-31] MEDS: Propranolol 10 MG TAB PO SCH ×2 (09:18→20:40)
[2022-08-31] MEDS: Famotidine 20 MG TAB PO SCH (09:18)
[2022-08-31] MEDS: Tamsulosin HCl 0.4 MG CAP PO SCH (09:18)
[2022-08-31] MEDS: Melatonin 3 MG TAB PO SCH (20:40)
[2022-08-31] MEDS: Atorvastatin Calcium 40 MG TAB PO SCH (20:40)
[2022-09-01] MEDS: Cefepime 1 GM in Sodium Chloride 0.9% 100 ML IVPB SCH ×3 (09:33→23:19)
[2022-09-01] MEDS: Oxybutynin ER 5 MG TAB PO SCH (09:34)
[2022-09-01] MEDS: Baclofen 10 MG TAB PO SCH ×2 (09:34→20:57)
[2022-09-01] MEDS: levETIRAcetam 500 MG TAB PO SCH ×2 (09:34→20:56)
[2022-09-01] MEDS: Propranolol 10 MG TAB PO SCH ×2 (09:35→20:56)
[2022-09-01] MEDS: Insulin Glargine 30 UNITS/0.3 ML VIAL SC SCH (09:35)
[2022-09-01] MEDS: Amlodipine 5 MG TAB PO SCH (09:35)
[2022-09-01] MEDS: Famotidine 20 MG TAB PO SCH (09:35)
[2022-09-01] MEDS: Tamsulosin HCl 0.4 MG CAP PO SCH (09:36)
[2022-09-01] MEDS: Melatonin 3 MG TAB PO SCH (20:56)
[2022-09-01] MEDS: Atorvastatin Calcium 40 MG TAB PO SCH (20:57)
[2022-09-02 06:49] LABS: #Basophils 0.1 thou/uL (0.0-0.2); #Eosinphils 0.3 thou/uL (0.0-0.7); #Monocytes 0.5 thou/uL (0.11-0.59); #Neutrophils 3.8 thou/uL (1.40-6.50); %Basophils 1.1 % (0.0-1.0); %Eosinophils 4.9 % (0.0-10.0); %Lymphocytes 26.7 % (21.0-51.0); %Monocytes 7.1 % (0.0-10.0); %Neutrophils 59.9 % (42.0-75.0); Hemoglobin 10.4 g/dL (14.0-18.0); Mean Corpuscular Hemoglobin 25.6 pg (27.0-31.0); Mean Platelet Volume 8.6 fL (7.4-10.4); Platelet Count 218 10x3/uL (130-400); RBC Distribution Width 14.8 % (11.5-14.5); Red Blood Cell (RBC) Count 4.06 mill/uL (4.70-6.10); White Blood Cell (WBC) Count 6.4 10x3/uL (4.8-10.8)
[2022-09-02 07:21] LABS: ALT (SGPT) 14 U/L (8-55); AST (SGOT) 12 U/L (5-34); Albumin 3.5 g/dL (3.4-4.8); Alkaline Phosphatase 68 U/L (40-110); Anion Gap 11 mmol/L (10-20); BUN (Urea Nitrogen) 18 mg/dL (8.4-25.7); Bilirubin, Total 0.2 mg/dL (0.2-1.2); Calc. Creatinine Clearance 72 mL/min (70-130); Calcium 8.9 mg/dL (7.8-10.44); Carbon Dioxide 24 mmol/L (23-31); Chloride 108 mmol/L (98-107); Estimated GFR 63; Globulin 3.7 g/dL (2.4-3.5); Glucose 89 mg/dL (80-115); Potassium 3.5 mmol/L (3.5-5.1); Protein, Total 7.2 g/dL (5.8-8.1); Sodium 139 mmol/L (136-145)
[2022-09-02] MEDS: Cefepime 1 GM in Sodium Chloride 0.9% 100 ML IVPB SCH ×2 (08:46→21:25)
[2022-09-02] MEDS: Famotidine 20 MG TAB PO SCH ×2 (08:46→21:28)
[2022-09-02] MEDS: Tamsulosin HCl 0.4 MG CAP PO SCH (08:46)
[2022-09-02] MEDS: Baclofen 10 MG TAB PO SCH ×2 (08:47→21:27)
[2022-09-02] MEDS: levETIRAcetam 500 MG TAB PO SCH ×2 (08:47→21:27)
[2022-09-02] MEDS: Insulin Glargine 30 UNITS/0.3 ML VIAL SC SCH (08:47)
[2022-09-02] MEDS: Amlodipine 5 MG TAB PO SCH (08:47)
[2022-09-02] MEDS: Oxybutynin ER 5 MG TAB PO SCH (08:48)
[2022-09-02] MEDS: Propranolol 10 MG TAB PO SCH ×2 (08:48→21:27)
[2022-09-02] MEDS ORDERED: Famotidine 20 MG TAB PO SCH (09:15)
[2022-09-02] MEDS: Melatonin 3 MG TAB PO SCH (21:27)
[2022-09-02] MEDS: Atorvastatin Calcium 40 MG TAB PO SCH (21:27)
[2022-09-03] MEDS: Tamsulosin HCl 0.4 MG CAP PO SCH (09:03)
[2022-09-03] MEDS: Propranolol 10 MG TAB PO SCH ×2 (09:03→20:52)
[2022-09-03] MEDS: Baclofen 10 MG TAB PO SCH ×2 (09:04→20:49)
[2022-09-03] MEDS: Oxybutynin ER 5 MG TAB PO SCH (09:04)
[2022-09-03] MEDS: levETIRAcetam 500 MG TAB PO SCH ×2 (09:04→20:49)
[2022-09-03] MEDS: Famotidine 20 MG TAB PO SCH ×2 (09:04→20:49)
[2022-09-03] MEDS: Insulin Glargine 30 UNITS/0.3 ML VIAL SC SCH (09:05)
[2022-09-03] MEDS: Amlodipine 5 MG TAB PO SCH (09:05)
[2022-09-03] MEDS: Cefepime 1 GM in Sodium Chloride 0.9% 100 ML IVPB SCH ×2 (09:05→20:52)
[2022-09-03] MEDS: Atorvastatin Calcium 40 MG TAB PO SCH (20:49)
[2022-09-03] MEDS: Melatonin 3 MG TAB PO SCH (20:52)
[2022-09-04] MEDS: Tamsulosin HCl 0.4 MG CAP PO SCH (08:39)
[2022-09-04] MEDS: Baclofen 10 MG TAB PO SCH (08:40)
[2022-09-04] MEDS: Famotidine 20 MG TAB PO SCH (08:40)
[2022-09-04] MEDS: levETIRAcetam 500 MG TAB PO SCH (08:40)
[2022-09-04] MEDS: Propranolol 10 MG TAB PO SCH (08:40)
[2022-09-04] MEDS: Oxybutynin ER 5 MG TAB PO SCH (08:40)
[2022-09-04] MEDS: Amlodipine 5 MG TAB PO SCH (08:41)
[2022-09-04] MEDS: Cefepime 1 GM in Sodium Chloride 0.9% 100 ML IVPB SCH (08:41)
[2022-09-04] MEDS: Insulin Glargine 30 UNITS/0.3 ML VIAL SC SCH (08:41)
[2022-09-04 16:53] VITALS: BP 155/89; TEMP 97.3
== END 2022-09-04 16:57 | disposition home health service (06) | DRG 698 ==
LOC: ERS 17:06 → T4-B 20:47
PROVIDERS: ADMIT Student in an Organized Health Care Education/Training Program; ATTEND Internal Medicine
PROC: 3E03329 Introduction of Other Anti-infective into Peripheral Vein, Percutaneous Approach (ICD-10-PCS; principal; 2022-08-27)
PROC: 02HV33Z Insertion of Infusion Device into Superior Vena Cava, Percutaneous Approach (ICD-10-PCS; 2022-09-02)
PROC: B548ZZA Ultrasonography of Superior Vena Cava, Guidance (ICD-10-PCS; 2022-09-02)
DX: T83.512A Infection and inflammatory reaction due to nephrostomy catheter, initial encounter (principal); A41.52 Sepsis due to Pseudomonas; N10 Acute pyelonephritis; N17.9 Acute kidney failure, unspecified; T83.83XA Hemorrhage due to genitourinary prosthetic devices, implants and grafts, initial encounter; G40.909 Epilepsy, unspecified, not intractable, without status epilepticus; I12.9 Hypertensive chronic kidney disease with stage 1 through stage 4 chronic kidney disease, or unspecified chronic kidney disease; E11.22 Type 2 diabetes mellitus with diabetic chronic kidney disease; Y84.6 Urinary catheterization as the cause of abnormal reaction of the patient, or of later complication, without mention of misadventure at the time of the procedure; Z79.899 Other long term (current) drug therapy; Z90.49 Acquired absence of other specified parts of digestive tract; Z79.4 Long term (current) use of insulin; Z79.82 Long term (current) use of aspirin
CPT/HCPCS: 36415; 36416; 36569; 50431; 50435; 74177; 80048; 80053; 81003; 81015; 83605; 85025; 87040; 87077; 87086; 87186; 93005; 96361; 96365; 96367; C1751; J0692; J1815; J2543; J3370; J3490; Q9967

== ENCOUNTER 2022-10-02 00:20 | Emergency (ER) | payer MEDICARE ==
[2022-10-02 01:14] LABS: #Basophils 0.1 thou/uL (0.0-0.2); #Eosinphils 0.2 thou/uL (0.0-0.7); #Monocytes 1.2 thou/uL (0.11-0.59); #Neutrophils 13.5 thou/uL (1.40-6.50); %Basophils 0.6 % (0.0-1.0); %Lymphocytes 11.1 % (21.0-51.0); %Monocytes 6.9 % (0.0-10.0); %Neutrophils 80.1 % (42.0-75.0); Hemoglobin 11.3 g/dL (14.0-18.0); Mean Corpuscular Hemoglobin 26.3 pg (27.0-31.0); Mean Corpuscular Volume 79.7 fl (78.0-98.0); Mean Platelet Volume 9.4 fL (7.4-10.4); RBC Distribution Width 14.9 % (11.5-14.5); Red Blood Cell (RBC) Count 4.29 mill/uL (4.70-6.10); White Blood Cell (WBC) Count 16.8 10x3/uL (4.8-10.8)
[2022-10-02 01:15] LABS: Platelet Count 280 10x3/uL (130-400)
[2022-10-02 01:36] LABS: ALT (SGPT) 16 U/L (8-55); AST (SGOT) 12 U/L (5-34); Albumin 3.6 g/dL (3.4-4.8); Alkaline Phosphatase 80 U/L (40-110); Anion Gap 13 mmol/L (10-20); BUN (Urea Nitrogen) 16 mg/dL (8.4-25.7); Bilirubin, Total 0.5 mg/dL (0.2-1.2); Calc. Creatinine Clearance 0 mL/min (70-130); Calcium 8.7 mg/dL (7.8-10.44); Carbon Dioxide 21 mmol/L (23-31); Chloride 105 mmol/L (98-107); Estimated GFR 52; Globulin 3.4 g/dL (2.4-3.5); Glucose 147 mg/dL (80-115); Potassium 3.8 mmol/L (3.5-5.1); Sodium 135 mmol/L (136-145)
[2022-10-02 01:51] LABS: Bacteria/HPF 2+ HPF (None Seen); Bilirubin Negative (Negative); Blood, Urine 2+ (Negative); CAUTI Indications for Culture Fever or rigors; Clarity Turbid (Clear); Glucose, Urine (Dipstick) Normal (Negative); Ketone, Urine Negative (Negative); Leukocyte 500 Leu/uL (Negative); Nitrite Negative (Negative); Protein, Urine (Dipstick) 100 mg/dL (Neg-Trace); Specific Gravity, Urine 1.009 (1.002-1.036); Squamous Epithelial None Seen HPF (0-3); Urobilinogen Normal mg/dL (Less than 2); WBC/HPF Greater than 50 HPF (0-3)
[2022-10-02 01:54] LABS: Urine Culture Reflex Yes Yes
== END 2022-10-02 03:17 | disposition home or self-care (01) ==
LOC: ERS 00:20
DX: N39.0 Urinary tract infection, site not specified (principal); D72.829 Elevated white blood cell count, unspecified; I10 Essential (primary) hypertension; E11.9 Type 2 diabetes mellitus without complications; Z79.82 Long term (current) use of aspirin; Z79.899 Other long term (current) drug therapy
CPT/HCPCS: 36415; 70450; 71045; 80053; 81001; 83605; 85025; 87077; 87086; 87186

== ENCOUNTER 2022-11-14 07:03 | Day surgery (SDC) | payer MEDICARE | END 2022-11-14 09:40 | disposition home or self-care (01) | LOC: SPEC 07:03 | PROVIDERS: ATTEND Urology | DX: N13.30 Unspecified hydronephrosis (principal); E11.9 Type 2 diabetes mellitus without complications; I10 Essential (primary) hypertension; E78.00 Pure hypercholesterolemia, unspecified; G40.909 Epilepsy, unspecified, not intractable, without status epilepticus; Z86.73 Personal history of transient ischemic attack (TIA), and cerebral infarction without residual deficits; Z90.49 Acquired absence of other specified parts of digestive tract; Z79.899 Other long term (current) drug therapy; Z79.82 Long term (current) use of aspirin | CPT/HCPCS: 50431; 50435 ==

== ENCOUNTER 2022-12-05 10:02 | Day surgery (SDC) | payer MEDICARE ==
[2022-12-05] MEDS ORDERED: Sodium Bicarbonate 2.5 MEQ/5 ML VIAL ONE (10:28)
[2022-12-05] MEDS ORDERED: Lidocaine 1% PF 5 ML VIAL ONE (10:28)
[2022-12-05 13:33] VITALS: BP 161/95
== END 2022-12-05 12:00 | disposition home or self-care (01) ==
LOC: SPEC 10:02
PROVIDERS: ATTEND Urology
DX: N13.30 Unspecified hydronephrosis (principal)
CPT/HCPCS: 50435

== ENCOUNTER 2023-01-20 08:41 | Emergency (ER) | payer MEDICARE | END 2023-01-20 12:12 | disposition home or self-care (01) | LOC: ERS 08:41 | DX: N99.522 Malfunction of incontinent external stoma of urinary tract (principal); G40.409 Other generalized epilepsy and epileptic syndromes, not intractable, without status epilepticus; I10 Essential (primary) hypertension; E11.9 Type 2 diabetes mellitus without complications; E78.5 Hyperlipidemia, unspecified; Z86.73 Personal history of transient ischemic attack (TIA), and cerebral infarction without residual deficits; Z79.82 Long term (current) use of aspirin; Z79.4 Long term (current) use of insulin; Z79.899 Other long term (current) drug therapy | CPT/HCPCS: 74176 ==

== ENCOUNTER 2023-01-24 13:25 | Emergency (ER) | payer MEDICARE ==
[2023-01-24 14:22] LABS: #Eosinphils 0.2 thou/uL (0.0-0.7); #Monocytes 0.5 thou/uL (0.11-0.59); #Neutrophils 3.3 thou/uL (1.40-6.50); %Basophils 0.6 % (0.0-1.0); %Lymphocytes 18.8 % (21.0-51.0); %Monocytes 10.8 % (0.0-10.0); %Neutrophils 66.6 % (42.0-75.0); Hematocrit 36.5 % (42.0-52.0); Mean Corpuscular HGB CONC 32.9 g/dL (32.0-36.0); Mean Corpuscular Hemoglobin 26.5 pg (27.0-31.0); Mean Corpuscular Volume 80.6 fl (78.0-98.0); Mean Platelet Volume 9.3 fL (7.4-10.4); Platelet Count 150 10x3/uL (130-400); RBC Distribution Width 13.2 % (11.5-14.5); Red Blood Cell (RBC) Count 4.53 mill/uL (4.70-6.10)
[2023-01-24 14:47] LABS: ALT (SGPT) 11 U/L (8-55); AST (SGOT) 12 U/L (5-34); Albumin 3.4 g/dL (3.4-4.8); Alkaline Phosphatase 86 U/L (40-110); Anion Gap 15 mmol/L (10-20); BUN (Urea Nitrogen) 20 mg/dL (8.4-25.7); Bilirubin, Total 0.6 mg/dL (0.2-1.2); Calc. Creatinine Clearance 0 mL/min (70-130); Calcium 8.7 mg/dL (7.8-10.44); Carbon Dioxide 20 mmol/L (23-31); Chloride 104 mmol/L (98-107); Estimated GFR 34; Globulin 3.8 g/dL (2.4-3.5); Glucose 280 mg/dL (80-115); Potassium 3.7 mmol/L (3.5-5.1); Protein, Total 7.2 g/dL (5.8-8.1); Sodium 135 mmol/L (136-145)
[2023-01-24 15:31] LABS: INR-International Normal Ratio 1.2; PTT 30.9 sec (22.9-36.1); Prothrombin Time 15.3 sec (12.0-14.7)
[2023-01-24] MEDS ORDERED: LevoFLOXacin 750 mg/D5W 150 ml Premix Bag ONE (16:55)
[2023-01-24] MEDS ORDERED: LevoFLOXacin 500 MG TAB ONE (17:44)
[2023-01-24] MEDS ORDERED: LevoFLOXacin 250 MG TAB ONE (17:44)
[2023-01-24] MEDS ORDERED: Ketorolac Tromethamine 30 MG/ML VIAL ONE (18:09)
[2023-01-24] MEDS ORDERED: Ondansetron ODT 4 MG TAB ONE (18:24)
[2023-01-24] MEDS ORDERED: Acetaminophen 650 MG/20.3 ML UDCUP ONE (19:05)
[2023-01-24] MEDS ORDERED: Acetaminophen 325 MG/10.15 ML UDCUP ONE (19:05)
== END 2023-01-24 20:54 | disposition home or self-care (01) ==
LOC: ERS 13:25
DX: T83.092A Other mechanical complication of nephrostomy catheter, initial encounter (principal); I10 Essential (primary) hypertension; E11.9 Type 2 diabetes mellitus without complications; E78.5 Hyperlipidemia, unspecified; Z79.4 Long term (current) use of insulin; Z79.82 Long term (current) use of aspirin; Z79.899 Other long term (current) drug therapy
CPT/HCPCS: 50435; 74176; 80053; 85025; 85610; 85730; C1729; C1769; 36415; J1885; J1956; Q0162

== ENCOUNTER 2023-01-25 18:46 | Inpatient (IN) | payer MEDICARE ==
[2023-01-25 19:26] LABS: Bacteria/HPF 4+ HPF (None Seen); Bilirubin Negative (Negative); Blood, Urine 3+ (Negative); CAUTI Indications for Culture Fever or rigors; Clarity Extra Turbid (Clear); Glucose, Urine (Dipstick) 100 mg/dL (Negative); Ketone, Urine Negative (Negative); Leukocyte 500 Leu/uL (Negative); Nitrite Negative (Negative); Protein, Urine (Dipstick) 300 mg/dL (Neg-Trace); RBC/HPF Greater than 50 HPF (0-3); Specific Gravity, Urine 1.012 (1.002-1.036); Urobilinogen Normal mg/dL (Less than 2); WBC/HPF Greater than 50 HPF (0-3); pH, Urine 6.5 (5.0-9.0)
[2023-01-25 19:31] LABS: Urine Culture Reflex Yes Yes
[2023-01-25 19:49] LABS: #Basophils 0.1 thou/uL (0.0-0.2); #Eosinphils 0.1 thou/uL (0.0-0.7); #Monocytes 0.8 thou/uL (0.11-0.59); #Neutrophils 6.1 thou/uL (1.40-6.50); %Basophils 0.6 % (0.0-1.0); %Eosinophils 1.1 % (0.0-10.0); %Lymphocytes 10.3 % (21.0-51.0); %Monocytes 10.3 % (0.0-10.0); %Neutrophils 77.4 % (42.0-75.0); Hematocrit 35.6 % (42.0-52.0); Hemoglobin 11.8 g/dL (14.0-18.0); Mean Corpuscular HGB CONC 33.1 g/dL (32.0-36.0); Mean Corpuscular Hemoglobin 26.8 pg (27.0-31.0); Mean Corpuscular Volume 80.7 fl (78.0-98.0); Platelet Count 186 10x3/uL (130-400); RBC Distribution Width 13.2 % (11.5-14.5); Red Blood Cell (RBC) Count 4.41 mill/uL (4.70-6.10); White Blood Cell (WBC) Count 7.9 10x3/uL (4.8-10.8)
[2023-01-25 20:11] LABS: ALT (SGPT) 13 U/L (8-55); AST (SGOT) 9 U/L (5-34); Albumin 3.6 g/dL (3.4-4.8); Alkaline Phosphatase 79 U/L (40-110); Anion Gap 16 mmol/L (10-20); BUN (Urea Nitrogen) 22 mg/dL (8.4-25.7); Bilirubin, Total 0.7 mg/dL (0.2-1.2); Calc. Creatinine Clearance 0 mL/min (70-130); Calcium 8.9 mg/dL (7.8-10.44); Carbon Dioxide 22 mmol/L (23-31); Chloride 101 mmol/L (98-107); Estimated GFR 36; Globulin 3.9 g/dL (2.4-3.5); Glucose 207 mg/dL (80-115); Potassium 3.5 mmol/L (3.5-5.1); Protein, Total 7.5 g/dL (5.8-8.1); Sodium 135 mmol/L (136-145)
[2023-01-25] MEDS ORDERED: Cefepime 2 GM VIAL ONE (20:42)
[2023-01-25] MEDS ORDERED: Vancomycin 1.5 GRAM/300 ML BAG 1.5 GM in Premix Bag 1 BAG IVPB SCH (21:15)
[2023-01-26] MEDS ORDERED: Ondansetron ODT 4 MG TAB PO PRN (00:25)
[2023-01-26] MEDS ORDERED: Ondansetron PF 4 MG/2 ML Vial IVP PRN (00:25)
[2023-01-26] MEDS ORDERED: Melatonin 3 MG TAB PO PRN (01:03)
[2023-01-26 01:07] VITALS: BMI 27.3
[2023-01-26] MEDS ORDERED: Dextrose 5% in Water 1,000 ML IV PRN (01:13)
[2023-01-26] MEDS ORDERED: HumaLOG 300 UNITS/3 ML VIAL SC PRN ×2 (01:13)
[2023-01-26] MEDS ORDERED: Glucagon 1 MG/ML KIT IM PRN (01:13)
[2023-01-26] MEDS ORDERED: Dextrose 50% Abboject 50 ML SYRINGE SLOW IVP PRN (01:13)
[2023-01-26] MEDS: Acetaminophen 325 MG TAB PO PRN ×3 (01:21→23:07)
[2023-01-26 06:34] LABS: #Eosinphils 0.1 thou/uL (0.0-0.7); #Monocytes 0.9 thou/uL (0.11-0.59); #Neutrophils 5.3 thou/uL (1.40-6.50); %Basophils 0.5 % (0.0-1.0); %Eosinophils 0.9 % (0.0-10.0); %Lymphocytes 15.7 % (21.0-51.0); %Monocytes 12.2 % (0.0-10.0); %Neutrophils 70.3 % (42.0-75.0); Hematocrit 29.8 % (42.0-52.0); Hemoglobin 10.1 g/dL (14.0-18.0); Mean Corpuscular HGB CONC 33.9 g/dL (32.0-36.0); Mean Corpuscular Hemoglobin 27.2 pg (27.0-31.0); Mean Corpuscular Volume 80.1 fl (78.0-98.0); Mean Platelet Volume 8.5 fL (7.4-10.4); Platelet Count 163 10x3/uL (130-400); RBC Distribution Width 13.2 % (11.5-14.5); Red Blood Cell (RBC) Count 3.72 mill/uL (4.70-6.10); White Blood Cell (WBC) Count 7.6 10x3/uL (4.8-10.8)
[2023-01-26 07:03] LABS: Anion Gap 11 mmol/L (10-20); BUN (Urea Nitrogen) 21 mg/dL (8.4-25.7); Calc. Creatinine Clearance 49 mL/min (70-130); Calcium 8.3 mg/dL (7.8-10.44); Carbon Dioxide 24 mmol/L (23-31); Chloride 103 mmol/L (98-107); Estimated GFR 38; Glucose 189 mg/dL (80-115); Potassium 3.1 mmol/L (3.5-5.1); Sodium 135 mmol/L (136-145)
[2023-01-26] MEDS: Famotidine 20 MG TAB PO SCH (08:14)
[2023-01-26] MEDS: Propranolol 10 MG TAB PO SCH ×2 (08:14→21:10)
[2023-01-26] MEDS: levETIRAcetam 500 MG TAB PO SCH ×2 (08:14→21:09)
[2023-01-26] MEDS: Aspirin 81 mg Enteric Coated Tablet PO SCH (08:14)
[2023-01-26] MEDS: Cefepime 1 GM in Sodium Chloride 0.9% 100 ML IVPB SCH (08:15)
[2023-01-26] MEDS: Insulin Glargine 30 UNITS/0.3 ML VIAL SC SCH (08:15)
[2023-01-26] MEDS ORDERED: Cefepime 1 GM in Sodium Chloride 0.9% 100 ML IVPB SCH (09:00)
[2023-01-26] MEDS ORDERED: Vancomycin 1 GM in Premix Bag 1 BAG IVPB SCH (09:00)
[2023-01-26] MEDS ORDERED: FLU VACC QS2023-24(6MOS UP)/PF 60 MCG/0.5 ML SYRINGE IM ONE (09:00)
[2023-01-26] MEDS ORDERED: Clopidogrel Bisulfate 75 MG TAB PO SCH (09:00)
[2023-01-26 12:05] LABS: Magnesium 1.7 mg/dL (1.6-2.6)
[2023-01-26] MEDS: Potassium Chloride 20 MEQ in Premix Bag 1 BAG IVPB SCH ×2 (12:10→14:14)
[2023-01-26] MEDS: Sodium Chloride 0.9% 1,000 ML IV SCH ×2 (12:19→21:10)
[2023-01-26] MEDS ORDERED: VANCOMYCIN 1.25 GM/250 ML BAG 1.25 GM in Premix Bag 1 BAG IVPB SCH (21:00)
[2023-01-26] MEDS: Atorvastatin Calcium 40 MG TAB PO SCH (21:10)
[2023-01-27] MEDS: Acetaminophen 325 MG TAB PO PRN (05:03)
[2023-01-27 05:51] LABS: #Eosinphils 0.1 thou/uL (0.0-0.7); #Monocytes 0.6 thou/uL (0.11-0.59); #Neutrophils 3.8 thou/uL (1.40-6.50); %Basophils 0.6 % (0.0-1.0); %Eosinophils 2.4 % (0.0-10.0); %Lymphocytes 15.3 % (21.0-51.0); %Monocytes 10.8 % (0.0-10.0); %Neutrophils 70.5 % (42.0-75.0); Hematocrit 30.5 % (42.0-52.0); Hemoglobin 10.1 g/dL (14.0-18.0); Mean Corpuscular HGB CONC 33.1 g/dL (32.0-36.0); Mean Corpuscular Hemoglobin 26.5 pg (27.0-31.0); Mean Corpuscular Volume 80.1 fl (78.0-98.0); Platelet Count 174 10x3/uL (130-400); RBC Distribution Width 13.1 % (11.5-14.5); Red Blood Cell (RBC) Count 3.81 mill/uL (4.70-6.10); White Blood Cell (WBC) Count 5.4 10x3/uL (4.8-10.8)
[2023-01-27 06:23] LABS: ALT (SGPT) 10 U/L (8-55); AST (SGOT) 8 U/L (5-34); Albumin 2.9 g/dL (3.4-4.8); Alkaline Phosphatase 63 U/L (40-110); Anion Gap 11 mmol/L (10-20); BUN (Urea Nitrogen) 15 mg/dL (8.4-25.7); Bilirubin, Direct 0.3 mg/dL (0.1-0.3); Bilirubin, Total 0.5 mg/dL (0.2-1.2); Calc. Creatinine Clearance 58 mL/min (70-130); Calcium 8.3 mg/dL (7.8-10.44); Carbon Dioxide 21 mmol/L (23-31); Chloride 108 mmol/L (98-107); Estimated GFR 48; Glucose 148 mg/dL (80-115); Magnesium 1.7 mg/dL (1.6-2.6); Potassium 3.3 mmol/L (3.5-5.1); Protein, Total 6.3 g/dL (5.8-8.1); Sodium 137 mmol/L (136-145)
[2023-01-27] MEDS: Propranolol 10 MG TAB PO SCH ×2 (08:55→21:05)
[2023-01-27] MEDS: Aspirin 81 mg Enteric Coated Tablet PO SCH (08:57)
[2023-01-27] MEDS: levETIRAcetam 500 MG TAB PO SCH ×2 (08:57→21:04)
[2023-01-27] MEDS: Famotidine 20 MG TAB PO SCH (08:57)
[2023-01-27] MEDS: Sodium Chloride 0.9% 1,000 ML IV SCH ×2 (08:58→21:48)
[2023-01-27] MEDS: Cefepime 1 GM in Sodium Chloride 0.9% 100 ML IVPB SCH ×2 (08:58→21:05)
[2023-01-27] MEDS: Insulin Glargine 30 UNITS/0.3 ML VIAL SC SCH (09:05)
[2023-01-27] MEDS: Atorvastatin Calcium 40 MG TAB PO SCH (21:04)
[2023-01-28] MEDS: Acetaminophen 325 MG TAB PO PRN (04:32)
[2023-01-28] MEDS: Sodium Chloride 0.9% 1,000 ML IV SCH (04:32)
[2023-01-28 06:42] LABS: #Eosinphils 0.2 thou/uL (0.0-0.7); #Monocytes 0.6 thou/uL (0.11-0.59); #Neutrophils 3.5 thou/uL (1.40-6.50); %Basophils 0.8 % (0.0-1.0); %Eosinophils 2.9 % (0.0-10.0); %Lymphocytes 16.6 % (21.0-51.0); %Monocytes 11.4 % (0.0-10.0); %Neutrophils 67.7 % (42.0-75.0); Hematocrit 29.6 % (42.0-52.0); Hemoglobin 9.7 g/dL (14.0-18.0); Mean Corpuscular HGB CONC 32.8 g/dL (32.0-36.0); Mean Corpuscular Hemoglobin 26.3 pg (27.0-31.0); Mean Corpuscular Volume 80.2 fl (78.0-98.0); Mean Platelet Volume 9.1 fL (7.4-10.4); Platelet Count 175 10x3/uL (130-400); RBC Distribution Width 12.9 % (11.5-14.5); Red Blood Cell (RBC) Count 3.69 mill/uL (4.70-6.10); White Blood Cell (WBC) Count 5.2 10x3/uL (4.8-10.8)
[2023-01-28 07:12] LABS: Anion Gap 11 mmol/L (10-20); BUN (Urea Nitrogen) 13 mg/dL (8.4-25.7); Calc. Creatinine Clearance 59 mL/min (70-130); Carbon Dioxide 23 mmol/L (23-31); Chloride 109 mmol/L (98-107); Potassium 3.3 mmol/L (3.5-5.1); Sodium 140 mmol/L (136-145)
[2023-01-28 07:13] LABS: Calcium 8.3 mg/dL (7.8-10.44); Estimated GFR 49; Glucose 145 mg/dL (80-115); Magnesium 1.7 mg/dL (1.6-2.6)
[2023-01-28] MEDS: Insulin Glargine 30 UNITS/0.3 ML VIAL SC SCH (08:09)
[2023-01-28] MEDS: Aspirin 81 mg Enteric Coated Tablet PO SCH (08:10)
[2023-01-28] MEDS: Famotidine 20 MG TAB PO SCH (08:10)
[2023-01-28] MEDS: levETIRAcetam 500 MG TAB PO SCH ×2 (08:10→20:58)
[2023-01-28] MEDS: Cefepime 1 GM in Sodium Chloride 0.9% 100 ML IVPB SCH ×2 (08:12→21:33)
[2023-01-28] MEDS ORDERED: Lactated Ringer's 1,000 ML IV SCH (08:30)
[2023-01-28] MEDS: Propranolol 10 MG TAB PO SCH ×2 (08:30→20:57)
[2023-01-28] MEDS ORDERED: Potassium Bicarbonate/Cit Ac 20 MEQ TAB PO SCH (09:45)
[2023-01-28] MEDS ORDERED: Polyethylene Glycol 3350 17 GM Packet PO PRN (12:22)
[2023-01-28] MEDS ORDERED: Amlodipine 10 MG TAB PO SCH (13:45)
[2023-01-28] MEDS: Atorvastatin Calcium 40 MG TAB PO SCH (20:57)
[2023-01-28] MEDS: Docusate 100 MG CAP PO SCH (20:58)
[2023-01-28] MEDS: Saccharomyces boulardii 250 MG CAP PO SCH (20:58)
[2023-01-29 06:33] LABS: #Basophils 0.1 thou/uL (0.0-0.2); #Eosinphils 0.2 thou/uL (0.0-0.7); #Monocytes 0.6 thou/uL (0.11-0.59); #Neutrophils 3.4 thou/uL (1.40-6.50); %Basophils 0.9 % (0.0-1.0); %Eosinophils 2.8 % (0.0-10.0); %Lymphocytes 19.9 % (21.0-51.0); %Monocytes 11.2 % (0.0-10.0); %Neutrophils 64.4 % (42.0-75.0); Hematocrit 30.5 % (42.0-52.0); Hemoglobin 10.2 g/dL (14.0-18.0); Mean Corpuscular HGB CONC 33.4 g/dL (32.0-36.0); Mean Corpuscular Hemoglobin 26.2 pg (27.0-31.0); Mean Corpuscular Volume 78.4 fl (78.0-98.0); Mean Platelet Volume 9.2 fL (7.4-10.4); Platelet Count 180 10x3/uL (130-400); RBC Distribution Width 12.9 % (11.5-14.5); Red Blood Cell (RBC) Count 3.89 mill/uL (4.70-6.10); White Blood Cell (WBC) Count 5.3 10x3/uL (4.8-10.8)
[2023-01-29 07:03] LABS: Anion Gap 11 mmol/L (10-20); BUN (Urea Nitrogen) 15 mg/dL (8.4-25.7); Calc. Creatinine Clearance 61 mL/min (70-130); Calcium 8.6 mg/dL (7.8-10.44); Carbon Dioxide 25 mmol/L (23-31); Chloride 105 mmol/L (98-107); Estimated GFR 51; Glucose 146 mg/dL (80-115); Magnesium 1.6 mg/dL (1.6-2.6); Potassium 3.3 mmol/L (3.5-5.1); Sodium 138 mmol/L (136-145)
[2023-01-29] MEDS ORDERED: Magnesium 2 GM/50 ML(in water) 2 GM in Premix Bag 1 BAG IVPB SCH (08:45)
[2023-01-29] MEDS: Famotidine 20 MG TAB PO SCH (09:32)
[2023-01-29] MEDS: Clopidogrel Bisulfate 75 MG TAB PO SCH (09:32)
[2023-01-29] MEDS: Cefepime 1 GM in Sodium Chloride 0.9% 100 ML IVPB SCH ×2 (09:32→20:11)
[2023-01-29] MEDS: Aspirin 81 mg Enteric Coated Tablet PO SCH (09:33)
[2023-01-29] MEDS: Amlodipine 10 MG TAB PO SCH (09:33)
[2023-01-29] MEDS: levETIRAcetam 500 MG TAB PO SCH ×2 (09:34→20:12)
[2023-01-29] MEDS: Docusate 100 MG CAP PO SCH ×2 (09:34→20:12)
[2023-01-29] MEDS: Insulin Glargine 30 UNITS/0.3 ML VIAL SC SCH (09:37)
[2023-01-29] MEDS: Propranolol 10 MG TAB PO SCH ×2 (11:20→20:11)
[2023-01-29] MEDS ORDERED: Potassium Bicarbonate/Cit Ac 20 MEQ TAB PO SCH (17:00)
[2023-01-29] MEDS: Baclofen 10 MG TAB PO SCH (20:12)
[2023-01-29] MEDS: Saccharomyces boulardii 250 MG CAP PO SCH (20:12)
[2023-01-29] MEDS: Atorvastatin Calcium 40 MG TAB PO SCH (20:12)
[2023-01-29] MEDS ORDERED: Tamsulosin HCl 0.4 MG CAP PO SCH (21:00)
[2023-01-30 07:33] LABS: #Basophils 0.1 thou/uL (0.0-0.2); #Eosinphils 0.1 thou/uL (0.0-0.7); #Monocytes 0.4 thou/uL (0.11-0.59); #Neutrophils 3.2 thou/uL (1.40-6.50); %Eosinophils 2.6 % (0.0-10.0); %Neutrophils 64.6 % (42.0-75.0); Hematocrit 30.6 % (42.0-52.0); Hemoglobin 10.2 g/dL (14.0-18.0); Mean Corpuscular HGB CONC 33.3 g/dL (32.0-36.0); Mean Corpuscular Hemoglobin 26.5 pg (27.0-31.0); Mean Corpuscular Volume 79.5 fl (78.0-98.0); Mean Platelet Volume 9.2 fL (7.4-10.4); Platelet Count 201 10x3/uL (130-400); RBC Distribution Width 12.8 % (11.5-14.5); Red Blood Cell (RBC) Count 3.85 mill/uL (4.70-6.10)
[2023-01-30] MEDS ORDERED: Potassium Bicarbonate/Cit Ac 20 MEQ TAB PO SCH (08:00)
[2023-01-30 08:21] LABS: Anion Gap 12 mmol/L (10-20); BUN (Urea Nitrogen) 18 mg/dL (8.4-25.7); Calc. Creatinine Clearance 65 mL/min (70-130); Calcium 8.5 mg/dL (7.8-10.44); Carbon Dioxide 23 mmol/L (23-31); Chloride 106 mmol/L (98-107); Estimated GFR 54; Glucose 173 mg/dL (80-115); Potassium 3.6 mmol/L (3.5-5.1); Sodium 137 mmol/L (136-145)
[2023-01-30] MEDS: Insulin Glargine 30 UNITS/0.3 ML VIAL SC SCH (09:15)
[2023-01-30] MEDS: Docusate 100 MG CAP PO SCH (09:17)
[2023-01-30] MEDS: Cefepime 1 GM in Sodium Chloride 0.9% 100 ML IVPB SCH (09:17)
[2023-01-30] MEDS: levETIRAcetam 500 MG TAB PO SCH (09:17)
[2023-01-30] MEDS: Famotidine 20 MG TAB PO SCH (09:18)
[2023-01-30] MEDS: Amlodipine 10 MG TAB PO SCH (09:18)
[2023-01-30] MEDS: Propranolol 10 MG TAB PO SCH (09:18)
[2023-01-30] MEDS: Aspirin 81 mg Enteric Coated Tablet PO SCH (09:18)
[2023-01-30] MEDS: Baclofen 10 MG TAB PO SCH (09:18)
[2023-01-30] MEDS: Clopidogrel Bisulfate 75 MG TAB PO SCH (09:18)
[2023-01-30 12:25] VITALS: BP 149/83; TEMP 98.3
== END 2023-01-30 12:29 | disposition home or self-care (01) | DRG 698 ==
LOC: ERS 18:46 → T4-A 22:15
PROVIDERS: ADMIT Student in an Organized Health Care Education/Training Program; ATTEND Internal Medicine
DX: T83.512A Infection and inflammatory reaction due to nephrostomy catheter, initial encounter (principal); A41.51 Sepsis due to Escherichia coli [E. coli]; R65.20 Severe sepsis without septic shock; N17.9 Acute kidney failure, unspecified; E87.1 Hypo-osmolality and hyponatremia; N13.30 Unspecified hydronephrosis; I12.9 Hypertensive chronic kidney disease with stage 1 through stage 4 chronic kidney disease, or unspecified chronic kidney disease; E78.5 Hyperlipidemia, unspecified; N18.30 Chronic kidney disease, stage 3 unspecified; E83.42 Hypomagnesemia; G40.909 Epilepsy, unspecified, not intractable, without status epilepticus; E11.22 Type 2 diabetes mellitus with diabetic chronic kidney disease; E87.6 Hypokalemia; Z86.73 Personal history of transient ischemic attack (TIA), and cerebral infarction without residual deficits; Z79.82 Long term (current) use of aspirin; Z90.49 Acquired absence of other specified parts of digestive tract; Z79.899 Other long term (current) drug therapy
CPT/HCPCS: 36415; 36416; 74176; 80048; 80053; 80076; 81001; 83605; 83735; 85025; 87040; 87077; 87086; 87186; 93005; 96365; 96366; 96367; J0692; J1815; J3370; J3475; J3480; J3490; J7050; J7120

== ENCOUNTER 2023-03-18 07:17 | Day surgery (SDC) | payer MEDICARE ==
[2023-03-18 15:37] VITALS: BP 175/95; TEMP 97.4
[2023-03-18] MEDS ORDERED: FLU VACC QS2023-24(6MOS UP)/PF 60 MCG/0.5 ML SYRINGE IM ONE (16:15)
== END 2023-03-18 10:00 | disposition home or self-care (01) ==
LOC: SPEC 07:17
PROVIDERS: ATTEND Urology
PROC: 0T25X0Z Change Drainage Device in Kidney, External Approach (ICD-10-PCS; principal; 2023-03-18)
DX: N13.30 Unspecified hydronephrosis (principal); N30.90 Cystitis, unspecified without hematuria
CPT/HCPCS: 50435; 90686; C1729; C1769; C1887; G0008; 90471

== ENCOUNTER 2023-03-20 08:46 | Inpatient (IN) | payer MEDICARE ==
[2023-03-20 09:10] LABS: #Monocytes 1.1 thou/uL (0.11-0.59); #Neutrophils 8.5 thou/uL (1.40-6.50); %Basophils 0.3 % (0.0-1.0); %Eosinophils 0.4 % (0.0-10.0); %Lymphocytes 8.2 % (21.0-51.0); %Neutrophils 80.8 % (42.0-75.0); Hematocrit 37.6 % (42.0-52.0); Hemoglobin 12.6 g/dL (14.0-18.0); Mean Corpuscular HGB CONC 33.5 g/dL (32.0-36.0); Mean Corpuscular Hemoglobin 26.6 pg (27.0-31.0); Mean Corpuscular Volume 79.3 fl (78.0-98.0); Mean Platelet Volume 8.7 fL (7.4-10.4); Platelet Count 167 10x3/uL (130-400); RBC Distribution Width 14.1 % (11.5-14.5); Red Blood Cell (RBC) Count 4.74 mill/uL (4.70-6.10); White Blood Cell (WBC) Count 10.5 10x3/uL (4.8-10.8)
[2023-03-20 09:31] LABS: ALT (SGPT) 10 U/L (8-55); AST (SGOT) 13 U/L (5-34); Albumin 3.2 g/dL (3.4-4.8); Alkaline Phosphatase 77 U/L (40-110); Anion Gap 16 mmol/L (10-20); BUN (Urea Nitrogen) 31 mg/dL (8.4-25.7); Bilirubin, Total 2.5 mg/dL (0.2-1.2); Calc. Creatinine Clearance 0 mL/min (70-130); Calcium 8.6 mg/dL (7.8-10.44); Carbon Dioxide 20 mmol/L (23-31); Chloride 101 mmol/L (98-107); Estimated GFR 29; Globulin 4.2 g/dL (2.4-3.5); Glucose 172 mg/dL (80-115); Potassium 3.8 mmol/L (3.5-5.1); Protein, Total 7.4 g/dL (5.8-8.1); Sodium 133 mmol/L (136-145)
[2023-03-20 10:42] LABS: Bilirubin Negative (Negative); Blood, Urine 2+ (Negative); CAUTI Indications for Culture Fever or rigors; Clarity Turbid (Clear); Glucose, Urine (Dipstick) Normal (Negative); Ketone, Urine Trace mg/dL (Negative); Leukocyte 500 Leu/uL (Negative); Nitrite Negative (Negative); Protein, Urine (Dipstick) 200 mg/dL (Neg-Trace); Specific Gravity, Urine 1.008 (1.002-1.036); Squamous Epithelial 0-3 HPF (0-3); Urobilinogen Normal mg/dL (Less than 2); WBC/HPF Greater than 50 HPF (0-3)
[2023-03-20 11:11] LABS: Transitional Epithelial 0-3 HPF (None Seen)
[2023-03-20 11:13] LABS: Bacteria/HPF 2+ HPF (None Seen); Urine Culture Reflex Yes Yes
[2023-03-20] MEDS ORDERED: Piperacillin/Tazobactam 4.5 GM VIAL ONE (12:20)
[2023-03-20] MEDS ORDERED: Sodium Chloride 0.9% 100 ML ONE (12:20)
[2023-03-20] MEDS ORDERED: Dextrose 50% Abboject 50 ML SYRINGE SLOW IVP PRN (13:06)
[2023-03-20] MEDS ORDERED: Glucagon 1 MG/ML KIT IM PRN (13:06)
[2023-03-20] MEDS ORDERED: Dextrose 5% in Water 1,000 ML IV PRN (13:06)
[2023-03-20] MEDS ORDERED: Insulin Regular 300 UNITS/3 ML VIAL SC PRN (13:06)
[2023-03-20] MEDS: Piperacillin/Tazobactam 3.375 GM in Sodium Chloride 0.9% 100 ML IVPB SCH (16:11)
[2023-03-20] MEDS: Sodium Chloride 0.9% 1,000 ML IV SCH (16:12)
[2023-03-20] MEDS: Heparin 5,000 UNITS/ML VIAL SC SCH ×2 (16:14→20:28)
[2023-03-20 17:00] VITALS: BMI 28.3
[2023-03-20] MEDS: levETIRAcetam 500 MG TAB PO SCH (20:28)
[2023-03-21] MEDS ORDERED: Melatonin 3 MG TAB PO PRN (01:04)
[2023-03-21] MEDS: Piperacillin/Tazobactam 3.375 GM in Sodium Chloride 0.9% 100 ML IVPB SCH ×3 (01:11→15:44)
[2023-03-21 04:44] LABS: #Eosinphils 0.1 thou/uL (0.0-0.7); #Monocytes 0.7 thou/uL (0.11-0.59); #Neutrophils 5.3 thou/uL (1.40-6.50); %Basophils 0.4 % (0.0-1.0); %Eosinophils 0.9 % (0.0-10.0); %Lymphocytes 10.4 % (21.0-51.0); Hematocrit 33.1 % (42.0-52.0); Mean Corpuscular HGB CONC 33.2 g/dL (32.0-36.0); Mean Corpuscular Hemoglobin 26.4 pg (27.0-31.0); Mean Corpuscular Volume 79.6 fl (78.0-98.0); Mean Platelet Volume 8.9 fL (7.4-10.4); Platelet Count 138 10x3/uL (130-400); RBC Distribution Width 13.7 % (11.5-14.5); Red Blood Cell (RBC) Count 4.16 mill/uL (4.70-6.10); White Blood Cell (WBC) Count 6.8 10x3/uL (4.8-10.8)
[2023-03-21 05:25] LABS: Anion Gap 12 mmol/L (10-20); BUN (Urea Nitrogen) 35 mg/dL (8.4-25.7); Calc. Creatinine Clearance 39 mL/min (70-130); Calcium 8.3 mg/dL (7.8-10.44); Carbon Dioxide 23 mmol/L (23-31); Chloride 104 mmol/L (98-107); Estimated GFR 29; Glucose 155 mg/dL (80-115); Potassium 2.9 mmol/L (3.5-5.1); Sodium 136 mmol/L (136-145)
[2023-03-21] MEDS ORDERED: Potassium Chloride 20 MEQ TAB PO SCH (07:45)
[2023-03-21] MEDS ORDERED: FLU VACC QS2023-24(6MOS UP)/PF 60 MCG/0.5 ML SYRINGE IM ONE (09:00)
[2023-03-21] MEDS: levETIRAcetam 500 MG TAB PO SCH ×2 (09:13→21:33)
[2023-03-21] MEDS: Heparin 5,000 UNITS/ML VIAL SC SCH ×3 (09:13→21:34)
[2023-03-21] MEDS: Sodium Chloride 0.9% 1,000 ML IV SCH ×2 (13:46→17:32)
[2023-03-21] MEDS: Atorvastatin Calcium 40 MG TAB PO SCH (21:33)
[2023-03-21] MEDS: Propranolol 10 MG TAB PO SCH (21:33)
[2023-03-21] MEDS: Baclofen 10 MG TAB PO SCH (21:33)
[2023-03-21] MEDS: Melatonin 3 MG TAB PO SCH (21:33)
[2023-03-22] MEDS: Piperacillin/Tazobactam 3.375 GM in Sodium Chloride 0.9% 100 ML IVPB SCH ×4 (01:59→23:20)
[2023-03-22 05:37] LABS: Anion Gap 12 mmol/L (10-20); BUN (Urea Nitrogen) 29 mg/dL (8.4-25.7); Calc. Creatinine Clearance 42 mL/min (70-130); Calcium 8.2 mg/dL (7.8-10.44); Carbon Dioxide 23 mmol/L (23-31); Chloride 106 mmol/L (98-107); Estimated GFR 31; Glucose 220 mg/dL (80-115); Potassium 3.1 mmol/L (3.5-5.1); Sodium 138 mmol/L (136-145)
[2023-03-22] MEDS: Oxybutynin ER 5 MG TAB PO SCH (08:55)
[2023-03-22] MEDS: Amlodipine 10 MG TAB PO SCH (09:10)
[2023-03-22] MEDS: levETIRAcetam 500 MG TAB PO SCH ×2 (09:11→20:58)
[2023-03-22] MEDS: Clopidogrel Bisulfate 75 MG TAB PO SCH (09:11)
[2023-03-22] MEDS: Propranolol 10 MG TAB PO SCH ×2 (09:11→20:57)
[2023-03-22] MEDS: Aspirin 81 mg Enteric Coated Tablet PO SCH (09:12)
[2023-03-22] MEDS: Tamsulosin HCl 0.4 MG CAP PO SCH (09:12)
[2023-03-22] MEDS: Baclofen 10 MG TAB PO SCH ×2 (09:12→20:58)
[2023-03-22] MEDS: Heparin 5,000 UNITS/ML VIAL SC SCH ×3 (09:12→20:58)
[2023-03-22] MEDS: Sodium Chloride 0.9% 1,000 ML IV SCH ×2 (15:06→23:20)
[2023-03-22] MEDS: Melatonin 3 MG TAB PO SCH (20:56)
[2023-03-22] MEDS: Atorvastatin Calcium 40 MG TAB PO SCH (20:57)
[2023-03-23 05:55] LABS: #Eosinphils 0.2 thou/uL (0.0-0.7); #Monocytes 0.6 thou/uL (0.11-0.59); #Neutrophils 4.2 thou/uL (1.40-6.50); %Basophils 0.7 % (0.0-1.0); %Eosinophils 3.2 % (0.0-10.0); %Lymphocytes 14.7 % (21.0-51.0); %Monocytes 9.9 % (0.0-10.0); %Neutrophils 71.2 % (42.0-75.0); Hematocrit 32.4 % (42.0-52.0); Hemoglobin 10.8 g/dL (14.0-18.0); Mean Corpuscular HGB CONC 33.3 g/dL (32.0-36.0); Mean Corpuscular Hemoglobin 26.5 pg (27.0-31.0); Mean Corpuscular Volume 79.6 fl (78.0-98.0); Mean Platelet Volume 8.9 fL (7.4-10.4); Platelet Count 159 10x3/uL (130-400); RBC Distribution Width 13.4 % (11.5-14.5); Red Blood Cell (RBC) Count 4.07 mill/uL (4.70-6.10); White Blood Cell (WBC) Count 5.9 10x3/uL (4.8-10.8)
[2023-03-23 06:26] LABS: Anion Gap 12 mmol/L (10-20); BUN (Urea Nitrogen) 22 mg/dL (8.4-25.7); Calc. Creatinine Clearance 49 mL/min (70-130); Calcium 8.2 mg/dL (7.8-10.44); Carbon Dioxide 23 mmol/L (23-31); Chloride 108 mmol/L (98-107); Estimated GFR 37; Glucose 205 mg/dL (80-115); Potassium 2.9 mmol/L (3.5-5.1); Sodium 140 mmol/L (136-145)
[2023-03-23] MEDS ORDERED: Potassium Chloride 20 MEQ TAB PO SCH (08:00)
[2023-03-23] MEDS: Propranolol 10 MG TAB PO SCH ×2 (08:23→20:41)
[2023-03-23] MEDS: Clopidogrel Bisulfate 75 MG TAB PO SCH (08:24)
[2023-03-23] MEDS: Amlodipine 10 MG TAB PO SCH (08:24)
[2023-03-23] MEDS: Aspirin 81 mg Enteric Coated Tablet PO SCH (08:24)
[2023-03-23] MEDS: Baclofen 10 MG TAB PO SCH ×2 (08:24→20:41)
[2023-03-23] MEDS: Tamsulosin HCl 0.4 MG CAP PO SCH (08:24)
[2023-03-23] MEDS: levETIRAcetam 500 MG TAB PO SCH ×2 (08:25→20:40)
[2023-03-23] MEDS: Heparin 5,000 UNITS/ML VIAL SC SCH ×3 (08:25→20:40)
[2023-03-23] MEDS: Piperacillin/Tazobactam 3.375 GM in Sodium Chloride 0.9% 100 ML IVPB SCH ×3 (08:25→23:59)
[2023-03-23] MEDS: Oxybutynin ER 5 MG TAB PO SCH (08:25)
[2023-03-23] MEDS: Sodium Chloride 0.9% 1,000 ML IV SCH ×2 (10:25→20:54)
[2023-03-23] MEDS: Atorvastatin Calcium 40 MG TAB PO SCH (20:41)
[2023-03-23] MEDS: Melatonin 3 MG TAB PO SCH (20:41)
[2023-03-24 05:27] LABS: #Eosinphils 0.2 thou/uL (0.0-0.7); #Monocytes 0.5 thou/uL (0.11-0.59); #Neutrophils 4.5 thou/uL (1.40-6.50); %Basophils 0.5 % (0.0-1.0); %Eosinophils 2.9 % (0.0-10.0); %Lymphocytes 17.2 % (21.0-51.0); %Monocytes 7.2 % (0.0-10.0); %Neutrophils 71.9 % (42.0-75.0); Hematocrit 31.4 % (42.0-52.0); Hemoglobin 10.6 g/dL (14.0-18.0); Mean Corpuscular HGB CONC 33.8 g/dL (32.0-36.0); Mean Corpuscular Hemoglobin 26.6 pg (27.0-31.0); Mean Corpuscular Volume 78.9 fl (78.0-98.0); Mean Platelet Volume 8.9 fL (7.4-10.4); Platelet Count 171 10x3/uL (130-400); RBC Distribution Width 13.2 % (11.5-14.5); Red Blood Cell (RBC) Count 3.98 mill/uL (4.70-6.10); White Blood Cell (WBC) Count 6.2 10x3/uL (4.8-10.8)
[2023-03-24 05:49] LABS: Anion Gap 13 mmol/L (10-20); BUN (Urea Nitrogen) 20 mg/dL (8.4-25.7); Calc. Creatinine Clearance 49 mL/min (70-130); Calcium 8.3 mg/dL (7.8-10.44); Carbon Dioxide 23 mmol/L (23-31); Chloride 108 mmol/L (98-107); Estimated GFR 37; Glucose 190 mg/dL (80-115); Potassium 3.2 mmol/L (3.5-5.1); Sodium 141 mmol/L (136-145)
[2023-03-24] MEDS: levETIRAcetam 500 MG TAB PO SCH ×2 (08:42→20:30)
[2023-03-24] MEDS: Tamsulosin HCl 0.4 MG CAP PO SCH (08:42)
[2023-03-24] MEDS: Oxybutynin ER 5 MG TAB PO SCH ×2 (08:42→08:51)
[2023-03-24] MEDS: Baclofen 10 MG TAB PO SCH ×2 (08:42→20:31)
[2023-03-24] MEDS: Aspirin 81 mg Enteric Coated Tablet PO SCH (08:42)
[2023-03-24] MEDS: Amlodipine 10 MG TAB PO SCH (08:42)
[2023-03-24] MEDS: Heparin 5,000 UNITS/ML VIAL SC SCH ×3 (08:42→20:31)
[2023-03-24] MEDS: Clopidogrel Bisulfate 75 MG TAB PO SCH (08:42)
[2023-03-24] MEDS: Propranolol 10 MG TAB PO SCH ×2 (08:42→20:31)
[2023-03-24] MEDS: Piperacillin/Tazobactam 3.375 GM in Sodium Chloride 0.9% 100 ML IVPB SCH ×3 (08:43→23:46)
[2023-03-24] MEDS ORDERED: Non-Formulary Item 1 EACH (Insulin Degludec [Tresiba Flextouch U-100] 100 UNIT/ML Insuln. SQ SCH (09:00)
[2023-03-24] MEDS: Insulin Glargine 30 UNITS/0.3 ML VIAL SC SCH (09:21)
[2023-03-24] MEDS ORDERED: Potassium Chloride 20 MEQ TAB PO SCH (09:30)
[2023-03-24] MEDS: Melatonin 3 MG TAB PO SCH (20:31)
[2023-03-24] MEDS: Atorvastatin Calcium 40 MG TAB PO SCH (20:31)
[2023-03-25 05:01] LABS: #Basophils 0.1 thou/uL (0.0-0.2); #Eosinphils 0.2 thou/uL (0.0-0.7); #Monocytes 0.5 thou/uL (0.11-0.59); #Neutrophils 4.4 thou/uL (1.40-6.50); %Basophils 0.8 % (0.0-1.0); %Eosinophils 2.8 % (0.0-10.0); %Monocytes 7.3 % (0.0-10.0); %Neutrophils 70.6 % (42.0-75.0); Hematocrit 34.8 % (42.0-52.0); Hemoglobin 11.5 g/dL (14.0-18.0); Mean Corpuscular Hemoglobin 26.9 pg (27.0-31.0); Mean Platelet Volume 9.1 fL (7.4-10.4); Platelet Count 177 10x3/uL (130-400); RBC Distribution Width 13.4 % (11.5-14.5); Red Blood Cell (RBC) Count 4.28 mill/uL (4.70-6.10); White Blood Cell (WBC) Count 6.2 10x3/uL (4.8-10.8)
[2023-03-25 05:26] LABS: Anion Gap 14 mmol/L (10-20); BUN (Urea Nitrogen) 18 mg/dL (8.4-25.7); Calc. Creatinine Clearance 44 mL/min (70-130); Calcium 8.5 mg/dL (7.8-10.44); Carbon Dioxide 22 mmol/L (23-31); Chloride 108 mmol/L (98-107); Estimated GFR 33; Glucose 219 mg/dL (80-115); Potassium 3.5 mmol/L (3.5-5.1); Sodium 140 mmol/L (136-145)
[2023-03-25 05:29] LABS: Mean Corpuscular Volume 81.3 fl (78.0-98.0)
[2023-03-25] MEDS: Clopidogrel Bisulfate 75 MG TAB PO SCH (08:57)
[2023-03-25] MEDS: Amlodipine 10 MG TAB PO SCH (08:57)
[2023-03-25] MEDS: Oxybutynin ER 5 MG TAB PO SCH (08:57)
[2023-03-25] MEDS: Aspirin 81 mg Enteric Coated Tablet PO SCH (08:57)
[2023-03-25] MEDS: Tamsulosin HCl 0.4 MG CAP PO SCH (08:58)
[2023-03-25] MEDS: Propranolol 10 MG TAB PO SCH ×2 (08:58→21:20)
[2023-03-25] MEDS: Baclofen 10 MG TAB PO SCH ×2 (08:58→21:21)
[2023-03-25] MEDS: levETIRAcetam 500 MG TAB PO SCH ×2 (08:58→21:20)
[2023-03-25] MEDS: Piperacillin/Tazobactam 3.375 GM in Sodium Chloride 0.9% 100 ML IVPB SCH ×3 (08:58→23:23)
[2023-03-25] MEDS: Heparin 5,000 UNITS/ML VIAL SC SCH ×3 (08:58→21:21)
[2023-03-25] MEDS: Insulin Glargine 30 UNITS/0.3 ML VIAL SC SCH (10:18)
[2023-03-25] MEDS: 1/2 NS w/KCL 20 mEq 1,000 ML IV SCH (10:42)
[2023-03-25] MEDS: Atorvastatin Calcium 40 MG TAB PO SCH (21:20)
[2023-03-25] MEDS: Melatonin 3 MG TAB PO SCH (21:20)
[2023-03-26] MEDS: 1/2 NS w/KCL 20 mEq 1,000 ML IV SCH (06:32)
[2023-03-26] MEDS: Aspirin 81 mg Enteric Coated Tablet PO SCH (10:03)
[2023-03-26] MEDS: Amlodipine 10 MG TAB PO SCH (10:04)
[2023-03-26] MEDS: Propranolol 10 MG TAB PO SCH ×2 (10:04→21:55)
[2023-03-26] MEDS: Baclofen 10 MG TAB PO SCH ×2 (10:04→21:55)
[2023-03-26] MEDS: Piperacillin/Tazobactam 3.375 GM in Sodium Chloride 0.9% 100 ML IVPB SCH ×3 (10:04→18:19)
[2023-03-26] MEDS: Tamsulosin HCl 0.4 MG CAP PO SCH (10:04)
[2023-03-26] MEDS: levETIRAcetam 500 MG TAB PO SCH ×2 (10:04→21:55)
[2023-03-26] MEDS: Clopidogrel Bisulfate 75 MG TAB PO SCH (10:04)
[2023-03-26] MEDS: Oxybutynin ER 5 MG TAB PO SCH (10:05)
[2023-03-26] MEDS: Heparin 5,000 UNITS/ML VIAL SC SCH ×3 (10:05→21:55)
[2023-03-26] MEDS: Insulin Glargine 30 UNITS/0.3 ML VIAL SC SCH (10:15)
[2023-03-26 10:20] LABS: Anion Gap 14 mmol/L (10-20); BUN (Urea Nitrogen) 19 mg/dL (8.4-25.7); Calc. Creatinine Clearance 49 mL/min (70-130); Calcium 8.4 mg/dL (7.8-10.44); Carbon Dioxide 23 mmol/L (23-31); Chloride 106 mmol/L (98-107); Estimated GFR 37; Glucose 196 mg/dL (80-115); Potassium 3.7 mmol/L (3.5-5.1); Sodium 139 mmol/L (136-145)
[2023-03-26] MEDS: Melatonin 3 MG TAB PO SCH (21:55)
[2023-03-26] MEDS: Atorvastatin Calcium 40 MG TAB PO SCH (21:55)
[2023-03-26] MEDS ORDERED: LevoFLOXacin 500 MG TAB PO SCH (22:45)
[2023-03-27] MEDS: 1/2 NS w/KCL 20 mEq 1,000 ML IV SCH (02:56)
[2023-03-27 05:52] LABS: Anion Gap 12 mmol/L (10-20); BUN (Urea Nitrogen) 23 mg/dL (8.4-25.7); Calc. Creatinine Clearance 47 mL/min (70-130); Calcium 8.6 mg/dL (7.8-10.44); Carbon Dioxide 23 mmol/L (23-31); Chloride 107 mmol/L (98-107); Estimated GFR 36; Glucose 152 mg/dL (80-115); Potassium 3.3 mmol/L (3.5-5.1); Sodium 139 mmol/L (136-145)
[2023-03-27] MEDS ORDERED: LevoFLOXacin 250 MG TAB PO SCH (06:00)
[2023-03-27] MEDS ORDERED: Potassium Chloride 20 MEQ TAB PO SCH (08:00)
[2023-03-27] MEDS: Tamsulosin HCl 0.4 MG CAP PO SCH (08:18)
[2023-03-27] MEDS: Amlodipine 10 MG TAB PO SCH (08:18)
[2023-03-27] MEDS: levETIRAcetam 500 MG TAB PO SCH (08:18)
[2023-03-27] MEDS: Oxybutynin ER 5 MG TAB PO SCH (08:18)
[2023-03-27] MEDS: Propranolol 10 MG TAB PO SCH (08:18)
[2023-03-27] MEDS: Baclofen 10 MG TAB PO SCH (08:19)
[2023-03-27] MEDS: Clopidogrel Bisulfate 75 MG TAB PO SCH (08:19)
[2023-03-27] MEDS: Insulin Glargine 30 UNITS/0.3 ML VIAL SC SCH ×2 (08:19→08:26)
[2023-03-27] MEDS: Heparin 5,000 UNITS/ML VIAL SC SCH (08:22)
[2023-03-27] MEDS: Aspirin 81 mg Enteric Coated Tablet PO SCH (08:26)
[2023-03-27 08:36] VITALS: BP 145/81; TEMP 97.7
== END 2023-03-27 10:31 | disposition home or self-care (01) | DRG 699 ==
LOC: ERS 08:46 → MSONC 12:13
PROVIDERS: ADMIT Internal Medicine; ATTEND Internal Medicine
PROC: 0T25X0Z Change Drainage Device in Kidney, External Approach (ICD-10-PCS; principal; 2023-03-18)
DX: T83.512A Infection and inflammatory reaction due to nephrostomy catheter, initial encounter (principal); N13.30 Unspecified hydronephrosis; N39.0 Urinary tract infection, site not specified; N17.9 Acute kidney failure, unspecified; E78.5 Hyperlipidemia, unspecified; N13.9 Obstructive and reflux uropathy, unspecified; G40.909 Epilepsy, unspecified, not intractable, without status epilepticus; Y83.8 Other surgical procedures as the cause of abnormal reaction of the patient, or of later complication, without mention of misadventure at the time of the procedure; N18.30 Chronic kidney disease, stage 3 unspecified; E11.22 Type 2 diabetes mellitus with diabetic chronic kidney disease; I12.9 Hypertensive chronic kidney disease with stage 1 through stage 4 chronic kidney disease, or unspecified chronic kidney disease; E87.6 Hypokalemia; D64.9 Anemia, unspecified; N31.9 Neuromuscular dysfunction of bladder, unspecified; Z86.73 Personal history of transient ischemic attack (TIA), and cerebral infarction without residual deficits; Z79.4 Long term (current) use of insulin; Z90.49 Acquired absence of other specified parts of digestive tract; Z98.890 Other specified postprocedural states; Z79.82 Long term (current) use of aspirin; Z79.899 Other long term (current) drug therapy
CPT/HCPCS: 36415; 50435; 80048; 80053; 81001; 85025; 87077; 87086; 87186; 90471; 90686; 93005; 96365; C1729; C1769; C1887; G0008; J1644; J1815; J2543; J3480; J3490; J7050

== ENCOUNTER 2023-04-13 23:23 | Inpatient (IN) | payer MEDICARE ==
[2023-04-14] MEDS ORDERED: Acetaminophen 325 MG TAB ONE (00:06)
[2023-04-14] MEDS ORDERED: cefTRIAXone (ROCEPHIN) 1 GM VIAL ONE (00:06)
[2023-04-14 00:21] LABS: ALT (SGPT) 7 U/L (8-55); AST (SGOT) 9 U/L (5-34); Albumin 3.7 g/dL (3.4-4.8); Alkaline Phosphatase 93 U/L (40-110); Anion Gap 13 mmol/L (10-20); BUN (Urea Nitrogen) 18 mg/dL (8.4-25.7); Bilirubin, Total 0.7 mg/dL (0.2-1.2); Calc. Creatinine Clearance 0 mL/min (70-130); Calcium 8.5 mg/dL (7.8-10.44); Carbon Dioxide 25 mmol/L (23-31); Chloride 102 mmol/L (98-107); Estimated GFR 37; Globulin 4.1 g/dL (2.4-3.5); Glucose 188 mg/dL (80-115); Protein, Total 7.8 g/dL (5.8-8.1); Sodium 137 mmol/L (136-145)
[2023-04-14 01:49] LABS: Troponin I 0.023 ng/mL (< 0.028)
[2023-04-14 01:52] LABS: #Eosinphils 0.1 thou/uL (0.0-0.7); #Monocytes 1.1 thou/uL (0.11-0.59); #Neutrophils 10.2 thou/uL (1.40-6.50); %Basophils 0.3 % (0.0-1.0); %Eosinophils 0.9 % (0.0-10.0); %Lymphocytes 8.5 % (21.0-51.0); %Monocytes 8.8 % (0.0-10.0); Hematocrit 32.8 % (42.0-52.0); Hemoglobin 11.1 g/dL (14.0-18.0); Mean Corpuscular HGB CONC 33.8 g/dL (32.0-36.0); Mean Corpuscular Hemoglobin 26.8 pg (27.0-31.0); Mean Corpuscular Volume 79.2 fl (78.0-98.0); Mean Platelet Volume 8.8 fL (7.4-10.4); Platelet Count 186 10x3/uL (130-400); RBC Distribution Width 13.9 % (11.5-14.5); Red Blood Cell (RBC) Count 4.14 mill/uL (4.70-6.10); White Blood Cell (WBC) Count 12.6 10x3/uL (4.8-10.8)
[2023-04-14 03:15] LABS: Bilirubin Negative (Negative); Blood, Urine Large (Negative); Glucose, Urine (Dipstick) 100 mg/dL (Negative); Ketone, Urine Negative (Negative); Leukocyte Large (Negative); Nitrite Negative (Negative); Protein, Urine (Dipstick) > or equal to 300 mg/dL (Neg-Trace); Specific Gravity, Urine 1.015 (1.005-1.030); Urobilinogen 0.2 mg/dL (Less than 2); pH, Urine 6.5 (5.0-9.0)
[2023-04-14 03:21] LABS: Clarity Turbid (Clear)
[2023-04-14 03:32] LABS: Bacteria/HPF 4+ HPF (None Seen); CAUTI Indications for Culture Alt mental st,lethar; RBC/HPF Greater than 50 HPF (0-3); Squamous Epithelial None Seen HPF (0-3); WBC/HPF Greater than 50 HPF (0-3)
[2023-04-14 03:35] LABS: Urine Culture Reflex Yes Yes
[2023-04-14 04:52] LABS: SARS-CoV-2 NAA Rapid Test Not Detected (NotDetected)
[2023-04-14] MEDS ORDERED: Piperacillin/Tazobactam 4.5 GM VIAL ONE (06:37)
[2023-04-14] MEDS ORDERED: Sodium Chloride 0.9% 100 ML ONE (06:38)
[2023-04-14] MEDS ORDERED: Acetaminophen 325 MG TAB PO PRN (08:47)
[2023-04-14] MEDS ORDERED: Sodium Chloride 0.9% 1,000 ML IV SCH (09:00)
[2023-04-14] MEDS ORDERED: Enoxaparin 40 MG (0.4 mL) SYRINGE SC SCH (09:00)
[2023-04-14] MEDS ORDERED: Dextrose 5% in Water 1,000 ML IV PRN (09:15)
[2023-04-14] MEDS ORDERED: Glucagon 1 MG/ML KIT IM PRN (09:15)
[2023-04-14] MEDS ORDERED: Dextrose 50% Abboject 50 ML SYRINGE SLOW IVP PRN (09:15)
[2023-04-14] MEDS ORDERED: HumaLOG 300 UNITS/3 ML VIAL SC PRN ×2 (09:15)
[2023-04-14 09:59] VITALS: BMI 28.0
[2023-04-14] MEDS ORDERED: Meropenem 1 GM in Sodium Chloride 0.9% 100 ML IVPB SCH ×4 (10:15→18:00)
[2023-04-14] MEDS: levETIRAcetam 500 MG TAB PO SCH (22:22)
[2023-04-14] MEDS: Melatonin 3 MG TAB PO SCH (22:22)
[2023-04-14] MEDS: Meropenem 1 GM in Sodium Chloride 0.9% 100 ML IVPB SCH (22:23)
[2023-04-14] MEDS: Propranolol 10 MG TAB PO SCH (22:23)
[2023-04-14] MEDS: Atorvastatin Calcium 40 MG TAB PO SCH (22:23)
[2023-04-14] MEDS: Baclofen 10 MG TAB PO SCH (22:23)
[2023-04-15 07:52] LABS: #Basophils 0.1 thou/uL (0.0-0.2); #Eosinphils 0.3 thou/uL (0.0-0.7); #Monocytes 0.5 thou/uL (0.11-0.59); #Neutrophils 4.9 thou/uL (1.40-6.50); %Basophils 0.9 % (0.0-1.0); %Eosinophils 3.6 % (0.0-10.0); %Lymphocytes 17.6 % (21.0-51.0); %Monocytes 6.9 % (0.0-10.0); %Neutrophils 70.6 % (42.0-75.0); Hematocrit 36.8 % (42.0-52.0); Hemoglobin 11.2 g/dL (14.0-18.0); Mean Corpuscular HGB CONC 30.4 g/dL (32.0-36.0); Mean Corpuscular Hemoglobin 26.5 pg (27.0-31.0); Mean Corpuscular Volume 87.2 fl (78.0-98.0); Mean Platelet Volume 9.1 fL (7.4-10.4); Platelet Count 182 10x3/uL (130-400); RBC Distribution Width 13.7 % (11.5-14.5); Red Blood Cell (RBC) Count 4.22 mill/uL (4.70-6.10)
[2023-04-15 08:11] LABS: Anion Gap 12 mmol/L (10-20); BUN (Urea Nitrogen) 14 mg/dL (8.4-25.7); Calc. Creatinine Clearance 51 mL/min (70-130); Calcium 8.1 mg/dL (7.8-10.44); Carbon Dioxide 24 mmol/L (23-31); Chloride 105 mmol/L (98-107); Estimated GFR 40; Glucose 187 mg/dL (80-115); Sodium 138 mmol/L (136-145)
[2023-04-15] MEDS: Propranolol 10 MG TAB PO SCH ×2 (08:25→21:58)
[2023-04-15] MEDS: Baclofen 10 MG TAB PO SCH ×2 (08:25→21:59)
[2023-04-15] MEDS: Oxybutynin ER 5 MG TAB PO SCH (08:25)
[2023-04-15] MEDS: Aspirin 81 mg Enteric Coated Tablet PO SCH (08:26)
[2023-04-15] MEDS: Clopidogrel Bisulfate 75 MG TAB PO SCH (08:26)
[2023-04-15] MEDS: Amlodipine 10 MG TAB PO SCH (08:26)
[2023-04-15] MEDS: Insulin Glargine 30 UNITS/0.3 ML VIAL SC SCH (08:26)
[2023-04-15] MEDS: Lisinopril 20 MG TAB PO SCH (08:26)
[2023-04-15] MEDS: Tamsulosin HCl 0.4 MG CAP PO SCH (08:26)
[2023-04-15] MEDS: levETIRAcetam 500 MG TAB PO SCH ×2 (08:26→21:59)
[2023-04-15] MEDS: Meropenem 1 GM in Sodium Chloride 0.9% 100 ML IVPB SCH ×2 (10:21→21:58)
[2023-04-15] MEDS ORDERED: Potassium Chloride 20 MEQ TAB PO SCH (10:30)
[2023-04-15] MEDS: Potassium Chloride 20 MEQ TAB PO SCH (16:43)
[2023-04-15] MEDS: Atorvastatin Calcium 40 MG TAB PO SCH (21:58)
[2023-04-15] MEDS: Melatonin 3 MG TAB PO SCH (21:59)
[2023-04-16 06:34] LABS: #Basophils 0.1 thou/uL (0.0-0.2); #Eosinphils 0.3 thou/uL (0.0-0.7); #Monocytes 0.5 thou/uL (0.11-0.59); #Neutrophils 4.4 thou/uL (1.40-6.50); %Basophils 0.9 % (0.0-1.0); %Eosinophils 4.2 % (0.0-10.0); %Lymphocytes 19.7 % (21.0-51.0); %Monocytes 7.4 % (0.0-10.0); %Neutrophils 67.5 % (42.0-75.0); Hematocrit 34.5 % (42.0-52.0); Hemoglobin 11.4 g/dL (14.0-18.0); Mean Corpuscular Hemoglobin 26.3 pg (27.0-31.0); Mean Platelet Volume 8.9 fL (7.4-10.4); Platelet Count 203 10x3/uL (130-400); RBC Distribution Width 13.6 % (11.5-14.5); Red Blood Cell (RBC) Count 4.34 mill/uL (4.70-6.10); White Blood Cell (WBC) Count 6.5 10x3/uL (4.8-10.8)
[2023-04-16 06:40] LABS: Mean Corpuscular Volume 79.5 fl (78.0-98.0)
[2023-04-16 07:00] LABS: Anion Gap 12 mmol/L (10-20); BUN (Urea Nitrogen) 14 mg/dL (8.4-25.7); Calc. Creatinine Clearance 58 mL/min (70-130); Carbon Dioxide 24 mmol/L (23-31); Chloride 104 mmol/L (98-107); Estimated GFR 47; Glucose 249 mg/dL (80-115); Potassium 3.5 mmol/L (3.5-5.1); Sodium 136 mmol/L (136-145)
[2023-04-16] MEDS: Aspirin 81 mg Enteric Coated Tablet PO SCH (08:51)
[2023-04-16] MEDS: Potassium Chloride 20 MEQ TAB PO SCH ×2 (08:51→18:14)
[2023-04-16] MEDS: Oxybutynin ER 5 MG TAB PO SCH (08:51)
[2023-04-16] MEDS: Propranolol 10 MG TAB PO SCH ×2 (08:51→21:14)
[2023-04-16] MEDS: Tamsulosin HCl 0.4 MG CAP PO SCH (08:51)
[2023-04-16] MEDS: Baclofen 10 MG TAB PO SCH ×2 (08:51→21:14)
[2023-04-16] MEDS: Lisinopril 20 MG TAB PO SCH (08:51)
[2023-04-16] MEDS: Amlodipine 10 MG TAB PO SCH (08:52)
[2023-04-16] MEDS: Insulin Glargine 30 UNITS/0.3 ML VIAL SC SCH (08:52)
[2023-04-16] MEDS: levETIRAcetam 500 MG TAB PO SCH ×2 (08:52→21:13)
[2023-04-16] MEDS: Clopidogrel Bisulfate 75 MG TAB PO SCH (08:52)
[2023-04-16] MEDS: Meropenem 1 GM in Sodium Chloride 0.9% 100 ML IVPB SCH ×2 (11:43→22:40)
[2023-04-16] MEDS: Atorvastatin Calcium 40 MG TAB PO SCH (21:14)
[2023-04-16] MEDS: Melatonin 3 MG TAB PO SCH (21:14)
[2023-04-17 01:04] VITALS: TEMP 98.2
[2023-04-17] MEDS ORDERED: Saccharomyces boulardii 250 MG CAP PO SCH (09:00)
[2023-04-17] MEDS: Potassium Chloride 20 MEQ TAB PO SCH (09:31)
[2023-04-17] MEDS: Tamsulosin HCl 0.4 MG CAP PO SCH (09:31)
[2023-04-17] MEDS: Aspirin 81 mg Enteric Coated Tablet PO SCH (09:31)
[2023-04-17] MEDS: Baclofen 10 MG TAB PO SCH (09:31)
[2023-04-17] MEDS: Clopidogrel Bisulfate 75 MG TAB PO SCH (09:31)
[2023-04-17] MEDS: Amlodipine 10 MG TAB PO SCH (09:31)
[2023-04-17] MEDS: Lisinopril 20 MG TAB PO SCH (09:31)
[2023-04-17] MEDS: Propranolol 10 MG TAB PO SCH (09:31)
[2023-04-17] MEDS: Oxybutynin ER 5 MG TAB PO SCH (09:31)
[2023-04-17] MEDS: levETIRAcetam 500 MG TAB PO SCH (09:31)
[2023-04-17] MEDS: Insulin Glargine 30 UNITS/0.3 ML VIAL SC SCH (09:32)
[2023-04-17 09:33] VITALS: BP 159/88
[2023-04-17] MEDS: Meropenem 1 GM in Sodium Chloride 0.9% 100 ML IVPB SCH (10:13)
== END 2023-04-17 14:24 | disposition home or self-care (01) | DRG 699 ==
LOC: ERS 23:23 → T4-B 04-14 07:56 → OBSVTOIN 04-14 16:48
PROVIDERS: ADMIT Internal Medicine; ATTEND Internal Medicine
PROC: 0T2BX0Z Change Drainage Device in Bladder, External Approach (ICD-10-PCS; principal; 2023-04-15)
DX: T83.512A Infection and inflammatory reaction due to nephrostomy catheter, initial encounter (principal); N39.0 Urinary tract infection, site not specified; T83.511A Infection and inflammatory reaction due to indwelling urethral catheter, initial encounter; E11.9 Type 2 diabetes mellitus without complications; G40.909 Epilepsy, unspecified, not intractable, without status epilepticus; I10 Essential (primary) hypertension; Y83.8 Other surgical procedures as the cause of abnormal reaction of the patient, or of later complication, without mention of misadventure at the time of the procedure; Z79.82 Long term (current) use of aspirin; Z86.73 Personal history of transient ischemic attack (TIA), and cerebral infarction without residual deficits; Z79.899 Other long term (current) drug therapy; Z79.4 Long term (current) use of insulin; Z11.52 Encounter for screening for COVID-19; Z90.49 Acquired absence of other specified parts of digestive tract
CPT/HCPCS: 36415; 71045; 80048; 80053; 81001; 83605; 83880; 84484; 85025; 87040; 87077; 87086; 87186; 93005; 96365; 96375; J0696; J1815; J2185; J2543; J3490

== ENCOUNTER 2023-05-20 07:01 | Day surgery (SDC) | payer MEDICARE ==
[2023-05-20] MEDS ORDERED: Lidocaine 1% PF 5 ML VIAL ONE (07:48)
[2023-05-20] MEDS ORDERED: Iopamidol 100 ML FS ONE (07:48)
[2023-05-20] MEDS ORDERED: Sodium Bicarbonate 0.5 MEQ/ML SDV 10 ML ONE (07:48)
== END 2023-05-20 11:05 | disposition home or self-care (01) ==
LOC: SPEC 07:01
PROVIDERS: ATTEND Urology
PROC: BT11YZZ Fluoroscopy of Right Kidney using Other Contrast (ICD-10-PCS; principal; 2023-05-20)
DX: N13.30 Unspecified hydronephrosis (principal); R33.9 Retention of urine, unspecified
CPT/HCPCS: 50431; Q9967

== ENCOUNTER → 2023-06-02 | Day surgery (SDC) | payer MEDICARE ==
[~2023-06-02] MED LIST changes: +Iopamidol 100 ML FS ONE; -Iopamidol 370 76% 100 ML VIAL ONE; +Lidocaine 1% PF 5 ML VIAL ONE; +Sodium Bicarbonate 2.5 MEQ/5 ML SDV ONE; +Sodium Chloride 0.9% 500 ML ONE
== END ==
LOC: SPEC 07:05
PROVIDERS: ATTEND Urology
PROC: BT02ZZZ Plain Radiography of Left Kidney (ICD-10-PCS; principal; 2023-06-02)
DX: N13.30 Unspecified hydronephrosis (principal)
CPT/HCPCS: 50431; J7030; Q9967

== ENCOUNTER 2023-09-22 16:13 | Inpatient (IN) | payer MEDICARE ==
[2023-09-22] MEDS ORDERED: cefTRIAXone (ROCEPHIN) 2 GM VIAL ONE (16:58)
[2023-09-22] MEDS ORDERED: Sodium Chloride 0.9% 100 ML ONE (16:58)
[2023-09-22 17:39] LABS: Bacteria/HPF 2+ HPF (None Seen); Bilirubin Negative (Negative); Blood, Urine 2+ (Negative); CAUTI Indications for Culture Fever or rigors; Glucose, Urine (Dipstick) 500 mg/dL (Negative); Ketone, Urine Negative (Negative); Leukocyte 500 Leu/uL (Negative); Nitrite Negative (Negative); Protein, Urine (Dipstick) 300 mg/dL (Neg-Trace); Squamous Epithelial None Seen HPF (0-3); Urobilinogen Normal mg/dL (Less than 2); WBC/HPF Greater than 50 HPF (0-3)
[2023-09-22 17:44] LABS: Clarity Turbid (Clear)
[2023-09-22 17:45] LABS: Urine Culture Reflex Yes Yes
[2023-09-22 18:01] LABS: ALT (SGPT) 8 U/L (8-55); AST (SGOT) 10 U/L (5-34); Albumin 3.3 g/dL (3.4-4.8); Alkaline Phosphatase 107 U/L (40-110); Anion Gap 16 mmol/L (10-20); BUN (Urea Nitrogen) 30 mg/dL (8.4-25.7); Bilirubin, Total 0.6 mg/dL (0.2-1.2); Calc. Creatinine Clearance 0 mL/min (70-130); Calcium 8.9 mg/dL (7.8-10.44); Carbon Dioxide 22 mmol/L (23-31); Chloride 101 mmol/L (98-107); Estimated GFR 27; Globulin 4.2 g/dL (2.4-3.5); Glucose 276 mg/dL (80-115); Lipase 40 U/L (8-78); Magnesium 1.6 mg/dL (1.6-2.6); Potassium 3.2 mmol/L (3.5-5.1); Protein, Total 7.5 g/dL (5.8-8.1); Sodium 136 mmol/L (136-145)
[2023-09-22 18:03] LABS: Troponin I 0.026 ng/mL (< 0.028)
[2023-09-22 18:05] LABS: #Basophils 0.06 10x3/uL (0.0-0.2); %Basophils 0.6 % (0.0-1.0); %Eosinophils 0.6 % (0.0-10.0); %Lymphocytes 6.8 % (21.0-51.0); %Neutrophils 84.8 % (42.0-75.0); Hematocrit 37.8 % (42.0-52.0); Mean Corpuscular HGB CONC 34.4 g/dL (32.0-36.0); Mean Corpuscular Hemoglobin 26.7 pg (27.0-31.0); Mean Corpuscular Volume 77.6 fL (78.0-98.0); Mean Platelet Volume 8.9 fL (7.4-10.4); Platelet Count 203 10x3/uL (130-400); RBC Distribution Width 13.4 % (11.5-14.5); Red Blood Cell (RBC) Count 4.87 mill/uL (4.70-6.10)
[2023-09-22] MEDS ORDERED: Magnesium 2 GM/50 ML BAG (IN WATER) ONE (19:11)
[2023-09-22] MEDS ORDERED: Acetaminophen 650 MG Suppository PR PRN (20:12)
[2023-09-22] MEDS ORDERED: Ondansetron PF 4 MG/2 ML Vial IVP PRN (20:12)
[2023-09-22] MEDS ORDERED: Dextrose 50% Abboject 50 ML SYRINGE SLOW IVP PRN (20:15)
[2023-09-22] MEDS ORDERED: Glucagon 1 MG/ML KIT IM PRN (20:15)
[2023-09-22] MEDS ORDERED: HumaLOG 300 UNITS/3 ML VIAL SC PRN ×2 (20:15)
[2023-09-22] MEDS ORDERED: Dextrose 5% in Water 1,000 ML IV PRN (20:15)
[2023-09-22] MEDS ORDERED: hydrALAZINE 20 MG/ML VIAL SLOW IVP PRN ×2 (20:15→23:23)
[2023-09-22 22:01] VITALS: BMI 27.6
[2023-09-22] MEDS: Sodium Chloride 0.9% 1,000 ML IV SCH (22:17)
[2023-09-22] MEDS: levETIRAcetam 500 MG (5 mL) VIAL SLOW IVP SCH (22:18)
[2023-09-22 22:56] LABS: Actual Bicarbonate (HCO3v) 24.2 mEq/L (22-28); Base Excess -1.1 mEq/L (-2.0 to +3.0); Calcium, Ionized (venous) 1.09 mmol/L (1.16-1.32); Chloride (VBG) 101 mmol/L (98-106); Hematocrit-VBG 39 % (42.0-52.0); Hemoglobin (Hb) 13.1 g/dL (13.1-17.2); Potassium (VBG) 3.34 mmol/L (3.70-5.30); Sodium 139 mmol/L (133-146); pH (venous) 7.374 (7.32-7.43)
[2023-09-22] MEDS ORDERED: Bisacodyl 10 MG SUPP PR PRN (23:15)
[2023-09-22] MEDS: Piperacillin/Tazobactam 3.375 GM in Sodium Chloride 0.9% 100 ML IVPB SCH (23:57)
[2023-09-23] MEDS: Piperacillin/Tazobactam 3.375 GM in Sodium Chloride 0.9% 100 ML IVPB SCH (05:03)
[2023-09-23 05:39] LABS: #Basophils 0.05 10x3/uL (0.0-0.2); %Basophils 0.6 % (0.0-1.0); %Eosinophils 1.7 % (0.0-10.0); %Lymphocytes 19.5 % (21.0-51.0); %Monocytes 7.2 % (0.0-10.0); %Neutrophils 70.8 % (42.0-75.0); Hematocrit 34.6 % (42.0-52.0); Hemoglobin 11.7 g/dL (14.0-18.0); Mean Corpuscular HGB CONC 33.8 g/dL (32.0-36.0); Mean Corpuscular Volume 79.9 fL (78.0-98.0); Mean Platelet Volume 9.1 fL (7.4-10.4); Platelet Count 200 10x3/uL (130-400); RBC Distribution Width 13.6 % (11.5-14.5); Red Blood Cell (RBC) Count 4.33 mill/uL (4.70-6.10)
[2023-09-23 05:59] LABS: Anion Gap 14 mmol/L (10-20); BUN (Urea Nitrogen) 27 mg/dL (8.4-25.7); Calc. Creatinine Clearance 38 mL/min (70-130); Calcium 8.6 mg/dL (7.8-10.44); Carbon Dioxide 23 mmol/L (23-31); Chloride 107 mmol/L (98-107); Estimated GFR 28; Glucose 192 mg/dL (80-115); Magnesium 2.1 mg/dL (1.6-2.6); Potassium 3.1 mmol/L (3.5-5.1); Sodium 141 mmol/L (136-145)
[2023-09-23] MEDS: Potassium Chloride 20 MEQ in Premix 1 BAG IVPB SCH (06:46)
[2023-09-23] MEDS ORDERED: Potassium Chloride 40 MEQ in Premix 1 BAG IVPB SCH (07:00)
[2023-09-23] MEDS: Pantoprazole 40 MG VIAL IVP SCH (09:28)
[2023-09-23] MEDS ORDERED: Non-Formulary Item 1 EACH (Insulin Detemir [Levemir] 100 UNIT/ML Vial) SQ PRN (17:23)
[2023-09-23] MEDS ORDERED: Polyethylene Glycol 3350 17 GM Packet PO PRN (17:51)
[2023-09-23] MEDS: Acetaminophen 325 MG TAB PO PRN (17:57)
[2023-09-23] MEDS: Gabapentin 300 MG CAP PO SCH (21:01)
[2023-09-23] MEDS: Melatonin 3 MG TAB PO SCH (21:01)
[2023-09-23] MEDS: levETIRAcetam 500 MG TAB PO SCH (21:01)
[2023-09-23] MEDS: Metoclopramide HCl 10 MG TAB PO SCH (21:01)
[2023-09-23] MEDS: Propranolol 10 MG TAB PO SCH (21:01)
[2023-09-23] MEDS: Atorvastatin Calcium 40 MG TAB PO SCH (21:01)
[2023-09-23] MEDS: Baclofen 10 MG TAB PO SCH (21:01)
[2023-09-23] MEDS: Senokot S 8.6-50 MG TAB PO PRN (21:08)
[2023-09-23] MEDS: Acetaminophen/Codeine 30-300mg Tablet PO PRN (21:08)
[2023-09-24 06:11] LABS: #Basophils 0.06 10x3/uL (0.0-0.2); %Basophils 0.8 % (0.0-1.0); %Eosinophils 3.3 % (0.0-10.0); %Lymphocytes 24.8 % (21.0-51.0); %Monocytes 6.9 % (0.0-10.0); %Neutrophils 63.9 % (42.0-75.0); Hemoglobin 10.7 g/dL (14.0-18.0); Mean Corpuscular HGB CONC 33.4 g/dL (32.0-36.0); Mean Corpuscular Hemoglobin 26.3 pg (27.0-31.0); Mean Corpuscular Volume 78.6 fL (78.0-98.0); Mean Platelet Volume 9.1 fL (7.4-10.4); Platelet Count 200 10x3/uL (130-400); RBC Distribution Width 13.5 % (11.5-14.5); Red Blood Cell (RBC) Count 4.07 mill/uL (4.70-6.10)
[2023-09-24 06:27] LABS: Anion Gap 14 mmol/L (10-20); BUN (Urea Nitrogen) 23 mg/dL (8.4-25.7); Calc. Creatinine Clearance 39 mL/min (70-130); Calcium 8.2 mg/dL (7.8-10.44); Carbon Dioxide 24 mmol/L (23-31); Chloride 105 mmol/L (98-107); Estimated GFR 29; Glucose 218 mg/dL (80-115); Magnesium 1.8 mg/dL (1.6-2.6); Potassium 2.9 mmol/L (3.5-5.1); Sodium 140 mmol/L (136-145)
[2023-09-24] MEDS ORDERED: Electrolyte Replacement Protocol 1 EACH FS SCH (07:45)
[2023-09-24] MEDS: Hydrochlorothiazide 25 MG TAB PO SCH (08:49)
[2023-09-24] MEDS: Pantoprazole DR 40 MG TAB PO SCH (08:50)
[2023-09-24] MEDS: Amlodipine 10 MG TAB PO SCH (08:51)
[2023-09-24] MEDS: Aspirin 81 mg Enteric Coated Tablet PO SCH (08:51)
[2023-09-24] MEDS: Lisinopril 20 MG TAB PO SCH (08:51)
[2023-09-24] MEDS: Oxybutynin 5 MG TAB PO SCH (08:51)
[2023-09-24] MEDS: Clopidogrel Bisulfate 75 MG TAB PO SCH (08:51)
[2023-09-24] MEDS: Potassium Chloride 20 MEQ TAB PO SCH (08:51)
[2023-09-24] MEDS: Magnesium 2 GM/50 ML(in water) 2 GM in Premix 1 BAG IVPB SCH (08:52)
[2023-09-24] MEDS: Potassium Chloride 20 MEQ in Premix 1 BAG IVPB SCH (08:52)
[2023-09-24] MEDS ORDERED: MAGNESIUM CITRATE 100 MG PO SCH (09:00)
[2023-09-25 07:13] LABS: #Basophils 0.06 10x3/uL (0.0-0.2); %Basophils 0.7 % (0.0-1.0); %Lymphocytes 18.9 % (21.0-51.0); %Monocytes 7.3 % (0.0-10.0); %Neutrophils 69.8 % (42.0-75.0); Hematocrit 33.4 % (42.0-52.0); Hemoglobin 11.4 g/dL (14.0-18.0); Mean Corpuscular HGB CONC 34.1 g/dL (32.0-36.0); Mean Corpuscular Hemoglobin 27.2 pg (27.0-31.0); Mean Corpuscular Volume 79.7 fL (78.0-98.0); Mean Platelet Volume 9.2 fL (7.4-10.4); Platelet Count 211 10x3/uL (130-400); RBC Distribution Width 13.3 % (11.5-14.5); Red Blood Cell (RBC) Count 4.19 mill/uL (4.70-6.10)
[2023-09-25 07:37] LABS: Anion Gap 13 mmol/L (10-20); BUN (Urea Nitrogen) 20 mg/dL (8.4-25.7); Calc. Creatinine Clearance 41 mL/min (70-130); Calcium 8.8 mg/dL (7.8-10.44); Carbon Dioxide 23 mmol/L (23-31); Chloride 106 mmol/L (98-107); Estimated GFR 32; Glucose 162 mg/dL (80-115); Potassium 3.3 mmol/L (3.5-5.1); Sodium 139 mmol/L (136-145)
[2023-09-25] MEDS: Potassium Chloride 20 MEQ TAB PO SCH (08:54)
[2023-09-26 08:29] LABS: Anion Gap 15 mmol/L (10-20); BUN (Urea Nitrogen) 19 mg/dL (8.4-25.7); Calc. Creatinine Clearance 41 mL/min (70-130); Calcium 9.2 mg/dL (7.8-10.44); Carbon Dioxide 23 mmol/L (23-31); Chloride 106 mmol/L (98-107); Estimated GFR 31; Glucose 210 mg/dL (80-115); Potassium 3.8 mmol/L (3.5-5.1); Sodium 140 mmol/L (136-145)
[2023-09-26 12:45] VITALS: BP 165/82; TEMP 97.9
[2023-10-09] MEDS ORDERED: Ergocalciferol 1.25 MG(50,000 UNITS) CAP PO SCH (09:00)
== END 2023-09-26 12:48 | disposition home health service (06) | DRG 178 ==
LOC: ERS 16:13 → T4-A 20:14 → INTOOBSV 09-23 11:31 → OBSVTOIN 09-23 11:31
PROVIDERS: ADMIT Internal Medicine; ATTEND Family Medicine
DX: J69.0 Pneumonitis due to inhalation of food and vomit (principal); N17.9 Acute kidney failure, unspecified; N39.0 Urinary tract infection, site not specified; N18.4 Chronic kidney disease, stage 4 (severe); E11.22 Type 2 diabetes mellitus with diabetic chronic kidney disease; J15.4 Pneumonia due to other streptococci; E87.6 Hypokalemia; R13.10 Dysphagia, unspecified; N13.9 Obstructive and reflux uropathy, unspecified; I12.9 Hypertensive chronic kidney disease with stage 1 through stage 4 chronic kidney disease, or unspecified chronic kidney disease; E78.5 Hyperlipidemia, unspecified; G40.909 Epilepsy, unspecified, not intractable, without status epilepticus; Z96.0 Presence of urogenital implants; Z79.82 Long term (current) use of aspirin; Z79.899 Other long term (current) drug therapy; Z90.49 Acquired absence of other specified parts of digestive tract; Z87.891 Personal history of nicotine dependence
CPT/HCPCS: 36415; 36416; 71045; 71250; 74177; 80048; 80053; 81001; 82805; 83605; 83690; 83735; 83880; 84484; 85025; 87040; 87070; 87077; 87086; 87186; 87205; 93005; 96361; 96365; 96367; 96375; 96376; C9113; G0378; J0696; J1953; J2543; J3475; J3480; J3490; J7030; J7050

== ENCOUNTER 2024-02-13 18:15 | Inpatient (IN) | payer MEDICARE ==
[2024-02-13 19:22] LABS: #Basophils 0.05 10x3/uL (0.0-0.2); %Basophils 0.4 % (0.0-1.0); %Eosinophils 0.6 % (0.0-10.0); %Lymphocytes 10.4 % (21.0-51.0); %Monocytes 6.2 % (0.0-10.0); %Neutrophils 81.9 % (42.0-75.0); Hematocrit 30.5 % (42.0-52.0); Hemoglobin 10.2 g/dL (14.0-18.0); Mean Corpuscular HGB CONC 33.4 g/dL (32.0-36.0); Mean Corpuscular Hemoglobin 27.6 pg (27.0-31.0); Mean Corpuscular Volume 82.4 fL (78.0-98.0); Mean Platelet Volume 9.3 fL (7.4-10.4); Platelet Count 193 10x3/uL (130-400); RBC Distribution Width 12.9 % (11.5-14.5)
[2024-02-13 19:39] LABS: ALT (SGPT) 13 U/L (8-55); AST (SGOT) 9 U/L (5-34); Albumin 2.7 g/dL (3.4-4.8); Alkaline Phosphatase 77 U/L (40-110); Anion Gap 16 mmol/L (10-20); BUN (Urea Nitrogen) 47 mg/dL (8.4-25.7); Bilirubin, Total 0.5 mg/dL (0.2-1.2); Calc. Creatinine Clearance 0 mL/min (70-130); Calcium 8.4 mg/dL (7.8-10.44); Carbon Dioxide 20 mmol/L (23-31); Chloride 102 mmol/L (98-107); Estimated GFR 24; Globulin 4.2 g/dL (2.4-3.5); Glucose 171 mg/dL (80-115); Lipase 38 U/L (8-78); Potassium 3.6 mmol/L (3.5-5.1); Protein, Total 6.9 g/dL (5.8-8.1); Sodium 134 mmol/L (136-145)
[2024-02-13 20:01] LABS: Bacteria/HPF 4+ HPF (None Seen); Bilirubin Negative (Negative); Blood, Urine 2+ (Negative); CAUTI Indications for Culture Fever or rigors; Clarity Extra Turbid (Clear); Glucose, Urine (Dipstick) Normal (Negative); Ketone, Urine Negative (Negative); Leukocyte 500 Leu/uL (Negative); Nitrite Negative (Negative); Protein, Urine (Dipstick) 70 mg/dL (Neg-Trace); Specific Gravity, Urine 1.004 (1.002-1.036); Squamous Epithelial None Seen HPF (0-3); Urobilinogen Normal mg/dL (Less than 2); WBC/HPF Greater than 50 HPF (0-3); pH, Urine 5.5 (5.0-9.0)
[2024-02-13 20:31] LABS: Urine Culture Reflex Yes Yes
[2024-02-13] MEDS ORDERED: cefTRIAXone (ROCEPHIN) 1 GM VIAL ONE (22:24)
[2024-02-13] MEDS ORDERED: Sodium Chloride 0.9% 100 ML ONE (22:24)
[2024-02-13] MEDS ORDERED: Ondansetron ODT 4 MG TAB PO PRN (23:01)
[2024-02-13] MEDS ORDERED: Acetaminophen 650 MG Suppository PR PRN (23:01)
[2024-02-13] MEDS ORDERED: Ondansetron PF 4 MG/2 ML Vial IVP PRN (23:01)
[2024-02-13] MEDS ORDERED: Dextrose 5% in Water 1,000 ML IV PRN (23:05)
[2024-02-13] MEDS ORDERED: Dextrose 50% Abboject 50 ML SYRINGE SLOW IVP PRN (23:05)
[2024-02-13] MEDS ORDERED: Glucagon 1 MG/ML KIT IM PRN (23:05)
[2024-02-13] MEDS ORDERED: Insulin Lispro 100 UNIT/ML 10 ML VIAL SC PRN (23:05)
[2024-02-14 03:33] VITALS: BMI 29.0
[2024-02-14] MEDS: Sodium Chloride 0.9% 1,000 ML IV SCH (04:20)
[2024-02-14] MEDS: Vancomycin (BATCH) 1.75 GM in Premix 1 BAG IVPB SCH (05:36)
[2024-02-14 07:40] LABS: Anion Gap 14 mmol/L (10-20); BUN (Urea Nitrogen) 42 mg/dL (8.4-25.7); Calc. Creatinine Clearance 38 mL/min (70-130); Calcium 8.1 mg/dL (7.8-10.44); Carbon Dioxide 18 mmol/L (23-31); Chloride 106 mmol/L (98-107); Estimated GFR 27; Glucose 109 mg/dL (80-115); Potassium 3.3 mmol/L (3.5-5.1); Sodium 135 mmol/L (136-145)
[2024-02-14 08:00] LABS: #Basophils 0.04 10x3/uL (0.0-0.2); %Basophils 0.3 % (0.0-1.0); %Lymphocytes 10.7 % (21.0-51.0); %Monocytes 6.2 % (0.0-10.0); Hematocrit 27.1 % (42.0-52.0); Hemoglobin 8.8 g/dL (14.0-18.0); Mean Corpuscular HGB CONC 32.5 g/dL (32.0-36.0); Mean Corpuscular Hemoglobin 26.8 pg (27.0-31.0); Mean Corpuscular Volume 82.6 fL (78.0-98.0); Mean Platelet Volume 9.8 fL (7.4-10.4); Platelet Count 183 10x3/uL (130-400); RBC Distribution Width 12.8 % (11.5-14.5); Red Blood Cell (RBC) Count 3.28 mill/uL (4.70-6.10)
[2024-02-14] MEDS: Enoxaparin 30 MG (0.3 mL) SYRINGE SC SCH (08:17)
[2024-02-14] MEDS: Pantoprazole DR 40 MG TAB PO SCH (08:18)
[2024-02-14] MEDS: Clopidogrel Bisulfate 75 MG TAB PO SCH (08:18)
[2024-02-14] MEDS: Amlodipine 10 MG TAB PO SCH (08:18)
[2024-02-14] MEDS: levETIRAcetam 500 MG TAB PO SCH (08:18)
[2024-02-14] MEDS: Aspirin 81 mg Enteric Coated Tablet PO SCH (08:18)
[2024-02-14] MEDS: Atorvastatin Calcium 40 MG TAB PO SCH (19:21)
[2024-02-14] MEDS: Acetaminophen 325 MG TAB PO PRN (20:42)
[2024-02-14] MEDS: cefTRIAXone\\ROCEPHIN 1 GM in Sodium Chloride 0.9% 100 ML IVPB SCH (23:09)
[2024-02-15] MEDS: Senokot S 8.6-50 MG TAB PO SCH (08:51)
[2024-02-15] MEDS: Potassium Chloride 20 MEQ TAB PO SCH (10:41)
[2024-02-15 12:41] LABS: #Basophils 0.04 10x3/uL (0.0-0.2); %Basophils 0.5 % (0.0-1.0); %Eosinophils 1.7 % (0.0-10.0); %Lymphocytes 7.4 % (21.0-51.0); Hematocrit 29.3 % (42.0-52.0); Hemoglobin 9.4 g/dL (14.0-18.0); Mean Corpuscular HGB CONC 32.1 g/dL (32.0-36.0); Mean Corpuscular Hemoglobin 26.7 pg (27.0-31.0); Mean Corpuscular Volume 83.2 fL (78.0-98.0); Mean Platelet Volume 9.6 fL (7.4-10.4); Platelet Count 195 10x3/uL (130-400); RBC Distribution Width 12.6 % (11.5-14.5); Red Blood Cell (RBC) Count 3.52 mill/uL (4.70-6.10)
[2024-02-15 13:14] LABS: Anion Gap 11 mmol/L (10-20); BUN (Urea Nitrogen) 33 mg/dL (8.4-25.7); Calc. Creatinine Clearance 46 mL/min (70-130); Calcium 8.4 mg/dL (7.8-10.44); Carbon Dioxide 18 mmol/L (23-31); Chloride 109 mmol/L (98-107); Estimated GFR 34; Glucose 196 mg/dL (80-115); Potassium 3.4 mmol/L (3.5-5.1); Sodium 135 mmol/L (136-145)
[2024-02-15] MEDS: traMADol HCl 50 MG TAB PO PRN (21:42)
[2024-02-15] MEDS: cefTRIAXone\\ROCEPHIN 1 GM in Sodium Chloride 0.9% 100 ML IVPB SCH (22:00)
[2024-02-16] MEDS: Melatonin 3 MG TAB PO SCH (01:46)
[2024-02-16] MEDS: Enoxaparin 40 MG (0.4 mL) SYRINGE SC SCH (08:55)
[2024-02-16 09:24] LABS: #Basophils 0.03 10x3/uL (0.0-0.2); %Basophils 0.5 % (0.0-1.0); %Eosinophils 2.6 % (0.0-10.0); %Lymphocytes 11.7 % (21.0-51.0); %Monocytes 8.6 % (0.0-10.0); %Neutrophils 75.7 % (42.0-75.0); Hematocrit 28.8 % (42.0-52.0); Hemoglobin 9.5 g/dL (14.0-18.0); Mean Corpuscular Hemoglobin 26.6 pg (27.0-31.0); Mean Corpuscular Volume 80.7 fL (78.0-98.0); Mean Platelet Volume 9.4 fL (7.4-10.4); Platelet Count 222 10x3/uL (130-400); RBC Distribution Width 12.6 % (11.5-14.5); Red Blood Cell (RBC) Count 3.57 mill/uL (4.70-6.10)
[2024-02-16 09:42] LABS: Anion Gap 12 mmol/L (10-20); BUN (Urea Nitrogen) 27 mg/dL (8.4-25.7); Calc. Creatinine Clearance 54 mL/min (70-130); Calcium 8.3 mg/dL (7.8-10.44); Carbon Dioxide 20 mmol/L (23-31); Chloride 110 mmol/L (98-107); Estimated GFR 40; Glucose 178 mg/dL (80-115); Potassium 3.5 mmol/L (3.5-5.1); Sodium 138 mmol/L (136-145)
[2024-02-16] MEDS: Propranolol 10 MG TAB PO SCH (16:00)
[2024-02-16] MEDS: traMADol HCl 50 MG TAB PO PRN (20:41)
[2024-02-16] MEDS: Propranolol 40 MG TAB PO SCH (20:41)
[2024-02-17 05:57] LABS: #Basophils 0.04 10x3/uL (0.0-0.2); %Basophils 0.7 % (0.0-1.0); %Eosinophils 2.6 % (0.0-10.0); %Lymphocytes 18.3 % (21.0-51.0); %Monocytes 8.1 % (0.0-10.0); %Neutrophils 69.8 % (42.0-75.0); Hematocrit 29.4 % (42.0-52.0); Hemoglobin 9.7 g/dL (14.0-18.0); Mean Corpuscular Hemoglobin 26.7 pg (27.0-31.0); Mean Platelet Volume 9.2 fL (7.4-10.4); Platelet Count 239 10x3/uL (130-400); RBC Distribution Width 12.5 % (11.5-14.5); Red Blood Cell (RBC) Count 3.63 mill/uL (4.70-6.10)
[2024-02-17 06:09] LABS: Anion Gap 13 mmol/L (10-20); BUN (Urea Nitrogen) 23 mg/dL (8.4-25.7); Calc. Creatinine Clearance 52 mL/min (70-130); Calcium 8.4 mg/dL (7.8-10.44); Carbon Dioxide 19 mmol/L (23-31); Chloride 110 mmol/L (98-107); Estimated GFR 39; Glucose 159 mg/dL (80-115); Potassium 3.6 mmol/L (3.5-5.1); Sodium 138 mmol/L (136-145)
[2024-02-17] MEDS: Sodium Bicarbonate Tab 325 MG TAB PO SCH (08:57)
[2024-02-17] MEDS: Potassium Bicarbonate/Cit Ac 20 MEQ TAB PO SCH (08:58)
[2024-02-17] MEDS: Gabapentin 300 MG CAP PO SCH ×2 (10:43→22:22)
[2024-02-19] MEDS: Lactated Ringer's 1,000 ML IV SCH (09:53)
[2024-02-20 20:15] VITALS: BP 155/72; TEMP 97.9
== END 2024-02-20 21:22 | DRG 699 ==
LOC: ERS 18:15 → SUATTDRO 18:15 → T4-B 23:05 → OBSVTOIN 02-15 11:29
PROVIDERS: ADMIT Family Medicine; ATTEND Internal Medicine
DX: T83.511A Infection and inflammatory reaction due to indwelling urethral catheter, initial encounter (principal); N12 Tubulo-interstitial nephritis, not specified as acute or chronic; Z16.11 Resistance to penicillins; N17.9 Acute kidney failure, unspecified; N18.4 Chronic kidney disease, stage 4 (severe); E78.5 Hyperlipidemia, unspecified; G40.909 Epilepsy, unspecified, not intractable, without status epilepticus; H54.40 Blindness, one eye, unspecified eye; I12.9 Hypertensive chronic kidney disease with stage 1 through stage 4 chronic kidney disease, or unspecified chronic kidney disease; E11.22 Type 2 diabetes mellitus with diabetic chronic kidney disease; B96.20 Unspecified Escherichia coli [E. coli] as the cause of diseases classified elsewhere; I25.10 Atherosclerotic heart disease of native coronary artery without angina pectoris; Z86.73 Personal history of transient ischemic attack (TIA), and cerebral infarction without residual deficits; Z90.49 Acquired absence of other specified parts of digestive tract; Y84.6 Urinary catheterization as the cause of abnormal reaction of the patient, or of later complication, without mention of misadventure at the time of the procedure
CPT/HCPCS: 36415; 51702; 71045; 80048; 80053; 81001; 83605; 83690; 85025; 87077; 87086; 87186; 96365; 96375; 96376; G0378; J0696; J1650; J3370; J7030; J7120

== ENCOUNTER 2024-03-21 09:47 | Inpatient (IN) | payer MEDICARE ==
[2024-03-21] MEDS ORDERED: Cefepime 2 GM VIAL ONE (10:32)
[2024-03-21 10:35] LABS: #Basophils 0.05 10x3/uL (0.0-0.2); %Basophils 0.3 % (0.0-1.0); %Eosinophils 0.4 % (0.0-10.0); %Lymphocytes 7.6 % (21.0-51.0); %Neutrophils 85.3 % (42.0-75.0); Hematocrit 32.8 % (42.0-52.0); Mean Corpuscular HGB CONC 33.5 g/dL (32.0-36.0); Mean Corpuscular Hemoglobin 26.8 pg (27.0-31.0); Mean Platelet Volume 8.7 fL (7.4-10.4); Platelet Count 195 10x3/uL (130-400); RBC Distribution Width 13.6 % (11.5-14.5)
[2024-03-21 10:38] LABS: Actual Bicarbonate (HCO3v) 23.9 mEq/L (22-28); Base Excess -0.6 mEq/L (-2.0 to +3.0); Chloride (VBG) 106 mmol/L (98-106); Hematocrit-VBG 35 % (42.0-52.0); Hemoglobin (Hb) 11.9 g/dL (13.1-17.2); Potassium (VBG) 4.38 mmol/L (3.70-5.30); Sodium 142 mmol/L (133-146); pH (venous) 7.409 (7.32-7.43)
[2024-03-21] MEDS ORDERED: Acetaminophen 500 MG TAB ONE (10:40)
[2024-03-21] MEDS ORDERED: Vancomycin 1 GM/200 ML (FROZEN) BAG ONE (10:40)
[2024-03-21 10:59] LABS: ALT (SGPT) 17 U/L (8-55); AST (SGOT) 11 U/L (5-34); Albumin 3.5 g/dL (3.4-4.8); Alkaline Phosphatase 96 U/L (40-110); Anion Gap 17 mmol/L (10-20); BUN (Urea Nitrogen) 50 mg/dL (8.4-25.7); Bilirubin, Total 0.5 mg/dL (0.2-1.2); Calc. Creatinine Clearance 0 mL/min (70-130); Calcium 8.7 mg/dL (7.8-10.44); Carbon Dioxide 22 mmol/L (23-31); Chloride 107 mmol/L (98-107); Estimated GFR 23; Globulin 4.1 g/dL (2.4-3.5); Glucose 143 mg/dL (80-115); Magnesium 2.2 mg/dL (1.6-2.6); Potassium 4.3 mmol/L (3.5-5.1); Protein, Total 7.6 g/dL (5.8-8.1); Sodium 142 mmol/L (136-145)
[2024-03-21 11:02] LABS: Troponin I 0.021 ng/mL (< 0.028)
[2024-03-21 11:02] LABS: Bacteria/HPF 2+ HPF (None Seen); Bilirubin Negative (Negative); Blood, Urine 3+ (Negative); CAUTI Indications for Culture Fever or rigors; Clarity Extra Turbid (Clear); Glucose, Urine (Dipstick) Normal (Negative); Ketone, Urine Negative (Negative); Leukocyte 500 Leu/uL (Negative); Nitrite Negative (Negative); Protein, Urine (Dipstick) 200 mg/dL (Neg-Trace); RBC/HPF 21-50 HPF (0-3); Specific Gravity, Urine 1.007 (1.002-1.036); Squamous Epithelial None Seen HPF (0-3); Urobilinogen Normal mg/dL (Less than 2); WBC/HPF Greater than 50 HPF (0-3)
[2024-03-21 11:09] LABS: Urine Culture Reflex Yes Yes
[2024-03-21] MEDS ORDERED: Ondansetron PF 4 MG/2 ML Vial IVP PRN (12:15)
[2024-03-21] MEDS ORDERED: Glucagon 1 MG/ML KIT IM PRN (12:15)
[2024-03-21] MEDS ORDERED: Insulin Lispro 100 UNIT/ML 10 ML VIAL SC PRN ×2 (12:15)
[2024-03-21] MEDS ORDERED: Dextrose 50% Abboject 50 ML SYRINGE SLOW IVP PRN (12:15)
[2024-03-21] MEDS ORDERED: Ondansetron ODT 4 MG TAB PO PRN (12:15)
[2024-03-21] MEDS ORDERED: Dextrose 5% in Water 1,000 ML IV PRN (12:15)
[2024-03-21] MEDS: Sodium Chloride 0.9% 1,000 ML IV SCH (14:20)
[2024-03-21] MEDS ORDERED: VANCOMYCIN IVPB PRN (14:32)
[2024-03-21 14:40] VITALS: BMI 30.8
[2024-03-21] MEDS: cefTRIAXone\\ROCEPHIN 2 GM in Sodium Chloride 0.9% 100 ML IVPB SCH (15:04)
[2024-03-21] MEDS ORDERED: Vancomycin Dose by Levels Sliding Scale (Wt 71-99) FS SCH (16:00)
[2024-03-21] MEDS: Vancomycin 1 GM in Premix 1 BAG IVPB SCH (17:11)
[2024-03-21] MEDS: levETIRAcetam 500 MG TAB PO SCH (20:55)
[2024-03-21] MEDS: Atorvastatin Calcium 40 MG TAB PO SCH (20:55)
[2024-03-21] MEDS: Gabapentin 300 MG CAP PO SCH (20:55)
[2024-03-21] MEDS: Famotidine 20 MG TAB PO SCH (20:55)
[2024-03-21] MEDS: Baclofen 10 MG TAB PO SCH (20:55)
[2024-03-21] MEDS: Insulin Glargine 30 UNITS/0.3 ML VIAL SC SCH (20:57)
[2024-03-21] MEDS: Melatonin 3 MG TAB PO SCH (22:50)
[2024-03-22 06:28] LABS: #Basophils 0.06 10x3/uL (0.0-0.2); %Basophils 0.7 % (0.0-1.0); %Eosinophils 1.5 % (0.0-10.0); %Lymphocytes 17.9 % (21.0-51.0); %Monocytes 7.2 % (0.0-10.0); %Neutrophils 72.4 % (42.0-75.0); Hematocrit 28.7 % (42.0-52.0); Hemoglobin 9.4 g/dL (14.0-18.0); Mean Corpuscular HGB CONC 32.8 g/dL (32.0-36.0); Mean Corpuscular Hemoglobin 26.9 pg (27.0-31.0); Mean Corpuscular Volume 82.2 fL (78.0-98.0); Mean Platelet Volume 8.8 fL (7.4-10.4); Platelet Count 150 10x3/uL (130-400); RBC Distribution Width 13.9 % (11.5-14.5); Red Blood Cell (RBC) Count 3.49 mill/uL (4.70-6.10)
[2024-03-22 06:50] LABS: Anion Gap 13 mmol/L (10-20); BUN (Urea Nitrogen) 45 mg/dL (8.4-25.7); Calc. Creatinine Clearance 35 mL/min (70-130); Calcium 8.4 mg/dL (7.8-10.44); Carbon Dioxide 20 mmol/L (23-31); Chloride 109 mmol/L (98-107); Estimated GFR 23; Glucose 103 mg/dL (80-115); Potassium 4.2 mmol/L (3.5-5.1); Sodium 138 mmol/L (136-145)
[2024-03-22] MEDS: Aspirin 81 mg Enteric Coated Tablet PO SCH (08:49)
[2024-03-22] MEDS: Oxybutynin 5 MG TAB PO SCH (08:49)
[2024-03-22] MEDS: Clopidogrel Bisulfate 75 MG TAB PO SCH (08:50)
[2024-03-22] MEDS: Insulin Glargine 30 UNITS/0.3 ML VIAL SC SCH (08:51)
[2024-03-22] MEDS ORDERED: SODIUM CHLORIDE 0.9% IVPB SCH (09:00)
[2024-03-22] MEDS ORDERED: VANCOMYCIN IVPB SCH (09:00)
[2024-03-22 10:18] LABS: Vancomycin, Trough 18.4 ug/mL
[2024-03-22] MEDS: CHLORPROMAZINE HCL IVPB SCH (13:16)
[2024-03-22] MEDS: SODIUM CHLORIDE 0.9% IVPB SCH (13:16)
[2024-03-22] MEDS: Vancomycin HCl 500 MG in Sodium Chloride 0.9% 100 ML IVPB SCH (13:17)
[2024-03-23] MEDS: Acetaminophen 500 MG TAB PO PRN (02:32)
[2024-03-23 07:04] LABS: Anion Gap 12 mmol/L (10-20); BUN (Urea Nitrogen) 39 mg/dL (8.4-25.7); Calc. Creatinine Clearance 43 mL/min (70-130); Calcium 8.3 mg/dL (7.8-10.44); Carbon Dioxide 20 mmol/L (23-31); Chloride 110 mmol/L (98-107); Estimated GFR 30; Glucose 106 mg/dL (80-115); Sodium 138 mmol/L (136-145)
[2024-03-23] MEDS: Sodium Chloride 0.9% 1,000 ML IV SCH (11:43)
[2024-03-23] MEDS ORDERED: Melatonin 3 MG TAB PO PRN (21:01)
[2024-03-24 08:00] VITALS: TEMP 98
[2024-03-24 08:47] LABS: Anion Gap 12 mmol/L (10-20); BUN (Urea Nitrogen) 35 mg/dL (8.4-25.7); Calc. Creatinine Clearance 47 mL/min (70-130); Calcium 8.2 mg/dL (7.8-10.44); Carbon Dioxide 19 mmol/L (23-31); Chloride 113 mmol/L (98-107); Estimated GFR 32; Glucose 85 mg/dL (80-115); Potassium 4.1 mmol/L (3.5-5.1); Sodium 140 mmol/L (136-145)
[2024-03-24 17:08] VITALS: BP 163/85
== END 2024-03-24 16:12 | disposition home health service (06) | DRG 698 ==
LOC: ERS 09:47 → T4-A 12:15
PROVIDERS: ADMIT Family Medicine; ATTEND Family Medicine
DX: T83.511A Infection and inflammatory reaction due to indwelling urethral catheter, initial encounter (principal); A41.51 Sepsis due to Escherichia coli [E. coli]; N17.9 Acute kidney failure, unspecified; N39.0 Urinary tract infection, site not specified; Y73.2 Prosthetic and other implants, materials and accessory gastroenterology and urology devices associated with adverse incidents; Y84.6 Urinary catheterization as the cause of abnormal reaction of the patient, or of later complication, without mention of misadventure at the time of the procedure; E78.5 Hyperlipidemia, unspecified; E11.22 Type 2 diabetes mellitus with diabetic chronic kidney disease; N18.2 Chronic kidney disease, stage 2 (mild); G40.909 Epilepsy, unspecified, not intractable, without status epilepticus; R53.81 Other malaise; Z79.82 Long term (current) use of aspirin; Z79.02 Long term (current) use of antithrombotics/antiplatelets; Z79.84 Long term (current) use of oral hypoglycemic drugs; Z79.4 Long term (current) use of insulin; Z79.899 Other long term (current) drug therapy; Z90.49 Acquired absence of other specified parts of digestive tract; Z86.73 Personal history of transient ischemic attack (TIA), and cerebral infarction without residual deficits; Z93.6 Other artificial openings of urinary tract status
CPT/HCPCS: 36415; 51702; 71045; 80048; 80053; 80202; 81001; 82805; 83605; 83735; 84484; 85025; 87040; 87077; 87086; 87186; 93005; 94760; 96365; 96367; J0692; J0696; J1815; J3230; J3370; J3370-JW; J7030

== ENCOUNTER 2024-05-08 20:08 | Emergency (ER) | payer MEDICARE ==
[2024-05-08 21:58] LABS: #Basophils 0.05 10x3/uL (0.0-0.2); %Basophils 0.4 % (0.0-1.0); %Eosinophils 1.2 % (0.0-10.0); %Monocytes 7.1 % (0.0-10.0); %Neutrophils 77.9 % (42.0-75.0); Hematocrit 35.9 % (42.0-52.0); Mean Corpuscular HGB CONC 33.4 g/dL (32.0-36.0); Mean Corpuscular Hemoglobin 27.2 pg (27.0-31.0); Mean Corpuscular Volume 81.4 fL (78.0-98.0); Platelet Count 206 10x3/uL (130-400); RBC Distribution Width 14.2 % (11.5-14.5); Red Blood Cell (RBC) Count 4.41 mill/uL (4.70-6.10)
[2024-05-08 22:16] LABS: ALT (SGPT) 19 U/L (8-55); AST (SGOT) 12 U/L (5-34); Albumin 3.9 g/dL (3.4-4.8); Alkaline Phosphatase 113 U/L (40-110); Anion Gap 15 mmol/L (10-20); BUN (Urea Nitrogen) 54 mg/dL (8.4-25.7); Bilirubin, Total 0.4 mg/dL (0.2-1.2); Calc. Creatinine Clearance 0 mL/min (70-130); Calcium 8.7 mg/dL (7.8-10.44); Carbon Dioxide 19 mmol/L (23-31); Chloride 109 mmol/L (98-107); Estimated GFR 22; Globulin 4.4 g/dL (2.4-3.5); Glucose 143 mg/dL (80-115); Lipase 41 U/L (8-78); Magnesium 2.3 mg/dL (1.6-2.6); Potassium 4.4 mmol/L (3.5-5.1); Protein, Total 8.3 g/dL (5.8-8.1); Sodium 139 mmol/L (136-145)
[2024-05-08 23:23] LABS: Bacteria/HPF 4+ HPF (None Seen); Bilirubin Negative (Negative); Blood, Urine 2+ (Negative); CAUTI Indications for Culture Dysuria,urgency,freq; Clarity Turbid (Clear); Glucose, Urine (Dipstick) Normal (Negative); Ketone, Urine Negative (Negative); Leukocyte 500 Leu/uL (Negative); Nitrite Negative (Negative); Protein, Urine (Dipstick) 70 mg/dL (Neg-Trace); Specific Gravity, Urine 1.011 (1.002-1.036); Squamous Epithelial None Seen HPF (0-3); Urobilinogen Normal mg/dL (Less than 2); WBC/HPF Greater than 50 HPF (0-3); pH, Urine 5.5 (5.0-9.0)
[2024-05-08 23:24] LABS: Urine Culture Reflex Yes Yes
[2024-05-09 00:46] LABS: Troponin I Less than 0.010 ng/mL (< 0.028)
== END 2024-05-09 01:55 | disposition home or self-care (01) ==
LOC: ERS 20:08
DX: N39.0 Urinary tract infection, site not specified (principal); R53.1 Weakness; E11.9 Type 2 diabetes mellitus without complications; I10 Essential (primary) hypertension; E78.5 Hyperlipidemia, unspecified; Z79.4 Long term (current) use of insulin; Z79.82 Long term (current) use of aspirin; Z86.73 Personal history of transient ischemic attack (TIA), and cerebral infarction without residual deficits; Z79.899 Other long term (current) drug therapy
CPT/HCPCS: 36415; 71045; 80053; 81001; 83605; 83690; 83735; 84484; 85025; 87040; 87077; 87086; 87186; 93005; 96360; 96361

== ENCOUNTER 2024-11-25 07:38 | Emergency (ER) | payer MEDICARE ==
[2024-11-25 08:48] LABS: Bacteria/HPF 3+ HPF (None Seen); CAUTI Indications for Culture Dysuria,urgency,freq; Glucose, Urine (Dipstick) Normal (Negative); Leukocyte 500 Leu/uL (Negative); Protein, Urine (Dipstick) 20 mg/dL (Neg-Trace); Specific Gravity, Urine 1.011 (1.002-1.036); WBC/HPF Greater than 50 HPF (0-3)
[2024-11-25 08:51] LABS: Urine Culture Reflex Yes Yes
[2024-11-25 08:54] LABS: #Basophils 0.05 10x3/uL (0.0-0.2); #Eosinophils 0.22 10x3/uL (0.0-0.7); #Monocytes 0.47 10x3/uL (0.11-0.59); #Neutrophils 5.50 10x3/uL (1.40-6.50); %Basophils 0.6 % (0.0-1.0); %Eosinophils 2.8 % (0.0-10.0); %Lymphocytes 19.4 % (21.0-51.0); %Monocytes 6.0 % (0.0-10.0); %Neutrophils 70.7 % (42.0-75.0); Hematocrit 28.9 % (42.0-52.0); Hemoglobin 9.6 g/dL (14.0-18.0); Mean Corpuscular Hemoglobin 26.5 pg (27.0-31.0); Mean Corpuscular Volume 79.8 fL (78.0-98.0); Platelet Count 188 10x3/uL (130-400); Red Blood Cell (RBC) Count 3.62 mill/uL (4.70-6.10); White Blood Cell (WBC) Count 7.79 10x3/uL (4.8-10.8)
[2024-11-25 09:13] LABS: ALT (SGPT) 24 U/L (Less than 45); AST (SGOT) 16 U/L (11-34); Albumin 3.4 g/dL (3.1-4.5); Alkaline Phosphatase 111 U/L (40-110); Anion Gap 14 mmol/L (10-20); BUN (Urea Nitrogen) 68 mg/dL (8.4-25.7); Bilirubin, Total 0.2 mg/dL (0.3-1.2); Calc. Creatinine Clearance 0 mL/min (70-130); Calcium 8.0 mg/dL (7.8-10.44); Carbon Dioxide 19 mmol/L (23-31); Chloride 109 mmol/L (98-107); Globulin 3.7 g/dL (2.4-3.5); Glucose 136 mg/dL (80-115); Potassium 4.1 mmol/L (3.5-5.1); Sodium 138 mmol/L (136-145)
[2024-11-25] MEDS ORDERED: cefTRIAXone (ROCEPHIN) 2 GM VIAL ONE (09:23)
[2024-11-25 10:32] LABS: Troponin I Less than 0.010 ng/mL (< 0.028)
== END 2024-11-25 11:00 | disposition home or self-care (01) ==
LOC: ERS 07:38
DX: N39.0 Urinary tract infection, site not specified (principal); E11.9 Type 2 diabetes mellitus without complications; I10 Essential (primary) hypertension; E78.5 Hyperlipidemia, unspecified; Z79.4 Long term (current) use of insulin; Z79.899 Other long term (current) drug therapy; Z79.82 Long term (current) use of aspirin
CPT/HCPCS: 80053; 81001; 82962; 84484; 85025; 87086; 93005; 94760; J0696; 36415; 36416; 87077; 96374

== ENCOUNTER 2024-12-09 19:09 | Inpatient (IN) | payer MEDICARE ==
[2024-12-09] MEDS ORDERED: Acetaminophen 500 MG TAB ONE (20:02)
[2024-12-09 20:51] LABS: Bacteria/HPF None Seen HPF (None Seen); CAUTI Indications for Culture Fever or rigors; Glucose, Urine (Dipstick) Normal (Negative); Leukocyte 500 Leu/uL (Negative); Protein, Urine (Dipstick) 70 mg/dL (Neg-Trace); RBC/HPF 21-50 HPF (0-3); Specific Gravity, Urine 1.011 (1.002-1.036); WBC/HPF Greater than 50 HPF (0-3)
[2024-12-09 20:56] LABS: Urine Culture Reflex Yes Yes
[2024-12-09 21:13] LABS: #Basophils 0.03 10x3/uL (0.0-0.2); #Eosinophils 0.13 10x3/uL (0.0-0.7); #Monocytes 0.89 10x3/uL (0.11-0.59); #Neutrophils 9.19 10x3/uL (1.40-6.50); %Basophils 0.3 % (0.0-1.0); %Eosinophils 1.1 % (0.0-10.0); %Lymphocytes 10.7 % (21.0-51.0); %Monocytes 7.7 % (0.0-10.0); %Neutrophils 79.9 % (42.0-75.0); Hematocrit 29.9 % (42.0-52.0); Hemoglobin 9.5 g/dL (14.0-18.0); Mean Corpuscular Hemoglobin 26.3 pg (27.0-31.0); Mean Corpuscular Volume 82.8 fL (78.0-98.0); Platelet Count 159 10x3/uL (130-400); Red Blood Cell (RBC) Count 3.61 mill/uL (4.70-6.10); White Blood Cell (WBC) Count 11.51 10x3/uL (4.8-10.8)
[2024-12-09 21:40] LABS: ALT (SGPT) 25 U/L (Less than 45); AST (SGOT) 12 U/L (11-34); Albumin 3.4 g/dL (3.1-4.5); Alkaline Phosphatase 96 U/L (40-110); Anion Gap 15 mmol/L (10-20); BUN (Urea Nitrogen) 42 mg/dL (8.4-25.7); Bilirubin, Total 0.4 mg/dL (0.3-1.2); CK (CPK) 56 U/L (30-200); Calc. Creatinine Clearance 0 mL/min (70-130); Calcium 8.5 mg/dL (7.8-10.44); Carbon Dioxide 20 mmol/L (23-31); Chloride 105 mmol/L (98-107); Globulin 3.6 g/dL (2.4-3.5); Glucose 182 mg/dL (80-115); Lipase 40 U/L (8-78); Magnesium 1.9 mg/dL (1.6-2.6); Potassium 4.3 mmol/L (3.5-5.1); Sodium 136 mmol/L (136-145)
[2024-12-09] MEDS ORDERED: cefTRIAXone (ROCEPHIN) 2 GM VIAL ONE (21:47)
[2024-12-10] MEDS ORDERED: Ondansetron PF 4 MG/2 ML Vial IVP PRN (02:05)
[2024-12-10] MEDS ORDERED: Acetaminophen 325 MG TAB PO PRN (02:05)
[2024-12-10] MEDS ORDERED: Calcium Carbonate 500 MG ChewTAB PO PRN (02:05)
[2024-12-10 02:40] VITALS: BMI 29.9
[2024-12-10] MEDS ORDERED: Glucagon 1 MG/ML KIT IM PRN (04:27)
[2024-12-10] MEDS ORDERED: Dextrose 50% Abboject 50 ML SYRINGE SLOW IVP PRN (04:27)
[2024-12-10 06:22] LABS: #Basophils 0.03 10x3/uL (0.0-0.2); #Eosinophils 0.20 10x3/uL (0.0-0.7); #Monocytes 0.68 10x3/uL (0.11-0.59); #Neutrophils 6.63 10x3/uL (1.40-6.50); %Basophils 0.3 % (0.0-1.0); %Eosinophils 2.2 % (0.0-10.0); %Lymphocytes 14.8 % (21.0-51.0); %Monocytes 7.6 % (0.0-10.0); %Neutrophils 74.5 % (42.0-75.0); Hematocrit 28.0 % (42.0-52.0); Hemoglobin 8.9 g/dL (14.0-18.0); Mean Corpuscular Hemoglobin 26.1 pg (27.0-31.0); Mean Corpuscular Volume 82.1 fL (78.0-98.0); Platelet Count 138 10x3/uL (130-400); Red Blood Cell (RBC) Count 3.41 mill/uL (4.70-6.10); White Blood Cell (WBC) Count 8.91 10x3/uL (4.8-10.8)
[2024-12-10 06:40] LABS: ALT (SGPT) 21 U/L (Less than 45); AST (SGOT) 11 U/L (11-34); Albumin 3.1 g/dL (3.1-4.5); Alkaline Phosphatase 81 U/L (40-110); Anion Gap 14 mmol/L (10-20); BUN (Urea Nitrogen) 40 mg/dL (8.4-25.7); Bilirubin, Total 0.4 mg/dL (0.3-1.2); Calc. Creatinine Clearance 34 mL/min (70-130); Calcium 8.1 mg/dL (7.8-10.44); Carbon Dioxide 22 mmol/L (23-31); Chloride 106 mmol/L (98-107); Globulin 3.6 g/dL (2.4-3.5); Glucose 147 mg/dL (80-115); Potassium 4.1 mmol/L (3.5-5.1); Sodium 138 mmol/L (136-145)
[2024-12-10] MEDS: Pantoprazole 40 MG DR.TAB PO SCH (10:38)
[2024-12-10] MEDS: Baclofen 10 MG TAB PO SCH (10:38)
[2024-12-10] MEDS: Oxybutynin 5 MG TAB PO SCH (10:38)
[2024-12-10] MEDS: Lisinopril 20 MG TAB PO SCH (10:38)
[2024-12-10] MEDS: levETIRAcetam 500 MG TAB PO SCH (10:39)
[2024-12-10] MEDS: Gabapentin 300 MG CAP PO SCH (10:39)
[2024-12-10] MEDS: Aspirin 81 mg Enteric Coated Tablet PO SCH (10:39)
[2024-12-10 15:11] VITALS: BMI 29.9
[2024-12-10] MEDS: Melatonin 3 MG TAB PO SCH (20:20)
[2024-12-10] MEDS: Heparin 5,000 UNITS/ML VIAL SC SCH (20:33)
[2024-12-12 05:24] LABS: #Basophils 0.04 10x3/uL (0.0-0.2); #Eosinophils 0.22 10x3/uL (0.0-0.7); #Monocytes 0.49 10x3/uL (0.11-0.59); #Neutrophils 3.55 10x3/uL (1.40-6.50); %Basophils 0.7 % (0.0-1.0); %Eosinophils 4.0 % (0.0-10.0); %Lymphocytes 21.9 % (21.0-51.0); %Monocytes 8.9 % (0.0-10.0); %Neutrophils 64.3 % (42.0-75.0); Hematocrit 27.7 % (42.0-52.0); Hemoglobin 8.8 g/dL (14.0-18.0); Mean Corpuscular Hemoglobin 26.0 pg (27.0-31.0); Mean Corpuscular Volume 82.0 fL (78.0-98.0); Platelet Count 153 10x3/uL (130-400); Red Blood Cell (RBC) Count 3.38 mill/uL (4.70-6.10); White Blood Cell (WBC) Count 5.52 10x3/uL (4.8-10.8)
[2024-12-12 05:59] LABS: Anion Gap 15 mmol/L (10-20); BUN (Urea Nitrogen) 40 mg/dL (8.4-25.7); Calc. Creatinine Clearance 36 mL/min (70-130); Calcium 8.6 mg/dL (7.8-10.44); Carbon Dioxide 22 mmol/L (23-31); Chloride 107 mmol/L (98-107); Glucose 237 mg/dL (80-115); Potassium 4.7 mmol/L (3.5-5.1); Sodium 139 mmol/L (136-145)
[2024-12-13 07:47] LABS: Anion Gap 14 mmol/L (10-20); BUN (Urea Nitrogen) 47 mg/dL (8.4-25.7); Calc. Creatinine Clearance 36 mL/min (70-130); Calcium 8.9 mg/dL (7.8-10.44); Carbon Dioxide 23 mmol/L (23-31); Chloride 107 mmol/L (98-107); Glucose 202 mg/dL (80-115); Potassium 4.9 mmol/L (3.5-5.1); Sodium 139 mmol/L (136-145)
[2024-12-15 06:19] LABS: #Basophils 0.04 10x3/uL (0.0-0.2); #Eosinophils 0.22 10x3/uL (0.0-0.7); #Monocytes 0.45 10x3/uL (0.11-0.59); #Neutrophils 4.13 10x3/uL (1.40-6.50); %Basophils 0.6 % (0.0-1.0); %Eosinophils 3.5 % (0.0-10.0); %Lymphocytes 23.1 % (21.0-51.0); %Monocytes 7.1 % (0.0-10.0); %Neutrophils 65.1 % (42.0-75.0); Hematocrit 29.3 % (42.0-52.0); Hemoglobin 9.2 g/dL (14.0-18.0); Mean Corpuscular Hemoglobin 25.9 pg (27.0-31.0); Mean Corpuscular Volume 82.5 fL (78.0-98.0); Platelet Count 175 10x3/uL (130-400); Red Blood Cell (RBC) Count 3.55 mill/uL (4.70-6.10); White Blood Cell (WBC) Count 6.35 10x3/uL (4.8-10.8)
[2024-12-15 07:21] LABS: Anion Gap 18 mmol/L (10-20); BUN (Urea Nitrogen) 60 mg/dL (8.4-25.7); Calc. Creatinine Clearance 36 mL/min (70-130); Calcium 8.2 mg/dL (7.8-10.44); Carbon Dioxide 19 mmol/L (23-31); Chloride 107 mmol/L (98-107); Glucose 235 mg/dL (80-115); Potassium 4.9 mmol/L (3.5-5.1); Sodium 139 mmol/L (136-145)
[2024-12-15] MEDS: Sodium Bicarbonate Tab 325 MG TAB PO SCH (09:57)
[2024-12-15 13:01] VITALS: BP 166/81; TEMP 97.4
[2024-12-15] MEDS ORDERED: Sodium Bicarbonate Tab 325 MG TAB PO SCH (21:00)
== END 2024-12-15 14:30 | DRG 698 ==
LOC: ERS 19:09 → T4-B 12-10 00:07 → OBSVTOIN 12-10 12:28
PROVIDERS: ADMIT Student in an Organized Health Care Education/Training Program; ATTEND Internal Medicine
DX: T83.511A Infection and inflammatory reaction due to indwelling urethral catheter, initial encounter (principal); G93.41 Metabolic encephalopathy; N18.4 Chronic kidney disease, stage 4 (severe); E11.22 Type 2 diabetes mellitus with diabetic chronic kidney disease; D63.1 Anemia in chronic kidney disease; K21.9 Gastro-esophageal reflux disease without esophagitis; E78.5 Hyperlipidemia, unspecified; I69.398 Other sequelae of cerebral infarction; G40.909 Epilepsy, unspecified, not intractable, without status epilepticus; Z79.899 Other long term (current) drug therapy; Y73.2 Prosthetic and other implants, materials and accessory gastroenterology and urology devices associated with adverse incidents
CPT/HCPCS: 36415; 80048; 80053; 81001; 82550; 83690; 83735; 84484; 85025; 87077; 87086; 87186; 93005; 96361; 96365; 96367; 96376; 97139; G0378; J0696; J1644; J1815; J2185; J2543

== ENCOUNTER 2025-01-31 18:35 | Emergency (ER) | payer MEDICARE ==
[2025-01-31 19:00] LABS: Glucose, Urine (Dipstick) 250 mg/dL (Negative); Leukocyte Moderate (Negative); Protein, Urine (Dipstick) > or equal to 300 mg/dL (Neg-Trace); Specific Gravity, Urine 1.020 (1.005-1.030)
[2025-01-31 19:12] LABS: Bacteria/HPF 1+ HPF (None Seen); CAUTI Indications for Culture Dysuria,urgency,freq
[2025-01-31 19:13] LABS: Urine Culture Reflex Yes Yes
[2025-01-31 19:20] LABS: #Basophils 0.06 10x3/uL (0.0-0.2); #Eosinophils 0.32 10x3/uL (0.0-0.7); #Monocytes 0.41 10x3/uL (0.11-0.59); #Neutrophils 3.87 10x3/uL (1.40-6.50); %Basophils 1.0 % (0.0-1.0); %Eosinophils 5.3 % (0.0-10.0); %Lymphocytes 21.8 % (21.0-51.0); %Monocytes 6.8 % (0.0-10.0); %Neutrophils 64.6 % (42.0-75.0); Hematocrit 29.8 % (42.0-52.0); Hemoglobin 10.1 g/dL (14.0-18.0); Mean Corpuscular Hemoglobin 27.0 pg (27.0-31.0); Mean Corpuscular Volume 79.7 fL (78.0-98.0); Platelet Count 203 10x3/uL (130-400); Red Blood Cell (RBC) Count 3.74 mill/uL (4.70-6.10); White Blood Cell (WBC) Count 6.00 10x3/uL (4.8-10.8)
[2025-01-31 19:33] LABS: ALT (SGPT) 35 U/L (Less than 45); AST (SGOT) 28 U/L (11-34); Albumin 3.2 g/dL (3.1-4.5); Alkaline Phosphatase 110 U/L (40-110); Anion Gap 14 mmol/L (10-20); BUN (Urea Nitrogen) 28 mg/dL (8.4-25.7); Bilirubin, Total 0.3 mg/dL (0.3-1.2); Calc. Creatinine Clearance 0 mL/min (70-130); Calcium 8.2 mg/dL (7.8-10.44); Carbon Dioxide 19 mmol/L (23-31); Chloride 108 mmol/L (98-107); Globulin 3.8 g/dL (2.4-3.5); Glucose 217 mg/dL (80-115); Potassium 4.8 mmol/L (3.5-5.1); Sodium 136 mmol/L (136-145)
[2025-01-31] MEDS ORDERED: cefTRIAXone (ROCEPHIN) 2 GM VIAL ONE (19:55)
== END 2025-01-31 21:17 | disposition home or self-care (01) ==
LOC: ERS 18:35
DX: N39.0 Urinary tract infection, site not specified (principal); E11.9 Type 2 diabetes mellitus without complications; I10 Essential (primary) hypertension; Z79.82 Long term (current) use of aspirin; Z79.02 Long term (current) use of antithrombotics/antiplatelets; Z79.4 Long term (current) use of insulin; Z79.899 Other long term (current) drug therapy
CPT/HCPCS: 80053; 81001; 85025; 87077; 87086; 93005; J0696; 96374

== ENCOUNTER 2025-03-02 11:25 | Inpatient (IN) | payer MEDICARE ==
[2025-03-02 12:25] LABS: CAUTI Indications for Culture Dysuria,urgency,freq; Glucose, Urine (Dipstick) 150 mg/dL (Negative); Leukocyte 500 Leu/uL (Negative); Protein, Urine (Dipstick) 300 mg/dL (Neg-Trace); RBC/HPF Greater than 50 HPF (0-3); Specific Gravity, Urine 1.013 (1.002-1.036); WBC/HPF Greater than 50 HPF (0-3)
[2025-03-02 12:26] LABS: Bacteria/HPF 1+ HPF (None Seen)
[2025-03-02 12:27] LABS: Urine Culture Reflex Yes Yes
[2025-03-02 12:33] LABS: ALT (SGPT) 24 U/L (Less than 45); AST (SGOT) 16 U/L (11-34); Albumin 3.1 g/dL (3.1-4.5); Alkaline Phosphatase 94 U/L (40-110); Anion Gap 13 mmol/L (10-20); BUN (Urea Nitrogen) 42 mg/dL (8.4-25.7); Bilirubin, Total 0.4 mg/dL (0.3-1.2); Calc. Creatinine Clearance 0 mL/min (70-130); Calcium 8.5 mg/dL (7.8-10.44); Carbon Dioxide 22 mmol/L (23-31); Chloride 107 mmol/L (98-107); Globulin 3.7 g/dL (2.4-3.5); Glucose 197 mg/dL (80-115); Lipase 54 U/L (8-78); Potassium 4.2 mmol/L (3.5-5.1); Sodium 138 mmol/L (136-145)
[2025-03-02 12:43] LABS: #Basophils 0.06 10x3/uL (0.0-0.2); #Eosinophils 0.16 10x3/uL (0.0-0.7); #Monocytes 0.66 10x3/uL (0.11-0.59); #Neutrophils 7.82 10x3/uL (1.40-6.50); %Basophils 0.6 % (0.0-1.0); %Eosinophils 1.6 % (0.0-10.0); %Lymphocytes 13.6 % (21.0-51.0); %Monocytes 6.5 % (0.0-10.0); %Neutrophils 77.4 % (42.0-75.0); Hematocrit 31.3 % (42.0-52.0); Hemoglobin 10.0 g/dL (14.0-18.0); Mean Corpuscular Hemoglobin 26.3 pg (27.0-31.0); Mean Corpuscular Volume 82.4 fL (78.0-98.0); Platelet Count 189 10x3/uL (130-400); Red Blood Cell (RBC) Count 3.80 mill/uL (4.70-6.10); White Blood Cell (WBC) Count 10.11 10x3/uL (4.8-10.8)
[2025-03-02] MEDS ORDERED: Cefepime 2 GM VIAL ONE (12:58)
[2025-03-02] MEDS ORDERED: Ondansetron PF 4 MG/2 ML Vial IVP PRN (14:48)
[2025-03-02] MEDS ORDERED: Dextrose 50% Abboject 50 ML SYRINGE SLOW IVP PRN (15:13)
[2025-03-02] MEDS ORDERED: Glucagon 1 MG/ML KIT IM PRN (15:13)
[2025-03-02 15:46] VITALS: BMI 33.0
[2025-03-02] MEDS: Heparin 5,000 UNITS/ML VIAL SC SCH (16:53)
[2025-03-02] MEDS: Insulin Glargine 30 UNITS/0.3 ML VIAL SC SCH (22:23)
[2025-03-02] MEDS: levETIRAcetam 500 mg/5 ml Oral Solution PO SCH (22:25)
[2025-03-02] MEDS: Propranolol 60 MG TAB PO SCH (22:26)
[2025-03-03 05:21] LABS: #Basophils 0.06 10x3/uL (0.0-0.2); #Eosinophils 0.22 10x3/uL (0.0-0.7); #Monocytes 0.60 10x3/uL (0.11-0.59); #Neutrophils 6.39 10x3/uL (1.40-6.50); %Basophils 0.7 % (0.0-1.0); %Eosinophils 2.5 % (0.0-10.0); %Lymphocytes 16.2 % (21.0-51.0); %Monocytes 6.9 % (0.0-10.0); %Neutrophils 73.4 % (42.0-75.0); Hematocrit 28.8 % (42.0-52.0); Hemoglobin 9.2 g/dL (14.0-18.0); Mean Corpuscular Hemoglobin 26.6 pg (27.0-31.0); Mean Corpuscular Volume 83.2 fL (78.0-98.0); Platelet Count 161 10x3/uL (130-400); Red Blood Cell (RBC) Count 3.46 mill/uL (4.70-6.10); White Blood Cell (WBC) Count 8.71 10x3/uL (4.8-10.8)
[2025-03-03 05:33] LABS: Anion Gap 15 mmol/L (10-20); BUN (Urea Nitrogen) 39 mg/dL (8.4-25.7); Calc. Creatinine Clearance 43 mL/min (70-130); Calcium 8.2 mg/dL (7.8-10.44); Carbon Dioxide 18 mmol/L (23-31); Chloride 109 mmol/L (98-107); Glucose 141 mg/dL (80-115); Potassium 4.0 mmol/L (3.5-5.1); Sodium 138 mmol/L (136-145)
[2025-03-03] MEDS: Lisinopril 10 MG TAB PO SCH (07:58)
[2025-03-03] MEDS: Aspirin 81 mg Enteric Coated Tablet PO SCH (07:59)
[2025-03-03] MEDS: Pantoprazole 40 MG DR.TAB PO SCH (12:42)
[2025-03-03] MEDS: Acetaminophen 325 MG TAB PO PRN (20:14)
[2025-03-04 06:48] LABS: Anion Gap 14 mmol/L (10-20); BUN (Urea Nitrogen) 40 mg/dL (8.4-25.7); Calc. Creatinine Clearance 42 mL/min (70-130); Calcium 8.4 mg/dL (7.8-10.44); Carbon Dioxide 22 mmol/L (23-31); Chloride 112 mmol/L (98-107); Glucose 174 mg/dL (80-115); Potassium 4.0 mmol/L (3.5-5.1); Sodium 144 mmol/L (136-145)
[2025-03-04] MEDS: Lisinopril 20 MG TAB PO SCH (08:10)
[2025-03-04] MEDS: Pantoprazole 40 MG DR.TAB PO SCH (08:11)
[2025-03-05 08:19] LABS: Anion Gap 13 mmol/L (10-20); BUN (Urea Nitrogen) 32 mg/dL (8.4-25.7); Calc. Creatinine Clearance 51 mL/min (70-130); Calcium 8.7 mg/dL (7.8-10.44); Carbon Dioxide 22 mmol/L (23-31); Chloride 112 mmol/L (98-107); Glucose 134 mg/dL (80-115); Potassium 4.0 mmol/L (3.5-5.1); Sodium 143 mmol/L (136-145)
[2025-03-05] MEDS: levETIRAcetam 500 MG TAB PO SCH ×2 (09:48→20:41)
[2025-03-06] MEDS: cloNIDine 0.1 MG TAB PO PRN (16:42)
[2025-03-06] MEDS: Melatonin 3 MG TAB PO SCH (20:49)
[2025-03-09 16:19] VITALS: BMI 33.0
[2025-03-10 08:01] LABS: #Basophils 0.07 10x3/uL (0.0-0.2); #Eosinophils 0.15 10x3/uL (0.0-0.7); #Monocytes 0.43 10x3/uL (0.11-0.59); #Neutrophils 4.20 10x3/uL (1.40-6.50); %Basophils 1.1 % (0.0-1.0); %Eosinophils 2.4 % (0.0-10.0); %Lymphocytes 22.3 % (21.0-51.0); %Monocytes 6.8 % (0.0-10.0); %Neutrophils 66.9 % (42.0-75.0); Hematocrit 29.7 % (42.0-52.0); Hemoglobin 9.9 g/dL (14.0-18.0); Mean Corpuscular Hemoglobin 26.4 pg (27.0-31.0); Mean Corpuscular Volume 79.2 fL (78.0-98.0); Platelet Count 202 10x3/uL (130-400); Red Blood Cell (RBC) Count 3.75 mill/uL (4.70-6.10); White Blood Cell (WBC) Count 6.28 10x3/uL (4.8-10.8)
[2025-03-10 08:16] LABS: Anion Gap 13 mmol/L (10-20); BUN (Urea Nitrogen) 32 mg/dL (8.4-25.7); Calc. Creatinine Clearance 57 mL/min (70-130); Calcium 8.4 mg/dL (7.8-10.44); Carbon Dioxide 24 mmol/L (23-31); Chloride 110 mmol/L (98-107); Glucose 128 mg/dL (80-115); Potassium 4.0 mmol/L (3.5-5.1); Sodium 143 mmol/L (136-145)
[2025-03-10 20:55] VITALS: TEMP 97.8
[2025-03-11 07:45] VITALS: BP 157/86
== END 2025-03-11 13:30 | DRG 698 ==
LOC: ERS 11:25 → ERHOLD 13:45 → T4-B 15:33
PROVIDERS: ADMIT Internal Medicine; ATTEND Family Medicine
DX: T83.511A Infection and inflammatory reaction due to indwelling urethral catheter, initial encounter (principal); G93.41 Metabolic encephalopathy; N13.6 Pyonephrosis; Z16.12 Extended spectrum beta lactamase (ESBL) resistance; Z86.73 Personal history of transient ischemic attack (TIA), and cerebral infarction without residual deficits; E78.5 Hyperlipidemia, unspecified; Y84.6 Urinary catheterization as the cause of abnormal reaction of the patient, or of later complication, without mention of misadventure at the time of the procedure; I12.9 Hypertensive chronic kidney disease with stage 1 through stage 4 chronic kidney disease, or unspecified chronic kidney disease; E11.22 Type 2 diabetes mellitus with diabetic chronic kidney disease; Z93.6 Other artificial openings of urinary tract status; Z90.49 Acquired absence of other specified parts of digestive tract; N18.30 Chronic kidney disease, stage 3 unspecified; N31.9 Neuromuscular dysfunction of bladder, unspecified; R56.9 Unspecified convulsions; Z79.82 Long term (current) use of aspirin; Z79.84 Long term (current) use of oral hypoglycemic drugs; Z79.4 Long term (current) use of insulin; Z79.899 Other long term (current) drug therapy
CPT/HCPCS: 36415; 76770; 80048; 80053; 81001; 83690; 84484; 85025; 87077; 87086; 87186; 93005; 96365; 97139; J0692; J1644; J1815; J2185

== ENCOUNTER 2025-03-25 12:31 | Emergency (ER) | payer MEDICARE ==
[2025-03-25 13:01] LABS: Glucose, Urine (Dipstick) >=1000 mg/dL (Negative); Leukocyte Negative (Negative); Protein, Urine (Dipstick) > or equal to 300 mg/dL (Neg-Trace); Specific Gravity, Urine 1.015 (1.005-1.030)
[2025-03-25 13:07] LABS: CAUTI Indications for Culture Alt mental st,lethar; RBC/HPF 0-3 HPF (0-3)
[2025-03-25 13:08] LABS: Bacteria/HPF 1+ HPF (None Seen); Urine Culture Reflex No No
[2025-03-25 15:54] LABS: #Basophils 0.05 10x3/uL (0.0-0.2); #Eosinophils 0.29 10x3/uL (0.0-0.7); #Monocytes 0.51 10x3/uL (0.11-0.59); #Neutrophils 4.82 10x3/uL (1.40-6.50); %Basophils 0.7 % (0.0-1.0); %Eosinophils 4.0 % (0.0-10.0); %Lymphocytes 20.6 % (21.0-51.0); %Monocytes 7.1 % (0.0-10.0); %Neutrophils 67.3 % (42.0-75.0); Hematocrit 31.9 % (42.0-52.0); Hemoglobin 10.5 g/dL (14.0-18.0); Mean Corpuscular Hemoglobin 26.3 pg (27.0-31.0); Mean Corpuscular Volume 79.9 fL (78.0-98.0); Platelet Count 196 10x3/uL (130-400); Red Blood Cell (RBC) Count 3.99 mill/uL (4.70-6.10); White Blood Cell (WBC) Count 7.17 10x3/uL (4.8-10.8)
[2025-03-25 16:10] LABS: ALT (SGPT) 40 U/L (Less than 45); AST (SGOT) 18 U/L (11-34); Albumin 3.1 g/dL (3.1-4.5); Alkaline Phosphatase 148 U/L (40-110); Anion Gap 11 mmol/L (10-20); BUN (Urea Nitrogen) 44 mg/dL (8.4-25.7); Bilirubin, Total 0.3 mg/dL (0.3-1.2); Calc. Creatinine Clearance 0 mL/min (70-130); Calcium 8.4 mg/dL (7.8-10.44); Carbon Dioxide 25 mmol/L (23-31); Chloride 106 mmol/L (98-107); Globulin 3.6 g/dL (2.4-3.5); Glucose 338 mg/dL (80-115); Potassium 4.5 mmol/L (3.5-5.1); Sodium 137 mmol/L (136-145)
== END 2025-03-25 17:28 | disposition home or self-care (01) ==
LOC: ERS 12:31
DX: E86.0 Dehydration (principal); R41.0 Disorientation, unspecified; E11.65 Type 2 diabetes mellitus with hyperglycemia; N39.0 Urinary tract infection, site not specified; I25.2 Old myocardial infarction; E78.5 Hyperlipidemia, unspecified; Z79.899 Other long term (current) drug therapy; Z79.82 Long term (current) use of aspirin; Z79.02 Long term (current) use of antithrombotics/antiplatelets; Z79.84 Long term (current) use of oral hypoglycemic drugs; Z79.4 Long term (current) use of insulin
CPT/HCPCS: 36416; 80053; 81001; 83880; 85025; 99285

== ENCOUNTER 2025-03-30 18:28 | Inpatient (IN) | payer MEDICARE ==
[2025-03-30 20:41] LABS: #Basophils 0.07 10x3/uL (0.0-0.2); #Eosinophils 0.27 10x3/uL (0.0-0.7); #Monocytes 0.42 10x3/uL (0.11-0.59); #Neutrophils 5.15 10x3/uL (1.40-6.50); %Basophils 0.9 % (0.0-1.0); %Eosinophils 3.6 % (0.0-10.0); %Lymphocytes 21.1 % (21.0-51.0); %Monocytes 5.6 % (0.0-10.0); %Neutrophils 68.4 % (42.0-75.0); Hematocrit 34.0 % (42.0-52.0); Hemoglobin 11.1 g/dL (14.0-18.0); Mean Corpuscular Hemoglobin 26.5 pg (27.0-31.0); Mean Corpuscular Volume 81.1 fL (78.0-98.0); Platelet Count 197 10x3/uL (130-400); Red Blood Cell (RBC) Count 4.19 mill/uL (4.70-6.10); White Blood Cell (WBC) Count 7.53 10x3/uL (4.8-10.8)
[2025-03-30 20:54] LABS: ALT (SGPT) 34 U/L (Less than 45); AST (SGOT) 18 U/L (11-34); Albumin 3.1 g/dL (3.1-4.5); Alkaline Phosphatase 128 U/L (40-110); Anion Gap 11 mmol/L (10-20); BUN (Urea Nitrogen) 39 mg/dL (8.4-25.7); Bilirubin, Total 0.3 mg/dL (0.3-1.2); Calc. Creatinine Clearance 0 mL/min (70-130); Calcium 8.8 mg/dL (7.8-10.44); Carbon Dioxide 20 mmol/L (23-31); Chloride 112 mmol/L (98-107); Globulin 3.8 g/dL (2.4-3.5); Glucose 238 mg/dL (80-115); Potassium 4.5 mmol/L (3.5-5.1); Sodium 138 mmol/L (136-145)
[2025-03-30 21:57] LABS: Bacteria/HPF 4+ HPF (None Seen); CAUTI Indications for Culture Dysuria,urgency,freq; Glucose, Urine (Dipstick) 500 mg/dL (Negative); Leukocyte 250 Leu/uL (Negative); Protein, Urine (Dipstick) 300 mg/dL (Neg-Trace); RBC/HPF 0-3 HPF (0-3); Specific Gravity, Urine 1.011 (1.002-1.036); WBC/HPF 21-50 HPF (0-3)
[2025-03-30 22:04] LABS: Urine Culture Reflex Yes Yes
[2025-03-30] MEDS ORDERED: Ondansetron PF 4 MG/2 ML Vial IVP PRN (23:55)
[2025-03-31] MEDS ORDERED: Dextrose 50% Abboject 50 ML SYRINGE SLOW IVP PRN (00:25)
[2025-03-31] MEDS ORDERED: Glucagon 1 MG/ML KIT IM PRN (00:25)
[2025-03-31 05:21] LABS: Anion Gap 12 mmol/L (10-20); BUN (Urea Nitrogen) 37 mg/dL (8.4-25.7); Calc. Creatinine Clearance 0 mL/min (70-130); Carbon Dioxide 23 mmol/L (23-31); Chloride 113 mmol/L (98-107); Potassium 3.8 mmol/L (3.5-5.1); Sodium 144 mmol/L (136-145)
[2025-03-31 05:22] LABS: Calcium 7.8 mg/dL (7.8-10.44); Glucose 149 mg/dL (80-115)
[2025-03-31 05:35] LABS: #Basophils 0.04 10x3/uL (0.0-0.2); #Eosinophils 0.29 10x3/uL (0.0-0.7); #Monocytes 0.57 10x3/uL (0.11-0.59); #Neutrophils 4.82 10x3/uL (1.40-6.50); %Basophils 0.6 % (0.0-1.0); %Eosinophils 4.0 % (0.0-10.0); %Lymphocytes 20.2 % (21.0-51.0); %Monocytes 7.9 % (0.0-10.0); %Neutrophils 66.7 % (42.0-75.0); Hematocrit 28.9 % (42.0-52.0); Hemoglobin 9.8 g/dL (14.0-18.0); Mean Corpuscular Hemoglobin 26.7 pg (27.0-31.0); Mean Corpuscular Volume 78.7 fL (78.0-98.0); Platelet Count 188 10x3/uL (130-400); Red Blood Cell (RBC) Count 3.67 mill/uL (4.70-6.10); White Blood Cell (WBC) Count 7.22 10x3/uL (4.8-10.8)
[2025-03-31 08:56] VITALS: BMI 32.2
[2025-03-31] MEDS ORDERED: Aspirin 81 mg Enteric Coated Tablet ONE (09:46)
[2025-03-31] MEDS ORDERED: Pantoprazole 40 MG DR.TAB ONE (09:47)
[2025-03-31] MEDS ORDERED: Heparin 5,000 UNITS/ML VIAL ONE (09:47)
[2025-03-31] MEDS ORDERED: Gabapentin 300 MG CAP ONE (09:47)
[2025-03-31] MEDS: Aspirin 81 mg Enteric Coated Tablet PO SCH (09:57)
[2025-03-31] MEDS: Pantoprazole 40 MG DR.TAB PO SCH (09:58)
[2025-03-31] MEDS: Gabapentin 300 MG CAP PO SCH (09:58)
[2025-03-31] MEDS: levETIRAcetam 500 mg/5 ml Oral Solution PO SCH (10:45)
[2025-03-31] MEDS: Heparin 5,000 UNITS/ML VIAL SC SCH (12:04)
[2025-03-31] MEDS: Melatonin 3 MG TAB PO SCH (20:44)
[2025-03-31] MEDS: levETIRAcetam 500 MG TAB PO SCH (21:22)
[2025-04-01 06:57] LABS: #Basophils 0.05 10x3/uL (0.0-0.2); #Eosinophils 0.31 10x3/uL (0.0-0.7); #Monocytes 0.47 10x3/uL (0.11-0.59); #Neutrophils 4.72 10x3/uL (1.40-6.50); %Basophils 0.7 % (0.0-1.0); %Eosinophils 4.4 % (0.0-10.0); %Lymphocytes 20.6 % (21.0-51.0); %Monocytes 6.7 % (0.0-10.0); %Neutrophils 67.2 % (42.0-75.0); Hematocrit 30.4 % (42.0-52.0); Hemoglobin 9.9 g/dL (14.0-18.0); Mean Corpuscular Hemoglobin 26.3 pg (27.0-31.0); Mean Corpuscular Volume 80.9 fL (78.0-98.0); Platelet Count 173 10x3/uL (130-400); Red Blood Cell (RBC) Count 3.76 mill/uL (4.70-6.10); White Blood Cell (WBC) Count 7.03 10x3/uL (4.8-10.8)
[2025-04-01 07:19] LABS: Anion Gap 7 mmol/L (10-20); BUN (Urea Nitrogen) 35 mg/dL (8.4-25.7); Calc. Creatinine Clearance 47 mL/min (70-130); Calcium 8.4 mg/dL (7.8-10.44); Carbon Dioxide 21 mmol/L (23-31); Chloride 113 mmol/L (98-107); Glucose 168 mg/dL (80-115); Potassium 4.2 mmol/L (3.5-5.1); Sodium 137 mmol/L (136-145)
[2025-04-01] MEDS: Lisinopril 10 MG TAB PO SCH (10:29)
[2025-04-02 06:16] LABS: #Basophils 0.06 10x3/uL (0.0-0.2); #Eosinophils 0.25 10x3/uL (0.0-0.7); #Monocytes 0.40 10x3/uL (0.11-0.59); #Neutrophils 3.99 10x3/uL (1.40-6.50); %Basophils 0.9 % (0.0-1.0); %Eosinophils 3.9 % (0.0-10.0); %Lymphocytes 25.4 % (21.0-51.0); %Monocytes 6.3 % (0.0-10.0); %Neutrophils 63.0 % (42.0-75.0); Hematocrit 30.0 % (42.0-52.0); Hemoglobin 9.6 g/dL (14.0-18.0); Mean Corpuscular Hemoglobin 26.5 pg (27.0-31.0); Mean Corpuscular Volume 82.9 fL (78.0-98.0); Platelet Count 179 10x3/uL (130-400); Red Blood Cell (RBC) Count 3.62 mill/uL (4.70-6.10); White Blood Cell (WBC) Count 6.34 10x3/uL (4.8-10.8)
[2025-04-02 06:47] LABS: Anion Gap 12 mmol/L (10-20); BUN (Urea Nitrogen) 37 mg/dL (8.4-25.7); Calc. Creatinine Clearance 42 mL/min (70-130); Calcium 8.3 mg/dL (7.8-10.44); Carbon Dioxide 23 mmol/L (23-31); Chloride 110 mmol/L (98-107); Glucose 159 mg/dL (80-115); Potassium 4.1 mmol/L (3.5-5.1); Sodium 141 mmol/L (136-145)
[2025-04-02] MEDS: Insulin Glargine 30 UNITS/0.3 ML VIAL SC SCH (10:50)
[2025-04-03 10:43] LABS: Immunoglob - A (Total IgA) 401 mg/dL (101-645); Immunoglob - G (Total IgG) 1029 mg/dL (540-1822); Immunoglob - M (Total IgM) 79 mg/dL (22-240)
[2025-04-04] MEDS: PNEUMOC 20-VAL CONJ-DIP CRM/PF 0.5 ML SYRINGE IM ONE (22:11)
[2025-04-05 05:59] LABS: Anion Gap 9 mmol/L (10-20); BUN (Urea Nitrogen) 44 mg/dL (8.4-25.7); Calc. Creatinine Clearance 40 mL/min (70-130); Calcium 8.2 mg/dL (7.8-10.44); Carbon Dioxide 20 mmol/L (23-31); Chloride 109 mmol/L (98-107); Glucose 251 mg/dL (80-115); Potassium 4.2 mmol/L (3.5-5.1); Sodium 134 mmol/L (136-145)
[2025-04-05 11:37] VITALS: BMI 32.2
[2025-04-05 14:14] LABS: Kappa/Lambda Ratio 3.43 (1.83-14.26)
[2025-04-05 14:14] LABS: A/G Ratio 0.8 (0.7-1.7); Albumin 2.5 g/dL (2.9-4.4); Alpha 1 0.2 g/dL (0.0-0.4); Alpha 2 1.0 g/dL (0.4-1.0); Beta 1.0 g/dL (0.7-1.3); Gamma 1.0 g/dL (0.4-1.8); Globulin, Total 3.2 g/dL (2.2-3.9); IgA - Total IgA (Sendout) 421 mg/dL (61-437); Immunoglobulin - G (Sendout) 1032 mg/dL (603-1613); Immunoglobulin - M (Sendout) 75 mg/dL (20-172); M-Spike Not Observed g/dL (Not Observed)
[2025-04-06 06:00] LABS: Anion Gap 8 mmol/L (10-20); BUN (Urea Nitrogen) 42 mg/dL (8.4-25.7); Calc. Creatinine Clearance 43 mL/min (70-130); Calcium 8.2 mg/dL (7.8-10.44); Carbon Dioxide 20 mmol/L (23-31); Chloride 112 mmol/L (98-107); Glucose 195 mg/dL (80-115); Potassium 4.3 mmol/L (3.5-5.1); Sodium 136 mmol/L (136-145)
[2025-04-07 05:47] LABS: Anion Gap 11 mmol/L (10-20); BUN (Urea Nitrogen) 40 mg/dL (8.4-25.7); Calc. Creatinine Clearance 42 mL/min (70-130); Calcium 8.4 mg/dL (7.8-10.44); Carbon Dioxide 22 mmol/L (23-31); Chloride 111 mmol/L (98-107); Glucose 145 mg/dL (80-115); Potassium 4.3 mmol/L (3.5-5.1); Sodium 140 mmol/L (136-145)
[2025-04-07] MEDS: Baclofen 10 MG TAB PO PRN (20:56)
[2025-04-07] MEDS: Acetaminophen 325 MG TAB PO PRN (20:57)
[2025-04-08 05:42] LABS: Anion Gap 10 mmol/L (10-20); BUN (Urea Nitrogen) 40 mg/dL (8.4-25.7); Calc. Creatinine Clearance 43 mL/min (70-130); Calcium 8.6 mg/dL (7.8-10.44); Carbon Dioxide 23 mmol/L (23-31); Chloride 109 mmol/L (98-107); Glucose 200 mg/dL (80-115); Potassium 4.4 mmol/L (3.5-5.1); Sodium 138 mmol/L (136-145)
[2025-04-09 06:44] LABS: Anion Gap 14 mmol/L (10-20); BUN (Urea Nitrogen) 39 mg/dL (8.4-25.7); Calc. Creatinine Clearance 43 mL/min (70-130); Calcium 8.3 mg/dL (7.8-10.44); Carbon Dioxide 21 mmol/L (23-31); Chloride 109 mmol/L (98-107); Glucose 241 mg/dL (80-115); Potassium 4.4 mmol/L (3.5-5.1); Sodium 140 mmol/L (136-145)
[2025-04-09 15:54] LABS: Protein, Urine 287.4
[2025-04-09 15:55] LABS: Albumin-Ur 54.9; Alpha 1 - Ur 4.6; Alpha 2 - Ur 10.8; Beta-Ur 16.9
[2025-04-09 15:56] LABS: Gamma-Ur 12.8
[2025-04-10 06:36] LABS: Anion Gap 13 mmol/L (10-20); BUN (Urea Nitrogen) 37 mg/dL (8.4-25.7); Calc. Creatinine Clearance 45 mL/min (70-130); Calcium 8.8 mg/dL (7.8-10.44); Carbon Dioxide 22 mmol/L (23-31); Chloride 109 mmol/L (98-107); Glucose 187 mg/dL (80-115); Potassium 4.5 mmol/L (3.5-5.1); Sodium 139 mmol/L (136-145)
[2025-04-10] MEDS: Furosemide 40 MG TAB PO SCH (14:14)
[2025-04-11 08:14] LABS: Anion Gap 12 mmol/L (10-20); BUN (Urea Nitrogen) 41 mg/dL (8.4-25.7); Calc. Creatinine Clearance 41 mL/min (70-130); Calcium 8.7 mg/dL (7.8-10.44); Carbon Dioxide 23 mmol/L (23-31); Chloride 108 mmol/L (98-107); Glucose 207 mg/dL (80-115); Potassium 4.4 mmol/L (3.5-5.1); Sodium 139 mmol/L (136-145)
[2025-04-12 05:46] LABS: Anion Gap 16 mmol/L (10-20); BUN (Urea Nitrogen) 44 mg/dL (8.4-25.7); Calc. Creatinine Clearance 40 mL/min (70-130); Calcium 8.8 mg/dL (7.8-10.44); Carbon Dioxide 22 mmol/L (23-31); Chloride 107 mmol/L (98-107); Glucose 294 mg/dL (80-115); Potassium 4.6 mmol/L (3.5-5.1); Sodium 140 mmol/L (136-145)
[2025-04-12] MEDS: Cholecalciferol 1,000 UNITS (25 MCG) TAB PO SCH (09:09)
[2025-04-12 17:08] VITALS: BP 154/78; TEMP 97.1
[2025-04-13] MEDS ORDERED: Furosemide 20 MG TAB PO SCH (09:00)
== END 2025-04-12 18:02 | DRG 699 ==
LOC: ERS 18:28 → ERHOLD 23:55 → T4-A 03-31 10:26
PROVIDERS: ADMIT Internal Medicine; ATTEND Internal Medicine
DX: T83.518A Infection and inflammatory reaction due to other urinary catheter, initial encounter (principal); N17.9 Acute kidney failure, unspecified; N18.4 Chronic kidney disease, stage 4 (severe); R65.10 Systemic inflammatory response syndrome (SIRS) of non-infectious origin without acute organ dysfunction; N31.9 Neuromuscular dysfunction of bladder, unspecified; N18.30 Chronic kidney disease, stage 3 unspecified; E78.5 Hyperlipidemia, unspecified; G40.909 Epilepsy, unspecified, not intractable, without status epilepticus; G47.33 Obstructive sleep apnea (adult) (pediatric); I12.9 Hypertensive chronic kidney disease with stage 1 through stage 4 chronic kidney disease, or unspecified chronic kidney disease; D63.1 Anemia in chronic kidney disease; E11.319 Type 2 diabetes mellitus with unspecified diabetic retinopathy without macular edema; E87.70 Fluid overload, unspecified; M47.9 Spondylosis, unspecified
CPT/HCPCS: 36415; 36416; 70551; 72141; 76770; 80048; 80053; 81001; 82652; 83521; 84100; 84155; 84156; 84165; 84166; 85025; 86141; 86334; 87040; 87077; 87086; 87186; 96374; 96375; J0692; J1644; J1815; J2183; J2185; J7030